=== PATIENT | male | born 1950 | race Caucasian/White ===

== ENCOUNTER 2019-01-19 18:16 | Inpatient (IN) | payer MEDICARE, SELFPAY ==
[2019-01-19] VITALS (36 sets, daily range): BP systolic 172–218; BP diastolic 94–135; PULSE 78–107; RESP 10–28; TEMP 36.6–37; O2SAT 93–99
--- NOTE | 2019-01-19 18:26 | ED.GENADUL_ITS ---
Discharge Plan Disposition Patient Disposition: [facility] INPATIENT Condition: Poor Discharge Details Chief Complaint: AMS/LOC Clinical Impression: Hypercalcemia, Renal insufficiency, BPH without obstruction/lower urinary tract symptoms, Altered mental status Primary Care Provider: None,None ED Provider: Agnes Wilson Medical Decision Making Patient 60-year-old male, brought in via EMS accompanied by his brother, with chief complaint of altered mental status and syncope. Mother reports that he has had increased confusion over the past few weeks. Mother states the patient was seen by his primary care and they were concerned that he may potentially be developing early dementia. But states that his balance has been off and he is fallen multiple times in recent days. States that this evening he witnessed the patient having a syncopal episode. He was at that point that he contacted EMS. Patient does not remember this event. He is clearly confused, is oriented to person only. Patient is reporting that he feels well at this time. He does not have any discomfort. Denies any chest pain or shortness of breath. No recent illness that they are aware of. Denies any past medical history. Is not on any medications. He denies any dysuria. No change in bowel or bladder habits the patient is aware of. On exam, patient is pleasantly confused. Is able to follow all commands, no notable neurologic deficit aside from confusion. Plan for labs and CT head, chest x-ray. Labs significant for a critical calcium of 12.2. Albumin is normal. Creatinine is 1.56. Patient is receiving IV fluids. Is currently on second liter. Brother reports that patient drinks 1 gallon of milk per day. Patient initially denied hx of HTN but he and brother are now reporting that his BP is always very high. FINDINGS: Lungs: Unremarkable. No consolidation. Pleural space: Unremarkable. No pleural effusion. No pneumothorax. Heart/Mediastinum: Unremarkable. No cardiomegaly. Vasculature: Severe atherosclerosis of the thoracic aorta. Bones/joints: Unremarkable. IMPRESSION: Chronic changes but no acute cardiopulmonary process. FINDINGS: Brain: There is no acute hemorrhage, mass effect, or extra-axial fluid collections. His very severe diffuse symmetric periventricular hypodensity extends throughout the centrum semiovale. Cortical sulci are also mildly enlarged for age. There is a 7 mm hypodensity in the lateral aspect of the left lentiform nucleus. Ventricles: Ventricles are symmetric with slightly larger than average for age. Bones/joints: Unremarkable. No acute fracture. Sinuses: Moderate mucosal thickening in most of the ethmoidal air cells. The remainder the visualized paranasal sinuses are well-aerated. Mastoid air cells: Visualized mastoid air cells are well aerated. Soft tissues: Unremarkable. IMPRESSION: 1. No evidence of acute infarct but there appears be an old lacunar infarct in the left basal ganglia. 2. Severe chronic small vessel ischemic changes throughout she white matter 3. Moderate chronic appearing ethmoidal sinusitis Dr. Pati Gonzalez was in the department and we discussed the case as he will be following patient tomorrow in patient. I was planning on obtaining imaging of the patient's kidneys but he advised that as this is not going to change anything imminently on the patient, to hold off, hydrate the patient so that more appropriate imaging may be obtained tomorrow to evaluate for any cancerous etiology of his hypercalcemia. Patient does have blood in his urine. I have added an ionized calcium, parathyroid hormone. Prostate exam reveals a very hard, enlarged prostate, nontender. Will add on PSA Discussed case with who advised beginning the patient on oral metoprolol. Agrees to admission. [facility] but [facility] do not have [facility] availability at this time. Patient continues to be pleasantly confused but is easily redirected. Discussed plan with patient and his brother, they are in agreement with this plan. HPI General Mode of arrival: EMS . Date/Time Provider Initiated Documentation: 01/19/19 18:22 . Limitations to Documentation: altered mental status . Information obtained by: family, EMS and RN notes reviewed . HPI Narrative: Patient is a 68-year-old female with no known medical history, brought in via EMS and accompanied by his brother, chief concern for altered mental status. His brother, with whom the patient resides, reports the patient has becoming increasingly confused over the past several weeks. States that his balance has been off he has been falling frequently. He appeared to have a syncopal episode tonight prompting her to call EMS. Patient is never smoker. Family history significant for diabetes. Patient is typically very active, normally fairly healthy individual. Brother reports he was seen by his primary care and there was concern for early onset dementia. However, mother reports that they were in the kitchen and the patient had a syncopal episode this evening. He had been encouraging his bedside care urgently previously with his multitude of falls and has increased confusion. He does report the patient has severe cataracts and is supposed to have surgical intervention for correction that secondary to this altered mental status is not been able to be completed. Patient is currently oriented to person only. Stable denies any recent illness. Patient is not endorsing any pain. General Stated Complaint: AMS/LOC SUNNI: 3 Review of Systems Narrative: Patient is confused. Alert. Oriented to person only. Exam Const General: cooperative, healthy appearing, comfortable, no acute distress and well developed Nutritional Appearance: average body habitus and well nourished Orientation: alert, awake, oriented to person, not oriented to place, not oriented to time and confused HENUT Head: normal to inspection Ears: hearing grossly normal bilaterally Mouth: moist mucous membranes Neck Neck: normal visual inspection, full ROM, no lymphadenopathy and no meningeal signs Chest Chest: normal inspection of the chest, normal palpation of entire chest wall and no crepitus Resp Effort & Inspection: normal respiratory effort, able to speak in complete sentences and no respiratory distress Auscultation: clear to auscultation bilaterally, no rales, no rhonchi and no wheezes Cardio Rate: regular rate Rhythm: regular rhythm Heart Sounds: S1 normal and S2 normal GI Inspection: normal to inspection, no edema and non-distended Palpation: soft, no hepatosplenomegaly, not firm, no guarding, not rigid and nontender Auscultation: normal bowel sounds Back/Spine/Pelvis Back: no CVA tenderness Thoracic/Lumbar Spine: thoracic and lumbar spine normal to inspection Skin General skin exam: no rashes or lesions noted Trauma: no lacerations or abrasions Neuro General: alert, awake, oriented Patient Orientation: Person and Confused, gait normal and moves all extremities Cognition: normal cognition Speech: speech normal Gait: normal gait Motor: muscle tone normal throughout, strength 5/5 throughout, no pronator drift, no movement abnormalities noted and no fasciculations Sensory Exam: no sensory deficits noted Extrem General: normal to inspection, normal capillary refill, no pedal edema, no calf tenderness and normal gait Psych Appearance: grossly normal and well kempt Mental Status: mental status grossly normal Speech and Movement: speech and movement normal Course Vital Signs Vital signs: Vital Signs Temperature 36.6 C 01/19/19 18:18 Pulse 99 H 01/19/19 18:18 Respiratory Rate 18 01/19/19 18:18 Blood Pressure 193/108 H 01/19/19 18:18 Pulse Oximetry 95 01/19/19 18:18 Temperature 36.6 C 01/19/19 18:18 Temperature Source Temporal Artery Scan 01/19/19 18:18 Pulse 99 H 01/19/19 18:18 Respiratory Rate 18 01/19/19 18:18 Blood Pressure 193/108 H 01/19/19 18:18 Blood Pressure Position Sitting 01/19/19 18:18 Pulse Oximetry 95 01/19/19 18:18 Oxygen Delivery Method Room Air 01/19/19 18:18 Oxygen Flow Rate 0 01/19/19 18:18
[2019-01-19] MEDS: Normal Saline 1,000 ML 1000 ML IV (18:50)
[2019-01-19 19:08] LABS: Abs Immature Grans 0.02 k/cumm (0.0-0.09); Absolute Basophil Count 0.02 k/cumm (0.0-0.2); Absolute Eosinophil Count 0.06 k/cumm (0.0-0.7); Absolute Monocyte Count 0.94 k/cumm (0.11-0.7); Absolute Neutrophil Count 4.49 k/cumm (1.2-6.7); Basophils % 0.3; Eosinophils % 0.9; HCT 43.8 % (40.0-50.0); HGB 15.2 g/dL (13.5-17.5); Immature Grans % 0.3; Lymphocytes % 17.8; Mean Corp. HGB Concentration 34.7 g/dL (32.0-36.0); Mean Corpuscular Hemoglobin 29.2 pg (27.0-33.0); Mean Corpuscular Volume 84.2 fL (80-95); Mean Platelet Volume 10.1 fL (8.0-11.0); Neutrophils % 66.7; Platelet Count 227 x1000/uL (130-400); RBC Distribution Width 14.1 % (11.8-14.1); White Blood Cell Count 6.73 k/cumm (4.4-10.8)
[2019-01-19 19:13] LABS: Bilirubin Negative (Negative); Blood Moderate (Negative); Clarity Clear (Clear); Glucose Negative (Negative); Ketones Negative (Negative); Leukocyte Esterase Negative (Negative); Nitrite Negative (Negative); Urobilinogen 0.2 EU/dL (Up TO 0.2)
[2019-01-19 19:19] LABS: ALT 33 U/L (16-63); AST 28 U/L (15-37); Albumin 3.8 g/dL (3.4-5.0); Alkaline Phosphatase 91 U/L (46-116); Ammonia 21 umol/L (11-32); BUN 37 mg/dL (7-18); Bilirubin, Total 0.5 mg/dL (0.2-1.0); CREATININE 1.56 mg/dL (0.70-1.30); Chloride 105 mmol/L (98-107); Estimated GFR 44.48 (mL/min/1.73m2); Glucose 108 mg/dL (70-100); Magnesium 2.1 mg/dL (1.8-2.4); Potassium 3.6 mmol/L (3.5-5.1); Sodium 139 mmol/L (136-145); TSH 1.38 uIU/mL (0.36-3.74); Total Protein 7.9 g/dL (6.4-8.2)
[2019-01-19 19:22] LABS: Bacteria Rare HPF (Negative); C & S Indicated? No; Casts Negative LPF (Negative); Crystals Negative HPF (Negative); Epithelial Cells Negative HPF (Negative); Mucus Trace (Negative); Other Cells Negative (Negative); WBC Negative HPF (0-5)
--- NOTE | 2019-01-19 19:27 | DI.CT_ITS ---
EXAM: CT HEAD WO CLINICAL HISTORY: AMS, multiple falls TECHNIQUE: Noncontrast COMPARISON: No exams were available for comparison FINDINGS: No intracranial hemorrhage or skull fracture is seen. There is mild atrophy. The ventricles are no rmal in size. There is an old left basal ganglia lacunar infarct and a right basal ganglia calcifica tion. There are white matter changes likely reflecting chronic microvascular changes. The sinuses a nd mastoid air cells are clear where visualized. IMPRESSION: Old left basal ganglia lacunar infarct. No acute abnormality.
--- NOTE | 2019-01-19 19:27 | DI.RAD_ITS ---
EXAM: XR CHEST 2V PA LATERAL INDICATION: Altered mental status, multiple falls COMPARISON: No exams were available for comparison TECHNIQUE: 2D digital imaging was performed. FINDINGS: Heart size is at the upper limits of normal. The aorta is tortuous, calcified and mildly dilated. The lungs are clear. No infiltrate, effusion or pulmonary edema is seen. There are no thoracic comp ression fractures. IMPRESSION: No acute abnormality.
[2019-01-19 19:29] LABS: Calcium 12.2 mg/dL (8.5-10.1)
--- NOTE | 2019-01-19 19:40 | NUR.NOTE ---
Nursing Note: Patient wanting IV out. Was informed of reason it needs to stay in. Patient agrees to leave IV in place at this time. Patient does repeatedly ask when she is going home. Informed we are waiting on all test results then provider will be in to discuss results with her.
--- NOTE | 2019-01-19 19:48 | NUR.NOTE ---
Nursing Note: Labels for add on blood work sent to lab.
--- NOTE | 2019-01-19 19:49 | DI.VRAD_ITS ---
PROCEDURE INFORMATION: Exam: CT Head Without Contrast Exam date and time: 01/19/2019 7:17 PM Clinical history: 68 years old, male; Altered mental status/memory loss TECHNIQUE: Imaging protocol: Computed tomography of the head without contrast. Radiation optimization: All CT scans at this facility use at least one of these dose optimization techniques: automated exposure control; mA and/or kV adjustment per patient size (includes targeted exams where dose is matched to clinical indication); or iterative reconstruction. COMPARISON: No relevant prior studies available. FINDINGS: Brain: There is no acute hemorrhage, mass effect, or extra-axial fluid collections. His very severe diffuse symmetric periventricular hypodensity extends throughout the centrum semiovale. Cortical sulci are also mildly enlarged for age. There is a 7 mm hypodensity in the lateral aspect of the left lentiform nucleus. Ventricles: Ventricles are symmetric with slightly larger than average for age. Bones/joints: Unremarkable. No acute fracture. Sinuses: Moderate mucosal thickening in most of the ethmoidal air cells. The remainder the visualized paranasal sinuses are well-aerated. Mastoid air cells: Visualized mastoid air cells are well aerated. Soft tissues: Unremarkable. IMPRESSION: 1. No evidence of acute infarct but there appears be an old lacunar infarct in the left basal ganglia. 2. Severe chronic small vessel ischemic changes throughout she white matter 3. Moderate chronic appearing ethmoidal sinusitis Dictated and Authenticated by: Domingo Rodriguez MD. Ordering:NEYMAR Alarcon MD
--- NOTE | 2019-01-19 19:50 | DI.VRAD_ITS ---
PROCEDURE INFORMATION: Exam: XR Chest, 2 Views Exam date and time: 01/19/2019 6:35 PM Clinical history: 68 years old, male; Other: Altered mental status, multiple falls TECHNIQUE: Imaging protocol: XR of the chest Views: 2 views. COMPARISON: No relevant prior studies available. FINDINGS: Lungs: Unremarkable. No consolidation. Pleural space: Unremarkable. No pleural effusion. No pneumothorax. Heart/Mediastinum: Unremarkable. No cardiomegaly. Vasculature: Severe atherosclerosis of the thoracic aorta. Bones/joints: Unremarkable. IMPRESSION: Chronic changes but no acute cardiopulmonary process. Dictated and Authenticated by: Domingo Rodriguez MD. Ordering:NEYMAR Alarcon MD
[2019-01-19] MEDS: Normal Saline Flush 10 ML SYR IVP (19:56)
--- NOTE | 2019-01-19 20:23 | HPE_ITS ---
Date of service: 01/19/19 Time of Service: 20:23 Assessment and Plan Assessment and plan (1) Hypercalcemia: Start date: 01/19/19 Status: Acute Assessment and plan: This is a 68-year-old gentleman who presented with mental status changes over weeks and was found to be hypercalcemic was having a work-up as an outpatient with probable dementia. He does have an old lacunar infarct on CT and extensive small vessel ischemic disease. He does have renal insufficiency but no anemia or hyperproteinemia to indicate multiple myeloma and thus far no suggestion of bony disease though his prostate is slightly enlarged but otherwise normal filling. We will check a PSA. Imaging to be done in the morning for further evaluation overnight he will be hydrated for his hypercalcemia and probable acute renal insufficiency with no comparison labs available. He does go the [facility] care. His home meds are unknown. He is a full code at this time. (2) Renal insufficiency: Start date: 01/19/19 Status: Acute Assessment and plan: IV hydration as above and follow-up lab in the morning. (3) BPH without obstruction/lower urinary tract symptoms: Status: Chronic Assessment and plan: Exam is not indicative of gross evidence for prostate cancer and PSA will be checked. Patient is not complained of back pain. History of Present Illness History of Present Illness Chief Complaint: Confusion with falling Narrative: This is a 68-year-old gentleman who lives with his brother and is checked him on by his mother with recent change in mental status. His Ol[place]a was having a work- up for cataract surgery but his mental status changes have become problematic with question of whether he is having progressive dementia but this seems to be of rather sudden onset over the last couple weeks by reviewing the ED report. He has been falling but not injuring himself. He was found to have hyperca lcemia with some mild renal insufficiency with no previous records for baseline. He denies any musculoskeletal pain, has had no recent illness by report with no focal neurologic complaints other than his change in mental status and disorientation. His bowel habits and urinary habits have been normal. He does not complain of palpitations or chest pain and is not reporting dizziness with his falls. CT imaging of his head did reveal an old lacunar infarct in the left basal ganglia with severe chronic small vessel ischemic changes throughout his white matter. He also had mild to moderate ethmoidal sinusitis. His chest x-ray was unrevealing. Patient was admitted for monitoring while we IV hydrated him for his hypercalcemia with further imaging planned in the morning. He did have a PSA checked because of BPH but by exam in the ED it was thought to be hard but symmetrical without irregularity. I will perform prostate exam myself. He does not have any hyperproteinemia with his renal insufficiency and he is not anemic with multiple myeloma being in the differential diagnosis. Prostate cancer is in the differential diagnosis with bone involvement but he is having no bone pain. Review of Systems Narrative: Also see ED report and HPI for attempted review of systems with verbal response from patient. His brother/mother did give some history. Unobtainable due to mental condition [facility] Medical History (Updated 01/20/19 @ 00:07 by Tavo Owens) Cataracts, bilateral (Acute) Left sided lacunar infarction (Acute) Memory impairment (Acute) Social History Smoking/Tobacco Use Status: Unknown Meds Home Medications and Allergies Home Medications Medication Instructions Recorded Confirmed Type Unknown [No Known Home Meds] 01/19/19 01/19/19 History Allergies Allergy/AdvReac Type Severity Reaction Status Date / Time No Known Allergies Allergy Unverified 01/19/19 21:40 Exam Narrative Exam Narrative: General: Patient is muscular moves very slowly and bent over walking with a walker and is moderately antalgic. He is oriented to person only. He is in no acute distress. He is cooperative. HEENT: Normocephalic with eyes revealing pupils equal and reactive to oropharynx with slightly dry oral mucosa. Light symmetrically, sclera anicteric and extraocular movement intact. Neck: Supple without JVD. Back: Stooped posture with slight kyphosis, no CVA tenderness, no tenderness over the spine. Lungs: Fair aeration with no focalizing rales or rhonchi. Normal inspiratory to expiratory phase ratio. Heart: Regular rate and rhythm with no appreciable murmurs or gallops. Chest: Symmetric with inspiration and no tenderness to palpation. Abdomen: Soft, no tenderness and no palpable hepatomegaly. Genitalia/rectal: Normal external genitalia, rectal exam with normal sphincter tone and 40 g prostate, symmetric, firm and no palpable nodules. Extremities: Without clubbing, cyanosis or edema but decreased range of motion most joints. Normal musculature. Peripheral pulses intact with good capillary refill. Neuro: Cranial nerves II through XII appear to be grossly intact, no focalizing motor deficits, positive Romberg and negative Babinski's. Skin: Abrasions over the knees which appear old but no other rashes or apparent bruises. Warm and dry with normal coloration. Results Imaging Imaging Studies: Exam(s) PROCEDURE INFORMATION: Exam: XR Chest, 2 Views Exam date and time: 01/19/2019 6:35 PM Clinical history: 68 years old, male; Other: Altered mental status, multiple falls TECHNIQUE: Imaging protocol: XR of the chest Views: 2 views. COMPARISON: No relevant prior studies available. FINDINGS: Lungs: Unremarkable. No consolidation. Pleural space: Unremarkable. No pleural effusion. No pneumothorax. Heart/Mediastinum: Unremarkable. No cardiomegaly. Vasculature: Severe atherosclerosis of the thoracic aorta. Bones/joints: Unremarkable. IMPRESSION: Chronic changes but no acute cardiopulmonary process. Dictated and Authenticated by: Domingo Rodriguez MD. Exam(s) PROCEDURE INFORMATION: Exam: CT Head Without Contrast Exam date and time: 01/19/2019 7:17 PM Clinical history: 68 years old, male; Altered mental status/memory loss TECHNIQUE: Imaging protocol: Computed tomography of the head without contrast. Radiation optimization: All CT scans at this facility use at least one of these dose optimization techniques: automated exposure control; mA and/or kV adjustment per patient size (includes targeted exams where dose is matched to clinical indication); or iterative reconstruction. COMPARISON: No relevant prior studies available. FINDINGS: Brain: There is no acute hemorrhage, mass effect, or extra-axial fluid collections. His very severe diffuse symmetric periventricular hypodensity extends throughout the centrum semiovale. Cortical sulci are also mildly enlarged for age. There is a 7 mm hypodensity in the lateral aspect of the left lentiform nucleus. Ventricles: Ventricles are symmetric with slightly larger than average for age. Bones/joints: Unremarkable. No acute fracture. Sinuses: Moderate mucosal thickening in most of the ethmoidal air cells. The remainder the visualized paranasal sinuses are well-aerated. Mastoid air cells: Visualized mastoid air cells are well aerated. Soft tissues: Unremarkable. IMPRESSION: 1. No evidence of acute infarct but there appears be an old lacunar infarct in the left basal ganglia. 2. Severe chronic small vessel ischemic changes throughout she white matter 3. Moderate chronic appearing ethmoidal sinusitis Dictated and Authenticated by: Domingo Rodriguez MD. Labs Result diagrams: 01/19/19 18:30 01/19/19 18:30 Labs: Laboratory Results - last 24 hr 01/19/19 01/19/19 01/19/19 18:30 18:30 18:30 WBC 6.73 RBC 5.20 Hgb 15.2 Hct 43.8 MCV 84.2 MCH 29.2 MCHC 34.7 RDW 14.1 Plt Count 227 MPV 10.1 Immature Gran % 0.3 Neutrophils % 66.7 Lymphocytes % 17.8 Monocytes % 14.0 Eosinophils % 0.9 Basophils % 0.3 Absolute Neutrophils 4.49 Absolute Lymphocytes 1.20 Absolute Monocytes 0.94 H Absolute Eosinophils 0.06 Absolute Basophils 0.02 Sodium 139 Potassium 3.6 Chloride 105 Carbon Dioxide 24.0 Anion Gap 10.0 BUN 37 H Creatinine 1.56 H Estimated GFR/1.73 m2 44.48 Glucose 108 H Calcium 12.2 H* Magnesium 2.1 Total Bilirubin 0.5 AST 28 ALT 33 Alkaline Phosphatase 91 Ammonia 21 Total Protein 7.9 Albumin 3.8 TSH 1.38 Urine Color Urine Clarity Urine pH Ur Specific [place] Urine Protein Urine Ketones Urine Blood Urine Nitrite Urine Bilirubin Urine Urobilinogen Ur Leukocyte Esterase Urine RBC Urine WBC Ur Epithelial Cells Urine Crystals Urine Bacteria Urine Casts Urine Mucus Urine Other Ur Culture Indicated? Urine Glucose 01/19/19 19:10 WBC RBC Hgb Hct MCV MCH MCHC RDW Plt Count MPV Immature Gran % Neutrophils % Lymphocytes % Monocytes % Eosinophils % Basophils % Absolute Neutrophils Absolute Lymphocytes Absolute Monocytes Absolute Eosinophils Absolute Basophils Sodium Potassium Chloride Carbon Dioxide Anion Gap BUN Creatinine Estimated GFR/1.73 m2 Glucose Calcium Magnesium Total Bilirubin AST ALT Alkaline Phosphatase Ammonia Total Protein Albumin TSH Urine Color Yellow Urine Clarity Clear Urine pH 6.0 Ur Specific [place] 1.020 Urine Protein 100 H Urine Ketones Negative Urine Blood Moderate H Urine Nitrite Negative Urine Bilirubin Negative Urine Urobilinogen 0.2 Ur Leukocyte Esterase Negative Urine RBC 5-10 H Urine WBC Negative Ur Epithelial Cells Negative Urine Crystals Negative Urine Bacteria Rare Urine Casts Negative Urine Mucus Trace Urine Other Negative Ur Culture Indicated? No Urine Glucose Negative Last Vital Signs Temp 36.6 C 01/19/19 18:18 Pulse 93 H 01/19/19 19:46 Resp 15 01/19/19 18:31 BP 204/103 H 01/19/19 19:46 Pulse Ox 97 01/19/19 19:46
[2019-01-19] MEDS: Metoprolol 25 MG TAB PO (20:37)
[2019-01-19] MEDS: Normal Saline 1,000 ML 150 ML IV (20:40)
[2019-01-20] VITALS (19 sets, daily range): BP systolic 148–224; BP diastolic 92–188; PULSE 69–94; RESP 16–18; TEMP 36.6–37.1; O2SAT 97–98
[2019-01-20] MEDS: Normal Saline 1,000 ML 150 ML IV ×3 (00:14→17:33)
[2019-01-20] MEDS: Heparin 5,000 UNITS/ML VIAL 5000 UNITS SC ×3 (00:58→16:19)
[2019-01-20] MEDS: Normal Saline Flush 10 ML SYR IVP ×2 (05:48→20:24)
[2019-01-20] MEDS: Metoprolol 5 MG/5 ML VIAL IVP (05:49)
[2019-01-20] MEDS: Metoprolol 25 MG TAB PO ×2 (05:50→21:54)
[2019-01-20 07:30] LABS: HCT 43.2 % (40.0-50.0); HGB 14.5 g/dL (13.5-17.5); Mean Corp. HGB Concentration 33.6 g/dL (32.0-36.0); Mean Corpuscular Hemoglobin 28.8 pg (27.0-33.0); Mean Corpuscular Volume 85.7 fL (80-95); Mean Platelet Volume 10.1 fL (8.0-11.0); Platelet Count 197 x1000/uL (130-400); RBC 5.04 m/cumm (4.50-6.00); RBC Distribution Width 14.3 % (11.8-14.1); White Blood Cell Count 5.59 k/cumm (4.4-10.8)
[2019-01-20 07:40] LABS: ALT 30 U/L (16-63); AST 25 U/L (15-37); Albumin 3.3 g/dL (3.4-5.0); Alkaline Phosphatase 81 U/L (46-116); Anion Gap 9.6 mmol/L (3-11); BUN 27 mg/dL (7-18); Bilirubin, Total 0.9 mg/dL (0.2-1.0); CO2 23.4 mmol/L (21.0-32.0); CREATININE 1.39 mg/dL (0.70-1.30); Calcium 10.4 mg/dL (8.5-10.1); Chloride 111 mmol/L (98-107); Estimated GFR 50.82 (mL/min/1.73m2); Glucose 90 mg/dL (70-100); Potassium 3.8 mmol/L (3.5-5.1); Sodium 144 mmol/L (136-145); Total Protein 6.9 g/dL (6.4-8.2)
--- NOTE | 2019-01-20 08:47 | PHARADMIT ---
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 as outpt Also admitted for altered mental status Objective Ca++ 9.9 (Corrected Calcium is 10.46), K+ 3.6, Mag 2.0 VS ok, BP 143/90, weight down 0.6kg (73kg) Assessment MD mentions stopping IVF's (has KCL running) Hydralazine dose increased, BP improved Swallowing assessment: overall function improved, managing regular diet & thin liquids, able to feed self Lasix was a 1x order yesterday...but IVF's still running Plan PT/OT, discharge plan [facility] Addendum entered by Patricia Jain 01/25/19 16:43: Pharmacy Note Subjective mental status close to baseline per MD Objective BP 146/80, Afebrile, weight down 4kg overnight, SCr down 1.33 Calcium down 10.0, K+ 3.2, Mag 1.8 Assessment IVF's changed to include 40meq KCL Lasix 20mg IVP x1 Sensipar (Cinacalcet) added-for Hyperparathyroidism Hydralazine dose increased yesterday Plan will need outpatient thyroid surgery, follow Calcium, weight, diuresis, BP Addendum entered by Caroline Coppola 01/21/19 16:17: Pharmacy Note Subjective pt continues to be confused per morning report. has history of hyperparathyroid and HTN Objective BP-160/103 SCr-1.31 calcium-10.9(down) Assessment aspirin, atorvastatin, carvedilol, folic acid ordered metoprolol discontinued haloperidol X1 dose given today neuro consult ordered Plan continue to watch calcium Original Note: Admission Pharmacy Clinical Review HYPERCALCEMIA,RENAL INSUFFICIENCY, BPH Code Status Full Code Current Weight Wgt- 80.4 kg Renally Cleared and Narrow Therapeutic Index Meds CrCl~39 mL/min Meds-OK QTc Value / Action Taken QTc-448 NA BP Control, Fever BP-224/154 Tmax-36.6C Electrolytes reviewed Na-144 K+3.8 Mag-2.1 DVT Prophylaxis Heparin-SC Opiate Usage / Scheduled Bowel Regimen Ordered No Yes Plt/SCr for Heparin / Enoxaparin Plts-197 SCr-1.39 INR for Warfarin NA H/H stable, WBC/Bands H&H-14.5/43.2 WBC-5.59 Antibiotic appropriateness nononene Cultures and Sensitivities NA Surgical ABX d/c within 24 hr DM control / Insulin Dosing BG-90 Heart Failure (Check EF%) (DAVID's, B-Block, Diuretics) Norvasc, Hydralazine, IV to PO Switch No Home Meds Reviewed Yes Home Meds Not Ordered No Known Meds Comments
[2019-01-20] MEDS: Haloperidol 5 MG/ML VIAL 2 MG IM/IV (09:17)
[2019-01-20] MEDS: amLODIPine 10 MG TAB PO (10:09)
--- NOTE | 2019-01-20 14:22 | NUR.NOTE ---
Nursing Note: From 709 to 929 Pt is confused, restless and rambunctious, walking in hallways, refusing to go into his room, trying to escape on the elevators. unsteady on feet and displaying no regard for safety of himself or staff.
--- NOTE | 2019-01-20 15:10 | DI.MRI_ITS ---
EXAM: MR BRAIN WO CLINICAL HISTORY: Altered Mental Status. TECHNIQUE: Multiplanar multisequence MRI was performed. COMPARISON: CT HEAD WO from 01/19/2019 FINDINGS: The exam is limited by patient motion and patient positioning. Mild atrophy is again noted. High si gnal in the white matter and an old left basal ganglia lacunar infarct. No acute infarct, hemorrhage or mass is seen. There are no areas restricted diffusion; however, the frontal lobes show significa nt artifact on the diffusion-weighted sequences. IMPRESSION: Severely limited exam due to patient motion and positioning. Prominent white matter changes of small vessel disease are noted. There is a tiny old left basal ganglia lacunar infarct.
--- NOTE | 2019-01-20 16:27 | INITIAL_ITS ---
- If Service Date Differs Date of service: 01/20/19 Time of Service: 16:27 Care Management Initial Assess REASON FOR HOSPITALIZATION:: Hypercalcemia, renal insuf, BPH PAST MEDICAL HISTORY/PAST SURGICAL HISTORY:: [facility]cal[facility], [facility] PREVIOUS FUNCTIONAL STATUS/SOCIAL/FAMILY SUPPORTS:: Sandeep lives with his brother and mother in [place], [place]. Brother reports that Sandeep is is usually indepedent however over the last year has become more confused. He uses [facility] for transportation and his last visit to a primary care provider was in 2006, according to records he has been seen in the ER in [place] and [facility] for a total of 3 times over the past 5 years. CURRENT FUNCTIONAL STATUS:: Sandeep is alert, however confused he does have a pateint one on one with him. He appears confused however he is able to be redirected and sit down in his room and meet with CM. ADVANCE DIRECTIVES:: None on file - unable to complete at this time Has patient been provided with information about the portal?: Yes Did the patient sign up for the portal?: No CODE STATUS:: Full Code INSURANCE COVERAGE / FINANCIAL ISSUES:: Medicare CURRENT HOME/COMMUNITY SERVICES/EQUIPMENT:: None at this time PRIMARY CARE PHYSICIAN:: KARRIE POTENTIAL DISCHARGE NEEDS:: Will need [facility] with [facility] to discharge. CM will fax H&P. PATIENT/FAMILY EDUCATION NEEDS:: Discharge education, limitations and follow up plan of care including family should be included. ANTICIPATED BARRIERS TO DISCHARGE:: Needs to be connected to services prior to discharge including [facility] TRANSPORTATION:: Via private car with brother at time of discharge. PLAN:: Sandeep will be discharged home when medically ready per provider. CM will assist in coordinating new appointment with the [facility] and fax over H&P as well as Discharge summary. CM did contact the [facility] to transfer patient however there are no beds at this time.
[2019-01-20 17:23] LABS: Ionized Calcium 1.39 mmol/L (1.12-1.32)
--- NOTE | 2019-01-20 19:13 | W.PM.PROGNOT ---
Date of Service Date of service: 01/20/19 Time of Service: 19:14 Assessment and Plan Assessment and plan (1) Altered mental status: Status: Acute Assessment and plan: Appearance of a chronic change in mental status, acutely worsened with associated weakness and falls. - Evidence of Hypercalcemia - However, vastly improved and nearly normalized this morning, with patient still altered. - Urinalysis and CXR negative, patient afebrile, and without leukocytosis. Doubt infection. - CT Head negative. Will check MRI, especially given evidence of old CVA's by CT, to ensure lack of acute pathology. - Evidence of ALICJA, which is mild and improved - certainly not uremic. Also with normal LFTs and Ammonia - not hepatic encephalopathy. - No evidence of hypoxia, EtOH intoxication, or hyponatremia. TSH checked and normal. Check B12 and Folate. - No alterations in medications. Patient does not take any home Rx. (2) Hypercalcemia: Status: Acute Assessment and plan: I-PTH and Ionized Calcium pending, but according to discussion between Case Management and the [facility], Mr. Ritter has a lengthy history of Hyperparathyroidism as likely cause. Continue IVFs until diagnosis is confirmed. (3) Hypertension: Status: Chronic Assessment and plan: Initiate CCB to already started BB. IV Hydralazine prn. Also seems to have component of worsening with agitation. Monitor. (4) ALICJA (acute kidney injury): Status: Acute Assessment and plan: Improved with IVFs. Unsure of baseline. (5) CVA (cerebral vascular accident): Status: Chronic Assessment and plan: Initiate on daily ASA and statin therapy. MRI brain as above. (6) DVT prophylaxis: Status: Acute Assessment and plan: SC Heparin. Subjective Subjective Interval history since last seen: 68 [facility] old [facility] patient admitted [facility] Emergency Department on 01/21 with a diagnosis of altered mental status and hypercalcemia. Mr. Ritter has an unknown prior history - he is a [facility], but has not been seen by them since 2006. Since his admission, Case Management has confirmed diagnosis of Hyperparathyroidism and HTN that has likely gone untreated since that time. He was brought to the ED via EMS with reported altered mental status and syncope. The patient has been reported to have increasing confusion over the past few weeks to months - was seen by his PCP who had concern regarding the possibility of the development of early dementia. He has also been reported to have gait dysfunction, with multiple falls over the course of the last few days as well as worsening confusion per discussion with his brother. There is also some question of syncope at home, although history sounds more like continued falls at home. Work-up in the ED was significant for a normal CBC, mildly elevated creatinine but otherwise normal sodium, potassium, and bicarb, elevated Ca of 12.2, and normal LFTs. His ammonia and TSH were also normal. CXR did not show any acute abnormalities, and CT of the head showed an old left basal ganglia lacunar infarct without any acute findings. He was initiated on IVFs, and referred for admission for further evaluation and treatment. By the morning after admission Mr. Ritter's Calcium had nearly normalized, but the patient continued to be confused. He was agitated requiring administration of haldol. Also remains hypertensive. No other events reported. He has remained afebrile. Exam Narrative Exam Narrative: General: Patient appears comfortable, not agitated at time of exam, not oriented, NAD Neck: Supple CV: Regular, nontachycardic, S1S2, No rubs, murmurs, or gallops. Pulmonary: Clear to auscultation bilaterally, no crackles, wheezing, or rhonchi Abdomen: + Bowel Sounds, soft, nontender, nondistended Vascular: No lower extremity edema Psych: Normal mood and affect. Objective Objective Clinical Data: Abnormal lab results 01/19/19 01/19/19 01/19/19 Range/Units 18:30 18:30 19:10 RDW (11.8-14.1) % Absolute Monocytes 0.94 H (0.11-0.7) k/cumm Chloride (98-107) mmol/L BUN 37 H (7-18) mg/dL Creatinine 1.56 H (0.70-1.30) mg/dL Glucose 108 H (70-100) mg/dL Calcium 12.2 H* (8.5-10.1) mg/dL Albumin (3.4-5.0) g/dL Urine Protein 100 H (Negative) mg/dL Urine Blood Moderate H (Negative) Urine RBC 5-10 H (0-2) HPF 01/20/19 01/20/19 Range/Units 06:43 06:43 RDW 14.3 H (11.8-14.1) % Absolute Monocytes (0.11-0.7) k/cumm Chloride 111 H (98-107) mmol/L BUN 27 H D (7-18) mg/dL Creatinine 1.39 H (0.70-1.30) mg/dL Glucose (70-100) mg/dL Calcium 10.4 H (8.5-10.1) mg/dL Albumin 3.3 L (3.4-5.0) g/dL Urine Protein (Negative) mg/dL Urine Blood (Negative) Urine RBC (0-2) HPF Vital Signs Temperature 36.8 C 01/20/19 14:54 Temperature Source Tympanic 01/20/19 14:54 Pulse 73 01/20/19 14:54 Pulse Rhythm Regular 01/20/19 15:40 Pulse 81 01/19/19 21:40 Respiratory Rate 18 01/20/19 14:54 Respiratory Effort Non-Labored 01/20/19 15:40 Respiratory Depth Normal 01/20/19 15:40 Respiratory Pattern Normal 01/20/19 15:40 Blood Pressure 158/94 H 01/20/19 14:54 Blood Pressure Mean 127 01/19/19 21:31 Blood Pressure Position Sitting 01/19/19 18:18 Pulse Oximetry 98 01/20/19 14:54 Oxygen Delivery Method Room Air 01/20/19 14:54 Oxygen Flow Rate 0 01/20/19 14:54 Pain Level 0 01/20/19 14:54 Comment 01/20/19 07:25 Intake & Output 01/19/19 01/20/19 01/20/19 23:59 11:59 23:59 Intake Total 1000 / 1000 1670 / 1910 240 / 1910 Output Total 200 / 200 550 / 550 Balance 800 / 800 1120 / 1360 240 / 1360 Weight 80.4 kg 80.4 kg Intake: IV 1000 / 1000 1670 / 1670 0 / 1670 Oral 240 / 240 Output: Urine 200 / 200 550 / 550 Other: Urine Color Pale Yellow Urine Appearance Clear Clear Clear Urine Odor Strong Comment void x 1. Stool Size Large Stool Characteristics Formed Hard Voiding Methods Urinal Toilet Toilet Laboratory Results WBC 5.59 k/cumm (4.4-10.8) 01/20/19 06:43 RBC 5.04 m/cumm (4.50-6.00) 01/20/19 06:43 Hgb 14.5 g/dL (13.5-17.5) 01/20/19 06:43 Hct 43.2 % (40.0-50.0) 01/20/19 06:43 MCV 85.7 fL (80-95) 01/20/19 06:43 MCH 28.8 pg (27.0-33.0) 01/20/19 06:43 MCHC 33.6 g/dL (32.0-36.0) 01/20/19 06:43 RDW 14.3 % (11.8-14.1) H 01/20/19 06:43 Plt Count 197 x1000/uL (130-400) 01/20/19 06:43 MPV 10.1 fL (8.0-11.0) 01/20/19 06:43 Immature Gran % 0.3 01/19/19 18:30 Neutrophils % 66.7 01/19/19 18:30 Lymphocytes % 17.8 01/19/19 18:30 Monocytes % 14.0 01/19/19 18:30 Eosinophils % 0.9 01/19/19 18:30 Basophils % 0.3 01/19/19 18:30 Absolute Neutrophils 4.49 k/cumm (1.2-6.7) 01/19/19 18:30 Absolute Lymphocytes 1.20 k/cumm (1.2-3.4) 01/19/19 18:30 Absolute Monocytes 0.94 k/cumm (0.11-0.7) H 01/19/19 18:30 Absolute Eosinophils 0.06 k/cumm (0.0-0.7) 01/19/19 18:30 Absolute Basophils 0.02 k/cumm (0.0-0.2) 01/19/19 18:30 Sodium 144 mmol/L (136-145) 01/20/19 06:43 Potassium 3.8 mmol/L (3.5-5.1) 01/20/19 06:43 Chloride 111 mmol/L (98-107) H 01/20/19 06:43 Carbon Dioxide 23.4 mmol/L (21.0-32.0) 01/20/19 06:43 Anion Gap 9.6 mmol/L (3-11) 01/20/19 06:43 BUN 27 mg/dL (7-18) H D 01/20/19 06:43 Creatinine 1.39 mg/dL (0.70-1.30) H 01/20/19 06:43 Estimated GFR/1.73 m2 50.82 (mL/min/1.73m2) 01/20/19 06:43 Glucose 90 mg/dL (70-100) 01/20/19 06:43 Calcium 10.4 mg/dL (8.5-10.1) H 01/20/19 06:43 Magnesium 2.1 mg/dL (1.8-2.4) 01/19/19 18:30 Total Bilirubin 0.9 mg/dL (0.2-1.0) 01/20/19 06:43 AST 25 U/L (15-37) 01/20/19 06:43 ALT 30 U/L (16-63) 01/20/19 06:43 Alkaline Phosphatase 81 U/L (46-116) 01/20/19 06:43 Ammonia 21 umol/L (11-32) 01/19/19 18:30 Total Protein 6.9 g/dL (6.4-8.2) 01/20/19 06:43 Albumin 3.3 g/dL (3.4-5.0) L 01/20/19 06:43 PSA Screen Cancelled 01/19/19 18:30 TSH Cancelled 01/19/19 20:32 Urine Color Yellow (Yellow) 01/19/19 19:10 Urine Clarity Clear (Clear) 01/19/19 19:10 Urine pH 6.0 (5-8) 01/19/19 19:10 Ur Specific [place] 1.020 (1.005-1.025) 01/19/19 19:10 Urine Protein 100 mg/dL (Negative) H 01/19/19 19:10 Urine Ketones Negative mg/dL (Negative) 01/19/19 19:10 Urine Blood Moderate (Negative) H 01/19/19 19:10 Urine Nitrite Negative (Negative) 01/19/19 19:10 Urine Bilirubin Negative (Negative) 01/19/19 19:10 Urine Urobilinogen 0.2 EU/dL (Up TO 0.2) 01/19/19 19:10 Ur Leukocyte Esterase Negative (Negative) 01/19/19 19:10 Urine RBC 5-10 HPF (0-2) H 01/19/19 19:10 Urine WBC Negative HPF (0-5) 01/19/19 19:10 Ur Epithelial Cells Negative HPF (Negative) 01/19/19 19:10 Urine Crystals Negative HPF (Negative) 01/19/19 19:10 Urine Bacteria Rare HPF (Negative) 01/19/19 19:10 Urine Casts Negative LPF (Negative) 01/19/19 19:10 Urine Mucus Trace (Negative) 01/19/19 19:10 Urine Other Negative (Negative) 01/19/19 19:10 Ur Culture Indicated? No 01/19/19 19:10 Ur Creatinine Concen Cancelled 01/20/19 07:36 Urine Glucose Negative mg/dL (Negative) 01/19/19 19:10 U Metanephrine/Creat Cancelled 01/20/19 07:36 U Normetanephrine/Creat Cancelled 01/20/19 07:36 U Tot Metanephri/Creat Cancelled 01/20/19 07:36
[2019-01-20] MEDS: hydrALAZINE 20 MG/ML VIAL 10 MG IVP (20:23)
[2019-01-20] MEDS: Tamsulosin 0.4 MG CAPCR PO (21:54)
[2019-01-21] VITALS (12 sets, daily range): BP systolic 91–207; BP diastolic 63–118; PULSE 69–89; RESP 16–20; TEMP 36–37; O2SAT 96–99
[2019-01-21] MEDS: Heparin 5,000 UNITS/ML VIAL 5000 UNITS SC ×3 (00:01→23:57)
[2019-01-21] MEDS: Normal Saline 1,000 ML 100 ML IV ×2 (03:02→16:29)
[2019-01-21] MEDS: Metoprolol 25 MG TAB PO (04:11)
[2019-01-21] MEDS: Haloperidol 5 MG/ML VIAL 2 MG IM/IV (07:45)
--- NOTE | 2019-01-21 10:13 | NUR.NOTE ---
Nursing Note: From 709 to 829 Pt is confused, restless and rambunctious, being verbally aggressive, yelling in staffs face, walking in hallways, refusing to go into his room, trying to escape on the elevators. Code martinez called. unsteady on feet and displaying no regard for safety of himself or staff. Haldol IM given in Right gluteus branden per MD order.
--- NOTE | 2019-01-21 12:18 | CMPROGNOTE_ITS ---
- If Service Date Differs Date of service: 01/21/19 Time of Service: 12:18 Care Management Progress Note S/O: Sandeep is alert not oriented however he is calm, his brother is sitting up with him at the bedside. Sandeep is having difficulty adjusting to being in the hospital. He has been resistant in taking his medications and care due to confusion. Sandeep states the medication make him feel tired, however he is willing with his brother and CM present to take his medications now. CM co ntacted the [facility] transfer center and they are declining the patient at this time due to un[facility] care with the [facility]. CM did request records from 2006 be faxed. Sandeep does have history of hypercalcemia, hyperparathyroid, and hypertension per the [facility] that he has not had follow up since 2006. A:Sandeep is a 68 year old male admitted with hypercalcemia, renal insufficiency, altered mental status. P:Sandeep will be discharged home with follow up at the [facility] when he is medically ready. EVE has contacted Mercedes Moreira at the [facility] and faxed over the H&P they will need to be contacted to schedule the new patient appointment. His brother is willing to sit with him as needed and will transport him home at time of discharge.
[2019-01-21] MEDS: Carvedilol 6.25 MG TAB PO ×2 (12:27→19:26)
[2019-01-21] MEDS: amLODIPine 10 MG TAB PO (12:27)
[2019-01-21] MEDS: Aspirin 81 MG CHEW PO (12:27)
[2019-01-21 12:43] LABS: Abs Immature Grans 0.01 k/cumm (0.0-0.09); Absolute Basophil Count 0.01 k/cumm (0.0-0.2); Absolute Eosinophil Count 0.02 k/cumm (0.0-0.7); Absolute Lymphocyte Count 0.93 k/cumm (1.2-3.4); Absolute Monocyte Count 0.51 k/cumm (0.11-0.7); Absolute Neutrophil Count 2.35 k/cumm (1.2-6.7); Basophils % 0.3; Eosinophils % 0.5; HCT 41.7 % (40.0-50.0); HGB 14.2 g/dL (13.5-17.5); Immature Grans % 0.3; Lymphocytes % 24.3; Mean Corp. HGB Concentration 34.1 g/dL (32.0-36.0); Mean Corpuscular Hemoglobin 29.2 pg (27.0-33.0); Mean Corpuscular Volume 85.8 fL (80-95); Mean Platelet Volume 10.4 fL (8.0-11.0); Monocytes % 13.3; Neutrophils % 61.3; Platelet Count 229 x1000/uL (130-400); RBC 4.86 m/cumm (4.50-6.00); RBC Distribution Width 14.3 % (11.8-14.1); White Blood Cell Count 3.83 k/cumm (4.4-10.8)
[2019-01-21 12:48] LABS: Anion Gap 9.9 mmol/L (3-11); BUN 21 mg/dL (7-18); CO2 23.1 mmol/L (21.0-32.0); CREATININE 1.31 mg/dL (0.70-1.30); Calcium 10.9 mg/dL (8.5-10.1); Chloride 107 mmol/L (98-107); Estimated GFR 54.41 (mL/min/1.73m2); Glucose 102 mg/dL (70-100); Magnesium 1.9 mg/dL (1.8-2.4); Potassium 3.6 mmol/L (3.5-5.1); Sodium 140 mmol/L (136-145)
[2019-01-21 13:07] LABS: Hemoglobin A1C 5.6 % (4.5-6.2)
[2019-01-21 13:43] LABS: Calculated LDL 56 mg/dL; Cholesterol 102 mg/dL (50-200); HDL Cholesterol 31 mg/dL (40-60); Triglyceride 78 mg/dL (30-150)
[2019-01-21 14:05] LABS: Folate 5.9 ng/mL (8.6-20.0); Vitamin B12 1189 pg/mL (193-986)
--- NOTE | 2019-01-21 14:19 | W.PM.PROGNOT ---
Date of Service Date of service: 01/21/19 Time of Service: 14:19 Assessment and Plan Assessment and plan (1) Altered mental status: Status: Acute Assessment and plan: Appearance of a chronic change in mental status, acutely worsened with associated weakness and falls. - Evidence of Hypercalcemia - However, vastly improved and nearly normalized this morning, with patient still altered. Also with possible chronic Hyperparathyroidism. - Urinalysis and CXR negative, patient afebrile, and without leukocytosis. Doubt infection. - CT Head negative. MRI checked and limited by negative for acute findings. - Evidence of ALICJA, which is mild and improved - certainly not uremic. Also with normal LFTs and Ammonia - not hepatic encephalopathy. - No evidence of hypoxia, EtOH intoxication, or hyponatremia. TSH checked and normal. B12 normal, but Folate level low - repletion initiated. - No alterations in medications. Patient does not take any home Rx. Will request official neurology consult. (2) Hypercalcemia: Status: Acute Assessment and plan: I-PTH and Ionized Calcium pending, but according to discussion between Case Management and the [facility], Mr. Rtiter has a lengthy history of Hyperparathyroidism as likely cause. - Discussed with Endocrinology while awaiting I-PTH levels to guide next step of diagnostic work-up. Recommendations for Continue IVFs until diagnosis is confirmed. (3) Hypertension: Status: Chronic Assessment and plan: Initiated CCB, and changed Metoprolol to Carvedilol . IV Hydralazine prn. Also seems to have component of worsening values with agitation. Appears improved today - continue to Monitor and adjust meds as required. (4) ALICJA (acute kidney injury): Status: Acute Assessment and plan: Improved with IVFs. Unsure of baseline - may have chronicity to elevated creatinine. eGFR is 60. (5) CVA (cerebral vascular accident): Status: Chronic Assessment and plan: Initiated on daily ASA and statin therapy. MRI brain limited, but with small old left basal ganglia lacunar infarct. (6) DVT prophylaxis: Status: Acute Assessment and plan: SC Heparin. Subjective Subjective Interval history since last seen: 68 [facility] old [facility] patient admitted [facility] Emergency Department on 01/21 with a diagnosis of altered mental status and hypercalcemia. Mr. Ritter has an unknown prior history - he is a [facility] patient, but has not been seen by them since 2006. Since his admission, Case Management has confirmed diagnosis of Hyperparathyroidism and HTN that has likely gone untreated since that time. He was brought to the ED via EMS with reported altered mental status and syncope. The patient has been reported to have increasing confusion over the past few weeks to months - was seen by his PCP who had concern regarding the possibility of the development of early dementia. He has also been reported to have gait dysfunction, with multiple falls over the course of the last few days as well as worsening confusion per discussion with his brother. There is also some question of syncope at home, although history sounds more like continued falls at home. Work-up in the ED was significant for a normal CBC, mildly elevated creatinine but otherwise normal sodium, potassium, and bicarb, elevated Ca of 12.2, and normal LFTs. His ammonia and TSH were also normal. CXR did not show any acute abnormalities, and CT of the head showed an old left basal ganglia lacunar infarct without any acute findings. He was initiated on IVFs, and referred for admission for further evaluation and treatment. By the morning after admission Mr. Ritter's Calcium had nearly normalized, but the patient continued to be confused - Calcium is 10.9 this morning. He was agitated again this morning, requiring administration of haldol. Also remains hypertensive. MRI brain performed yesterday and negative for acute findings. No other events reported. He has remained afebrile. Exam Narrative Exam Narrative: General: Patient appears comfortable, not agitated at time of exam, not oriented, NAD Neck: Supple CV: Regular, nontachycardic, S1S2, No rubs, murmurs, or gallops. Pulmonary: Clear to auscultation bilaterally, no crackles, wheezing, or rhonchi Abdomen: + Bowel Sounds, soft, nontender, nondistended Vascular: No lower extremity edema Psych: Normal mood and affect. Objective Objective Clinical Data: Abnormal lab results 01/21/19 01/21/19 01/21/19 Range/Units 11:15 12:15 12:15 WBC 3.83 L (4.4-10.8) k/cumm RDW 14.3 H (11.8-14.1) % Absolute Lymphocytes 0.93 L (1.2-3.4) k/cumm BUN 21 H D (7-18) mg/dL Creatinine 1.31 H (0.70-1.30) mg/dL Glucose 102 H (70-100) mg/dL Calcium 10.9 H (8.5-10.1) mg/dL HDL Cholesterol 31 L (40-60) mg/dL Vitamin B12 (193-986) pg/mL Folate (8.6-20.0) ng/mL 01/21/19 Range/Units 12:15 WBC (4.4-10.8) k/cumm RDW (11.8-14.1) % Absolute Lymphocytes (1.2-3.4) k/cumm BUN (7-18) mg/dL Creatinine (0.70-1.30) mg/dL Glucose (70-100) mg/dL Calcium (8.5-10.1) mg/dL HDL Cholesterol (40-60) mg/dL Vitamin B12 1189 H (193-986) pg/mL Folate 5.9 L (8.6-20.0) ng/mL Vital Signs Temperature 36.5 C 01/21/19 04:26 Temperature Source Tympanic 01/21/19 04:26 Pulse 72 01/21/19 07:35 Pulse Rhythm Regular 01/21/19 02:19 Pulse 81 01/19/19 21:40 Respiratory Rate 16 01/21/19 07:35 Respiratory Effort Non-Labored 01/21/19 07:25 Respiratory Depth Normal 01/21/19 07:25 Respiratory Pattern Normal 01/21/19 07:25 Blood Pressure 160/103 H 01/21/19 07:35 Blood Pressure Mean 127 01/19/19 21:31 Blood Pressure Position Sitting 01/19/19 18:18 Pulse Oximetry 97 01/21/19 07:35 Oxygen Delivery Method Room Air 01/21/19 07:35 Oxygen Flow Rate 0 01/21/19 07:35 Pain Level 0 01/21/19 07:35 Comment 01/21/19 04:26 Intake & Output 01/20/19 01/21/19 01/21/19 23:59 11:59 23:59 Intake Total 457.5 / 2127.5 1709.167 / 1949.167 240 / 1948.167 Output Total 875 / 1425 1125 / 1125 Balance -417.5 / 702.5 584.167 / 824.167 240 / 824.167 Weight 80.4 kg Intake: IV 217.5 / 1887.5 1229.167 / 1229.167 Oral 240 / 240 480 / 720 240 / 720 Output: Urine 875 / 1425 1125 / 1125 Other: Urine Color Yellow Yellow Urine Appearance Clear Clear Urine Odor None Normal Comment void x 1. Voiding Methods Urinal Toilet Toilet Laboratory Results WBC 3.83 k/cumm (4.4-10.8) L 01/21/19 12:15 RBC 4.86 m/cumm (4.50-6.00) 01/21/19 12:15 Hgb 14.2 g/dL (13.5-17.5) 01/21/19 12:15 Hct 41.7 % (40.0-50.0) 01/21/19 12:15 MCV 85.8 fL (80-95) 01/21/19 12:15 MCH 29.2 pg (27.0-33.0) 01/21/19 12:15 MCHC 34.1 g/dL (32.0-36.0) 01/21/19 12:15 RDW 14.3 % (11.8-14.1) H 01/21/19 12:15 Plt Count 229 x1000/uL (130-400) 01/21/19 12:15 MPV 10.4 fL (8.0-11.0) 01/21/19 12:15 Immature Gran % 0.3 01/21/19 12:15 Neutrophils % 61.3 01/21/19 12:15 Lymphocytes % 24.3 01/21/19 12:15 Monocytes % 13.3 01/21/19 12:15 Eosinophils % 0.5 01/21/19 12:15 Basophils % 0.3 01/21/19 12:15 Absolute Neutrophils 2.35 k/cumm (1.2-6.7) 01/21/19 12:15 Absolute Lymphocytes 0.93 k/cumm (1.2-3.4) L 01/21/19 12:15 Absolute Monocytes 0.51 k/cumm (0.11-0.7) 01/21/19 12:15 Absolute Eosinophils 0.02 k/cumm (0.0-0.7) 01/21/19 12:15 Absolute Basophils 0.01 k/cumm (0.0-0.2) 01/21/19 12:15 Sodium 140 mmol/L (136-145) 01/21/19 12:15 Potassium 3.6 mmol/L (3.5-5.1) 01/21/19 12:15 Chloride 107 mmol/L (98-107) 01/21/19 12:15 Carbon Dioxide 23.1 mmol/L (21.0-32.0) 01/21/19 12:15 Anion Gap 9.9 mmol/L (3-11) 01/21/19 12:15 BUN 21 mg/dL (7-18) H D 01/21/19 12:15 Creatinine 1.31 mg/dL (0.70-1.30) H 01/21/19 12:15 Estimated GFR/1.73 m2 54.41 (mL/min/1.73m2) 01/21/19 12:15 Glucose 102 mg/dL (70-100) H 01/21/19 12:15 Hemoglobin A1c 5.6 % (4.5-6.2) 01/21/19 11:15 Calcium 10.9 mg/dL (8.5-10.1) H 01/21/19 12:15 Magnesium 1.9 mg/dL (1.8-2.4) 01/21/19 12:15 Total Bilirubin 0.9 mg/dL (0.2-1.0) 01/20/19 06:43 AST 25 U/L (15-37) 01/20/19 06:43 ALT 30 U/L (16-63) 01/20/19 06:43 Alkaline Phosphatase 81 U/L (46-116) 01/20/19 06:43 Ammonia 21 umol/L (11-32) 01/19/19 18:30 Total Protein 6.9 g/dL (6.4-8.2) 01/20/19 06:43 Albumin 3.3 g/dL (3.4-5.0) L 01/20/19 06:43 Triglycerides 78 mg/dL (30-150) 01/21/19 11:15 Total Cholesterol 102 mg/dL (50-200) 01/21/19 11:15 LDL Cholesterol, Calc 56 mg/dL 01/21/19 11:15 HDL Cholesterol 31 mg/dL (40-60) L 01/21/19 11:15 PSA Screen Cancelled 01/19/19 18:30 Vitamin B12 1189 pg/mL (193-986) H 01/21/19 12:15 Folate 5.9 ng/mL (8.6-20.0) L 01/21/19 12:15 TSH Cancelled 01/19/19 20:32 Urine Color Yellow (Yellow) 01/19/19 19:10 Urine Clarity Clear (Clear) 01/19/19 19:10 Urine pH 6.0 (5-8) 01/19/19 19:10 Ur Specific [place] 1.020 (1.005-1.025) 01/19/19 19:10 Urine Protein 100 mg/dL (Negative) H 01/19/19 19:10 Urine Ketones Negative mg/dL (Negative) 01/19/19 19:10 Urine Blood Moderate (Negative) H 01/19/19 19:10 Urine Nitrite Negative (Negative) 01/19/19 19:10 Urine Bilirubin Negative (Negative) 01/19/19 19:10 Urine Urobilinogen 0.2 EU/dL (Up TO 0.2) 01/19/19 19:10 Ur Leukocyte Esterase Negative (Negative) 01/19/19 19:10 Urine RBC 5-10 HPF (0-2) H 01/19/19 19:10 Urine WBC Negative HPF (0-5) 01/19/19 19:10 Ur Epithelial Cells Negative HPF (Negative) 01/19/19 19:10 Urine Crystals Negative HPF (Negative) 01/19/19 19:10 Urine Bacteria Rare HPF (Negative) 01/19/19 19:10 Urine Casts Negative LPF (Negative) 01/19/19 19:10 Urine Mucus Trace (Negative) 01/19/19 19:10 Urine Other Negative (Negative) 01/19/19 19:10 Ur Culture Indicated? No 01/19/19 19:10 Ur Creatinine Concen Cancelled 01/20/19 07:36 Urine Glucose Negative mg/dL (Negative) 01/19/19 19:10 U Metanephrine/Creat Cancelled 01/20/19 07:36 U Normetanephrine/Creat Cancelled 01/20/19 07:36 U Tot Metanephri/Creat Cancelled 01/20/19 07:36
--- NOTE | 2019-01-21 15:00 | DI.US_ITS ---
APPROVED REPORT EXAM: Comprehensive 2D, Doppler, and color-flow Echocardiogram Patient Location: In-Patient Room/Bed: 209A Indications: Syncope Conclusion Left Ventricle : The left ventricular ejection fraction is within the normal range. There is normal L V segmental wall motion. LVEF is 65-70%. The left ventricular diastolic function is normal. Right Ventricle : Right ventricle is grossly normal in size. Right ventricular systolic function is g rossly normal. Atria : The left atrium size is normal. The right atrium size is normal. Aortic Valve : Aortic valve is grossly normal in structure. Aortic valve is probably trileaflet. Ther e is no aortic valvular stenosis. Trace to mild aortic regurgitation. Mitral Valve : There is mitral annular calcification. Mild mitral regurgitation. No evidence of lorenzo l valve stenosis. Tricuspid Valve : The tricuspid valve is normal in structure. Great Vessels : IVC is normal in size and collapses >50% with inspiration. Estimated RVSP is 17-20 m mHg. There is no prior echocardiogram available for comparison. Wall motion Left Ventricle The left ventricle is grossly normal size. The left ventricular ejection fraction is within the marie l range. Mild concentric left ventricular hypertrophy. There is normal LV segmental wall motion. The left ventricular diastolic function is normal. LVEF is 65-70%. Right Ventricle Right ventricle is grossly normal in size. Right ventricular systolic function is grossly normal. Atria The left atrium size is normal. The right atrium size is normal. Aortic Valve Aortic valve is grossly normal in structure. Aortic valve is probably trileaflet. There is no aortic valvular stenosis. Trace to mild aortic regurgitation. Mitral Valve There is mitral annular calcification. No evidence of mitral valve stenosis. Mild mitral regurgitatio n. Tricuspid Valve The tricuspid valve is normal in structure. There is no tricuspid valve stenosis. Trace to mild tricu spid regurgitation. Pulmonic Valve Pulmonic valve is not well visualized. There is no pulmonic valvular stenosis. Great Vessels The aortic root is normal in size. The ascending aorta is normal in size. IVC is normal in size and c ollapses >50% with inspiration. Estimated RVSP is 17-20 mmHg. Pericardium There is no pericardial effusion. 2D Dimensions IVSd 1.25 cm M: 0.6-1.2 LV EDV A2C 113.75 mL PWd 1.35 cm M: 0.6 - 1.2 LV EDV A4C 129.36 mL LVDd 4.70 cm M: 4.2 - 5.8 LA Volume Index A2C 31.07 mL/m2 LVDs 2.95 cm M: 2.5 - 4.0 LA Volume Index A4C 29.44 mL/m2 Aortic Root 2.85 cm M: 3.1 - 3.7 LA Volume Index Biplane 32.49 mL/m2 Left Atrium 3.56 cm M: 3.0 - 4.0 LA Area A4C 16.94 cm2 RA Area A4C 13.64 cm2 LA Area A2C 18.69 cm2 LVOT 2.05 cm (M/F) 1.5-2.5 LA/Aortic Root Ratio 0.81 Ascending Aorta 3.53 cm M: 2.6 - 3.4 EF AP4 47.23 % LVEF (Teich) 66.49 % EF AP2 51.04 % LVEF (Garza's) 47.50 % M: 52 - 72 EF BP 47.50 % LV Volume 94.44 mL M: 62 - 150 LV Volume Index 52.17 mL/m2 M: 34 - 74 FS 36.70 % LV Diastology E Decel Time 236.00 (160-240 msec) E/A Ratio 1.0 MED E' 0.05 (>0.07 m/s) LV E/e MED 12.80 (<14) LAT E' 0.06 (>0.1 m/s) LV E/e LAT 10.60 (<14) Aortic Valve LVOT Area 3.41 cm2 LVOT Peak Florentin. 1.10 m/s LVOT Mean Florentin. 0.68 m/s LVOT Peak Gr. 5.00 mmHg WILIAM Vmax Index 1.30 cm2/m2 LVOT Mean Gr. 2.25 mmHg LVOT VTI 0.15 m WILIAM Mean Florentin. Index 1.08 cm2/m2 AoV Peak Florentin. 1.62 (0.5-1.3 m/s) AoV Mean Florentin. 1.18 m/s AO Peak GR. 10.46 mmHg AO Mean GR. 6.08 (<5 mmHg) AO VTI 0.30 (0.18-0.25 m) WILIAM (VTI) 2.23 (2.5-4.5 cm2) WILIAM (VTI) Index 1.23 cm/m2 Mitral Valve MV E Max Florentin. 0.69 (0.4-1.3 m/s) MV A Velocity 0.70 (0.4-1.3 m/s) E/A Ratio 0.95 MV Decel. Time 236.20 (160-240 msec) MV PHT 68.50 msec MVA PHT 3.20 cm2 Pulmonary Valve PV Peak Velocity 0.80 (0.5-1.5 m/s) Tricuspid Valve TR P. Velocity 2.10 m/s TV Regurg Vmax 2.10 m/s RAP Estimate 3.00 mmHg RVSP 20.68 mmHg TR P. Gradient 17.65 mmHg
[2019-01-21 15:46] LABS: Parathyroid Hormone,Intact 303 pg/mL (19-88)
[2019-01-21] MEDS: Atorvastatin 40 MG TAB PO (19:26)
[2019-01-21] MEDS: Tamsulosin 0.4 MG CAPCR PO (21:44)
[2019-01-22] VITALS (14 sets, daily range): BP systolic 150–194; BP diastolic 75–123; PULSE 69–87; RESP 17–20; TEMP 36.7–37.1; O2SAT 95–97
[2019-01-22] MEDS: Normal Saline Flush 10 ML SYR IVP ×3 (00:14→16:22)
[2019-01-22] MEDS: hydrALAZINE 20 MG/ML VIAL 10 MG IVP (00:14)
[2019-01-22] MEDS: Normal Saline 1,000 ML 100 ML IV ×2 (02:43→14:48)
[2019-01-22 06:47] LABS: Abs Immature Grans 0.01 k/cumm (0.0-0.09); Absolute Basophil Count 0.04 k/cumm (0.0-0.2); Absolute Eosinophil Count 0.14 k/cumm (0.0-0.7); Absolute Lymphocyte Count 1.29 k/cumm (1.2-3.4); Absolute Monocyte Count 0.51 k/cumm (0.11-0.7); Absolute Neutrophil Count 2.24 k/cumm (1.2-6.7); Basophils % 0.9; Eosinophils % 3.3; HCT 41.4 % (40.0-50.0); HGB 14.2 g/dL (13.5-17.5); Immature Grans % 0.2; Lymphocytes % 30.5; Mean Corp. HGB Concentration 34.3 g/dL (32.0-36.0); Mean Corpuscular Hemoglobin 29.3 pg (27.0-33.0); Mean Corpuscular Volume 85.4 fL (80-95); Mean Platelet Volume 9.9 fL (8.0-11.0); Monocytes % 12.1; Platelet Count 222 x1000/uL (130-400); RBC 4.85 m/cumm (4.50-6.00); RBC Distribution Width 14.2 % (11.8-14.1); White Blood Cell Count 4.23 k/cumm (4.4-10.8)
[2019-01-22 07:09] LABS: Anion Gap 10.5 mmol/L (3-11); BUN 18 mg/dL (7-18); CO2 21.5 mmol/L (21.0-32.0); CREATININE 1.24 mg/dL (0.70-1.30); Calcium 10.2 mg/dL (8.5-10.1); Chloride 110 mmol/L (98-107); Estimated GFR 57.97 (mL/min/1.73m2); Glucose 96 mg/dL (70-100); Magnesium 1.7 mg/dL (1.8-2.4); Potassium 3.2 mmol/L (3.5-5.1); Sodium 142 mmol/L (136-145)
[2019-01-22] MEDS: Aspirin 81 MG CHEW PO (08:50)
[2019-01-22] MEDS: amLODIPine 10 MG TAB PO (08:50)
[2019-01-22] MEDS: Carvedilol 6.25 MG TAB PO (08:51)
[2019-01-22] MEDS: Folic Acid 1 MG TAB PO (08:51)
[2019-01-22] MEDS: Heparin 5,000 UNITS/ML VIAL 5000 UNITS SC ×3 (08:55→23:45)
[2019-01-22 11:02] LABS: ALT 31 U/L (16-63); AST 27 U/L (15-37); Albumin 3.2 g/dL (3.4-5.0); Alkaline Phosphatase 73 U/L (46-116); Bilirubin, Direct 0.24 mg/dL (0.00-0.20); Bilirubin, Total 0.7 mg/dL (0.2-1.0)
[2019-01-22] MEDS: MAGNESIUM SULFATE 2 GM/50 ML BAG IVPB (11:06)
[2019-01-22] MEDS: Potassium Chloride 20 MEQ TABCR 40 MEQ PO ×2 (11:09→18:00)
[2019-01-22] MEDS: Ondansetron 4 MG/2 ML VIAL IVP (11:38)
[2019-01-22] MEDS: Pantoprazole 40 MG TABCR PO (11:40)
--- NOTE | 2019-01-22 12:44 | IN_ITS ---
Date of service: 01/22/19 Time of Service: 12:10 PT Notes Inpatient Physical Therapy Evaluation Date: 01/22/19 Referring Doctor: Dr. Kat PT Orders: PT CONSULT: limited ability to ambulate Precautions: standard Patient Profile/Admitting Diagnosis: Patient admitted due to mental status change with history of falls, and diagnosed with renal insufficiency and hypercalcemia. PMHX: Hyperparathyroidism, hypertension Social History/Home Situation: Patient lives with his brother and mother. States he is fully independent at home, although occasionally walks with a cane. He states that he gets tired when he walks long distances. States [place] 1 mile, and after completing this finds that he is extremely fatigued. Equipment Owned/DME: Cane Subjective: Patient states that he is feeling fine. Admits that he fell at home, although denies previous falls. Objective: General Observation: Seated in chair at initiation of session with telemetry in place, and IV in LUE. Mental Status: A and O x3. Patient answers questions appropriately and follows commands without difficulty. Pain: Denies ROM: Right Upper Extremity: WFL Left Upper Extremity: WFL Right Lower Extremity: WFL Left Lower Extremity: WFL Strength: Right Upper Extremity: WFL Left Upper Extremity: WFL Right Lower Extremity: Hip flexion 5/5. Quads 5/5. Hamstrings 5/5. Ankle dorsiflexion 4/5 Left Lower Extremity: Hip flexion 5/5. Quads 5/5. Hamstrings 5/5. Ankle dorsiflexion 4/5 Bed Mobility/Transfers: Sit?stand: Supervision Stand?sit: Supervision Bed?chair: Supervision with FW W, with minimal cues for safety Gait: Patient ambulates 200 feet with FW W and CG?min A. He demonstrates significant path deviation and poor avoidance of obstacles, requiring cues for FW W management and safe ambulation. Balance: Static Sitting: Normal Dynamic Sitting: Normal Static Standing: Good Dynamic Standing: Fair Special Tests: Romberg is negative. Patient is able to stand with small base of support x30 seconds, each in eyes open and eyes closed position without upper extremity support. Mobility Limitations Standardized Measure [facility] AM-PAC 6 clicks Basic Mobility Inpatient Short Form: Raw Score: 20 CMS Score: 36% deficit Informed Consent/Education: Patient instructed in purpose of PT consult and plan of care. He was instructed in upper and lower extremity strengthening activities and early balance retraining, all with good tolerance. Assessment: Patient is a 68 year old male referred to physical therapy services with the diagnosis of hypercalcemia and renal insufficiency. Patient presents with clinical signs and symptoms consistent with impaired mobility related to acute medical issues. His medical record notes history of falls, which patient himself denies. He does demonstrate ataxic gait during evaluation today, with poor safety awareness and admittedly diminished activity tolerance. He requires skilled PT intervention to maximize safety and mobility and allow for safe transition back home once medically stable. He currently demonstrates the following impairment level findings: 1. Decreased ankle dorsiflexion strength 2. Ataxic gait 3. Limited safety awareness Impairments are contributing to the following functional limitations: 1. High fall risk 2. Decreased activity tolerance Patient is assessed as Moderate [id number] complexity based on the following: History: 68-year-old male admitted for management of hyperkalemia and renal insufficiency. Questionable fall history, but certainly demonstrating signs of increased fall risk during evaluation today. Examination: Functional limitations as noted above Presentation: Evolving Decision Making: Moderate Goals: Goals X1 week 1. Supine-Sit : Supervision 2. Sit-Supine : Supervision 3. Sit-Stand : Supervision 4. Stand-Sit : Supervision 5. Bed-Chair : Supervision with least restrictive device (LRD) 6. Chair-Bed : Supervision with LRD 7. Gait : Supervision x300 feet with LRD Plan of Care/Treatment Plan: 1-2x/day, 7 days/week x 1 week. Plan of care has been reviewed with the RADIOLOGIC TECHNICIAN providing the service under Physical Therapy direction. Initiate Physical Therapy intervention for strengthening, bed mobility, transfers, gait, stairs, balance training, use of assistive device. DISCHARGE RECOMMENDATIONS: Home. May recommend FWW at time of discharge, depending on how patient progresses with ambulation TREATMENT CODE/TIME: 20 minutes ([id number]) Emely Jay, PT, DPT [facility]
[2019-01-22] MEDS: hydrALAZINE 25 MG TAB PO ×2 (14:48→19:59)
--- NOTE | 2019-01-22 15:53 | PGE_ITS ---
Date of Service Date of service: 01/22/19 Time of Service: 15:53 Assessment and Plan Assessment and plan (1) Encephalopathy: Status: Acute Assessment and plan: It is difficult to ascertain how much of the patient's confusion is related to his acute issues (symptomatic hypercalcemia, hypertensive encephalopathy) vs chronic. Agree with Dr Bang that there does not appear to be active infection. No evidence of acute findings on MRI of the brain. Doubt that B12 deficiency could lead to this level of encephalopathy. Will intensify BP control. Add lasix to the IVF today. Continue to monitor mental status. (2) Hypercalcemia: Status: Acute Assessment and plan: In setting of known hyperparathyroidism. On IVF + lasix. Intact PTH is 303. Consider surgical referral for parathyroidectomy. Start cinacalcet (will order through pharmacy). Will discuss with endocrinology. (3) Hypertension: Status: Chronic Assessment and plan: With possible hypertensive encephalopathy. Increase coreg; I have added scheduled PO hydralazine and added prn clonidine. Also, lasix x 1 is being given. (4) ALICJA (acute kidney injury): Status: Acute Assessment and plan: Improved with IVFs. To remain on IVF with addidition of lasix for hypercalcemia. (5) CVA (cerebral vascular accident): Status: Chronic Assessment and plan: Old/not acute. Continue ASA and statin. MRI brain limited, but with small old left basal ganglia lacunar infarct. (6) Hypokalemia: Status: Acute Assessment and plan: replete and recheck in am. (7) Hypomagnesemia: Status: Acute Assessment and plan: replete and recheck in am (8) Vomiting: Status: Acute Assessment and plan: I suspect the patient may have reflux. PPI added. Monitor for recurrence. (9) Aspiration into airway: Status: Suspected Assessment and plan: Obtaining a speech therapy eval. I do not see clinical evidence of aspiration pneumonia at this time. (10) DVT prophylaxis: Status: Acute Assessment and plan: SC Heparin. (11) Discharge planning issues: Status: Acute Assessment and plan: Full code Will discuss with care management whether the patient has a decision maker, etc. Subjective Subjective Interval history since last seen: Denies dizziness, headache, chest pain, shortness of breath, nausea at this time. Had an episode of vomiting this morning after taking his medications. Nursing also reports that the patient coughs while eating sometimes. Exam Narrative Exam Narrative: General: very pleasantly confused elderly male, A&Ox2, cooperative, [place] HEENT: EOMI, MMM Heart: RRR, no m/r/g Lungs: CTAB GI: abdomen is soft, nontender, nondistended Extremities: no e/c/c BLE's Objective Objective Clinical Data: Abnormal lab results 01/19/19 01/22/19 01/22/19 Range/Units 18:30 06:20 06:20 WBC 4.23 L (4.4-10.8) k/cumm RDW 14.2 H (11.8-14.1) % Potassium 3.2 L (3.5-5.1) mmol/L Chloride 110 H (98-107) mmol/L Calcium 10.2 H (8.5-10.1) mg/dL Magnesium 1.7 L (1.8-2.4) mg/dL Conjugated Bilirubin 0.24 H (0.00-0.20) mg/dL Albumin 3.2 L (3.4-5.0) g/dL PTH Intact 303 H (19-88) pg/mL Vital Signs Temperature 37.1 C 01/22/19 15:46 Temperature Source Tympanic 01/22/19 15:46 Pulse 79 01/22/19 15:46 Pulse Rhythm Regular 01/22/19 08:00 Pulse 81 01/19/19 21:40 Respiratory Rate 19 01/22/19 15:46 Respiratory Effort Non-Labored 01/22/19 08:00 Respiratory Depth Normal 01/22/19 08:00 Respiratory Pattern Normal 01/22/19 08:00 Blood Pressure 180/112 H 01/22/19 15:46 Blood Pressure Mean 127 01/19/19 21:31 Blood Pressure Position Sitting 01/19/19 18:18 Pulse Oximetry 95 01/22/19 15:46 Oxygen Delivery Method Room Air 01/22/19 15:46 Oxygen Flow Rate 0 01/22/19 15:46 Pain Level 0 01/22/19 15:46 Comment 01/22/19 01:15 Intake & Output 01/21/19 01/22/19 01/22/19 23:59 11:59 23:59 Intake Total 1210 / 2919.167 1600 / 2600 1000 / 2600 Output Total 1475 / 2085 610 / 2085 Balance 1210 / 1794.167 125 / 515 390 / 515 Weight 77.7 kg Intake: IV 0 / 3532.475 2197 / 1999 1000 / 2000 Oral 1210 / 1690 600 / 600 Output: Urine 1225 / 1835 610 / 1835 Emesis 250 / 250 Other: Urine Color Yellow Yellow Yellow Urine Appearance Clear Clear Clear Urine Odor Normal None Normal Comment patient voided into toilet no hat at this time average of three scans Emesis Description Bile Voiding Methods Diaper Urinal Urinal Incontinent Laboratory Results WBC 4.23 k/cumm (4.4-10.8) L 01/22/19 06:20 RBC 4.85 m/cumm (4.50-6.00) 01/22/19 06:20 Hgb 14.2 g/dL (13.5-17.5) 01/22/19 06:20 Hct 41.4 % (40.0-50.0) 01/22/19 06:20 MCV 85.4 fL (80-95) 01/22/19 06:20 MCH 29.3 pg (27.0-33.0) 01/22/19 06:20 MCHC 34.3 g/dL (32.0-36.0) 01/22/19 06:20 RDW 14.2 % (11.8-14.1) H 01/22/19 06:20 Plt Count 222 x1000/uL (130-400) 01/22/19 06:20 MPV 9.9 fL (8.0-11.0) 01/22/19 06:20 Immature Gran % 0.2 01/22/19 06:20 Neutrophils % 53.0 01/22/19 06:20 Lymphocytes % 30.5 01/22/19 06:20 Monocytes % 12.1 01/22/19 06:20 Eosinophils % 3.3 01/22/19 06:20 Basophils % 0.9 01/22/19 06:20 Absolute Neutrophils 2.24 k/cumm (1.2-6.7) 01/22/19 06:20 Absolute Lymphocytes 1.29 k/cumm (1.2-3.4) 01/22/19 06:20 Absolute Monocytes 0.51 k/cumm (0.11-0.7) 01/22/19 06:20 Absolute Eosinophils 0.14 k/cumm (0.0-0.7) 01/22/19 06:20 Absolute Basophils 0.04 k/cumm (0.0-0.2) 01/22/19 06:20 Sodium 142 mmol/L (136-145) 01/22/19 06:20 Potassium 3.2 mmol/L (3.5-5.1) L 01/22/19 06:20 Chloride 110 mmol/L (98-107) H 01/22/19 06:20 Carbon Dioxide 21.5 mmol/L (21.0-32.0) 01/22/19 06:20 Anion Gap 10.5 mmol/L (3-11) 01/22/19 06:20 BUN 18 mg/dL (7-18) 01/22/19 06:20 Creatinine 1.24 mg/dL (0.70-1.30) 01/22/19 06:20 Estimated GFR/1.73 m2 57.97 (mL/min/1.73m2) 01/22/19 06:20 Glucose 96 mg/dL (70-100) 01/22/19 06:20 Hemoglobin A1c 5.6 % (4.5-6.2) 01/21/19 11:15 Calcium 10.2 mg/dL (8.5-10.1) H 01/22/19 06:20 Magnesium 1.7 mg/dL (1.8-2.4) L 01/22/19 06:20 Total Bilirubin 0.7 mg/dL (0.2-1.0) 01/22/19 06:20 Conjugated Bilirubin 0.24 mg/dL (0.00-0.20) H 01/22/19 06:20 AST 27 U/L (15-37) 01/22/19 06:20 ALT 31 U/L (16-63) 01/22/19 06:20 Alkaline Phosphatase 73 U/L (46-116) 01/22/19 06:20 Ammonia 21 umol/L (11-32) 01/19/19 18:30 Total Protein 7.0 g/dL (6.4-8.2) 01/22/19 06:20 Albumin 3.2 g/dL (3.4-5.0) L 01/22/19 06:20 Triglycerides 78 mg/dL (30-150) 01/21/19 11:15 Total Cholesterol 102 mg/dL (50-200) 01/21/19 11:15 LDL Cholesterol, Calc 56 mg/dL 01/21/19 11:15 HDL Cholesterol 31 mg/dL (40-60) L 01/21/19 11:15 PSA Screen Cancelled 01/19/19 18:30 Vitamin B12 1189 pg/mL (193-986) H 01/21/19 12:15 Folate 5.9 ng/mL (8.6-20.0) L 01/21/19 12:15 TSH Cancelled 01/19/19 20:32 PTH Intact 303 pg/mL (19-88) H 01/19/19 18:30 Urine Color Yellow (Yellow) 01/19/19 19:10 Urine Clarity Clear (Clear) 01/19/19 19:10 Urine pH 6.0 (5-8) 01/19/19 19:10 Ur Specific [place] 1.020 (1.005-1.025) 01/19/19 19:10 Urine Protein 100 mg/dL (Negative) H 01/19/19 19:10 Urine Ketones Negative mg/dL (Negative) 01/19/19 19:10 Urine Blood Moderate (Negative) H 01/19/19 19:10 Urine Nitrite Negative (Negative) 01/19/19 19:10 Urine Bilirubin Negative (Negative) 01/19/19 19:10 Urine Urobilinogen 0.2 EU/dL (Up TO 0.2) 01/19/19 19:10 Ur Leukocyte Esterase Negative (Negative) 01/19/19 19:10 Urine RBC 5-10 HPF (0-2) H 01/19/19 19:10 Urine WBC Negative HPF (0-5) 01/19/19 19:10 Ur Epithelial Cells Negative HPF (Negative) 01/19/19 19:10 Urine Crystals Negative HPF (Negative) 01/19/19 19:10 Urine Bacteria Rare HPF (Negative) 01/19/19 19:10 Urine Casts Negative LPF (Negative) 01/19/19 19:10 Urine Mucus Trace (Negative) 01/19/19 19:10 Urine Other Negative (Negative) 01/19/19 19:10 Ur Culture Indicated? No 01/19/19 19:10 Ur Creatinine Concen Cancelled 01/20/19 07:36 Urine Glucose Negative mg/dL (Negative) 01/19/19 19:10 U Metanephrine/Creat Cancelled 01/20/19 07:36 U Normetanephrine/Creat Cancelled 01/20/19 07:36 U Tot Metanephri/Creat Cancelled 01/20/19 07:36 Corrected Ca 10.8
[2019-01-22] MEDS: Furosemide 20 MG/2 ML VIAL IVP (16:17)
--- NOTE | 2019-01-22 16:41 | PDOC.CMPRO ---
- If Service Date Differs Date of service: 01/22/19 Time of Service: 16:42 Care Management Progress Note S/O: Sandeep was alert and pleasant and cooperative when CM met with him. He answered questions readily and seemed less confused than previously reported. He stated that he vomited this morning because he thinks a pill got stuck in his throat and he gagged. 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 [facility] [place] [facility]. When asked why he stopped seeking medical care there he cited transportation as a barrier. When asked if he is able to drive he stated they wouldn't let me because of my poor vision. He also was able to identify that there is an [facility] facility in [place] and seemed pleased to learn that efforts are underway to reconnect him with the [facility] system. His brother told [employer], the [employer], that Sandeep served for 24 years. A:Sandeep is a 68 year old male admitted with hypercalcemia, renal insufficiency, altered mental status. P:Sandeep will be discharged home with [facility] when [facility] is medically ready. EVE has contacted Mercedes Moreira at the [place] and faxed over the H&P they will need to be contacted to schedule the new patient appointment. CM will continue to support patient, family and discharge planning needs.
[2019-01-22] MEDS: Atorvastatin 40 MG TAB PO (19:59)
[2019-01-22] MEDS: Carvedilol 6.25 MG TAB 12.5 MG PO (20:00)
[2019-01-22] MEDS: Tamsulosin 0.4 MG CAPCR PO (21:17)
[2019-01-23] VITALS (10 sets, daily range): BP systolic 153–194; BP diastolic 83–111; PULSE 64–77; RESP 17–18; TEMP 36.7; O2SAT 96–97
[2019-01-23] MEDS: Normal Saline 1,000 ML 100 ML IV ×3 (00:05→20:26)
[2019-01-23 07:22] LABS: Abs Immature Grans 0.02 k/cumm (0.0-0.09); Absolute Basophil Count 0.02 k/cumm (0.0-0.2); Absolute Lymphocyte Count 1.64 k/cumm (1.2-3.4); Absolute Monocyte Count 0.52 k/cumm (0.11-0.7); Absolute Neutrophil Count 1.58 k/cumm (1.2-6.7); Basophils % 0.5; HCT 42.2 % (40.0-50.0); HGB 14.2 g/dL (13.5-17.5); Immature Grans % 0.5; Lymphocytes % 41.2; Mean Corp. HGB Concentration 33.6 g/dL (32.0-36.0); Mean Corpuscular Hemoglobin 29.1 pg (27.0-33.0); Mean Corpuscular Volume 86.5 fL (80-95); Mean Platelet Volume 10.3 fL (8.0-11.0); Monocytes % 13.1; Neutrophils % 39.7; Platelet Count 218 x1000/uL (130-400); RBC 4.88 m/cumm (4.50-6.00); RBC Distribution Width 14.5 % (11.8-14.1); White Blood Cell Count 3.98 k/cumm (4.4-10.8)
[2019-01-23 07:34] LABS: ALT 30 U/L (16-63); AST 20 U/L (15-37); Albumin 3.1 g/dL (3.4-5.0); Alkaline Phosphatase 77 U/L (46-116); BUN 18 mg/dL (7-18); Bilirubin, Direct 0.16 mg/dL (0.00-0.20); Bilirubin, Total 0.7 mg/dL (0.2-1.0); Calcium 9.9 mg/dL (8.5-10.1); Chloride 111 mmol/L (98-107); Glucose 93 mg/dL (70-100); Magnesium 2.1 mg/dL (1.8-2.4); Potassium 3.7 mmol/L (3.5-5.1); Sodium 143 mmol/L (136-145); Total Protein 6.9 g/dL (6.4-8.2)
--- NOTE | 2019-01-23 07:53 | PDOC.CMPRO ---
- If Service Date Differs Date of service: 01/23/19 Time of Service: 07:53 Care Management Progress Note S/O: Sandeep was sitting up in bed when CM met with him. He remains pleasant and cooperative and engages well in conversation. He was able to recall a conversation with CM from yesterday and shared that the doctor is ordering tests of his parathyroid and that he may get to go home in a few days. He appeared pleased at the thought, smiling broadly when he made the comment. A:Sandeep is a 68 year old male admitted with hypercalcemia, renal insufficiency, altered mental status. P:Sandeep will be discharged home [facility]. CM has contacted [facility] and [facility]ed [facility] the H&P they will need to be contacted to schedule the new patient appointment. CM will continue to support patient, family and discharge planning needs.
[2019-01-23] MEDS: Heparin 5,000 UNITS/ML VIAL 5000 UNITS SC ×2 (08:40→15:57)
[2019-01-23] MEDS: Folic Acid 1 MG TAB PO (08:41)
[2019-01-23] MEDS: Carvedilol 6.25 MG TAB 12.5 MG PO ×2 (08:41→20:27)
[2019-01-23] MEDS: Pantoprazole 40 MG TABCR PO (08:42)
[2019-01-23] MEDS: amLODIPine 10 MG TAB PO (08:42)
[2019-01-23] MEDS: hydrALAZINE 25 MG TAB PO ×3 (08:42→20:27)
[2019-01-23] MEDS: Aspirin 81 MG CHEW PO (08:43)
--- NOTE | 2019-01-23 10:36 | PT.INTREAT ---
Date of service: 01/23/19 PT Notes Inpatient Physical Therapy Treatment Note [facility] Date: 01/23/19 SUBJECTIVE: Pt states that he is feeling better, and not so confused. OBJECTIVE: [] BED MOBILITY/TRANSFERS Supine-sit: S Sit-stand: S Stand-sit: S GAIT Assistive Device: FWW Weight bearing: full Assist: CGA/SBA Distance: approx 350' Deviation: cues to avoid obstacles in hallways. THEREX: performed a general global strengthening routine while seated in chair. See flowsheet for details. ASSESSMENT: tolerated session well. No LOB or SOB noted during treatment. Has good strength, and seems to be safe with transfers. PLAN: will continue progressing towards established goals. TREATMENT CODE/TIME: 30 min. [id number], [id number].
--- NOTE | 2019-01-23 14:36 | W.PM.PROGNOT ---
Date of Service Date of service: 01/23/19 Time of Service: 14:36 Assessment and Plan Assessment and plan (1) Encephalopathy: Status: Acute Assessment and plan: It is difficult to ascertain how much of the patient's confusion is related to his acute medical issues (symptomatic hypercalcemia, hypertensive encephalopathy) vs chronic. Per nursing, he has made progress over the last few days. I am not sure if it is better control of his calcium or hypertension that have helped. There does not appear to be active infection. No evidence of acute findings on MRI of the brain. Doubt that B12 deficiency could lead to this level of encephalopathy. Continue current BP regimen. Continue IVF and treating hypercalcemia as below. Continue to monitor mental status. (2) Hypercalcemia: Status: Acute Assessment and plan: In setting of known hyperparathyroidism. On IVF + lasix. Intact PTH is 303. Spoke with [facility] endocrinology - Dr Nunez recommends cinacalcet (being ordered for tomorrow as we do not have it in the hospital for now) until the patient can have definitive treatmet (parathyroidectomy). Obtain thyroid ultrasound and parathyroid scan. While I am not sure that the patient understood our discussion about this today, he seems agreeable to the idea of surgery today. I will see how much of this he retained/understood in my visit with him tomorrow. (3) Hypertension: Status: Chronic Assessment and plan: With possible hypertensive encephalopathy. Continue current dose of coreg, amlodipine, PO hydralazine and prn clonidine. IVF likely driving BP up some as well. (4) ALICJA (acute kidney injury): Status: Acute Assessment and plan: Improved with IVFs. To remain on IVF with addidition of lasix for hypercalcemia. (5) CVA (cerebral vascular accident): Status: Chronic Assessment and plan: Old/not acute. Continue ASA and statin. MRI brain limited, but with small old left basal ganglia lacunar infarct. (6) Hypokalemia: Status: Resolved Assessment and plan: recheck in am. (7) Hypomagnesemia: Status: Resolved Assessment and plan: recheck in am (8) Vomiting: Status: Resolved Assessment and plan: No recurrences. ?reflux, ? dysphagia for pills. PPI added. Monitor for recurrence. Speech eval ordered. (9) Aspiration into airway: Status: Ruled-out Assessment and plan: Obtaining a speech therapy eval. I do not see clinical evidence of aspiration pneumonia at this time. (10) DVT prophylaxis: Status: Acute Assessment and plan: SC Heparin. (11) Discharge planning issues: Status: Acute Assessment and plan: Full code As the mental status is still improving, it is not yet clear if the patient will require a guardian. Discussed with care management. Subjective Subjective Interval history since last seen: Mr Ritter denies dizziness, chest pain, shortness of breath, nausea, vomiting. Case discussed with Dr Nunez of endocrinology at [facility]. He recommended cinacalcet, referral for outpatient parathyroidectomy, but prior to this a thyroid ultrasound and a parathyroid scan. Both are now ordered for tomorrow. Cinacalcet is being ordered for tomorrow. Exam Narrative Exam Narrative: General: very pleasantly confused elderly male, A&Ox2, cooperative HEENT: EOMI, MMM, no obvious goiter, but does state that it hurts when I touch his anterior neck Heart: RRR, no m/r/g Lungs: CTAB GI: abdomen is soft, nontender, nondistended Extremities: no e/c/c BLE's Objective Objective Clinical Data: Abnormal lab results 01/23/19 01/23/19 Range/Units 06:44 06:44 WBC 3.98 L (4.4-10.8) k/cumm RDW 14.5 H (11.8-14.1) % Chloride 111 H (98-107) mmol/L Creatinine 1.40 H (0.70-1.30) mg/dL Albumin 3.1 L (3.4-5.0) g/dL Vital Signs Temperature 36.7 C 01/23/19 07:20 Temperature Source Tympanic 01/23/19 07:20 Pulse 67 01/23/19 07:57 Pulse Rhythm Regular 01/23/19 10:40 Pulse 81 01/19/19 21:40 Respiratory Rate 17 01/23/19 07:20 Respiratory Effort Non-Labored 01/23/19 10:40 Respiratory Depth Normal 01/23/19 10:40 Respiratory Pattern Normal 01/23/19 10:40 Blood Pressure 161/83 H 01/23/19 07:20 Blood Pressure Mean 127 01/19/19 21:31 Blood Pressure Position Sitting 01/19/19 18:18 Pulse Oximetry 97 01/23/19 07:20 Oxygen Delivery Method Room Air 01/23/19 07:20 Oxygen Flow Rate 0 01/23/19 07:20 Pain Level 0 01/23/19 07:20 Comment 01/23/19 02:20 Intake & Output 01/22/19 01/23/19 01/23/19 23:59 11:59 23:59 Intake Total 1000 / 2600 2398.333 / 2398.333 Output Total 1185 / 3010 1000 / 1325 325 / 1325 Balance -185 / -410 1398.333 / 1073.333 -325 / 1073.333 Weight 78.3 kg Intake: IV 1000 / 1999 1928.333 / 1928.333 Oral 470 / 470 Output: Urine 1185 / 2760 1000 / 1325 325 / 1325 Other: Urine Color Yellow Yellow Yellow Urine Appearance Clear Clear Clear Urine Odor Normal None Comment voided in toilet Voiding Methods Toilet Urinal Urinal Laboratory Results WBC 3.98 k/cumm (4.4-10.8) L 01/23/19 06:44 RBC 4.88 m/cumm (4.50-6.00) 01/23/19 06:44 Hgb 14.2 g/dL (13.5-17.5) 01/23/19 06:44 Hct 42.2 % (40.0-50.0) 01/23/19 06:44 MCV 86.5 fL (80-95) 01/23/19 06:44 MCH 29.1 pg (27.0-33.0) 01/23/19 06:44 MCHC 33.6 g/dL (32.0-36.0) 01/23/19 06:44 RDW 14.5 % (11.8-14.1) H 01/23/19 06:44 Plt Count 218 x1000/uL (130-400) 01/23/19 06:44 MPV 10.3 fL (8.0-11.0) 01/23/19 06:44 Immature Gran % 0.5 01/23/19 06:44 Neutrophils % 39.7 01/23/19 06:44 Lymphocytes % 41.2 01/23/19 06:44 Monocytes % 13.1 01/23/19 06:44 Eosinophils % 5.0 01/23/19 06:44 Basophils % 0.5 01/23/19 06:44 Absolute Neutrophils 1.58 k/cumm (1.2-6.7) 01/23/19 06:44 Absolute Lymphocytes 1.64 k/cumm (1.2-3.4) 01/23/19 06:44 Absolute Monocytes 0.52 k/cumm (0.11-0.7) 01/23/19 06:44 Absolute Eosinophils 0.20 k/cumm (0.0-0.7) 01/23/19 06:44 Absolute Basophils 0.02 k/cumm (0.0-0.2) 01/23/19 06:44 Sodium 143 mmol/L (136-145) 01/23/19 06:44 Potassium 3.7 mmol/L (3.5-5.1) 01/23/19 06:44 Chloride 111 mmol/L (98-107) H 01/23/19 06:44 Carbon Dioxide 23.0 mmol/L (21.0-32.0) 01/23/19 06:44 Anion Gap 9.0 mmol/L (3-11) 01/23/19 06:44 BUN 18 mg/dL (7-18) 01/23/19 06:44 Creatinine 1.40 mg/dL (0.70-1.30) H 01/23/19 06:44 Estimated GFR/1.73 m2 50.40 (mL/min/1.73m2) 01/23/19 06:44 Glucose 93 mg/dL (70-100) 01/23/19 06:44 Hemoglobin A1c 5.6 % (4.5-6.2) 01/21/19 11:15 Calcium 9.9 mg/dL (8.5-10.1) 01/23/19 06:44 Magnesium 2.1 mg/dL (1.8-2.4) 01/23/19 06:44 Total Bilirubin 0.7 mg/dL (0.2-1.0) 01/23/19 06:44 Conjugated Bilirubin 0.16 mg/dL (0.00-0.20) 01/23/19 06:44 AST 20 U/L (15-37) 01/23/19 06:44 ALT 30 U/L (16-63) 01/23/19 06:44 Alkaline Phosphatase 77 U/L (46-116) 01/23/19 06:44 Ammonia 21 umol/L (11-32) 01/19/19 18:30 Total Protein 6.9 g/dL (6.4-8.2) 01/23/19 06:44 Albumin 3.1 g/dL (3.4-5.0) L 01/23/19 06:44 Triglycerides 78 mg/dL (30-150) 01/21/19 11:15 Total Cholesterol 102 mg/dL (50-200) 01/21/19 11:15 LDL Cholesterol, Calc 56 mg/dL 01/21/19 11:15 HDL Cholesterol 31 mg/dL (40-60) L 01/21/19 11:15 PSA Screen Cancelled 01/19/19 18:30 Vitamin B12 1189 pg/mL (193-986) H 01/21/19 12:15 Folate 5.9 ng/mL (8.6-20.0) L 01/21/19 12:15 TSH Cancelled 01/19/19 20:32 PTH Intact 303 pg/mL (19-88) H 01/19/19 18:30 Urine Color Yellow (Yellow) 01/19/19 19:10 Urine Clarity Clear (Clear) 01/19/19 19:10 Urine pH 6.0 (5-8) 01/19/19 19:10 Ur Specific [place] 1.020 (1.005-1.025) 01/19/19 19:10 Urine Protein 100 mg/dL (Negative) H 01/19/19 19:10 Urine Ketones Negative mg/dL (Negative) 01/19/19 19:10 Urine Blood Moderate (Negative) H 01/19/19 19:10 Urine Nitrite Negative (Negative) 01/19/19 19:10 Urine Bilirubin Negative (Negative) 01/19/19 19:10 Urine Urobilinogen 0.2 EU/dL (Up TO 0.2) 01/19/19 19:10 Ur Leukocyte Esterase Negative (Negative) 01/19/19 19:10 Urine RBC 5-10 HPF (0-2) H 01/19/19 19:10 Urine WBC Negative HPF (0-5) 01/19/19 19:10 Ur Epithelial Cells Negative HPF (Negative) 01/19/19 19:10 Urine Crystals Negative HPF (Negative) 01/19/19 19:10 Urine Bacteria Rare HPF (Negative) 01/19/19 19:10 Urine Casts Negative LPF (Negative) 01/19/19 19:10 Urine Mucus Trace (Negative) 01/19/19 19:10 Urine Other Negative (Negative) 01/19/19 19:10 Ur Culture Indicated? No 01/19/19 19:10 Ur Creatinine Concen Cancelled 01/20/19 07:36 Urine Glucose Negative mg/dL (Negative) 01/19/19 19:10 U Metanephrine/Creat Cancelled 01/20/19 07:36 U Normetanephrine/Creat Cancelled 01/20/19 07:36 U Tot Metanephri/Creat Cancelled 01/20/19 07:36 Corrected calcium is 10.6
--- NOTE | 2019-01-23 15:00 | NUR.NOTE ---
Nursing Note: patient was offered prophylaxis for 3 day no bm, he refused, stating that it would happen when it happens, (his bowels moving)
[2019-01-23] MEDS: Furosemide 20 MG TAB PO (15:33)
[2019-01-23] MEDS: Atorvastatin 40 MG TAB PO (20:27)
[2019-01-23] MEDS: Tamsulosin 0.4 MG CAPCR PO (21:26)
[2019-01-24] VITALS (12 sets, daily range): BP systolic 150–185; BP diastolic 82–111; PULSE 63–100; RESP 17–20; TEMP 36.4–36.9; O2SAT 96–99
[2019-01-24] MEDS: Heparin 5,000 UNITS/ML VIAL 5000 UNITS SC ×4 (00:07→23:26)
[2019-01-24] MEDS: Normal Saline 1,000 ML 100 ML IV ×2 (05:56→20:31)
[2019-01-24] MEDS: Pantoprazole 40 MG TABCR PO (06:53)
[2019-01-24 07:37] LABS: Abs Immature Grans 0.02 k/cumm (0.0-0.09); Absolute Basophil Count 0.02 k/cumm (0.0-0.2); Absolute Eosinophil Count 0.26 k/cumm (0.0-0.7); Absolute Lymphocyte Count 1.72 k/cumm (1.2-3.4); Absolute Monocyte Count 0.29 k/cumm (0.11-0.7); Absolute Neutrophil Count 2.03 k/cumm (1.2-6.7); Basophils % 0.5; HCT 42.7 % (40.0-50.0); HGB 14.2 g/dL (13.5-17.5); Immature Grans % 0.5; Lymphocytes % 39.6; Mean Corp. HGB Concentration 33.3 g/dL (32.0-36.0); Mean Corpuscular Hemoglobin 28.9 pg (27.0-33.0); Mean Platelet Volume 10.2 fL (8.0-11.0); Monocytes % 6.7; Neutrophils % 46.7; Platelet Count 226 x1000/uL (130-400); RBC 4.91 m/cumm (4.50-6.00); RBC Distribution Width 14.4 % (11.8-14.1); White Blood Cell Count 4.34 k/cumm (4.4-10.8)
[2019-01-24 07:52] LABS: Anion Gap 10.6 mmol/L (3-11); BUN 19 mg/dL (7-18); CO2 22.4 mmol/L (21.0-32.0); Calcium 10.5 mg/dL (8.5-10.1); Chloride 111 mmol/L (98-107); Estimated GFR 46.54 (mL/min/1.73m2); Glucose 122 mg/dL (70-100); Magnesium 1.9 mg/dL (1.8-2.4); Potassium 3.5 mmol/L (3.5-5.1); Sodium 144 mmol/L (136-145)
--- NOTE | 2019-01-24 08:00 | DI.NM_ITS ---
EXAM: NM PARATHYROID SCAN CLINICAL HISTORY: hyperparathyroidism. COMPARISON: US THYROID from 01/24/2019 EXAMINATION: 22.0 millicuries of technetium 99m sestamibi were administered IV. Patient was scanned at 15 minutes and 2 hours. SPECT imaging was also performed. FINDINGS: There is increased activity seen on planar images near the lower pole of the left lobe of the thyroid . The CT correction images and fused images show a 17 millimeter nodule posterior to the left lobe of the thyroid. It is adjacent to the esophagus and somewhat deviates the esophagus. It is anterior to the thoracic spine. No additional abnormal areas of uptake are seen. IMPRESSION: 17 millimeter mass posterior to the left lobe of the thyroid with increased activity, consistent wit h a functioning parathyroid adenoma. This was not visible on ultrasound.
--- NOTE | 2019-01-24 08:00 | DI.US_ITS ---
EXAM: US THYROID CLINICAL HISTORY: hyperparathyroidism TECHNIQUE: Ultrasound performed using standard protocol. COMPARISON: No exams were available for comparison FINDINGS: The right lobe measures 4.6 x 2.1 x 1 7 cm. The left lobe measures 4.1 x 1 9 x 1 4 cm. The thyroid echotexture appears homogeneous. No cyst or mass is seen. Tissues posterior to the thyroid were not well visualized. No masses or adenopathy are visible. IMPRESSION: Negative thyroid ultrasound.
[2019-01-24 08:12] LABS: Albumin 3.2 g/dL (3.4-5.0)
[2019-01-24] MEDS: Aspirin 81 MG CHEW PO (08:12)
[2019-01-24] MEDS: Carvedilol 6.25 MG TAB 12.5 MG PO ×2 (08:12→20:31)
[2019-01-24] MEDS: amLODIPine 10 MG TAB PO (08:12)
[2019-01-24] MEDS: Docusate Sodium 100 MG CAP PO (08:12)
[2019-01-24] MEDS: hydrALAZINE 25 MG TAB PO ×2 (08:13→14:52)
[2019-01-24] MEDS: Folic Acid 1 MG TAB PO (08:13)
[2019-01-24 09:00] LABS: Metanephrine, Free 0.21 nmol/L (<0.50); Normetanephrine, Free 0.44 nmol/L (<0.90)
--- NOTE | 2019-01-24 10:45 | OT.INIE ---
Occupational Therapy Notes Inpatient Occupational Therapy Evaluation Date: 01/24/19 Referring Doctor:Candelaria Kat MD OT Orders: Non-Urgent: Limited Ability Precautions: Fall, Standard PATIENT PROFILE/ADMITTING DIAGNOSIS: Pt is a 68 year old male who was admitted through the ER for a dx of mental status change and a hx of falls. He was then dx with renal insufficiency and hypercalcemia. Past Medical History: Hyperparathyroidism, hypertension Social History/Home Situation: Pt lives in a private home with his brother and his mother. He states that he is totally (I) at baseline with ADLs and notes that he walks daily from his trailer to the mall in [facility]. Equipment owned/DME: Cane SUBJECTIVE: Pt was sitting in bed when OT arrived. He was pleasant and willing to participate in OT session. OBJECTIVE: General Observation: IV (R) UE Mental Status: Alert to name and place Pain: no c/o pain ROM: RUE AROM WNL L UE AROM WNL STRENGTH: RUE Shoulder flexion 4/5, bicep 5/5, tricep 5/5, diesel power shovel operator is strong and symmetrical LUE Shoulder flexion 4/5, bicep 5/5, tricep 5/5, diesel power shovel operator is strong and symmetrical FUNCTIONAL MOBILITY/ADLS: Transfers Supine-sit (I) Sit-supine (I) Sit-Stand (S) Stand-sit (S) BATHING Sitting on side of bed with max (A) set up Bathing UE (I) face and under (B) arms. Bathing LE Pt denies for today stating he had a shower this weekend. DRESSING Sitting on side of bed Dressing UE (I) with don and doffing sweatshirt Dressing LE (I) don and doffing (B) socks with min vc GROOMING (I) with brushing hair in seated position on side of bed TOILETING Pt denies EATING Min (A) with opening containers otherwise (I) BALANCE: Static sitting Normal Dynamic Sitting Normal Static Standing Good Dynamic Standing Good SPECIAL TESTS: Daily Activity Limitations Standardized Measure [facility] AM -PAC ?6 clicks? Daily Activity Inpatient Short Form: Raw score: 21 Standardized score: 44.27 CMS score: 32.79% INFORMED CONSENT/EDUCATION: Pt instructed in purpose of OT Consult and plan of care. ASSESSMENT: Patient is a 68-year-old male referred to occupational therapy services with diagnosis of change in mental status, hx of falls, dx of renal insufficiency, and hypercalcemia. Patient presents with clinical signs and symptoms consistent with dx, as demonstrated by the following impairment level findings: decreased functional mobility for performance of ADLs, decreased leg mobility for LE dressing without vc, decreased safety awareness. Impairments are contributing to the following functional limitations: Impairments in ADLs/IADL and leisure activities, decreased safety awareness, decreased performance of standing ADLs. AMPAC score 21 Patient is assessed as a Low 66399 complexity based on the following: History: See above Examination: See functional limitations as noted above Presentation: Evolving Decision Making: AMPAC score 21 GOALS Goals x1 week 1. Transfers (I) 2. Dressing (I) with don and doffing personal shirt and pants 3. Bathing (I) 4. Toileting (I) on toilet 5. Eating (I) PLAN OF CARE/TREATMENT PLAN: 1x/day, 5 days/ week x 1week Initiate Occupational Therapy Services for bathing, dressing, grooming, toileting, eating, transfer training. DISCHARGE RECOMMENDATIONS- Home when medically cleared per MD. TREATMENT TIME/MINUTES/CODES 00478, [id number], 30 minutes (08:10) Latasha Jo OTR/[facility]
--- NOTE | 2019-01-24 12:24 | PT.INNT ---
Date of service: 01/24/19 Time of Service: 12:24 PT Notes 01/24/19 Patient was not available x3 for morning PT session. Will attempt to resume PT services this afternoon.
--- NOTE | 2019-01-24 15:13 | EVALE_ITS ---
Date of service: 01/17/19 Time of Service: 15:14 Speech Therapy Evaluation Note: Speech-Language/Swallowing Pathology Clinical Dysphagia Evaluation Medical Diagnosis: Altered Mental Status Therapy Diagnosis: Dysphagia, Unspecified Current Level of Care: Inpatient Subjective: Pt was sitting upright in bedside chair, watching television upon ORNAMENTAL IRON WORKER APPRENTICE arrival. Rationale for clinical dysphagia evaluation discussed and pt agreed to be assessed today, however, he was increasingly agitated across the evaluation, appearing more confused and reluctant to try additional food items. Pt did participate in multiple tests today, to include a thyroid scan and ultrasound. Pertinent Medical/Swallowing History & Previous Level of Function: Pt is a 68 year-old male referred for a swallow evaluation due to concerns for aspiration and report of difficulty managing large pills. Pt was described to be coughing after meals and recently vomited when unable to manage large pill. Per H&P, prior to admission, pt was living with his brother with check ins from his mom. Pt has had recent change in mental status, accompanied by falls that have not led to injury. Pt was hypercalcemic with mild renal insufficiency when admitted. CT imaging of his head indicated evidence of old lacunar infarct in the left basal ganglia with severe chronic small vessel ischemic changes throughout white matter, but new CVA ruled out. Chest x-ray was unremarkable and per recent progress note, aspiration into airway is no longer suspected. Pt has been receiving further work-up for differential diagnosis. Additional PMHx includes: encephalopathy, hypertension, possible hyperparathyroidism, ALICJA, hx of CVA, DVT prophylaxis, hypomagnesemia, hypokalemia, BPH without obstruction/lower urinary tract symptoms. Living Environment/Support: Pt is reported to have lived with his brother where his mother checked on him prior to admission. Precautions: Special diet. Medications: Please see chart. Pt has been placed on PPI during acute stay due to vomiting. Allergies: None. Barriers to Learning: Altered mental status, hx of CVA, hard of hearing. Posture/Positioning: Adequate. Prior Diet: Regular, Thin Liquids Current Diet: Regular, Thin Liquids (low sodium) ORAL MECHANISM EXAMINATION Dentition: Upper and lower natural. Pt missing most teeth, decay present. Oral Hygiene: Somewhat poor, though tongue clean and mouth moist. Oral Structures/Function: Upon oral-mechanism examination, pt able to follow simple directions and/or return demonstrations, exhibiting lingual, labial, and mandibular strength and coordination WFL. ROM was slightly reduced. Consistencies Tested: Regular, mechanical soft, thin liquids. Self-Feeding/Level of Assistance: Pt able to feed self, though slow. Oral Phase: Pt demonstrated prolonged and slow mastication, however, likely due to dentition limitations. Piecemeal deglutition noted. Pharyngeal Phase: Laryngeal elevation/excursion present upon palpation. Pt denied globus or difficulty managing liquids or swallows, but was noted to massage his throat at the end of PO trials. Pt denied pain or tenderness. Esophageal Phase: Although they appeared to be shallow coughs, pt reported that he was hiccupping post PO trials, which persisted throughout the rest of the assessment. Pt confirmed that he hiccups and burps sometimes after meals at home. Pt has recently been placed on PPI during this acute stay. S/S Aspiration: Pt exhibited intermittent runny nose at baseline. Pt noted to cough post swallow following first bolus hold, however, eliminated on second trial. Pt managed open cup consecutive swallows, independently gulping apple juice w/o overt s/s of aspiration. Pt exhibited cough x1 post swallow of regular texture solids. Cough x3 noted during mastication of regular texture solids. What was suspected to be shallow and non-productive cough x1 post sip of thin liquids and intermittently between bites, may have actually been what pt was later describing as hiccups. This persisted even with mechanical soft textures. Pt/Caregiver/Staff Education: Pt and nursing staff informed of inconclusive results of clinical dysphagia evaluation and recommendation for further diagnostic tx to consider possible reflux/esophageal/GI component of dysphagia and to further assess aspiration risk. Reflux precautions and medication administration adjustments discussed with nsg. ORNAMENTAL IRON WORKER APPRENTICE consulted with MD who was in agreement to esophageal work-up. Assessment: Pt is a 68 year-old male referred for a clinical dysphagia evaluation due to report of having difficulty managing large pills which resulted in vomiting episode as well as to assess for aspiration risk. Pt ex hibited intermittent and inconsistent shallow coughing post sips/bites, between bites, and during mastication with no associated vocal change or watery eyes. He later described some of his shallow coughing to be hiccupping, pointing to his lower stomach. Intermittent s/s occurred with regular and mechanical soft textures and minimally with liquids. Aspiration cannot be completely ruled out today, however, given report of pt coughing after meals, vomiting after difficulty clearing large pill, and today?s hiccupping, reflux and/or esophageal component to dysphagia symptoms is possible. Pt was recently placed on PPI during acute care and is recommended to follow reflux precautions. Pt did participate in ample testing today to include thyroid scan and ultrasound, which may have effected swallowing performance. Pt is recommended for further diagnostic swallow tx to re-assess aspiration risk, follow-up with esophageal work-up, and for diet modification/analysis and establishment and training in safe swallow protocols. Pt is recommended to trial medications crushed in applesauce/puree and/or whole in applesauce/puree if needed. ORNAMENTAL IRON WORKER APPRENTICE consulted with attending MD and barium swallow study has been ordered. Rehab Potential: Guarded given pt demonstrated reduced compliance across the evaluation today. Short-Term Goals: 1. Pt will manage least restrictive diet with no overt s/s of aspiration in 100% of meals when following safe swallow protocol. Time Frame: 1 week Long-Term Goals: 1. Pt will maintain adequate nutrition and hydration PO with safe and effective swallowing as evidenced by no overt s/s of aspiration, stable weight, and absence of pneumonia. Time Frame: 2 weeks Pt Goal: to figure out what is going on PLAN Planned Treatment Interventions: [id number] TX Frequency: 3x/week Intensity: 45 minutes Duration: 2 weeks Discharge Plan: Upon meeting goals and/or d/c from facility. SWALLOWING RECOMMENDATIONS Solids: Regular, moist, cut small. Liquids: Thin. Medication Administration: Crushed in puree/pudding. Level of Assistance/Supervision: Direct supervision with self-feeding. Strategies/Adaptations/AE: Small bites and sips. Pace rate of intake. Chew thoroughly before swallowing and ensure complete swallows before next bite. Alternate liquids and solids. Reflux precautions to include refrain from lying down at least 30 minutes after eating, do not eat within 3 hours of going to bed, reduce consumption of high fat and acidic foods, elevate head of bed, eat smaller more frequent meals throughout the day, etc. Upright and out of bed for all meals and snacks. Check mouth after every few bites. Oral care at least 2x/day. Posture/Positioning Needs: Upright and out of bed for all meals and snacks. Recommended Referrals/Procedures: ORNAMENTAL IRON WORKER APPRENTICE to consult with attending MD regarding further esophageal/GI work-up. Barium swallow study to be ordered. Pending results, further instrumentation, to include modified barium swallow study may be indicated. Charge Code: [id number] Swallow Evaluation Time In: 3:00 pm Time Out: 4:00 pm Total Time: 60 minutes
[2019-01-24 15:20] LABS: PSA, Diagnostic 2.3 ng/mL (0.0-4.5)
--- NOTE | 2019-01-24 15:34 | PT.INTREAT ---
Date of service: 01/24/19 Time of Service: 15:35 PT Notes Inpatient Physical Therapy Treatment Note [facility] Date: 01/24/2019 PRECAUTIONS: Fall SUBJECTIVE: Florian is pleasant and agreeable to participating in PT this afternoon. OBJECTIVE: PAIN: No complaints of pain BED MOBILITY/TRANSFERS Sit-stand: S Stand-sit: S GAIT Assistive Device: FWW Weight bearing: Full Assist: SBA Distance: 400' Deviation: Mild path deviation throughout gait training THEREX: Patient completed an UE and LE strengthening program, in a seated position, as per flow sheet. STAIRS: Up/down 3?4 and 2?6 using B rails and a step to pattern with supervision ASSESSMENT: Patient tolerated session without complaint. He was able to tolerate a progression in gait distance with FWW support and SBA. Patient would benefit from continued gait training and global strengthening for improved mobility and activity tolerance. PLAN: Continue with PTs POC TREATMENT CODE/TIME: 35 minutes; [id number], [id number]
--- NOTE | 2019-01-24 15:40 | CMPROGNOTE_ITS ---
- If Service Date Differs Date of service: 01/24/19 Time of Service: 15:41 Care Management Progress Note S/O: Sandeep was ambulating with PT in the hallway when CM first saw him today. He was smiling and pleasant and recognized CM from the weekend. Sandeep also worked with PT in his room doing exercises and was able to climb stairs. EVE spoke with Mercedes Moreira at the CT and at her suggestion will assist Sandeep in completing a form to [facility]. This will hope fully increase his eligibility for [facility] benefits. A:Sandeep is a 68 year old male admitted with hypercalcemia, renal insufficiency, altered mental status. P:Sandeep will be discharged home with [facility] when [facility] is medically ready. EVE has contacted Mercedes Moreira at the [facility] and faxed over the H&P they will need to be contacted to schedule the new patient appointment. CM will continue to support patient, family and discharge planning needs.
--- NOTE | 2019-01-24 15:57 | W.PM.PROGNOT ---
Date of Service Date of service: 01/24/19 Time of Service: 14:00 Assessment and Plan Assessment and plan (1) Encephalopathy: Status: Acute Assessment and plan: It is difficult to ascertain how much of the patient's confusion is related to his acute medical issues (symptomatic hypercalcemia, hypertensive encephalopathy) vs chronic. Mental status has improved/plateaued. The patient has been quite cooperative and pleasant, but still easily confused. I am not sure if it is better control of his calcium or hypertension that have helped. Intensify antihypertensive regimen. Continue IVF and treating hypercalcemia as below. Continue to monitor mental status. (2) Hypercalcemia: Status: Acute Assessment and plan: In setting of known hyperparathyroidism. On IVF + lasix. Intact PTH is 303. [place] [facility] [place] Dr Nunez recommends cinacalcet until the patient can have definitive treatmet (parathyroidectomy). Obtain thyroid ultrasound and parathyroid scan today. Started cinacalcet today. (3) Hypertension: Status: Chronic Assessment and plan: With possible hypertensive encephalopathy. Continue current dose of coreg (HR would not tolerate increase), amlodipine, increase PO hydralazine and prn clonidine. He would benefit from outpatient renal artery dopplers. Avoid DAVID-i/ARB for now due to worsening creatinine. IVF likely driving BP up some as well. (4) ALICJA (acute kidney injury): Status: Acute Assessment and plan: Worse today. Ensuring no urinary retention with bladder scans. (5) CVA (cerebral vascular accident): Status: Chronic Assessment and plan: Old/not acute. Continue ASA and statin. MRI brain limited, but with small old left basal ganglia lacunar infarct. (6) Hypokalemia: Status: Resolved Assessment and plan: recheck in am. (7) Hypomagnesemia: Status: Resolved Assessment and plan: recheck in am (8) Vomiting: Status: Resolved Assessment and plan: No recurrences. ?reflux, ? dysphagia for pills. PPI added. Awaiting speech therapy recommendations. (9) Aspiration into airway: Status: Ruled-out Assessment and plan: Awaiting speech therapy recommendations (10) DVT prophylaxis: Status: Acute Assessment and plan: SC Heparin. (11) Discharge planning issues: Status: Acute Assessment and plan: Full code As the mental status is still improving, it is not yet clear if the patient will require a guardian. Discussed with care management. Subjective Subjective Interval history since last seen: Patient seen while ambulating in the hallway with PT with a walker. Denies dizziness, chest pain, shortness of breath, nausea. Nursing reports an episode of urinary retention - undergoing voiding trial today. Exam Narrative Exam Narrative: General: very pleasantly confused elderly male, A&Ox2, seen in a great mood, ambulating the hallways. HEENT: EOMI, MMM, no obvious goiter Heart: not auscultated - patient ambulating in the hallway Lungs: nonlabored breathing. GI: abdomen is soft, nontender, nondistended Extremities: no edema bilateral lower extremities. Objective Objective Clinical Data: Abnormal lab results 01/19/19 01/21/19 01/21/19 Range/Units 20:20 12:15 12:15 WBC 3.83 L (4.4-10.8) k/cumm RDW 14.3 H (11.8-14.1) % Absolute Lymphocytes 0.93 L (1.2-3.4) k/cumm Chloride (98-107) mmol/L BUN 21 H D (7-18) mg/dL Creatinine 1.31 H (0.70-1.30) mg/dL Glucose 102 H (70-100) mg/dL Calcium 10.9 H (8.5-10.1) mg/dL Ionized Calcium 1.39 H (1.12-1.32) mmol/L Albumin (3.4-5.0) g/dL Vitamin B12 (193-986) pg/mL Folate (8.6-20.0) ng/mL 01/21/19 01/24/19 01/24/19 Range/Units 12:15 06:53 06:53 WBC 4.34 L (4.4-10.8) k/cumm RDW 14.4 H (11.8-14.1) % Absolute Lymphocytes (1.2-3.4) k/cumm Chloride 111 H (98-107) mmol/L BUN 19 H (7-18) mg/dL Creatinine 1.50 H (0.70-1.30) mg/dL Glucose 122 H (70-100) mg/dL Calcium 10.5 H (8.5-10.1) mg/dL Ionized Calcium (1.12-1.32) mmol/L Albumin 3.2 L (3.4-5.0) g/dL Vitamin B12 1189 H (193-986) pg/mL Folate 5.9 L (8.6-20.0) ng/mL Vital Signs Temperature 36.6 C 01/24/19 11:42 Temperature Source Tympanic 01/24/19 11:42 Pulse 63 01/24/19 11:42 Pulse Rhythm Regular 01/24/19 09:40 Pulse 81 01/19/19 21:40 Respiratory Rate 17 01/24/19 11:42 Respiratory Effort Non-Labored 01/24/19 09:40 Respiratory Depth Normal 01/24/19 09:40 Respiratory Pattern Normal 01/24/19 09:40 Blood Pressure 179/92 H 01/24/19 11:42 Blood Pressure Mean 127 01/19/19 21:31 Blood Pressure Position Sitting 01/19/19 18:18 Pulse Oximetry 97 01/24/19 11:42 Oxygen Delivery Method Room Air 01/24/19 11:42 Oxygen Flow Rate 0 01/24/19 11:42 Pain Level 0 01/24/19 11:42 Comment 01/24/19 09:31 Intake & Output 01/23/19 01/24/19 01/24/19 23:59 11:59 23:59 Intake Total 1240 / 3638.333 1350 / 1350 Output Total 2100 / 3100 1605 / 1605 Balance -860 / 538.333 -255 / -255 Weight 77.6 kg Intake: IV 1000 / 2928.333 950 / 950 Oral 240 / 710 400 / 400 Output: Urine 2100 / 3100 1605 / 1605 Other: Urine Color Yellow Yellow Urine Appearance Clear Clear Urine Odor Normal Normal Comment darker yellow Voiding Methods Urinal Urinal Laboratory Results WBC 4.34 k/cumm (4.4-10.8) L 01/24/19 06:53 RBC 4.91 m/cumm (4.50-6.00) 01/24/19 06:53 Hgb 14.2 g/dL (13.5-17.5) 01/24/19 06:53 Hct 42.7 % (40.0-50.0) 01/24/19 06:53 MCV 87.0 fL (80-95) 01/24/19 06:53 MCH 28.9 pg (27.0-33.0) 01/24/19 06:53 MCHC 33.3 g/dL (32.0-36.0) 01/24/19 06:53 RDW 14.4 % (11.8-14.1) H 01/24/19 06:53 Plt Count 226 x1000/uL (130-400) 01/24/19 06:53 MPV 10.2 fL (8.0-11.0) 01/24/19 06:53 Immature Gran % 0.5 01/24/19 06:53 Neutrophils % 46.7 01/24/19 06:53 Lymphocytes % 39.6 01/24/19 06:53 Monocytes % 6.7 01/24/19 06:53 Eosinophils % 6.0 01/24/19 06:53 Basophils % 0.5 01/24/19 06:53 Absolute Neutrophils 2.03 k/cumm (1.2-6.7) 01/24/19 06:53 Absolute Lymphocytes 1.72 k/cumm (1.2-3.4) 01/24/19 06:53 Absolute Monocytes 0.29 k/cumm (0.11-0.7) 01/24/19 06:53 Absolute Eosinophils 0.26 k/cumm (0.0-0.7) 01/24/19 06:53 Absolute Basophils 0.02 k/cumm (0.0-0.2) 01/24/19 06:53 Sodium 144 mmol/L (136-145) 01/24/19 06:53 Potassium 3.5 mmol/L (3.5-5.1) 01/24/19 06:53 Chloride 111 mmol/L (98-107) H 01/24/19 06:53 Carbon Dioxide 22.4 mmol/L (21.0-32.0) 01/24/19 06:53 Anion Gap 10.6 mmol/L (3-11) 01/24/19 06:53 BUN 19 mg/dL (7-18) H 01/24/19 06:53 Creatinine 1.50 mg/dL (0.70-1.30) H 01/24/19 06:53 Estimated GFR/1.73 m2 46.54 (mL/min/1.73m2) 01/24/19 06:53 Glucose 122 mg/dL (70-100) H 01/24/19 06:53 Hemoglobin A1c 5.6 % (4.5-6.2) 01/21/19 11:15 Calcium 10.5 mg/dL (8.5-10.1) H 01/24/19 06:53 Ionized Calcium 1.39 mmol/L (1.12-1.32) H 01/19/19 20:20 Magnesium 1.9 mg/dL (1.8-2.4) 01/24/19 06:53 Total Bilirubin 0.7 mg/dL (0.2-1.0) 01/23/19 06:44 Conjugated Bilirubin 0.16 mg/dL (0.00-0.20) 01/23/19 06:44 AST 20 U/L (15-37) 01/23/19 06:44 ALT 30 U/L (16-63) 01/23/19 06:44 Alkaline Phosphatase 77 U/L (46-116) 01/23/19 06:44 Ammonia 21 umol/L (11-32) 01/19/19 18:30 Total Protein 6.9 g/dL (6.4-8.2) 01/23/19 06:44 Albumin 3.2 g/dL (3.4-5.0) L 01/24/19 06:53 Triglycerides 78 mg/dL (30-150) 01/21/19 11:15 Total Cholesterol 102 mg/dL (50-200) 01/21/19 11:15 LDL Cholesterol, Calc 56 mg/dL 01/21/19 11:15 HDL Cholesterol 31 mg/dL (40-60) L 01/21/19 11:15 PSA Screen Cancelled 01/19/19 18:30 Prostate Specific Ag 2.3 ng/ml (0.0-4.5) 01/19/19 18:30 Vitamin B12 1189 pg/mL (193-986) H 01/21/19 12:15 Folate 5.9 ng/mL (8.6-20.0) L 01/21/19 12:15 TSH Cancelled 01/19/19 20:32 PTH Intact 303 pg/mL (19-88) H 01/19/19 18:30 Plasma Free Metaneph 0.21 nmol/L (<0.50) 01/20/19 06:43 Plasma Free Normeta 0.44 nmol/L (<0.90) 01/20/19 06:43 Urine Color Yellow (Yellow) 01/19/19 19:10 Urine Clarity Clear (Clear) 01/19/19 19:10 Urine pH 6.0 (5-8) 01/19/19 19:10 Ur Specific [place] 1.020 (1.005-1.025) 01/19/19 19:10 Urine Protein 100 mg/dL (Negative) H 01/19/19 19:10 Urine Ketones Negative mg/dL (Negative) 01/19/19 19:10 Urine Blood Moderate (Negative) H 01/19/19 19:10 Urine Nitrite Negative (Negative) 01/19/19 19:10 Urine Bilirubin Negative (Negative) 01/19/19 19:10 Urine Urobilinogen 0.2 EU/dL (Up TO 0.2) 01/19/19 19:10 Ur Leukocyte Esterase Negative (Negative) 01/19/19 19:10 Urine RBC 5-10 HPF (0-2) H 01/19/19 19:10 Urine WBC Negative HPF (0-5) 01/19/19 19:10 Ur Epithelial Cells Negative HPF (Negative) 01/19/19 19:10 Urine Crystals Negative HPF (Negative) 01/19/19 19:10 Urine Bacteria Rare HPF (Negative) 01/19/19 19:10 Urine Casts Negative LPF (Negative) 01/19/19 19:10 Urine Mucus Trace (Negative) 01/19/19 19:10 Urine Other Negative (Negative) 01/19/19 19:10 Ur Culture Indicated? No 01/19/19 19:10 Ur Creatinine Concen Cancelled 01/20/19 07:36 Urine Glucose Negative mg/dL (Negative) 01/19/19 19:10 U Metanephrine/Creat Cancelled 01/20/19 07:36 U Normetanephrine/Creat Cancelled 01/20/19 07:36 U Tot Metanephri/Creat Cancelled 01/20/19 07:36 Corrected calcium 11.1 (worse today - 10.6 yesterday).
[2019-01-24] MEDS: hydrALAZINE 25 MG TAB 50 MG PO (20:31)
[2019-01-24] MEDS: Atorvastatin 40 MG TAB PO (20:31)
[2019-01-24] MEDS: Tamsulosin 0.4 MG CAPCR PO (21:31)
[2019-01-25] VITALS (8 sets, daily range): BP systolic 146–185; BP diastolic 80–95; PULSE 61–70; RESP 17–19; TEMP 36.4–36.7; O2SAT 96–99
[2019-01-25] MEDS: Pantoprazole 40 MG TABCR PO (06:19)
[2019-01-25] MEDS: Normal Saline 1,000 ML 100 ML IV (06:19)
[2019-01-25 07:22] LABS: Albumin 3.2 g/dL (3.4-5.0); Anion Gap 8.2 mmol/L (3-11); BUN 15 mg/dL (7-18); CO2 24.8 mmol/L (21.0-32.0); CREATININE 1.33 mg/dL (0.70-1.30); Chloride 109 mmol/L (98-107); Estimated GFR 53.47 (mL/min/1.73m2); Glucose 97 mg/dL (70-100); Magnesium 1.8 mg/dL (1.8-2.4); Potassium 3.2 mmol/L (3.5-5.1); Sodium 142 mmol/L (136-145)
[2019-01-25] MEDS: POTASSIUM CHLORIDE/0.9% NACL 1,000 ML 100 MEQ IV ×2 (09:03→19:35)
[2019-01-25] MEDS: Carvedilol 6.25 MG TAB 12.5 MG PO ×2 (09:05→19:35)
[2019-01-25] MEDS: Aspirin 81 MG CHEW PO (09:05)
[2019-01-25] MEDS: amLODIPine 10 MG TAB PO (09:05)
[2019-01-25] MEDS: Heparin 5,000 UNITS/ML VIAL 5000 UNITS SC ×3 (09:05→23:26)
[2019-01-25] MEDS: Folic Acid 1 MG TAB PO (09:05)
[2019-01-25] MEDS: hydrALAZINE 25 MG TAB 50 MG PO ×3 (09:05→19:35)
--- NOTE | 2019-01-25 09:54 | OT.INTREAT ---
Date of service: 01/25/19 Time of Service: 08:25 Occupational Therapy Notes Occupational Therapy Inpatient Treatment Note Date: 01/25/19 PRECAUTIONS: Fall, Standard SUBJECTIVE: Pt was sitting on side of bed when OT arrived, he was agreeable to OT session. OBJECTIVE: PAIN: no c/o pain FUNCTIONAL MOBILITY Supine-sit: (I) Sit-supine: (I) Sit-stand: (S) Stand-sit: (S) Bed-Chair: SBA, FWW Chair-bed: SBA, FWW BATHING: Sitting on side of bed with max (A) set up Upper Body: (I) with min vc throughout Lower Body: (I) with min vc for leg position DRESSING: Sitting on side of with min vc Upper Extremity: (I) don and doffing sweatshirt Lower Extremity: (I) don and doffing (B) socks GROOMING: Standing at sink with FWW (I) with brushing hair TOILETING: NT EATING: (I) sitting on side of bed, pt requires supervision with eating routines. PLAN: Progress pt towards goals. TREATMENT CODES/TIME: 29659m3, 30 minutes (08:25) [facility]
--- NOTE | 2019-01-25 10:55 | PDOC.CMPRO ---
- If Service Date Differs Date of service: 01/25/19 Time of Service: 10:55 Care Management Progress Note S/O: Sandeep ambulates in the [place]os without a walker and with PT. He is alert and engaged. He is not ready for discharge when he is he will return home with his family and [facility]. A:Sandeep is a 68 year old male admitted with hypercalcemia, renal insufficiency, altered mental status. P:Sandeep will be discharged home with [facility] when he is medically ready. EVE has contacted [facility] at [facility] and faxed over the H&P they will need to be contacted to schedule the new patient appointment. CM will continue to support patient, family and discharge planning needs.
--- NOTE | 2019-01-25 11:51 | PT.INTREAT ---
Date of service: 01/25/19 Time of Service: 11:51 PT Notes Inpatient Physical Therapy Treatment Note [facility] Date: 01/25/2019 PRECAUTIONS: Fall SUBJECTIVE: Florian is pleasant and agreeable to participating in PT. OBJECTIVE: PAIN: No complaints of pain BED MOBILITY/TRANSFERS Supine-sit: I Sit-stand: S Stand-sit: S GAIT Assistive Device: FWW in a.m.; No AD in p.m. Weight bearing: Full Assist: S with FWW; CGA?SBA without AD Distance: 500' with FWW; 400' without AD Deviation: Mild path deviation throughout gait training THEREX: Patient completed a LE strengthening program, in a standing position with FWW support, as per flow sheet. ASSESSMENT: Patient tolerated sessions without complaint. He was able to tolerate a progression in gait distance with FWW support and supervision. He was also able to tolerate gait training without assistive device support requiring CGA?SBA for safety. Patient would benefit from continued gait training and global strengthening for improved mobility and activity tolerance. PLAN: Continue with PT's POC TREATMENT CODE/TIME: Session 1: 25 minutes; 30516, [id number] Session 2: 15 minutes; 18912
--- NOTE | 2019-01-25 16:40 | W.PM.PROGNOT ---
Date of Service Date of service: 01/25/19 Time of Service: 16:40 Assessment and Plan Assessment and plan (1) Encephalopathy: Status: Acute Assessment and plan: It is difficult to ascertain how much of the patient's confusion is related to his acute medical issues (symptomatic hypercalcemia, hypertensive encephalopathy) vs chronic. Mental status now close to baseline. Continue to treat hypercalcemia/hypertension. (2) Hypercalcemia: Status: Acute Assessment and plan: In setting of known hyperparathyroidism due to a functional parathyroid adenoma. On IVF + lasix as well as cinacalcet. Will need surgery as outpatient. (3) Parathyroid adenoma: Status: Acute Assessment and plan: Will require surgical resection as outpatient. For now, treat with cinacalcet. (4) Hypertension: Status: Chronic Assessment and plan: With possible hypertensive encephalopathy. BPs now better. Continue current dose of coreg (HR would not tolerate increase), amlodipine, PO hydralazine and prn clonidine. He would benefit from outpatient renal artery dopplers. Avoid DAVID-i/ARB for now due to worsening creatinine. IVF likely driving BP up some as well. (5) ALICJA (acute kidney injury): Status: Acute Assessment and plan: Better. No evidence of urinary retention, per nursing. Monitor on IVF/lasix. (6) CVA (cerebral vascular accident): Status: Chronic Assessment and plan: Old/not acute. Continue ASA and statin. MRI brain limited, but with small old left basal ganglia lacunar infarct. (7) Hypokalemia: Status: Resolved Assessment and plan: recheck in am. (8) Hypomagnesemia: Status: Resolved Assessment and plan: recheck in am (9) Vomiting: Status: Resolved Assessment and plan: No recurrences. ?reflux, ? dysphagia for pills. PPI added. Ideally would get a barium swallow, but it is not available at our facility at this time - equipment won't be functional until March. Speech therapy to follow. (10) Aspiration into airway: Status: Ruled-out Assessment and plan: As above (11) DVT prophylaxis: Status: Acute Assessment and plan: SC Heparin. (12) Discharge planning issues: Status: Acute Assessment and plan: Full code As the mental status is still improving, it is not yet clear if the patient will require a guardian. Discussed with care management. Subjective Subjective Interval history since last seen: Getting a shave right now and is very excited about it. Has had a cough. Denies dizziness, chest pain, shortness of breath, nausea. Exam Narrative Exam Narrative: General: very pleasantly confused elderly male, A&Ox2, getting his villagomez shaved while I am talking to him - looks delighted HEENT: EOMI, MMM, no obvious goiter Heart: RRR, no m/r/g Lungs: crackles at B bases GI: abdomen is soft, nontender, nondistended Extremities: no edema bilateral lower extremities. Objective Objective Clinical Data: Abnormal lab results 01/25/19 Range/Units 06:23 Potassium 3.2 L (3.5-5.1) mmol/L Chloride 109 H (98-107) mmol/L Creatinine 1.33 H (0.70-1.30) mg/dL Albumin 3.2 L (3.4-5.0) g/dL Vital Signs Temperature 36.7 C 01/25/19 15:45 Temperature Source Temporal Artery Scan 01/25/19 15:45 Pulse 67 01/25/19 15:45 Pulse Rhythm Regular 01/25/19 15:49 Pulse 81 01/19/19 21:40 Respiratory Rate 18 01/25/19 15:45 Respiratory Effort 01/25/19 15:49 Respiratory Depth Normal 01/25/19 15:49 Respiratory Pattern Normal 01/25/19 15:49 Blood Pressure 146/80 H 01/25/19 15:45 Blood Pressure Mean 127 01/19/19 21:31 Blood Pressure Position Sitting 01/19/19 18:18 Pulse Oximetry 98 01/25/19 15:45 Oxygen Delivery Method Room Air 01/25/19 15:45 Oxygen Flow Rate 0 01/25/19 15:45 Pain Level 0 01/25/19 15:45 Comment 01/24/19 09:31 Intake & Output 01/24/19 01/25/19 01/25/19 23:59 11:59 23:59 Intake Total 1300 / 2650 1488.333 / 1608.333 120 / 1608.333 Output Total 1100 / 2705 630 / 630 Balance 200 / -55 858.333 / 978.333 120 / 978.333 Weight 73.6 kg Intake: IV 1000 / 1950 1248.333 / 1248.333 Oral 300 / 700 240 / 360 120 / 360 Output: Urine 1100 / 2705 630 / 630 Other: Urine Color Yellow Yellow Urine Appearance Clear Clear Clear Urine Odor Normal Normal Comment patient gets up each hour for voiding Voiding Methods Urinal Urinal Laboratory Results WBC 4.34 k/cumm (4.4-10.8) L 01/24/19 06:53 RBC 4.91 m/cumm (4.50-6.00) 01/24/19 06:53 Hgb 14.2 g/dL (13.5-17.5) 01/24/19 06:53 Hct 42.7 % (40.0-50.0) 01/24/19 06:53 MCV 87.0 fL (80-95) 01/24/19 06:53 MCH 28.9 pg (27.0-33.0) 01/24/19 06:53 MCHC 33.3 g/dL (32.0-36.0) 01/24/19 06:53 RDW 14.4 % (11.8-14.1) H 01/24/19 06:53 Plt Count 226 x1000/uL (130-400) 01/24/19 06:53 MPV 10.2 fL (8.0-11.0) 01/24/19 06:53 Immature Gran % 0.5 01/24/19 06:53 Neutrophils % 46.7 01/24/19 06:53 Lymphocytes % 39.6 01/24/19 06:53 Monocytes % 6.7 01/24/19 06:53 Eosinophils % 6.0 01/24/19 06:53 Basophils % 0.5 01/24/19 06:53 Absolute Neutrophils 2.03 k/cumm (1.2-6.7) 01/24/19 06:53 Absolute Lymphocytes 1.72 k/cumm (1.2-3.4) 01/24/19 06:53 Absolute Monocytes 0.29 k/cumm (0.11-0.7) 01/24/19 06:53 Absolute Eosinophils 0.26 k/cumm (0.0-0.7) 01/24/19 06:53 Absolute Basophils 0.02 k/cumm (0.0-0.2) 01/24/19 06:53 Sodium 142 mmol/L (136-145) 01/25/19 06:23 Potassium 3.2 mmol/L (3.5-5.1) L 01/25/19 06:23 Chloride 109 mmol/L (98-107) H 01/25/19 06:23 Carbon Dioxide 24.8 mmol/L (21.0-32.0) 01/25/19 06:23 Anion Gap 8.2 mmol/L (3-11) 01/25/19 06:23 BUN 15 mg/dL (7-18) 01/25/19 06:23 Creatinine 1.33 mg/dL (0.70-1.30) H 01/25/19 06:23 Estimated GFR/1.73 m2 53.47 (mL/min/1.73m2) 01/25/19 06:23 Glucose 97 mg/dL (70-100) 01/25/19 06:23 Hemoglobin A1c 5.6 % (4.5-6.2) 01/21/19 11:15 Calcium 10.0 mg/dL (8.5-10.1) 01/25/19 06:23 Ionized Calcium 1.39 mmol/L (1.12-1.32) H 01/19/19 20:20 Magnesium 1.8 mg/dL (1.8-2.4) 01/25/19 06:23 Total Bilirubin 0.7 mg/dL (0.2-1.0) 01/23/19 06:44 Conjugated Bilirubin 0.16 mg/dL (0.00-0.20) 01/23/19 06:44 AST 20 U/L (15-37) 01/23/19 06:44 ALT 30 U/L (16-63) 01/23/19 06:44 Alkaline Phosphatase 77 U/L (46-116) 01/23/19 06:44 Ammonia 21 umol/L (11-32) 01/19/19 18:30 Total Protein 6.9 g/dL (6.4-8.2) 01/23/19 06:44 Albumin 3.2 g/dL (3.4-5.0) L 01/25/19 06:23 Triglycerides 78 mg/dL (30-150) 01/21/19 11:15 Total Cholesterol 102 mg/dL (50-200) 01/21/19 11:15 LDL Cholesterol, Calc 56 mg/dL 01/21/19 11:15 HDL Cholesterol 31 mg/dL (40-60) L 01/21/19 11:15 PSA Screen Cancelled 01/19/19 18:30 Prostate Specific Ag 2.3 ng/ml (0.0-4.5) 01/19/19 18:30 Vitamin B12 1189 pg/mL (193-986) H 01/21/19 12:15 Folate 5.9 ng/mL (8.6-20.0) L 01/21/19 12:15 TSH Cancelled 01/19/19 20:32 PTH Intact 303 pg/mL (19-88) H 01/19/19 18:30 Plasma Free Metaneph 0.21 nmol/L (<0.50) 01/20/19 06:43 Plasma Free Normeta 0.44 nmol/L (<0.90) 01/20/19 06:43 Urine Color Yellow (Yellow) 01/19/19 19:10 Urine Clarity Clear (Clear) 01/19/19 19:10 Urine pH 6.0 (5-8) 01/19/19 19:10 Ur Specific [place] 1.020 (1.005-1.025) 01/19/19 19:10 Urine Protein 100 mg/dL (Negative) H 01/19/19 19:10 Urine Ketones Negative mg/dL (Negative) 01/19/19 19:10 Urine Blood Moderate (Negative) H 01/19/19 19:10 Urine Nitrite Negative (Negative) 01/19/19 19:10 Urine Bilirubin Negative (Negative) 01/19/19 19:10 Urine Urobilinogen 0.2 EU/dL (Up TO 0.2) 01/19/19 19:10 Ur Leukocyte Esterase Negative (Negative) 01/19/19 19:10 Urine RBC 5-10 HPF (0-2) H 01/19/19 19:10 Urine WBC Negative HPF (0-5) 01/19/19 19:10 Ur Epithelial Cells Negative HPF (Negative) 01/19/19 19:10 Urine Crystals Negative HPF (Negative) 01/19/19 19:10 Urine Bacteria Rare HPF (Negative) 01/19/19 19:10 Urine Casts Negative LPF (Negative) 01/19/19 19:10 Urine Mucus Trace (Negative) 01/19/19 19:10 Urine Other Negative (Negative) 11/13/19 19:10 Ur Culture Indicated? No 01/19/19 19:10 Ur Creatinine Concen Cancelled 01/20/19 07:36 Urine Glucose Negative mg/dL (Negative) 01/19/19 19:10 U Metanephrine/Creat Cancelled 01/20/19 07:36 U Normetanephrine/Creat Cancelled 01/20/19 07:36 U Tot Metanephri/Creat Cancelled 01/20/19 07:36 US thyroid: Negative thyroid ultrasound. Parathyroid scan: 17 millimeter mass posterior to the left lobe of the thyroid with increased activity, consistent with a functioning parathyroid adenoma. This was not visible on ultrasound.
[2019-01-25] MEDS: Milk of Magnesia 30 ML CUP PO (16:41)
[2019-01-25] MEDS: Docusate Sodium 100 MG CAP PO (16:42)
[2019-01-25] MEDS: Normal Saline Flush 10 ML SYR IVP (18:00)
[2019-01-25] MEDS: Furosemide 20 MG/2 ML VIAL IVP (18:01)
[2019-01-25] MEDS: Atorvastatin 40 MG TAB PO (19:36)
[2019-01-25] MEDS: Tamsulosin 0.4 MG CAPCR PO (19:36)
[2019-01-26] VITALS (9 sets, daily range): BP systolic 132–177; BP diastolic 86–102; PULSE 58–75; RESP 17–18; TEMP 36–36.8; O2SAT 97–99
[2019-01-26] MEDS: POTASSIUM CHLORIDE/0.9% NACL 1,000 ML 100 MEQ IV ×2 (05:16→16:13)
[2019-01-26 07:02] LABS: HCT 42.9 % (40.0-50.0); HGB 14.6 g/dL (13.5-17.5); Mean Corpuscular Hemoglobin 29.1 pg (27.0-33.0); Mean Corpuscular Volume 85.5 fL (80-95); Mean Platelet Volume 10.4 fL (8.0-11.0); Platelet Count 252 x1000/uL (130-400); RBC 5.02 m/cumm (4.50-6.00)
[2019-01-26 07:10] LABS: Albumin 3.3 g/dL (3.4-5.0); Anion Gap 8.8 mmol/L (3-11); BUN 18 mg/dL (7-18); CO2 25.2 mmol/L (21.0-32.0); CREATININE 1.36 mg/dL (0.70-1.30); Calcium 9.9 mg/dL (8.5-10.1); Chloride 108 mmol/L (98-107); Estimated GFR 52.11 (mL/min/1.73m2); Glucose 97 mg/dL (74-106); Potassium 3.6 mmol/L (3.5-5.1); Sodium 142 mmol/L (136-145)
--- NOTE | 2019-01-26 09:04 | W.SPEECHPG ---
Date of service: 01/26/19 Time of Service: 08:35 Speech Therpy Note Note: Daily Treatment Note/Discharge Summary CPT Code: Swallow Treatment 25936 [facility] Diagnosis: Dysphagia Unspecified Subjective: Pt was sitting up in the chair upon arrival, awake and alert. He was agreeable to tx. Nsg reports pt managing regular texture diet and thin liquids well over the past 2 days. Nsg also reports that Barium swallow study (recommended post initial eval) cannot be completed at this facility at this time due to equimpment out of service. Objective/Swallow Treatment Techniques: Diet modification analysis, assessment of need for safe swallow protocol/strategies. Pt managed regular texture solids today and thin liquids via open cup with no overt s/s aspiration or other signs of dysphagia. Pt was able to feed himself with set up without difficulty. Pt did demonstrate some maladaptive behaviors including large bites but was receptive to verbal cues towards the end of the session. Pt did not demonstrate any belching or other s/s esophageal dysphagia today. Assessment: Pts overall function improved since initial evaluation. Pt is managing least restrictive diet/regular texture diet and thin liquids with no s/s dysphagia at this time. Given lack of access to further GI work up as well as pts demonstrating improved swallow function with no further s/s dysphagia, recommend discharge from [facility] services at this time with pt following up with PCP upon discharge if concerns persist. Plan: Discharge from [facility] services at this time.
[2019-01-26] MEDS: Polyethylene Glycol 3350 17 GM PACKET PO (09:14)
[2019-01-26] MEDS: amLODIPine 10 MG TAB PO (09:14)
[2019-01-26] MEDS: Folic Acid 1 MG TAB PO (09:14)
[2019-01-26] MEDS: hydrALAZINE 25 MG TAB 50 MG PO ×3 (09:14→19:49)
[2019-01-26] MEDS: Carvedilol 6.25 MG TAB 12.5 MG PO ×2 (09:15→19:48)
[2019-01-26] MEDS: Pantoprazole 40 MG TABCR PO (09:15)
[2019-01-26] MEDS: Docusate Sodium 100 MG CAP PO (09:15)
[2019-01-26] MEDS: Heparin 5,000 UNITS/ML VIAL 5000 UNITS SC ×3 (09:15→23:19)
[2019-01-26] MEDS: Aspirin 81 MG CHEW PO (09:15)
--- NOTE | 2019-01-26 10:02 | OT.INTREAT ---
Date of service: 01/26/19 Time of Service: 09:15 Occupational Therapy Notes Occupational Therapy Inpatient Treatment Note Date: 01/26/19 PRECAUTIONS: Fall, standard SUBJECTIVE: Pt was eager to perform OT session. He reports that he is feeling better. OBJECTIVE: PAIN:no c/o pain FUNCTIONAL MOBILITY Sit-stand: (S) Stand-sit: (S) Bed-Chair: SBA, FWW Chair-bed: SBA, FWW BATHING: Standing at sink with FWW Upper Body: (I) with face and under arms. DRESSING: Upper Extremity: (I) doffing sweatshirt, in seated pt was (I) with donning t-shirt Lower Extremity: (I) don and doffing (B) socks. GROOMING: Standing at sink with FWW (I) with brushing teeth and hair with min vc for weight shifting at sink. ASSESSMENT/PLAN: Pt has made increased progressions towards goals established at initial evaluation. He is demonstrating increased functional activity tolerance and ideal ROM for (B) UE at this time. TREATMENT CODES/TIME: 31450, 20 minutes (09:15) Latasha Jo OTR/L [facility]
--- NOTE | 2019-01-26 12:09 | PT.INTREAT ---
Date of service: 01/26/19 Time of Service: 12:10 PT Notes Inpatient Physical Therapy Treatment Note [facility] Date: 01/26/2019 PRECAUTIONS: Fall SUBJECTIVE: Florian is pleasant and agreeable to participating in PT. OBJECTIVE: PAIN: No complaints of pain BED MOBILITY/TRANSFERS Sit-stand: S Stand-sit: S GAIT Assistive Device: No AD Weight bearing: Full Assist: CGA?SBA Distance: 200' + 300' Deviation: Mild path deviation throughout gait training THEREX: Patient completed a LE strengthening program, in a standing position with FWW support, as per flow sheet. Patient completes NuStep biking x5 minutes. He tolerated a progression in his ther ex program, modifications made to repetitions are noted on flow sheet. STAIRS: Up/down 6x4 and 4?6 using B rails and a step over pattern with supervision ASSESSMENT: Patient tolerated session without complaint. He continues to demonstrate mild deviation throughout gait training without use of assistive device support, requiring CGA?SBA for safety. Patient would benefit from continued gait training and global strengthening for improved mobility and activity tolerance. PLAN: Continue with PT's POC TREATMENT CODE/TIME: 30 minutes; 77095, 64571
--- NOTE | 2019-01-26 15:07 | CHAPLAIN ---
Sandeep was sitting up in a chair when I visited. He was very pleasant and easily engaged in a conversation. He said he brother (Stone) isn't feeling well, but he hopes Stone will be in to visit. Sandeep lives with his mom Smiley, and Stone, in the [facility]. 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 He said his eyesights prevents him from using his portable look and riding a bike, but he said he sometimes goes to [employer] and has hangs out there, since [employer] closed.
[2019-01-26] MEDS: Normal Saline Flush 10 ML SYR IVP (16:23)
--- NOTE | 2019-01-26 17:03 | PDOC.CMPRO ---
- If Service Date Differs Date of service: 01/26/19 Time of Service: 17:03 Care Management Progress Note S/O: Sandeep ambulates in the oliveros without a walker and with PT. He is alert and engaged. CM faxed information to the [facility] needed to reestablish services with them. Sandeep is alert and engaged with CM during assessment, he is able to answer questions appropriately. CM contacted his brother and let him know that he may be ready for discharge in the next few days and [facility]ep will need new [facility] at time of discharge CM faxed referral. A:Sandeep is a 68 year old male admitted with hypercalcemia, renal insufficiency, altered mental status. P:Sandeep will be [facility] is medically ready. CM has contacted Mercedes Moreira and faxed over the forms needed to reestablish care. Sandeep will have new home health services including nursing, PT, and OT. CM will continue to support patient, family and discharge planning needs.
--- NOTE | 2019-01-26 17:30 | W.PM.PROGNOT ---
Date of Service Date of service: 01/26/19 Time of Service: 17:30 Assessment and Plan Assessment and plan (1) Encephalopathy: Status: Resolved Assessment and plan: It is difficult to ascertain how much of the patient's confusion is related to his acute medical issues (symptomatic hypercalcemia, hypertensive encephalopathy) vs chronic. Mental status now close to baseline. Continue to treat hypercalcemia/hypertension. (2) Hypercalcemia: Status: Acute Assessment and plan: In setting of known hyperparathyroidism due to a functional parathyroid adenoma. D/c IVF. Continue lasix + cinacalcet. Will need surgery as outpatient. (3) Parathyroid adenoma: Status: Acute Assessment and plan: Will require surgical resection as outpatient. For now, treat with cinacalcet/lasix. Trial off IVF. (4) Hypertension: Status: Chronic Assessment and plan: With possible hypertensive encephalopathy. BPs now better. Continue current dose of coreg, amlodipine, PO hydralazine and prn clonidine. He would benefit from outpatient renal artery dopplers. Avoid DAVID-i/ARB for now due to worsening creatinine. (5) ALICJA (acute kidney injury): Status: Acute Assessment and plan: Better. No evidence of urinary retention, per nursing. Monitor as IVF are getting d/c'ed. (6) CVA (cerebral vascular accident): Status: Chronic Assessment and plan: Old/not acute. Continue ASA and statin. MRI brain limited, but with small old left basal ganglia lacunar infarct. (7) Hypokalemia: Status: Resolved Assessment and plan: recheck in am. (8) Hypomagnesemia: Status: Resolved Assessment and plan: recheck in am (9) Vomiting: Status: Resolved Assessment and plan: No recurrences. ?reflux, ? dysphagia for pills. PPI added. Ideally would get a barium swallow, but it is not available at our facility at this time - equipment won't be functional until March. Speech therapy to follow. (10) Aspiration into airway: Status: Ruled-out Assessment and plan: As above (11) DVT prophylaxis: Status: Acute Assessment and plan: SC Heparin. (12) Discharge planning issues: Status: Acute Assessment and plan: Full code As the mental status is still improving, it is not yet clear if the patient will require a guardian. Discussed with care management. Nearing point of being able to be discharged home. Subjective Subjective Interval history since last seen: Sandeep states he denies any dizziness, chest pain, shortness of breath, nausea, pain. He is A&Ox2 and has been very cooperative. Exam Narrative Exam Narrative: General: very pleasantly confused elderly male, A&Ox2, sitting up in bed HEENT: EOMI, MMM, no obvious goiter Heart: RRR, no m/r/g Lungs: CTAB GI: abdomen is soft, nontender, nondistended Extremities: no edema bilateral lower extremities. Objective Objective Clinical Data: Abnormal lab results 01/26/19 Range/Units 06:25 Chloride 108 H (98-107) mmol/L Creatinine 1.36 H (0.70-1.30) mg/dL Albumin 3.3 L (3.4-5.0) g/dL Vital Signs Temperature 36.8 C 01/26/19 11:10 Temperature Source Tympanic 01/26/19 11:10 Pulse 65 01/26/19 11:10 Pulse Rhythm Regular 01/26/19 16:45 Pulse 81 01/19/19 21:40 Respiratory Rate 18 01/26/19 11:10 Respiratory Effort 01/26/19 16:45 Respiratory Depth Normal 01/26/19 16:45 Respiratory Pattern Normal 01/26/19 16:45 Blood Pressure 132/86 01/26/19 11:10 Blood Pressure Mean 127 01/19/19 21:31 Blood Pressure Position Sitting 01/19/19 18:18 Pulse Oximetry 99 01/26/19 11:10 Oxygen Delivery Method Room Air 01/26/19 11:10 Oxygen Flow Rate 0 01/26/19 11:10 Pain Level 0 01/26/19 11:10 Comment 01/24/19 09:31 Intake & Output 01/25/19 01/26/19 01/26/19 23:59 11:59 23:59 Intake Total 1720 / 3208.333 1328.333 / 2568.333 1240 / 2568.333 Output Total 1375 / 2005 1400 / 1525 125 / 1525 Balance 345 / 1203.333 -71.667 / 4435.643 3648 / 1043.333 Weight 73 kg Intake: IV 1000 / 8.333 968.333 / 9444.305 7367 / 1967.333 Oral 720 / 960 360 / 600 240 / 600 Output: Urine 1175 / 1805 1200 / 1325 125 / 1325 Post Void Residual 200 / 200 200 / 200 Other: Urine Color Yellow Yellow Yellow Urine Appearance Clear Clear Clear Urine Odor Normal Normal Comment VOID X 1. Stool Size Moderate Stool Characteristics Formed Voiding Methods Urinal Toilet Urinal Laboratory Results WBC 5.50 k/cumm (4.4-10.8) 01/26/19 06:25 RBC 5.02 m/cumm (4.50-6.00) 01/26/19 06:25 Hgb 14.6 g/dL (13.5-17.5) 01/26/19 06:25 Hct 42.9 % (40.0-50.0) 01/26/19 06:25 MCV 85.5 fL (80-95) 01/26/19 06:25 MCH 29.1 pg (27.0-33.0) 01/26/19 06:25 MCHC 34.0 g/dL (32.0-36.0) 01/26/19 06:25 RDW 14.0 % (11.8-14.1) 01/26/19 06:25 Plt Count 252 x1000/uL (130-400) 01/26/19 06:25 MPV 10.4 fL (8.0-11.0) 01/26/19 06:25 Immature Gran % 0.5 01/24/19 06:53 Neutrophils % 46.7 01/24/19 06:53 Lymphocytes % 39.6 01/24/19 06:53 Monocytes % 6.7 01/24/19 06:53 Eosinophils % 6.0 01/24/19 06:53 Basophils % 0.5 01/24/19 06:53 Absolute Neutrophils 2.03 k/cumm (1.2-6.7) 01/24/19 06:53 Absolute Lymphocytes 1.72 k/cumm (1.2-3.4) 01/24/19 06:53 Absolute Monocytes 0.29 k/cumm (0.11-0.7) 01/24/19 06:53 Absolute Eosinophils 0.26 k/cumm (0.0-0.7) 01/24/19 06:53 Absolute Basophils 0.02 k/cumm (0.0-0.2) 01/24/19 06:53 Sodium 142 mmol/L (136-145) 01/26/19 06:25 Potassium 3.6 mmol/L (3.5-5.1) 01/26/19 06:25 Chloride 108 mmol/L (98-107) H 01/26/19 06:25 Carbon Dioxide 25.2 mmol/L (21.0-32.0) 01/26/19 06:25 Anion Gap 8.8 mmol/L (3-11) 01/26/19 06:25 BUN 18 mg/dL (7-18) 01/26/19 06:25 Creatinine 1.36 mg/dL (0.70-1.30) H 01/26/19 06:25 Estimated GFR/1.73 m2 52.11 (mL/min/1.73m2) 01/26/19 06:25 Glucose 97 mg/dL (74-106) 01/26/19 06:25 Hemoglobin A1c 5.6 % (4.5-6.2) 01/21/19 11:15 Calcium 9.9 mg/dL (8.5-10.1) 01/26/19 06:25 Ionized Calcium 1.39 mmol/L (1.12-1.32) H 01/19/19 20:20 Magnesium 2.0 mg/dL (1.8-2.4) 01/26/19 06:25 Total Bilirubin 0.7 mg/dL (0.2-1.0) 01/23/19 06:44 Conjugated Bilirubin 0.16 mg/dL (0.00-0.20) 01/23/19 06:44 AST 20 U/L (15-37) 01/23/19 06:44 ALT 30 U/L (16-63) 01/23/19 06:44 Alkaline Phosphatase 77 U/L (46-116) 01/23/19 06:44 Ammonia 21 umol/L (11-32) 01/19/19 18:30 Total Protein 6.9 g/dL (6.4-8.2) 01/23/19 06:44 Albumin 3.3 g/dL (3.4-5.0) L 01/26/19 06:25 Triglycerides 78 mg/dL (30-150) 01/21/19 11:15 Total Cholesterol 102 mg/dL (50-200) 01/21/19 11:15 LDL Cholesterol, Calc 56 mg/dL 01/21/19 11:15 HDL Cholesterol 31 mg/dL (40-60) L 01/21/19 11:15 PSA Screen Cancelled 01/19/19 18:30 Prostate Specific Ag 2.3 ng/ml (0.0-4.5) 01/19/19 18:30 Vitamin B12 1189 pg/mL (193-986) H 01/21/19 12:15 Folate 5.9 ng/mL (8.6-20.0) L 01/21/19 12:15 TSH Cancelled 01/19/19 20:32 PTH Intact 303 pg/mL (19-88) H 01/19/19 18:30 Plasma Free Metaneph 0.21 nmol/L (<0.50) 01/20/19 06:43 Plasma Free Normeta 0.44 nmol/L (<0.90) 01/20/19 06:43 Urine Color Yellow (Yellow) 01/19/19 19:10 Urine Clarity Clear (Clear) 01/19/19 19:10 Urine pH 6.0 (5-8) 01/19/19 19:10 Ur Specific Myrtle 1.020 (1.005-1.025) 01/19/19 19:10 Urine Protein 100 mg/dL (Negative) H 01/19/19 19:10 Urine Ketones Negative mg/dL (Negative) 01/19/19 19:10 Urine Blood Moderate (Negative) H 01/19/19 19:10 Urine Nitrite Negative (Negative) 01/19/19 19:10 Urine Bilirubin Negative (Negative) 01/19/19 19:10 Urine Urobilinogen 0.2 EU/dL (Up TO 0.2) 01/19/19 19:10 Ur Leukocyte Esterase Negative (Negative) 01/19/19 19:10 Urine RBC 5-10 HPF (0-2) H 01/19/19 19:10 Urine WBC Negative HPF (0-5) 01/19/19 19:10 Ur Epithelial Cells Negative HPF (Negative) 01/19/19 19:10 Urine Crystals Negative HPF (Negative) 01/19/19 19:10 Urine Bacteria Rare HPF (Negative) 01/19/19 19:10 Urine Casts Negative LPF (Negative) 01/19/19 19:10 Urine Mucus Trace (Negative) 01/19/19 19:10 Urine Other Negative (Negative) 01/19/19 19:10 Ur Culture Indicated? No 01/19/19 19:10 Ur Creatinine Concen Cancelled 01/20/19 07:36 Urine Glucose Negative mg/dL (Negative) 01/19/19 19:10 U Metanephrine/Creat Cancelled 01/20/19 07:36 U Normetanephrine/Creat Cancelled 01/20/19 07:36 U Tot Metanephri/Creat Cancelled 01/20/19 07:36 Corrected calcium 10.5
[2019-01-26] MEDS: Tamsulosin 0.4 MG CAPCR PO (19:49)
[2019-01-26] MEDS: Atorvastatin 40 MG TAB PO (19:49)
[2019-01-27] VITALS (8 sets, daily range): BP systolic 131–158; BP diastolic 69–95; PULSE 64–87; RESP 16–18; TEMP 36.1–36.5; O2SAT 96–99
[2019-01-27 06:51] LABS: Albumin 3.2 g/dL (3.4-5.0)
[2019-01-27 06:52] LABS: Anion Gap 8.7 mmol/L (3-11); BUN 20 mg/dL (7-18); CO2 25.3 mmol/L (21.0-32.0); CREATININE 1.56 mg/dL (0.70-1.30); Calcium 10.2 mg/dL (8.5-10.1); Chloride 107 mmol/L (98-107); Estimated GFR 44.48 (mL/min/1.73m2); Glucose 99 mg/dL (74-106); Magnesium 1.9 mg/dL (1.8-2.4); Potassium 3.6 mmol/L (3.5-5.1); Sodium 141 mmol/L (136-145)
[2019-01-27] MEDS: amLODIPine 10 MG TAB PO (07:38)
[2019-01-27] MEDS: Carvedilol 6.25 MG TAB 12.5 MG PO ×2 (07:38→17:06)
[2019-01-27] MEDS: Aspirin 81 MG CHEW PO (07:39)
[2019-01-27] MEDS: Pantoprazole 40 MG TABCR PO (07:39)
[2019-01-27] MEDS: Folic Acid 1 MG TAB PO (07:39)
[2019-01-27] MEDS: Heparin 5,000 UNITS/ML VIAL 5000 UNITS SC ×2 (07:39→15:38)
[2019-01-27] MEDS: hydrALAZINE 25 MG TAB 50 MG PO ×2 (07:39→14:13)
[2019-01-27] MEDS: Furosemide 20 MG TAB PO (07:39)
--- NOTE | 2019-01-27 10:13 | CMDISCH_ITS ---
- If Service Date Differs Date of service: 01/27/19 Time of Service: 10:14 LACE Index Scoring Tool - Questions: Length of Stay (in days): 7 - 13 Acuity (Admit via E.D.?): Yes Comorbidities: Any Tumor E.D. 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 He will have a new provider at [facility]. Appointment is scheduled for 02/10/19 at 1130. CM contacted Mercedes Moreira RN CM at the [facility] and reviewed the discharge plan including follow up r/t hypercalcemia and podiatry. CM spoke to his brother to bring Sandeep up when he is ready for discharge and requested that he take him to his first doctors appointment at the [facility]. He will transport home with RCT coordinated by [facility]. Brother will cotton picker operator his prescriptions at [facility] in [place]. CM will fax discharge summary to [facility] at time of discharge. Patient/Family Education Needs: Discharge education, limitation and follow up plan of care including ask me three and self management including education with the family. Services Needed at Discharge: Home Health Care Services, Occupational Therapy, Physical Therapy, Transportation
--- NOTE | 2019-01-27 12:03 | PT.INTREAT ---
Date of service: 01/27/19 Time of Service: 12:03 PT Notes Inpatient Physical Therapy Treatment Note [facility] Date: 01/27/2019 PRECAUTIONS: Fall SUBJECTIVE: Florian is pleasant and agreeable to participating in PT. OBJECTIVE: PAIN: No complaints of pain BED MOBILITY/TRANSFERS Sit-stand: I Stand-sit: I GAIT Assistive Device: SPC Weight bearing: Full Assist: SBA Distance: 350' Deviation: Mild path deviation throughout gait training THEREX: Patient completed a LE strengthening program including functional [id number] exercise, in a standing position with FWW support, as per flow sheet. ASSESSMENT: Patient tolerated session without complaint. He continues to demonstrate mild deviation throughout gait training with use of SPC support, requiring SBA for safety. PLAN: As per primary PT TREATMENT CODE/TIME: 20 minutes; [id number]
--- NOTE | 2019-01-27 13:41 | OT.INDS ---
Date of service: 01/27/19 Time of Service: 13:41 Occupational Therapy Notes Occupational Therapy Inpatient Discharge Summary Date: 01/27/19 Dates of Service: 01/24/19-01/27/19 Referring Doctor:Candelaria Kat MD OT Orders: Non-Urgent: Limited Ability Precautions: Fall, Standard PATIENT PROFILE/ADMITTING DIAGNOSIS: Pt is a 68 year old male who was admitted through the ER for a dx of mental status change and a hx of falls. He was then dx with renal insufficiency and hypercalcemia. Past Medical History: Hyperparathyroidism, hypertension Social History/Home Situation: Pt lives in a private home with his brother and his mother. He states that he is totally (I) at baseline with ADLs and notes that he walks daily from his trailer to the mall in [facility]. Equipment owned/DME: Cane SUBJECTIVE: NT *This document serves as a summary of care, no skilled OT services provided for this documentation. OBJECTIVE: ROM: RUE AROM WNL L UE AROM WNL STRENGTH: RUE Shoulder flexion 4/5, bicep 5/5, tricep 5/5, search strategist is strong and symmetrical LUE Shoulder flexion 4/5, bicep 5/5, tricep 5/5, search strategist is strong and symmetrical FUNCTIONAL MOBILITY/ADLS: Sit-stand: (S) Stand-sit: (S) Bed-Chair: SBA, FWW Chair-bed: SBA, FWW BATHING: Standing at sink with FWW Upper Body: (I) with face and under arms. DRESSING: Upper Extremity: (I) doffing sweatshirt, in seated pt was (I) with donning t-shirt Lower Extremity: (I) don and doffing (B) socks. BALANCE: Static sitting Normal Dynamic Sitting Normal Static Standing Good Dynamic Standing Good ASSESSMENT: Patient is a 68-year-old male referred to occupational therapy services with diagnosis of change in mental status, hx of falls, dx of renal insufficiency, and hypercalcemia. Pt was seen for 3 skilled OT sessions. He was able to demonstrate increased (I) in his ADL/IADL routines and functional activities. Pt was discharged home today with Services. OT will formally discharge pt at this time. GOALS 1. Transfers (I)- progressing towards 2. Dressing (I) with don and doffing personal shirt and pants- met 3. Bathing (I)- met 4. Toileting (I) on toilet- met 5. Eating (I)- met PLAN OF CARE/TREATMENT PLAN: Pt to be discharged home today. DISCHARGE RECOMMENDATIONS- Home when medically cleared per MD. TREATMENT TIME/MINUTES/CODES N/A Latasha Jo, OTR/L [facility]
--- NOTE | 2019-01-27 15:36 | DSE_ITS ---
Date of service: 01/27/19 Time of Service: 15:36 DS: Diagnosis Discharge Diagnosis (1) Encephalopathy: Status: Resolved (2) Hypercalcemia: Status: Acute (3) Hypertensive emergency: Status: Acute (4) Parathyroid adenoma: Status: Acute (5) ALICJA (acute kidney injury): Status: Acute (6) Hypokalemia: Status: Resolved (7) Hypomagnesemia: Status: Resolved (8) Vomiting: Status: Resolved (9) Aspiration into airway: Status: Ruled-out (10) Mild dementia: Status: Acute (11) Paroxysmal SVT (supraventricular tachycardia): Status: Resolved Asessment and Plan: asymptomatic (12) Nonsustained ventricular tachycardia: Status: Acute Discharge Plan Disposition Patient Disposition: HOME W/HOME HEALTH SERVICE Condition: Improving Discharge Details Chief Complaint: AMS/LOC Clinical Impression: Hypercalcemia, Renal insufficiency, BPH without obstruction/lower urinary tract symptoms, Altered mental status Reason For Visit: HYPERCALCEMIA,RENAL INSUFFICIENCY,BPH Admit Date/Time: 01/19/19 20:30 Admit Provider: Tavo Owens Attending Provider: Tavo Owens Primary Care Provider: Domingo Hooks ED Provider: [facility] Hospital Course: Mr Stone Hopkins is a 68 year old male with PMHx of hyperparathyroidism, hypertension, and likely early dementia, who was admitted to [facility] hospitalist service on 12/19/18 with progressively worsening mental status over the last couple of weeks due to a multifactorial encephalopathy, due to both hypertensive emergency and hypercalcemia. He ruled out for acute CVA. His MRI revealed evidence of small vessel changes and a tiny old left basal ganglia lacunar infarct. Evidently, the patient had fallen out of follow up with the [facility], where he used to receive primary care, but upon obtaining records from them, it does appear that the patient had a history of hyperparathyroidism as far back as 2012. He was treated with IVF and lasix, and was initiated on cinacalcet therapy after we had confirmed his diagnosis of hyperparathyroidism here with intact PTH level of 303. Endocrinology was consulted via the phone and agreed with this management. His thyroid ultrasound was negative, but his parathyroid scan revealed a 17 mm mass posterior to the left lobe of the thyroid with increased activity, representing a functioning parathyroid adenoma. Therefore, ideally, this patient would have a surgical resection of this mass as definitive therapy for his hyperparathyroidism. As his calcium and blood pressure became better controlled, his mental status had improved tremendously - in the beginning of the hospitalizations, he had several Code Greys, and now, he is near his baseline. He was monitored on telemetry - we did see an episode of nonsustained V tach as well as an episode of asymptomatic nonsustained SVT. His echo revealed a preserved EF. He was initiated on beta blockers on this admission as one of his anithypertensives. He would benefit from a holter monitor on discharge. If arrhythmic events recur, referral to cardiology is recommended. The patient is being set back up with the [facility] for follow up with his PCP, where he is also recommended referrals to endocrinology, general surgery, neurology, and podiatry through the [facility]. 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 He is medically stable for discharge home, and care as well as completion of his discharge paperwork on the day of discharge took 45 minutes. Home Meds and New Rx's Prescriptions: New amlodipine 10 mg Tablet 10 mg PO DAILY Qty: 30 RF: 0 aspirin 81 mg Tablet,Chewable 81 mg PO DAILY Qty: 30 RF: 0 hydralazine 25 mg Tablet 50 mg PO TID Qty: 90 RF: 0 tamsulosin 0.4 mg Capsule 0.4 mg PO DAILY@1800 Qty: 30 RF: 0 pantoprazole 40 mg Tablet,Delayed Release (Dr/Ec) 40 mg PO DAILY@0730 Qty: 30 RF: 0 folic acid 1 mg Tablet 1 mg PO DAILY Qty: 30 RF: 0 cinacalcet [Sensipar] 30 mg Tablet 30 mg PO BID Qty: 60 RF: 0 atorvastatin 20 mg tablet 20 mg PO QHS Qty: 30 RF: 0 carvedilol [Coreg] 12.5 mg tablet 12.5 mg PO BID Qty: 60 RF: 0 Discharge Instructions Instructions: Cinacalcet (By mouth), Parathyroidectomy (DC), Chronic Hypertension (DC), Hypercalcemia (DC) Additional Instructions: You have an appointment at the [facility] on February 10 at 11:30. Return to the hospital with any fever, bleeding, worsening mental status, chest pain, or shortness of breath. Care Plan Goals: Home with home health nursing, PT, OT, Speech therapy, [employer] AND SC[employer]Y MAKER. Stand Alone Forms: Nursing Discharge Form Activity:: Activity as Tolerated Equipment/Supplies:: a cane Diet:: Low Sodium Discharge Orders Discharge Orders: Discharge Order (Routine); Ordered 01/27/19 Ordered By: Candelaria Kat Other Ambulatory Orders: Holter Monitor (Outpt) (ONCE) Timeframe: 20190128 Facility: [facility] - Location: Respiratory Therapy Ordered By: Candelaria Kat DS: Summary Status at Discharge Functional status at discharge: uses cane/walker Overall status at discharge: patient is back to baseline Mental Status: mental status grossly normal Speech and Movement: speech and movement normal Mood: congruent mood Affect: normal affect Exam Narrative Exam Narrative: General: very pleasantly confused elderly male, A&Ox2, walking in the hallway with a cane HEENT: EOMI, MMM, no obvious goiter Heart: RRR, no m/r/g Lungs: CTAB GI: abdomen is soft, nontender, nondistended Extremities: no edema bilateral lower extremities. Psych Mental Status: mental status grossly normal Speech and Movement: speech and movement normal Mood: congruent mood Affect: normal affect DS: Data Vitals/I&O Vitals and I&O: Vital Signs Temperature 36.4 C L 01/27/19 11:30 Temperature Source Temporal Artery Scan 01/27/19 11:30 Pulse 73 01/27/19 11:30 Pulse Rhythm Regular 01/27/19 07:47 Pulse 81 01/19/19 21:40 Respiratory Rate 17 01/27/19 11:30 Respiratory Effort Non-Labored 01/27/19 07:47 Respiratory Depth Normal 01/27/19 07:47 Respiratory Pattern Normal 01/27/19 07:47 Blood Pressure 137/89 01/27/19 11:30 Blood Pressure Mean 127 01/19/19 21:31 Blood Pressure Position Sitting 01/19/19 18:18 Pulse Oximetry 98 01/27/19 11:30 Oxygen Delivery Method Room Air 01/27/19 11:30 Oxygen Flow Rate 0 01/27/19 11:30 Pain Level 0 01/26/19 23:41 Comment 01/24/19 09:31 Intake & Output 01/26/19 01/27/19 01/27/19 23:59 11:59 23:59 Intake Total 2360 / 3688.333 500 / 750 250 / 750 Output Total 950 / 2350 700 / 700 Balance 1410 / 1338.333 -200 / 50 250 / 50 Weight 77.1 kg Intake: IV 1999 / 2968.333 Oral 360 / 720 500 / 750 250 / 750 Output: Urine 950 / 2150 700 / 700 Other: Urine Color Yellow Yellow Urine Appearance Clear Clear Urine Odor Normal Comment some incontinance at this time Voiding Methods Urinal Urinal Diaper Data Completed and Pending Completed studies during hospitalization [Text1]: CXR 01/19/19: No acute abnormality. CT head without contrast 01/19/19: Old left basal ganglia lacunar infarct. No acute abnormality. MRI brain w/o contrast 01/20/19: Severely limited exam due to patient motion and positioning. Prominent white matter changes of small vessel disease are noted. There is a tiny old left basal ganglia lacunar infarct. Echo 01/21/19: Left Ventricle : The left ventricular ejection fraction is within the normal range. There is normal LV segmental wall motion. LVEF is 65-70%. The left ventricular diastolic function is normal. Right Ventricle : Right ventricle is grossly normal in size. Right ventricular systolic function is grossly normal. Atria : The left atrium size is normal. The right atrium size is normal. Aortic Valve : Aortic valve is grossly normal in structure. Aortic valve is probably trileaflet. There is no aortic valvular stenosis. Trace to mild aortic regurgitation. Mitral Valve : There is mitral annular calcification. Mild mitral regurgitation. No evidence of mitral valve stenosis. Tricuspid Valve : The tricuspid valve is normal in structure. Great Vessels : IVC is normal in size and collapses >50% with inspiration. Estimated RVSP is 17-20 mmHg. There is no prior echocardiogram available for comparison. Parathyroid scan 01/24/19: 17 millimeter mass posterior to the left lobe of the thyroid with increased activity, consistent with a functioning parathyroid adenoma. This was not visible on ultrasound. US thyroid 01/24/19: Negative thyroid ultrasound. Labs on day of discharge: Labs from last 24 hours 01/27/19 01/27/19 06:05 06:05 Sodium 141 Potassium 3.6 Chloride 107 Carbon Dioxide 25.3 Anion Gap 8.7 BUN 20 H Creatinine 1.56 H Estimated GFR/1.73 m2 44.48 Glucose 99 Calcium 10.2 H Magnesium 1.9 Albumin 3.2 L [facility] Medical History (Updated 01/27/19 @ 15:38 by Candelaria Kat MD) Cataracts, bilateral (Acute) Left sided lacunar infarction (Acute) Memory impairment (Acute) Mild dementia (Acute) Social History Smoking/Tobacco Use Status: Unknown
--- NOTE | 2019-01-27 16:08 | PDOC.HHF2F ---
Home Health Certification Home Health Certification: 1. Encounter Date and Reason I certify that MITCH JACKSON was seen by Candelaria Kat on 01/27/19 and that I had a [id number] encounter with this patient that meets the physician face to face encounter requirements. 2. Clinical Findings Supporting Skilled Need and Homebound Status I certify that home health services are medically necessary, include either intermittent nursing home and/or physical/speech therapy, and that this patient is homebound in that absences from the home require considerable and taxing effort and are infrequent or of short duration, or are attributable to the need to receive medical care. [X] (a) Attached documentation from encounter provides clinical findings supporting skilled need and homebound status (including what assistance patient requires to leave the home). The encounter with the patient was in whole, or in part, for the following medical condition, which is the primary reason for home health care: HYPERCALCEMIA,RENAL INSUFFICIENCY,BPH Care Home: hypercalcemia due to hyperparathyroidism due to a parathyroid adenoma, hypertension, dementia. Needs bloodwork on 01/31/19 - bmp, magnesium - results to PCP Physical Therapy: eval and treat Occupational Therapy: eval and treat Speech Therapy: eval and treat Homebound: Unable to leave home without assistance 3. Certification and Authentication I certify that I composed the above information based on my clinical judgement relating to this patient's medical condition and, if applicable, clinical findings communicated to me by the NPP or inpatient physician who performed the Home Health Referral. All further orders will be obtained through Dr Hooks/Per YOON (Community Based Physician - PCP)
[2019-01-27] MEDS: Atorvastatin 40 MG TAB PO (17:06)
--- NOTE | 2019-01-28 08:25 | PT.INDS ---
Date of service: 01/28/19 Time of Service: 08:25 PT Notes Inpatient Physical Therapy Discharge Summary Dates: 01/28/2019 Dates of Service: 01/26/2019 through 01/27/2019 This is a clinical summary of care provided on the duration of dates listed above. No charge was made in the completion of this documentation. Referring Doctor: Dr. Kat PT Orders: PT CONSULT: limited ability to ambulate Precautions: Standard Patient Profile/Admitting Diagnosis: Patient admitted due to mental status change with history of falls, and diagnosed with renal insufficiency and hypercalcemia. PMHX: Hyperparathyroidism, hypertension Social History/Home Situation: Patient lives with his brother and mother. States he is fully independent at home, although occasionally walks with a cane. He states that he gets tired when he walks long distances. [place] 1 mile, and after completing this finds that he is extremely fatigued. Equipment Owned/DME: Cane Subjective: NT Objective: General Observation: NT Mental Status: NT Pain: NT ROM: Right Upper Extremity: WFL Left Upper Extremity: WFL Right Lower Extremity: WFL Left Lower Extremity: WFL Strength: Right Upper Extremity: WFL Left Upper Extremity: WFL Right Lower Extremity: Hip flexion 5/5. Quads 5/5. Hamstrings 5/5. Ankle dorsiflexion 4/5 Left Lower Extremity: Hip flexion 5/5. Quads 5/5. Hamstrings 5/5. Ankle dorsiflexion 4/5 Bed Mobility/Transfers: Sit?stand: Independent Stand?sit: Independent Bed?chair: Independent Gait: Patient ambulates 350 feet with FWW and CG?min A. He demonstrates much reduced path deviation andis better able to avoid obstaclesusing SPC. Patient is not safe for community ambulation and will require Balance: Static Sitting: Normal Dynamic Sitting: Normal Static Standing: Good Dynamic Standing: Fair Assessment: Patient is a 68-year-old male referred to physical therapy services with the diagnosis of hypercalcemia and renal insufficiency. Patient presents with clinical signs and symptoms consistent with impaired mobility related to acute medical issues. His medical record notes history of falls, which patient himself denies. He cotninues to demonstrate ataxic gait with poor safety awareness and admittedly diminished activity tolerance. Patietn will benefeit from PT in order to maximize home safety/reduce fall risk as well as to determine safety for community ambulation. He continues to demonstrate the following impairment level findings: 1. Decreased ankle dorsiflexion strength 2. Ataxic gait 3. Limited safety awareness Impairments are contributing to the following functional limitations: 1. Fall risk 2. Decreased activity tolerance Goals: Goals X1 week 1. Supine-Sit : Supervision MET 2. Sit-Supine : Supervision MET 3. Sit-Stand : Supervision MET 4. Stand-Sit : Supervision MET 5. Bed-Chair : Supervision with least restrictive device (LRD) MET 6. Chair-Bed : Supervision with LRD MET 7. Gait : Supervision x300 feet with LRD MET DISCHARGE RECOMMENDATIONS: Home with HH PT. May recommend FWW at time of discharge, depending on how patient progresses with ambulation TREATMENT CODE/TIME: NC. Thank you very much for this referral. Vidya Ralph PT, DPT, CLT [facility]
[2019-02-01 10:12] LABS: 1,25-Dihydroxyvitamin D 30 pg/mL (18-64)
== END 2019-01-27 17:12 | disposition home health service (06) | DRG 78 ==
LOC: ER 21:24 → MS 21:51
PROVIDERS: General Practice; Internal Medicine; Admitting Provider Family Medicine; Emergency Provider Physician Assistant; PCP Internal Medicine; Visit Provider Internal Medicine
DX: I67.4 Hypertensive encephalopathy (principal); I16.1 Hypertensive emergency; N17.9 Acute kidney failure, unspecified; I47.1 Supraventricular tachycardia; D35.1 Benign neoplasm of parathyroid gland; E83.52 Hypercalcemia; R45.1 Restlessness and agitation; R53.1 Weakness; R41.82 Altered mental status, unspecified; R26.2 Difficulty in walking, not elsewhere classified; I10 Essential (primary) hypertension; E87.6 Hypokalemia; R90.82 White matter disease, unspecified; R11.10 Vomiting, unspecified; F03.90 Unspecified dementia, unspecified severity, without behavioral disturbance, psychotic disturbance, mood disturbance, and anxiety; N40.0 Benign prostatic hyperplasia without lower urinary tract symptoms; Z86.73 Personal history of transient ischemic attack (TIA), and cerebral infarction without residual deficits; N28.9 Disorder of kidney and ureter, unspecified; Z23 Encounter for immunization
CPT/HCPCS: 36415; 36416; 80048; 80053; 80061; 80076; 82962; 84153; 85027; 92526; 92610; 93306; 96360; 96361; 97110; 97162; 97165; 97530; 97535; 99223; 99232; 99233; 99239; 99285; 70450; 70551; 71046; 76536; 78070; 81003; 81015; 82040; 82140; 82330; 82607; 82652; 82746; 83036; 83735; 83835; 83970; 84443; 85025; 93005; 93010; 93225; 99284; J0360; J1630; J1644; J1941; J2405

== ENCOUNTER → 2019-01-24 07:52 | Outpatient (BNVA) | payer MEDICARE, SELFPAY | PROVIDERS: Visit Provider Psychiatry & Neurology Neurology | DX: R69 Illness, unspecified (principal) ==

== ENCOUNTER 2019-01-31 10:01 | Outpatient (CLI) | payer MEDICARE, SELFPAY | END 2019-01-31 10:21 | PROVIDERS: PCP Internal Medicine; Visit Provider Internal Medicine | DX: R69 Illness, unspecified (principal) ==

== ENCOUNTER 2019-02-01 01:35 | Outpatient (CLI) | payer MEDICARE, SELFPAY ==
--- NOTE | 2019-01-31 17:24 | PDOC.CMPRO ---
Care Management Progress Note CM provided call back on 01/31/19. Sandeep reported he was unable to attain his prescriptions due to not having his MCR card. CM called [facility] to provide MCR information. CM called [facility] who requested Part D information. No Part D coverage showing on MCR Eligibility print out. CM faxed referral to Mercedes Moreira CM at the [facility] as well as Evert Hilario SHIP coordinator at [facility]. EVE also notified [facility] as patient is currently unable to fill new prescriptions and does not have follow up appointment for another ten days.
== END 2019-02-01 01:55 ==
PROVIDERS: PCP Internal Medicine; Visit Provider Internal Medicine
DX: R69 Illness, unspecified (principal)

== ENCOUNTER 2019-02-02 13:07 | Outpatient (CLI) | payer MEDICARE, SELFPAY ==
--- NOTE | 2019-02-07 09:31 | W.HOLTRPT ---
Date of service: 02/07/19 Time of Service: 09:31 Holter Monitor Report Holter Monitor Note: There is a 1 day Holter monitor ordered for the indication of nonsustained VT. ?Patient was in normal sinus rhythm for the majority recording. ?The patient had 2 episodes of supraventricular tachycardia with the longest lasting 3 beats. ?The patient had rare (less than 1%) premature atrial contractions. The patient had one 4 beat run of PACs. ?The patient no episodes of ventricular tachycardia and for single ventricular ectopic beats. ?Patient no episodes of atrial fibrillation, high degree heart block or pauses greater than 3 seconds. ?There were no diary episodes.
== END 2019-02-02 13:27 ==
PROVIDERS: PCP Internal Medicine; Visit Provider Internal Medicine
DX: I47.1 Supraventricular tachycardia (principal); I49.1 Atrial premature depolarization
CPT/HCPCS: 93226

== ENCOUNTER 2019-02-07 09:31 | Outpatient (CLI) | payer MEDICARE, SELFPAY | END 2019-02-07 09:51 | PROVIDERS: PCP Internal Medicine; Referring Provider Internal Medicine; Visit Provider Internal Medicine Cardiovascular Disease | DX: I47.1 Supraventricular tachycardia (principal); I49.1 Atrial premature depolarization | CPT/HCPCS: 93227 ==

== ENCOUNTER 2019-08-28 10:25 | Emergency (ER) | payer MEDICARE, SELFPAY ==
[2019-08-28] VITALS (110 sets, daily range): BP systolic 117–263; BP diastolic 70–225; PULSE 73–137; RESP 6–31; TEMP 37; O2SAT 82–98
--- NOTE | 2019-08-28 10:15 | DI.CT_ITS ---
EXAM: CT HEAD WO CLINICAL HISTORY: off balance, hand numbness. TECHNIQUE: Imaging Protocol: Axial computed tomography images with coronal and sagittal reformatted images were created and reviewed COMPARISON: CT CT HEAD WO from 01/19/2019 FINDINGS: Ventricles and Extra axial spaces: Normal in size and morphology for the patient's age. Hemorrhage: None. Cerebral parenchyma: There are areas of decreased attenuation in the white matter most consistent wit h small vessel ischemic disease. 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 Midline shift: None. Brainstem/Cerebellum: Normal. Calvarium: Normal. Visualized Paranasal sinuses/Mastoids: There is mucosal thickening in the ethmoid air cells and maxil tirso sinuses bilaterally. No fluid levels are seen. The mastoid air cells are well pneumatized. Soft Tissues: Unremarkable. IMPRESSION: No acute intracranial process. RADIATION DOSE DELIVERED: 717.21mGy.cm Total DLP DATA REPOSITORY: All CT scans at this facility are submitted to the National Radiology Data Registry (NRDR) Dose Index Registry (DIR) with the [employer] ([employer]). RADIATION OPTIMIZATION: All CT scans at this facility use at least one of these dose optimization te chniques: automated exposure control; mA and/or kV adjustment per patient size (includes targeted exa ms where dose is matched to clinical indication); or iterative reconstruction.
--- NOTE | 2019-08-28 10:56 | W.ED.GENAD ---
Discharge Plan Disposition Patient Disposition: [facility] [place] Condition: Stable Discharge Details Chief Complaint: CVA/TIA Clinical Impression: Knee effusion, right, Hypomagnesemia, Hypocalcemia, Hypokalemia ED Provider: Carin Walton Home Meds and New Rx's Prescriptions: No Action amlodipine 10 mg Tablet 10 mg PO DAILY Qty: 30 RF: 0 aspirin 81 mg Tablet,Chewable 81 mg PO DAILY Qty: 30 RF: 0 tamsulosin 0.4 mg Capsule 0.4 mg PO DAILY@1800 Qty: 30 RF: 0 pantoprazole 40 mg Tablet,Delayed Release (Dr/Ec) 40 mg PO DAILY@0730 Qty: 30 RF: 0 folic acid 1 mg Tablet 1 mg PO DAILY Qty: 30 RF: 0 atorvastatin 20 mg tablet 20 mg PO QHS Qty: 30 RF: 0 carvedilol [Coreg] 12.5 mg tablet 12.5 mg PO BID Qty: 60 RF: 0 acetaminophen 500 mg Tablet 1,000 mg PO Q8H PRN PRNRF: 0 calcium citrate [Calcitrate] 200 mg (950 mg) Tablet 200 mg PO DAILY PRNRF: 0 hydralazine 25 mg tablet 25 mg PO TID RF: 0 Discharge Instructions Additional Instructions: Ice to the knee for swelling 3-5 times a day for 10 to 15 minutes. Jose wrap for the next 2 days. Elevate leg for swelling. Please be compliant with your daily medications Please have prompt follow-up with your primary care doctor early this week. Return for any worsening, concerns or alarming symptoms sooner if needed Discharge Data Discharge Date/Time-TO BE ENTERED AT DEPARTURE: 08/28/19 19:20 Medical Decision Making <BANDAR Raya - Last Filed: 08/29/19 17:32> This is a 69-year-old patient presenting to the emergency room for concerns reported by his nursing staff this morning. Patient presents requesting his calcium to be checked. Patient reports tingling in his hands bilaterally. Patient describes a recent parathyroid surgery discharged on the from the [facility]. Patient reports at this time he is feeling well. Patient does describe right knee pain as his only site of concern. Patient does have a notable right knee effusion which he reports has been present and bothersome for the last several days since his hospital admission. Patient denies any lower leg swelling or pain only focal right knee swelling and discomfort. Patient denies any headache or dizziness. Denies any chest pain, difficulty breathing or shortness of breath or wheezing. Denies any fevers or chills. Has been eating and drinking without difficulty. Denies any abdominal or back discomfort. Patient does report somewhat of a limping gait secondary to his right knee discomfort but otherwise denies any unsteady gait or dizziness. Patient is alert and oriented x3. Initial physical exam reveals patient who is quite pleasant, no difficulty speaking. No obvious increase in respiratory effort. Patient's breath sounds are clear. Patient has a soft benign abdominal exam. Patient does have a notable right knee effusion. Patient's neurologic exam is normal. Spoke with the nurse caring for the patient and she was concerned as patient was ambulating slower than his typical, she was also concerned as patient was describing tingling in the hands. Patient was notably hypertensive. Nurse also concerned as patient was discharged from the hospital on she saw patient on Thursday and noted that the patient had not taken any of his daily medications since discharge. She rearranged patient's medications, provided him an additional dose of calcium per the discharge instructions. Checked in on the patient again today who reported persistent tingling and recommended the patient come to the emergency room to have his calcium levels checked. Plan to obtain patient's baseline labs including a calcium level. Of note physical exam does reveal an obvious right knee effusion we will plan to obtain x-ray. Patient's labs reveal no leukocytosis. Patient's sodium 141. Potassium 3.1. Renal function is at patient's baseline compared to his previous labs. Patient's calcium is noted to be 7.7. Of note with a blood pressure cuff on the right hand patient does complain of mild muscle spasm at the wrist. Yolanda Page to patient's surgeon paged to on-call surgeon at the [facility] to discuss patient's case and plan of care. Spoke with on-call surgeon who recommended addition of magnesium and phosphorus for full electrolyte evaluation and C-reactive protein as well as sed rate due to patient's complaints of right knee effusion. Recommended electrolyte replacement. Patient's magnesium noted to be 1.4. Phosphorus noted to be 3.2. Discussed potential for transfer to the [facility] for electrolyte replacement and until patient is able to have increased services at his home as he was noncompliant with his medications for the last several days. Patient reports he was noncompliant with his medications as he was unclear as to whether to restart his medications after his surgery and he was waiting for advice from his nurse or his doctor. Patient reports he did take his medications independently this morning and does not feel that he will have any difficulty taking his medications at home now that he has had clarification regarding his daily meds with nursing staff yesterday. Patient declines transfer to [facility] at this time as he prefers to replace his electrolytes here follow-up at home, restart his daily medications and have follow-up with a PCP. Magnesium replacement IV ordered, calcium replacement IV ordered. Potassium replaced p.o. 20 mEq. Patient's knee x-ray reveals no acute osseous abnormality. Chondrocalcinosis and moderate right knee osteoarthritis with joint space narrowing and subchondral sclerosis. Patient's C-reactive protein is elevated at 5.98, sed rate 32. Although these likely could be elevated as patient is postoperative must consider the possibility of joint infection. Patient does not have significant pain with range of motion however I did consult Dr. Milan Garcia regarding this who evaluated the patient. Arthrocentesis performed by Dr. Milan Garcia. Joint fluid straw-colored. Sent for culture, counts and crystals. Jose wrap placed after aspiration. Reviewed [place] [address], no crystals seen. Gram stain reveals white blood cells without obvious bacteria. Consistent with inflammatory joint effusion. We will plan to recommend rice and follow-up with orthopedics for any persistence of pain although pain is likely due to moderate osteoarthritis. Patient signed out pending repeat labs after electrolyte replacement with plan of care to discharge home tomorrow follow-up with PCP promptly and orthopedics if needed for right knee effusion. <Milan Garcia MD - Last Filed: 08/28/19 14:19> ECG Data Attestation: I personally reviewed and interpreted this ECG (s) as follows: (Sinus rhythm 84 bpm, normal axis, subtle ST depressions noted lead III, aVF, V5 and V6.) Prior ECG tracings: available for review (01/24/2019?similar ST depressions noted, no significant changes today.) <Carin Walton - Last Filed: 08/28/19 21:56> 1600: Care assumed from outgoing BANDAR Roman, patient is in bed, sleeping breathing eupneic easily awakened. Patient does appear somewhat confused upon awakening. He does state that he does have a ride his neighbor can come pick him up if discharged. Magnesium infusing without difficulty, plan is to repeat CMP and mag after infusion. If electrolytes are improving plan is to discharge home. If electrolytes are not improving [facility]. 1711: Spoke with David dejesus who is the on-call ENT doctor at the [facility]. Discussed case in details with Dr. Bagley, discussed his magnesium and CMP results and informed him of pending repeat levels for magnesium and CMP. It is under my impression at this time if the electrolyte levels are improving patient will be discharged home with a reasonable home caregiver if electrolytes are going the wrong direction we will [facility] the [facility]. 1727: Spoke again with Kevyn the ENT doctor at the OR who recommends changing his calcium citrate medication to 500 mg twice daily. He also has calcium 200 mg elemental calcium prescription for take only if experiencing of symptoms. He recommends calcium twice daily for the next 4 weeks. 1735: Dr. Bagley ENT called back and changed recommendation for calcium citrate 500 mg to calcium carbonate or Tums 500 mg to 1 g up to 4 g a day. 1 g given in department here now. Repeat calcium CMP and magnesium still pending at this time. Repeat CMP and magnesium results are as follows: Calcium very slightly improved from 7.7-7.8, magnesium has improved level is 2.3 which is up from 1.4. 1755: Spoke again with Dr. Bagley at the OR after conferring with Dr. Hood ENT surgeon they are requesting patient be transferred for further evaluation and treatment. [facility] paged for [facility]. 1833: Dr. Bagley surgeon on-call for the OR accepts patient for transfer he gave the okay to go ahead and arrange transport and they will have a bed upon arrival. Transport arrangement in process. 1900: Spoke with patient's mother K discussed patient plan to be transferred to [facility], patient's mother verbalized understanding, and all questions she had were answered to her satisfaction. 1930: Patient left department via EMS. Patient remained hemodynamically stable throughout stay, this text was generated using [employer] system, please disregard any oddities of phrase or misspellings. HPI <BANDAR Raya - Last Filed: 08/29/19 17:32> General Date/Time Provider Initiated Documentation: 08/28/19 10:28. HPI Narrative: Is a 69-year-old patient presenting the emergency room after being advised by his nurse who was concerned as patient was complaining of some tingling in his hands bilaterally as well as some difficulty walking. Per neighbors as well as nurse who is familiar with the patient patient has been slow with ambulating but has not been noted to be off balance. Nurse was concerned as when she arrived to patient's house yesterday he had not taken his medications in 3 days. When asked about this the patient reports he was waiting for the nurse or doctor to advise him which medications he should be taking after his surgery. Patient reports since speaking with his a nurse and she laid out his medications he was compliant with his medications both last night and today. Patient reports he is feeling well in general. Denies headache or dizziness. Has been eating and drinking without difficulty. Patient is status post parathyroid surgery discharged on August 24. Patient was advised to use Tylenol and if noted any numbness tingling around mouth hands or feet or experience any muscle cramping to begin calcium supplementation at home. Patient's nurse did provide him a single dose of calcium yesterday as she was concerned regarding his sensations of numbness. Patient's discharge instructions advised the patient to take 2 pills every hour for 3 doses and if still experiencing symptoms to go to the emergency room. Patient did not pursue this administration of medicine at home and only took a single dose yesterday. Nursing staff noted patient to have hypertension when checking his vitals although again patient was noncompliant with his medications. Patient does report taking his medications this morning. Patient denies chest pain difficulty breathing or shortness of the wheezing. Denies any dizziness. Denies any fevers or chills. Denies any abdominal pain. Patient complains specifically of right knee pain when asked why he had difficulty walking. Patient reports new onset of right knee pain while he was in the hospital which was not evaluated. Patient reports obvious knee swelling present. Patient denies any other sites of pain regarding the lower extremities. Patient does not feel weak in his lower extremities. Patient reports persistent knee pain for the last 3 days. Denies any obvious injury or trauma. Patient denies any pain in the calf or swelling distally. Related Data Home Medications Medication Instructions Recorded Confirmed amlodipine 10 mg PO DAILY #30 tab 11/21/19 06/21/20 aspirin 81 mg PO DAILY #30 tab 01/27/19 08/28/19 atorvastatin 20 mg PO QHS #30 tab 01/27/19 08/28/19 carvedilol [Coreg] 12.5 mg PO BID #60 tab 01/27/19 08/28/19 folic acid 1 mg PO DAILY #30 tab 01/27/19 08/28/19 pantoprazole 40 mg PO DAILY@0730 #30 tab 01/27/19 08/28/19 tamsulosin 0.4 mg PO DAILY@1800 #30 cap 01/27/19 08/28/19 acetaminophen 1,000 mg PO Q8H PRN PRN 08/28/19 08/28/19 calcium citrate [Calcitrate] 200 mg PO DAILY PRN 08/28/19 08/28/19 hydralazine 25 mg PO TID 08/28/19 08/28/19 Previous Rx's Medication Instructions Recorded amlodipine 10 mg PO DAILY #30 tab 01/27/19 aspirin 81 mg PO DAILY #30 tab 01/27/19 atorvastatin 20 mg PO QHS #30 tab 01/27/19 carvedilol [Coreg] 12.5 mg PO BID #60 tab 01/27/19 folic acid 1 mg PO DAILY #30 tab 01/27/19 pantoprazole 40 mg PO DAILY@0730 #30 tab 01/27/19 tamsulosin 0.4 mg PO DAILY@1800 #30 cap 01/27/19 Allergies Allergy/AdvReac Type Severity Reaction Status Date / Time No Known Allergies Allergy Unverified 08/28/19 12:53 General SUNNI: 3 Review of Systems <BANDAR Raya - Last Filed: 08/29/19 17:32> All systems reviewed & are unremarkable except as noted in HPI and below PFSH <BANDAR Raya - Last Filed: 08/29/19 17:32> Medical History Cataracts, bilateral (Acute) Left sided lacunar infarction (Acute) Memory impairment (Acute) Mild dementia (Acute) Social History Smoking/Tobacco Use Status: Unknown Alcohol Intake: never Substance use type: does not use Do you feel safe at home: Yes Exam <BANDAR Raya - Last Filed: 08/29/19 17:32> Narrative Exam Narrative: CONST: Healthy appearing patient, in no acute distress. Well hydrated. Alert and oriented x3. HENMT: Head nomocephalic, normal to inspection. Atraumatic. Hearing grossly normal. External ear canal no erythema or swelling. TM normal bilaterally. Nose normal to inspection. No rhinnorhea. Normal facial exam. Oral mucosa normal. Tounge normal. Dentition normal. Normal posterior oropharynx. Uvula midline. EYES: General normal appearance. Alignment normal. Eyelids normal. Conjunctiva normal. Sclera normal. PERRL. NECK: Normal visual inspection. FROM. No lymphadenopathy. Trachea midline. No Midline tenderness. CHEST: Normal insepection of the chest. RESP: Normal respiratory effort. Speaking full sentences. No cough. No wheezing. No retractions. Clear to auscaltation. Breath sound equal and present bilaterally. CARDIO: No JVD. Normal PMI. Regular Rate. Regular Rhythm. Normal peripheral pulses. GI: Normal inspection of abdomen. No distension. Soft. Nontender. Bowel sounds present in all 4 quadrants. No rebound. No gaurding. MUSCULOSKELETAL: Normal Gait. FROM upper extremities. muscle twitching noted right wrist; transient. Strength intact in upper extremities and equal. Right leg reveals no hip pain with palpation. Straight leg raise intact. Pain with knee flexion. There is a very obvious right knee effusion with minimal warmth and no erythema. Patient is able to passively range his right knee without significant pain. Patient does have some posterior right knee swelling consistent with a Chase's cyst and effusion. No calf pain with palpation of the right leg. No swelling distal to the knee. Left leg exam is benign. Strength is intact distally. No foot drop bilaterally. Distal neurovascularly intact. Sensation intact distally. SKIN: Normal. Dry. No rashes. NEURO: Alert and awake. Speech clear. Alert and oriented x 3. Speech is clear. Cranial nerves intact as tested III - XI. Normal [id number] test. No pronator drift. Normal heel-rabago test. No Nystagmus. Gait normal. Strength intact in all extremities. Sensation intact in all extremities. PSYCH: Normal affect. Cooperative. <Milan Garcia MD - Last Filed: 08/28/19 14:19> Joint Aspiration/Injection Joint Asp./Inject. 1: Time Out Performed: Yes Side of body: right Joint Aspirated: knee Ultrasound Guidance: No Skin Prep: Povidone-Iodine1% Local Anesthetic: Lidocaine 1% Amount of anesthesia used (mL): 5 Needle Size Used: 18G Fluid Obtained: clear (yellow) Total fluid obtained (mL): 29 Patient Tolerated Procedure: well and no complications Complications: none Sign Out <BANDAR Raya - Last Filed: 08/29/19 17:32> Sign Out Data: Sign Out Comment: Signout pending repeat labs including calcium, potassium and magnesium and disposition Last updated by Jennifer Verma PA at 08/28/19 16:14
--- NOTE | 2019-08-28 11:06 | DI.VRAD_ITS ---
PROCEDURE INFORMATION: Exam: CT Head Without Contrast Exam date and time: 08/28/2019 10:30 AM Age: 69 years old Clinical indication: Walking, difficulty and weakness, extremity TECHNIQUE: Imaging protocol: Computed tomography of the head without contrast. COMPARISON: CT HEAD WO 01/19/2019 7:19 PM FINDINGS: Brain: No intracranial hemorrhage or acute large territorial infarction. Chronic lacunar infarct in the left lentiform nucleus. 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 Ventricles: Prominence of the ventricles and sulci, suggesting parenchymal volume loss/ atrophy. No hydrocephalus. Bones/joints: No displaced calvarial fracture. Sinuses: Progression of bilateral maxillary sinus disease with mucosal thickening and mucous retention cysts. Mild ethmoid sinus disease. Mastoid air cells: Visualized mastoid air cells are well aerated. Vasculature: Atherosclerotic vascular calcifications. Soft tissues: Unremarkable. IMPRESSION: 1. No intracranial hemorrhage or acute large territorial infarction. 2. 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 3. Chronic lacunar infarct in the left lentiform nucleus. 4. Paranasal sinus disease. Dictated and Authenticated by: Rosemarie Brooks MD. Ordering:AZAM Rodriguez MD
[2019-08-28 11:07] LABS: Abs Immature Grans 0.04 k/cumm (0.0-0.09); Absolute Basophil Count 0.02 k/cumm (0.0-0.2); Absolute Eosinophil Count 0.29 k/cumm (0.0-0.7); Absolute Lymphocyte Count 1.56 k/cumm (1.2-3.4); Absolute Monocyte Count 0.97 k/cumm (0.11-0.7); Absolute Neutrophil Count 5.37 k/cumm (1.2-6.7); Basophils % 0.2; Eosinophils % 3.5; HCT 35.2 % (40.0-50.0); HGB 12.1 g/dL (13.5-17.5); Immature Grans % 0.5 %; Lymphocytes % 18.9; Mean Corp. HGB Concentration 34.4 g/dL (32.0-36.0); Mean Corpuscular Hemoglobin 30.1 pg (27.0-33.0); Mean Corpuscular Volume 87.6 fL (80-95); Mean Platelet Volume 9.8 fL (8.0-11.0); Monocytes % 11.8; Neutrophils % 65.1; Platelet Count 255 x1000/uL (130-400); RBC 4.02 m/cumm (4.50-6.00); RBC Distribution Width 13.7 % (11.8-14.1); White Blood Cell Count 8.25 k/cumm (4.4-10.8)
[2019-08-28 11:16] LABS: ALT 17 U/L (16-63); AST 13 U/L (15-37); Albumin 3.6 g/dL (3.4-5.0); Alkaline Phosphatase 99 U/L (46-116); Anion Gap 10.7 mmol/L (3-11); BUN 24 mg/dL (7-18); Bilirubin, Total 1.9 mg/dL (0.2-1.0); CO2 27.3 mmol/L (21.0-32.0); CREATININE 1.52 mg/dL (0.70-1.30); Calcium 7.7 mg/dL (8.5-10.1); Chloride 103 mmol/L (98-107); Glucose 111 mg/dL (74-106); Potassium 3.1 mmol/L (3.5-5.1); Sodium 141 mmol/L (136-145); Total Protein 7.7 g/dL (6.4-8.2)
--- NOTE | 2019-08-28 12:15 | DI.RAD_ITS ---
EXAM: XR KNEE RT 3V AP,LAT,MAKENNA CLINICAL HISTORY: pain. TECHNIQUE: 2D digital imaging was performed. COMPARISON: CR,XR XR CHEST 2V PA LATERAL from 01/19/2019 FINDINGS: BONES: No acute fracture is present. No bony destructive lesion is seen. There is an enthesophyte at the superior patella. JOINTS: The knee is normally aligned. There is a small joint effusion. There is moderate joint space narrowing of the femoral tibial joint. Chondrocalcinosis is also noted in the femoral tibial joint. SOFT TISSUE: Vascular calcifications are present. IMPRESSION: 1. No acute fracture or dislocation. 2. Moderate osteoarthritis of the knee. 3. Chondrocalcinosis. DATA REPOSITORY: RADIATION DOSE DELIVERED:
[2019-08-28 12:27] LABS: Bilirubin Negative (Negative); Blood Negative (Negative); Clarity Clear (Clear); Glucose Negative (Negative); Ketones Negative (Negative); Leukocyte Esterase Negative (Negative); Nitrite Negative (Negative); Specific Gravity 1.015 (1.005-1.025); Urobilinogen 0.2 EU/dL (Up TO 0.2)
--- NOTE | 2019-08-28 13:00 | DI.VRAD_ITS ---
PROCEDURE INFORMATION: Exam: XR Right Knee Exam date and time: 08/28/2019 12:47 PM Age: 69 years old Clinical indication: Pain; Knee; Right TECHNIQUE: Imaging protocol: XR Right knee. Views: 3 views. COMPARISON: No relevant prior studies available. FINDINGS: Bones/joints: Small suprapatellar joint effusion. Chondrocalcinosis. Moderate right knee osteoarthritis with joint space narrowing and subchondral sclerosis. No acute fracture or malalignment. Soft tissues: No significant soft tissue swelling. No radiopaque foreign body. Vasculature: Vascular calcifications. IMPRESSION: 1. No acute osseous abnormality. 2. Chondrocalcinosis. 3. Moderate right knee osteoarthritis with joint space narrowing and subchondral sclerosis. Dictated and Authenticated by: Rosemarie Brooks MD. Ordering:AZAM Rodriguez MD
[2019-08-28 13:23] LABS: Magnesium 1.4 mg/dL (1.8-2.4); PHOSPHORUS 3.2 mg/dL (2.6-4.7)
[2019-08-28 13:46] LABS: C-Reactive Protein 5.98 mg/dL (0.0-0.3)
[2019-08-28 14:07] LABS: ESR 32 mm/hr (1-20)
[2019-08-28] MEDS: Potassium Chloride 20 MEQ TABCR PO (14:50)
[2019-08-28] MEDS: Calcium Gluconate 4.65 MEQ/10 ML VIAL 4.65 MG IVP (14:50)
[2019-08-28 15:13] LABS: Clarity Cloudy; Source R KNEE
[2019-08-28 15:14] LABS: Mononuclear Cells 10 % (0-0); Nucleated Cells 11988 /MM3 (0-0); Polynuclear Cells 90 % (0-0)
[2019-08-28] MEDS: MAGNESIUM SULFATE 2 GM/50 ML BAG IVPB (15:32)
[2019-08-28 17:39] LABS: ALT 14 U/L (16-63); AST 15 U/L (15-37); Albumin 3.3 g/dL (3.4-5.0); Alkaline Phosphatase 101 U/L (46-116); Anion Gap 10.5 mmol/L (3-11); BUN 22 mg/dL (7-18); Bilirubin, Total 1.5 mg/dL (0.2-1.0); CO2 25.5 mmol/L (21.0-32.0); Calcium 7.8 mg/dL (8.5-10.1); Chloride 105 mmol/L (98-107); Glucose 157 mg/dL (74-106); Magnesium 2.3 mg/dL (1.8-2.4); Potassium 3.1 mmol/L (3.5-5.1); Sodium 141 mmol/L (136-145); Total Protein 7.3 g/dL (6.4-8.2)
[2019-08-28] MEDS: Calcium Carbonate *TUMS* 500 MG CHEW 1000 MG PO (17:39)
[2019-08-28] MEDS: Potassium Chloride Liquid 20 MEQ PKT 40 MEQ PO (18:38)
[2019-08-28] MEDS: Normal Saline 1,000 ML 125 ML IV (18:47)
[2019-08-31 15:11] LABS: Crystals (BF) No Crystals seen
== END 2019-08-28 19:20 | disposition short-term general hospital (02) ==
PROVIDERS: Physician Assistant; Student in an Organized Health Care Education/Training Program; Emergency Provider Registered Nurse Emergency; PCP Internal Medicine
DX: R41.82 Altered mental status, unspecified (principal); M25.461 Effusion, right knee; E83.42 Hypomagnesemia; E87.6 Hypokalemia; E83.51 Hypocalcemia; I10 Essential (primary) hypertension; Z91.14 Patient's other noncompliance with medication regimen
CPT/HCPCS: 20610; 36415; 36416; 73562; 80053; 82962; 85652; 93005; 96365; 96366; 96367; 96375; 99285; 70450; 81003; 83735; 84100; 85025; 86140; 87070; 87205; 89051; 89060; 93010; J0610

== ENCOUNTER 2019-09-05 18:40 | Outpatient (REF) | payer MEDICARE, SELFPAY ==
[2019-09-05 19:05] LABS: HCT 34.5 % (40.0-50.0); HGB 11.3 g/dL (13.5-17.5); Mean Corp. HGB Concentration 32.8 g/dL (32.0-36.0); Mean Corpuscular Hemoglobin 29.8 pg (27.0-33.0); Mean Platelet Volume 10.2 fL (8.0-11.0); Platelet Count 430 x1000/uL (130-400); RBC 3.79 m/cumm (4.50-6.00); RBC Distribution Width 13.7 % (11.8-14.1); White Blood Cell Count 8.81 k/cumm (4.4-10.8)
[2019-09-05 19:39] LABS: ALT 40 U/L (16-63); AST 25 U/L (15-37); Albumin 2.8 g/dL (3.4-5.0); Alkaline Phosphatase 134 U/L (46-116); Anion Gap 7.4 mmol/L (3-11); BUN 31 mg/dL (7-18); Bilirubin, Total 0.5 mg/dL (0.2-1.0); CO2 29.6 mmol/L (21.0-32.0); CREATININE 1.63 mg/dL (0.70-1.30); Calcium 9.3 mg/dL (8.5-10.1); Chloride 103 mmol/L (98-107); Estimated GFR 42.16 (mL/min/1.73m2); Glucose 114 mg/dL (74-106); Potassium 3.9 mmol/L (3.5-5.1); Sodium 140 mmol/L (136-145); Total Protein 6.9 g/dL (6.4-8.2)
[2019-09-06 16:33] LABS: Ionized Calcium 1.22 mmol/L (1.12-1.32)
[2019-09-07 09:45] LABS: Parathyroid Hormone,Intact 11 pg/mL (19-88)
== END 2019-09-05 19:00 ==
LOC: LBN 18:40
PROVIDERS: PCP Internal Medicine; Visit Provider Nurse Practitioner Adult Health
DX: E89.2 Postprocedural hypoparathyroidism (principal); E83.51 Hypocalcemia
CPT/HCPCS: 80053; 85027; 82330; 83970

== ENCOUNTER 2019-09-07 13:38 | Outpatient (REF) | payer MEDICARE, SELFPAY ==
[2019-09-08 18:08] LABS: COVID-19 RT-PCR Result Not Detected ((See Note))
== END 2019-09-07 13:58 ==
LOC: LBN 13:38
PROVIDERS: PCP Internal Medicine; Visit Provider Nurse Practitioner Adult Health
DX: Z03.818 Encounter for observation for suspected exposure to other biological agents ruled out (principal)
CPT/HCPCS: U0003

== ENCOUNTER 2019-09-14 02:50 | Emergency (ER) | payer MEDICARE, SELFPAY ==
[2019-09-14 02:54] VITALS: BP 139/98; PULSE 81; RESP 18; TEMP 36.4; O2SAT 98
--- NOTE | 2019-09-14 02:58 | ED.GENADUL_ITS ---
Discharge Plan Disposition Patient Disposition: HOME Condition: Stable Discharge Details Chief Complaint: GenMedical Clinical Impression: Tremor Primary Care Provider: Domingo Hooks ED Provider: Domingo Lawrence Home Meds and New Rx's Prescriptions: Continued amlodipine 10 mg Tablet 10 mg PO DAILY Qty: 30 RF: 0 aspirin 81 mg Tablet,Chewable 81 mg PO DAILY Qty: 30 RF: 0 tamsulosin 0.4 mg Capsule 0.4 mg PO DAILY@1800 Qty: 30 RF: 0 pantoprazole 40 mg Tablet,Delayed Release (Dr/Ec) 40 mg PO DAILY@0730 Qty: 30 RF: 0 folic acid 1 mg Tablet 1 mg PO DAILY Qty: 30 RF: 0 atorvastatin 20 mg tablet 20 mg PO QHS Qty: 30 RF: 0 carvedilol [Coreg] 12.5 mg tablet 12.5 mg PO BID Qty: 60 RF: 0 acetaminophen 500 mg Tablet 1,000 mg PO Q8H PRN PRNRF: 0 calcium citrate [Calcitrate] 200 mg (950 mg) Tablet 200 mg PO DAILY PRNRF: 0 hydralazine 25 mg tablet 25 mg PO TID RF: 0 Discharge Instructions Instructions: Tremors (ED) Additional Instructions: Follow up with your primary care provider within 1-2 weeks if you feel more ill, have severe weakness or difficulty breathing return to the emergency department Medical Decision Making 69 yo male with multiple medical problems comes in with intermittent shaking of his right hand over the last few months. Denies any pain, weakness, n/v, chest pain, sob, headache, vision changes. Mostly affects his right hand and when he is doing things like tying his shoe or grabbing things. On exm he has no focal motor or sensation deficits, stable gait, no edema, and when asked to reach out right hand his hand does have a mild tremor which is what he states is the shaking he was descrbiing. Exam and history consistent with essential tremor no concerning deficits on exam or history and do not feel any labs or imaging indicated. ADvised f/u with pcp and return precautions given Differential Diagnosis Differential Diagnosis: essential tremor, parkinsons HPI General Mode of arrival: ambulatory . Date/Time Provider Initiated Documentation: 09/14/19 02:51 . Limitations to Documentation: no limitations . Information obtained by: patient . History of Present Illness 69 year old M presents to the emergency department with the chief complaint of shaking hand intermittently, described as moderate, No relieving factors improve symptom(s), No exacerbating factors reported . Patient did receive the following treatments prior to arrival, none Related Data Home Medications Medication Instructions Recorded Confirmed amlodipine 10 mg PO DAILY #30 tab 01/27/19 08/28/19 aspirin 81 mg PO DAILY #30 tab 01/27/19 08/28/19 atorvastatin 20 mg PO QHS #30 tab 01/27/19 08/28/19 carvedilol [Coreg] 12.5 mg PO BID #60 tab 01/27/19 08/28/19 folic acid 1 mg PO DAILY #30 tab 01/27/19 08/28/19 pantoprazole 40 mg PO DAILY@0730 #30 tab 01/27/19 08/28/19 tamsulosin 0.4 mg PO DAILY@1800 #30 cap 01/27/19 08/28/19 acetaminophen 1,000 mg PO Q8H PRN PRN 08/28/19 08/28/19 calcium citrate [Calcitrate] 200 mg PO DAILY PRN 08/28/19 08/28/19 hydralazine 25 mg PO TID 08/28/19 08/28/19 Previous Rx's Medication Instructions Recorded amlodipine 10 mg PO DAILY #30 tab 01/27/19 aspirin 81 mg PO DAILY #30 tab 01/27/19 atorvastatin 20 mg PO QHS #30 tab 01/27/19 carvedilol [Coreg] 12.5 mg PO BID #60 tab 01/27/19 folic acid 1 mg PO DAILY #30 tab 01/27/19 pantoprazole 40 mg PO DAILY@0730 #30 tab 01/27/19 tamsulosin 0.4 mg PO DAILY@1800 #30 cap 01/27/19 Allergies Allergy/AdvReac Type Severity Reaction Status Date / Time No Known Allergies Allergy Unverified 09/14/19 02:56 General Stated Complaint: GenMedical SUNNI: 5 Review of Systems All systems reviewed & are unremarkable except as noted in HPI and below Constitutional Constitutional: Denies chills, Denies fever(s) and Denies weakness Cardiovascular Cardiovascular: Denies chest pain and Denies dyspnea Respiratory Respiratory: Denies cough and Denies dyspnea Gastrointestinal Gastrointestinal: Denies abdominal pain, Denies nausea and Denies vomiting Musculoskeletal Musculoskeletal: Denies joint swelling Neurologic Neurologic: Denies weakness Psychiatric Psychiatric: Denies depression [facility] Social History Smoking/Tobacco Use Status: Unknown Alcohol Intake: never Substance use type: does not use Do you feel safe at home: Yes Exam Const General: no acute distress Orientation: alert HENMT Head: normal to inspection Ears: external ears normal General nose exam: external nose normal Mouth: moist mucous membranes Eyes General: appearance normal, both eyes and all related structures Neck Neck: normal visual inspection Resp Effort & Inspection: normal respiratory effort and able to speak in complete sentences Cardio Rate: regular rate Skin General skin exam: no rashes or lesions noted Neuro General: patient alert Extrem General: normal to inspection Psych Mental Status: mental status grossly normal Course Vital Signs Vital signs: Vital Signs Temperature 36.4 C L 09/14/19 02:54 Pulse 81 09/14/19 02:54 Respiratory Rate 18 09/14/19 02:54 Blood Pressure 139/98 H 09/14/19 02:54 Pulse Oximetry 98 09/14/19 02:54 Temperature 36.4 C L 09/14/19 02:54 Temperature Source Temporal Artery Scan 09/14/19 02:54 Pulse 81 09/14/19 02:54 Respiratory Rate 18 09/14/19 02:54 Blood Pressure 139/98 H 09/14/19 02:54 Blood Pressure Position Sitting 09/14/19 02:54 Pulse Oximetry 98 09/14/19 02:54 Oxygen Delivery Method Room Air 09/14/19 02:54 Oxygen Flow Rate 0 09/14/19 02:54
== END 2019-09-14 03:03 | disposition home or self-care (01) ==
PROVIDERS: Emergency Provider Emergency Medicine; PCP Internal Medicine
DX: R25.1 Tremor, unspecified (principal)
CPT/HCPCS: 99282; 99283

== ENCOUNTER 2019-09-16 03:23 | Outpatient (CLI) | payer MEDICARE, SELFPAY ==
[2019-09-16 13:43] LABS: Anion Gap 10.6 mmol/L (3-11); CO2 28.4 mmol/L (21.0-32.0); Calcium 6.9 mg/dL (8.5-10.1); Chloride 102 mmol/L (98-107); Magnesium 1.6 mg/dL (1.8-2.4); PHOSPHORUS 3.7 mg/dL (2.6-4.7); Potassium 4.3 mmol/L (3.5-5.1); Sodium 141 mmol/L (136-145)
== END 2019-09-16 03:43 ==
PROVIDERS: PCP Internal Medicine; Visit Provider Internal Medicine
DX: E83.51 Hypocalcemia (principal); E83.81 Hungry bone syndrome
CPT/HCPCS: 36415; 80051; 82310; 83735; 84100

== ENCOUNTER 2019-09-22 11:52 | Outpatient (REF) | payer MEDICARE, SELFPAY ==
[2019-09-22 13:07] LABS: ALT 20 U/L (16-63); AST 14 U/L (15-37); Albumin 3.5 g/dL (3.4-5.0); Alkaline Phosphatase 106 U/L (46-116); BUN 29 mg/dL (7-18); Bilirubin, Total 0.7 mg/dL (0.2-1.0); CREATININE 1.61 mg/dL (0.70-1.30); Chloride 101 mmol/L (98-107); Estimated GFR 42.76 (mL/min/1.73m2); Glucose 98 mg/dL (74-106); Sodium 140 mmol/L (136-145); Total Protein 7.6 g/dL (6.4-8.2)
[2019-09-22 13:14] LABS: Calcium 12.5 mg/dL (8.5-10.1)
== END 2019-09-22 12:12 ==
LOC: LBN 11:52
PROVIDERS: PCP Internal Medicine; Visit Provider Internal Medicine
DX: E55.9 Vitamin D deficiency, unspecified (principal); E89.2 Postprocedural hypoparathyroidism; E83.51 Hypocalcemia; E83.81 Hungry bone syndrome; R79.89 Other specified abnormal findings of blood chemistry
CPT/HCPCS: 80053; 82330; 83735

== ENCOUNTER 2019-09-26 12:35 | Outpatient (REF) | payer MEDICARE, SELFPAY ==
[2019-09-26 13:28] LABS: Albumin 3.4 g/dL (3.4-5.0); BUN 24 mg/dL (7-18); CREATININE 1.97 mg/dL (0.70-1.30); Estimated GFR 33.88 (mL/min/1.73m2); Glucose 101 mg/dL (74-106)
[2019-09-26 13:54] LABS: Calcium 12.6 mg/dL (8.5-10.1)
[2019-09-26 16:02] LABS: Ionized Calcium 1.53 mmol/L (1.12-1.32)
[2019-09-26 21:54] LABS: Estradiol 29 pg/mL (<40)
== END 2019-09-26 12:55 ==
LOC: LBN 12:35
PROVIDERS: PCP Internal Medicine; Visit Provider Internal Medicine
DX: E89.2 Postprocedural hypoparathyroidism (principal); E83.51 Hypocalcemia; E83.81 Hungry bone syndrome
CPT/HCPCS: 82947; 84520; 82040; 82310; 82330; 82565; 82670; 83735

== ENCOUNTER 2019-09-29 14:03 | Outpatient (REF) | payer MEDICARE, SELFPAY ==
[2019-09-29 15:38] LABS: Albumin 3.3 g/dL (3.4-5.0); Anion Gap 6.8 mmol/L (3-11); BUN 28 mg/dL (7-18); CO2 30.2 mmol/L (21.0-32.0); CREATININE 2.04 mg/dL (0.70-1.30); Chloride 101 mmol/L (98-107); Estimated GFR 32.54 (mL/min/1.73m2); Glucose 138 mg/dL (74-106); Potassium 3.7 mmol/L (3.5-5.1); Sodium 138 mmol/L (136-145)
[2019-09-29 15:54] LABS: Calcium 11.8 mg/dL (8.5-10.1)
[2019-09-29 21:40] LABS: Ionized Calcium 1.46 mmol/L (1.12-1.32)
== END 2019-09-29 14:23 ==
LOC: LBN 14:03
PROVIDERS: PCP Internal Medicine; Visit Provider Internal Medicine
DX: E89.2 Postprocedural hypoparathyroidism (principal); E83.51 Hypocalcemia
CPT/HCPCS: 80048; 82040; 82330

== ENCOUNTER 2019-10-03 12:17 | Outpatient (REF) | payer MEDICARE, SELFPAY ==
[2019-10-03 13:53] LABS: Calcium 10.8 mg/dL (8.5-10.1)
== END 2019-10-03 12:37 ==
LOC: LBN 12:17
PROVIDERS: PCP Internal Medicine; Visit Provider Internal Medicine
DX: E89.2 Postprocedural hypoparathyroidism (principal); E83.51 Hypocalcemia; E83.81 Hungry bone syndrome
CPT/HCPCS: 82310

== ENCOUNTER 2019-10-17 21:22 | Outpatient (REF) | payer MEDICARE, SELFPAY ==
[2019-10-17 14:50] LABS: Anion Gap 7.7 mmol/L (3-11); BUN 30 mg/dL (7-18); CO2 30.3 mmol/L (21.0-32.0); CREATININE 1.69 mg/dL (0.70-1.30); Chloride 103 mmol/L (98-107); Estimated GFR 40.44 (mL/min/1.73m2); Glucose 115 mg/dL (74-106); Potassium 3.7 mmol/L (3.5-5.1); Sodium 141 mmol/L (136-145)
[2019-10-18 08:44] LABS: Parathyroid Hormone,Intact 49 pg/mL (19-88)
== END 2019-10-17 21:42 ==
LOC: LBN 21:22
PROVIDERS: PCP Internal Medicine; Visit Provider Internal Medicine
DX: E83.51 Hypocalcemia (principal); E89.2 Postprocedural hypoparathyroidism; E83.81 Hungry bone syndrome
CPT/HCPCS: 80048; 83970

== ENCOUNTER 2019-10-25 13:20 | Outpatient (REF) | payer MEDICARE, SELFPAY ==
[2019-10-25 14:23] LABS: Anion Gap 9.2 mmol/L (3-11); BUN 26 mg/dL (7-18); CO2 26.8 mmol/L (21.0-32.0); CREATININE 1.43 mg/dL (0.70-1.30); Calcium 9.3 mg/dL (8.5-10.1); Chloride 105 mmol/L (98-107); Estimated GFR 49.03 (mL/min/1.73m2); Glucose 123 mg/dL (74-106); Potassium 4.2 mmol/L (3.5-5.1); Sodium 141 mmol/L (136-145)
== END 2019-10-25 13:40 ==
LOC: LBN 13:20
PROVIDERS: PCP Internal Medicine; Visit Provider Internal Medicine
DX: E83.51 Hypocalcemia (principal); E83.81 Hungry bone syndrome; E89.2 Postprocedural hypoparathyroidism
CPT/HCPCS: 80048

== ENCOUNTER 2019-11-08 15:32 | Outpatient (REF) | payer MEDICARE, SELFPAY ==
[2019-11-08 15:04] LABS: Anion Gap 6.9 mmol/L (3-11); BUN 24 mg/dL (7-18); CO2 32.1 mmol/L (21.0-32.0); CREATININE 1.59 mg/dL (0.70-1.30); Calcium 9.5 mg/dL (8.5-10.1); Chloride 105 mmol/L (98-107); Estimated GFR 43.38 (mL/min/1.73m2); Glucose 131 mg/dL (74-106); Potassium 4.4 mmol/L (3.5-5.1); Sodium 144 mmol/L (136-145)
== END 2019-11-08 15:52 ==
LOC: LBN 15:32
PROVIDERS: PCP Internal Medicine; Visit Provider Internal Medicine
DX: E89.2 Postprocedural hypoparathyroidism (principal); E83.51 Hypocalcemia; E83.81 Hungry bone syndrome
CPT/HCPCS: 80048

== ENCOUNTER 2019-11-18 13:49 | Outpatient (REF) | payer MEDICARE, SELFPAY ==
[2019-11-18 15:06] LABS: Anion Gap 6.1 mmol/L (3-11); BUN 26 mg/dL (7-18); CO2 29.9 mmol/L (21.0-32.0); CREATININE 1.37 mg/dL (0.70-1.30); Calcium 8.8 mg/dL (8.5-10.1); Chloride 101 mmol/L (98-107); Estimated GFR 51.52 (mL/min/1.73m2); Glucose 103 mg/dL (74-106); Potassium 3.7 mmol/L (3.5-5.1); Sodium 137 mmol/L (136-145)
== END 2019-11-18 14:09 ==
LOC: LBN 13:49
PROVIDERS: PCP Internal Medicine; Visit Provider Internal Medicine
DX: E83.81 Hungry bone syndrome (principal); E83.51 Hypocalcemia; E89.2 Postprocedural hypoparathyroidism
CPT/HCPCS: 80048

== ENCOUNTER 2019-12-02 17:31 | Outpatient (REF) | payer MEDICARE, SELFPAY ==
[2019-12-02 20:14] LABS: Anion Gap 6.9 mmol/L (3-11); BUN 22 mg/dL (7-18); CO2 29.1 mmol/L (21.0-32.0); CREATININE 1.56 mg/dL (0.70-1.30); Calcium 9.6 mg/dL (8.5-10.1); Chloride 104 mmol/L (98-107); Estimated GFR 44.35 (mL/min/1.73m2); Glucose 104 mg/dL (74-106); Potassium 3.9 mmol/L (3.5-5.1); Sodium 140 mmol/L (136-145)
== END 2019-12-02 17:51 ==
LOC: LBN 17:31
PROVIDERS: PCP Internal Medicine; Visit Provider Internal Medicine
DX: E83.51 Hypocalcemia (principal); E83.81 Hungry bone syndrome
CPT/HCPCS: 80048

== ENCOUNTER 2020-10-28 11:11 | Inpatient (IN) | payer MEDICARE, SELFPAY ==
[2020-10-28] VITALS (20 sets, daily range): BP systolic 96–147; BP diastolic 62–95; PULSE 79–176; RESP 14–30; TEMP 36.1–37.8; O2SAT 92–97
--- NOTE | 2020-10-28 11:15 | DI.RAD_ITS ---
Exam(s) XR CHEST 2V PA LATERAL EXAM: XR CHEST 2V PA LATERAL CLINICAL HISTORY: weakness. TECHNIQUE: 2D digital imaging was performed. COMPARISON: CR,XR XR CHEST 2V PA LATERAL from 01/19/2019 FINDINGS: Heart size is mildly prominent. The mediastinum is not widened. Lungs are clear. No infiltrates nor pleural effusions. IMPRESSION: No acute pulmonary findings.Mild cardiomegaly. DATA REPOSITORY: RADIATION DOSE DELIVERED:
--- NOTE | 2020-10-28 11:15 | RT.EKG_ITS ---
APPROVED REPORT Exam: Resting ECG Reason for Exam: weakness Patient Location: E HR:94 bpm ECG Measurements Heart Rate 94 AXIS NM 225 P 51 QRSd 104 QRS 86 QT 360 T -31 QTc 450 Conclusion Sinus rhythm...normal P axis, V-rate 60- 99 Prolonged NM interval...NM >215, V-rate 91-120. Artifact. No STEMI. I have reviewed and interpreted ECG and agree with software generated interpretation.
--- NOTE | 2020-10-28 11:28 | W.ED.GENAD ---
Discharge Plan Disposition Patient Disposition: [facility] INPATIENT Condition: Stable Discharge Details Chief Complaint: GenMedical Clinical Impression: UTI (urinary tract infection), ALICJA (acute kidney injury) Admit Date/Time: 10/28/20 12:43 Admit Provider: Juan Medina Attending Provider: Juan Medina Primary Care Provider: Domingo Hooks ED Provider: Agnes Wilson Discharge Instructions Activity:: Activity as Tolerated Equipment/Supplies:: No Equipment Needed Diet:: As Tolerated Discharge Orders Discharge Orders: Discharge Order (Routine); Ordered 10/31/20 Ordered By: Delma Queen Discharge Data Discharge Date/Time-TO BE ENTERED AT DEPARTURE: 10/28/20 13:46 Medical Decision Making Patient is a pleasant 70-year-old male presenting today with chief complaint of increased weakness and difficulty ambulating this morning. He states that typically he ambulates quite slow but it has been more pronounced today. He states that he did try to go from sitting into a chair to standing and did fall back into his chair. Denies falling on the floor. Did not strike his head. Remembers the event did not have any chest pain, palpitations, lightheadedness. Rather, patient describes being generally weak. Patient does not drink much water. Has been profoundly high recently. He denies any change in bowel or bladder habits. Denies any fevers or chills. States that this morning he been feeling quite well. Past medical history is pertinent for nonsustained ventricular tachycardia, mild dementia, hypertension, parathyroid adenoma, hypertension, CVA, AMS. On exam, patient appears chronically ill. He is able to ambulate from the wheelchair to the bed, does feel quite slowly but he does not need much distance. He does appear weak. Lungs are clear, normal cardiac exam. He has no pain with palpation about his head, neck, spine. No evidence of trauma. No abdominal discomfort. No lower extremity edema. 2+ distal pulses. Primary concern this time is for dehydration causing increased weakness. Also considered a metabolic source, electrolyte abnormality. Also consider UTI vs other infectious etiology although so symptoms reported. Not worsening any chest pain or shortness of breath. However, do feel that troponin and EKG would be appropriate. Also obtain thyroid measures may also cause increased fatigue and weakness. Discussed plan with the patient who is in agreement. Will give IV hydrate Labs reviewed. WBC 19. Stable H&H. Creatinine 2.0, this is elevated from his baseline. Troponin WNL. UA concerning for UTI with positive nitrite, mod leukocyte esterase and moderate bacteria. Discussed with patient. Concerned for UTI, ALICJA, weakness. Plan for admission. Will start IV abx. Constuled with hospitalist who agrees to admission. Patient in agreement with this plan. HPI General Mode of arrival: wheelchair. Date/Time Provider Initiated Documentation: 10/28/20 11:18. Limitations to Documentation: no limitations. Information obtained by: patient and RN notes reviewed. History of Present Illness 70 year old M presents to the emergency department with the chief complaint of generalized weakness, described as moderate, Quality is described as other (weakness, denies any pain), Patient started experiencing this hour(s) and it has been constant. Immobilization improves symptom(s), Movement worsens symptoms . Patient notes no other symptoms.. Patient did receive the following treatments prior to arrival, none Related Data Home Medications Medication Instructions Recorded Confirmed amlodipine 10 mg PO DAILY #30 tab 01/27/19 08/28/19 aspirin 81 mg PO DAILY #30 tab 01/27/19 08/28/19 atorvastatin 20 mg PO QHS #30 tab 01/27/19 08/28/19 carvedilol [Coreg] 12.5 mg PO BID #60 tab 01/27/19 08/28/19 folic acid 1 mg PO DAILY #30 tab 01/27/19 08/28/19 pantoprazole 40 mg PO DAILY@0730 #30 tab 01/27/19 08/28/19 tamsulosin 0.4 mg PO DAILY@1800 #30 cap 01/27/19 08/28/19 acetaminophen 1,000 mg PO Q8H PRN PRN 08/28/19 08/28/19 calcium citrate [Calcitrate] 200 mg PO DAILY PRN 08/28/19 08/28/19 hydralazine 25 mg PO TID 08/28/19 08/28/19 levothyroxine 50 mcg PO DAILY@0600 #30 tab 10/31/20 Previous Rx's Medication Instructions Recorded amlodipine 10 mg PO DAILY #30 tab 01/27/19 aspirin 81 mg PO DAILY #30 tab 01/27/19 atorvastatin 20 mg PO QHS #30 tab 01/27/19 carvedilol [Coreg] 12.5 mg PO BID #60 tab 01/27/19 folic acid 1 mg PO DAILY #30 tab 01/27/19 pantoprazole 40 mg PO DAILY@0730 #30 tab 01/27/19 tamsulosin 0.4 mg PO DAILY@1800 #30 cap 01/27/19 levothyroxine 50 mcg PO DAILY@0600 #30 tab 10/31/20 Allergies Allergy/AdvReac Type Severity Reaction Status Date / Time No Known Allergies Allergy Unverified 10/28/20 11:44 General SUNNI: 5 Review of Systems Constitutional Constitutional: Reports as per HPI, Denies chills, Denies fever(s), Denies headache(s), Reports lethargy, Denies poor appetite and Reports weakness (generalized) ENT Ears, Nose, Mouth, and Throat: Denies dizziness and Denies headache(s) Cardiovascular Cardiovascular: Reports as per HPI, Denies chest pain, Denies chest pain at rest, Denies chest pain with activity, Denies dyspnea and Denies dyspnea on exertion Respiratory Respiratory: Reports as per HPI, Denies chest congestion, Denies cough, Denies pain on inspiration, Denies pain with cough, Denies dyspnea, Denies dyspnea on exertion and Denies wheezing Gastrointestinal Gastrointestinal: Reports as per HPI, Denies abdominal pain, Denies diarrhea, Denies nausea and Denies vomiting Genitourinary Genitourinary: Denies system reviewed and no additional complaints, except as documented (denies change in urinary habits) Musculoskeletal Musculoskeletal: Reports as per HPI and Denies back pain Integumentary/Breasts Skin/Breast: Reports as per HPI and Denies rash Neurologic Neurologic: Reports as per HPI, Denies dizziness, Denies headache(s) and Reports weakness (generalized) Allergic/Immunologic Allergic/Immunologic: Denies wheezing [facility] Medical History (Updated 11/03/20 @ 14:15 by BANDAR Seymour) Cataracts, bilateral Left sided lacunar infarction Memory impairment Mild dementia Social History Smoking/Tobacco Use Status: Unknown Smoking risk assessment performed?: Yes Alcohol Intake: never Substance use type: does not use Do you feel safe at home: Yes Do you feel safe in your relationship?: Yes Exam Const General: cooperative, comfortable, no acute distress, well developed and ill appearing chronically Nutritional Appearance: average body habitus and well nourished Orientation: alert, awake and oriented x3 [facility] Head: normal to inspection and atraumatic Ears: hearing grossly normal bilaterally Mouth: mucous membranes dry (appears dry) Chest Chest: normal inspection of the chest, normal palpation of entire chest wall and no crepitus Resp Effort & Inspection: normal respiratory effort, able to speak in complete sentences and no respiratory distress Auscultation: clear to auscultation bilaterally, no rales, no rhonchi and no wheezes Cardio Rate: regular rate Rhythm: regular rhythm Heart Sounds: S1 normal and S2 normal GI Inspection: normal to inspection, no edema and non-distended Palpation: soft, no hepatosplenomegaly, not firm, no guarding, not rigid and nontender Auscultation: normal bowel sounds Back/Spine/Pelvis Back: no CVA tenderness Thoracic/Lumbar Spine: thoracic and lumbar spine normal to inspection Skin General skin exam: no rashes or lesions noted Trauma: no lacerations or abrasions Neuro General: patient alert, patient awake and patient oriented x3 Cognition: normal cognition Speech: speech normal Gait: gait abnormal (weak, slow) Extrem General: normal to inspection, capillary refill normal, no pedal edema and no calf tenderness Psych Appearance: grossly normal and well kempt Mental Status: mental status grossly normal Speech and Movement: speech and movement normal
[2020-10-28] MEDS: Lactated Ringers 1,000 ML 1000 ML IV (11:38)
[2020-10-28 11:51] LABS: Abs Immature Grans 0.09 10^3/uL (0.0-0.06); Absolute Basophil Count 0.04 10^3/uL (0.0-0.2); Absolute Eosinophil Count 0.02 10^3/uL (0.0-0.7); Basophils % 0.2; Eosinophils % 0.1; HCT 44.3 % (40.0-50.0); HGB 14.6 g/dL (13.5-17.5); Immature Grans % 0.5; Lymphocytes % 4.1; MCH 29.1 pg (27.0-33.0); MCV 88.4 fL (80-95); MPV 9.7 fL (8.0-11.0); Monocytes % 8.6; Neutrophils % 86.5; Nucleated RBC 0 %; Platelet Count 238 10^3/uL (130-400); RBC 5.01 10^6/uL (4.36-5.78); RDW 14.2 % (11.8-14.1); RDW-SD 45.7 fL; WBC 19.11 10^3/uL (4.4-10.8)
[2020-10-28 11:54] LABS: Absolute Lymphocyte Count 0.78 10^3/uL (1.2-3.4); Absolute Monocyte Count 1.64 10^3/uL (0.1-0.8); Absolute Neutrophil Count 16.53 10^3/uL (1.2-6.7)
[2020-10-28 12:10] LABS: ALT 17 U/L (16-63); AST 12 U/L (15-37); Albumin 3.8 g/dL (3.4-5.0); Alkaline Phosphatase 77 U/L (46-116); Anion Gap 10.4 mmol/L (3-11); BUN 30 mg/dL (7-18); Bilirubin, Total 1.4 mg/dL (0.2-1.0); CO2 25.6 mmol/L (21.0-32.0); Calcium 9.1 mg/dL (8.5-10.1); Chloride 104 mmol/L (98-107); Glucose 141 mg/dL (74-106); Potassium 3.9 mmol/L (3.5-5.1); Sodium 140 mmol/L (136-145)
[2020-10-28 12:12] LABS: Diff Comment Diff Reviewed; RBC Morphology Normal
[2020-10-28 12:14] LABS: Troponin I < 0.05 ng/mL (<0.06)
[2020-10-28 12:20] LABS: Bilirubin Negative (Negative); Blood Large (Negative); Clarity Clear (Clear); Glucose Negative (Negative); Ketones Negative (Negative); Leukocyte Esterase Moderate (Negative); Nitrite Positive (Negative); Specific Gravity 1.015 (1.005-1.025); Urobilinogen 0.2 EU/dL (Up TO 0.2); pH 6.5 (5-8)
[2020-10-28 12:22] LABS: TSH (W/Ref FT4) 63.75 uIU/mL (0.36-3.74)
[2020-10-28 12:27] LABS: Bacteria Moderate HPF (Negative); C & S Indicated? Yes; Casts Negative LPF (Negative); Crystals Negative HPF (Negative); Epithelial Cells Negative HPF (Negative); Mucus Negative (Negative); RBC >50 HPF (0-2); WBC >50 HPF (0-5)
[2020-10-28 12:44] LABS: FREE T4 0.67 ng/dL (0.76-1.46)
[2020-10-28] MEDS: cefTRIAXone 1 GM/50 ML BAG IVPB (13:17)
--- NOTE | 2020-10-28 13:22 | DI.VRAD_ITS ---
PROCEDURE INFORMATION: Exam: XR Chest Exam date and time: 10/28/2020 11:28 AM Age: 70 years old Clinical indication: Other: Weakness TECHNIQUE: Imaging protocol: XR of the chest. Views: 2 views. COMPARISON: CR XR CHEST 2V PA LATERAL 01/19/2019 7:08 PM FINDINGS: Lungs: There is no new airspace consolidation or CHF Pleural spaces: A large pleural effusion, or pneumothorax is not seen Heart/Mediastinum: Heart is mildly enlarged. Vasculature: The aorta is mildly ectatic, tortuous. Bones/joints: There is no acute bony abnormality IMPRESSION: No new or acute findings Dictated and Authenticated by: Sasha Mckeon MD. Ordering:NEYMAR Alarcon MD
[2020-10-28 13:52] LABS: Source Nasal/Nares
[2020-10-28] MEDS: Lactated Ringers 1,000 ML 75 ML IV (14:09)
[2020-10-28] MEDS: Normal Saline Flush 10 ML SYR IVP ×2 (14:09→20:34)
[2020-10-28] MEDS: hydrALAZINE 25 MG TAB PO ×2 (14:10→20:34)
[2020-10-28] MEDS: Heparin 5,000 UNITS/ML VIAL 5000 UNITS SC ×2 (14:10→21:58)
--- NOTE | 2020-10-28 14:41 | HPE_ITS ---
Date of service: 10/28/20 Time of Service: 14:41 Assessment and Plan Assessment and plan (1) ALICJA (acute kidney injury): Status: Acute Assessment and plan: likely prerenal hydration avoid nephrotoxic drugs check post void bladder scan (2) UTI (urinary tract infection): Status: Acute Assessment and plan: ceftriaxone pending culture monitor for urinary retention (3) Hypothyroidism: Status: Chronic Assessment and plan: start synthroid, recheck in 4-[address] Medina History of Present Illness History of Present Illness Chief Complaint: generalized weakness Narrative: this is a 70 year old male who presents to the ED after having more difficulty managing at home d/t increased generalized weakness. his po intake has been poor. he denies fevers or obvious source of infection. his work up in the ED shows UTI, dehydration and generalized weakness. he was given 1 liter of IVF and ceftriaxone pending urine culture report. he will be admitted to med/surg unit for further management under hospitalist services. Review of Systems All systems reviewed & are unremarkable except as noted in HPI and below Constitutional Constitutional: Denies fever(s) Cardiovascular Cardiovascular: Denies chest pain and Denies dyspnea Respiratory Respiratory: Denies cough and Denies dyspnea Gastrointestinal Gastrointestinal: Denies abdominal pain and Denies nausea Genitourinary Genitourinary: Reports difficulty urinating Musculoskeletal Musculoskeletal: Denies arthralgias, Denies joint swelling and Reports muscle weakness [facility] Medical History (Updated 10/28/20 @ 16:37 by Delma Queen NP) Cataracts, bilateral Left sided lacunar infarction Memory impairment Mild dementia Social History Smoking/Tobacco Use Status: Unknown Smoking risk assessment performed?: Yes Alcohol Intake: never Substance use type: does not use Do you feel safe at home: Yes Do you feel safe in your relationship?: Yes Meds Allergies and Home Medications Allergies Allergy/AdvReac Type Severity Reaction Status Date / Time No Known Allergies Allergy Unverified 10/28/20 11:44 Home Medications Medication Instructions Recorded Confirmed Type amlodipine 10 mg PO DAILY #30 tab 01/27/19 08/28/19 Rx aspirin 81 mg PO DAILY #30 tab 01/27/19 08/28/19 Rx atorvastatin 20 mg PO QHS #30 tab 01/27/19 08/28/19 Rx carvedilol [Coreg] 12.5 mg PO BID #60 tab 01/27/19 08/28/19 Rx folic acid 1 mg PO DAILY #30 tab 01/27/19 08/28/19 Rx pantoprazole 40 mg PO DAILY@0730 #30 tab 01/27/19 08/28/19 Rx tamsulosin 0.4 mg PO DAILY@1800 #30 cap 01/27/19 08/28/19 Rx acetaminophen 1,000 mg PO Q8H PRN PRN 08/28/19 08/28/19 History calcium citrate [Calcitrate] 200 mg PO DAILY PRN 08/28/19 08/28/19 History hydralazine 25 mg PO TID 08/28/19 08/28/19 History Exam Const General: cooperative and comfortable Nutritional Appearance: average body habitus Orientation: alert, awake and oriented x3 HENMT Head: normal to inspection, normocephalic and atraumatic Mouth: oral mucosae normal Eyes Sclera: sclerae normal Cornea: corneas normal Pupils: PERRL EOM: EOM intact bilaterally Neck Neck: full ROM, no lymphadenopathy and no JVD Lymphatic: no lymphadenopathy noted Chest Chest: normal inspection of the chest Resp Effort & Inspection: normal respiratory effort and able to speak in complete sentences Auscultation: clear to auscultation bilaterally Cardio Jugular venous pressure: no JVD Rate: regular rate Rhythm: regular rhythm Heart Sounds: S1 normal and S2 normal Skin General skin exam: no rashes or lesions noted Lesions: no lesions Wounds: no wounds Neuro General: patient alert, patient awake and patient oriented x3 Cognition: normal cognition Speech: speech normal Extrem General: normal to inspection, full ROM and no clubbing, cyanosis or edema Psych Appearance: grossly normal Mental Status: mental status grossly normal Speech and Movement: speech and movement normal Mood: congruent mood Affect: normal affect Attitude: cooperative Thought Process: normal Thought Content: normal Insight: insight good Judgment: judgment good Results Labs Result diagrams: 10/29/20 06:05 10/29/20 06:05 Labs: Laboratory Results - last 24 hr 10/28/20 10/28/20 10/28/20 11:30 11:30 11:30 WBC 19.11 H RBC 5.01 Hgb 14.6 Hct 44.3 MCV 88.4 MCH 29.1 MCHC 33.0 RDW 14.2 H Plt Count 238 MPV 9.7 Immature Gran % 0.5 Neutrophils % 86.5 Lymphocytes % 4.1 Monocytes % 8.6 Eosinophils % 0.1 Basophils % 0.2 Nucleated RBC % 0 Absolute Neutrophils 16.53 H Absolute Lymphocytes 0.78 L Absolute Monocytes 1.64 H Absolute Eosinophils 0.02 Absolute Basophils 0.04 RBC Morphology Normal Sodium 140 Potassium 3.9 Chloride 104 Carbon Dioxide 25.6 Anion Gap 10.4 BUN 30 H Creatinine 2.0 H Estimated GFR/1.73 m2 33.20 Glucose 141 H Calcium 9.1 Magnesium 2.0 Total Bilirubin 1.4 H AST 12 L ALT 17 Alkaline Phosphatase 77 Troponin I < 0.05 Total Protein 8.0 Albumin 3.8 TSH 63.75 H Free T4 0.67 L Urine Color Urine Clarity Urine pH Ur Specific Bannister Urine Protein Urine Ketones Urine Blood Urine Nitrite Urine Bilirubin Urine Urobilinogen Ur Leukocyte Esterase Urine RBC Urine WBC Ur Epithelial Cells Urine Crystals Urine Bacteria Urine Casts Urine Mucus Ur Culture Indicated? Urine Glucose COVID-19 Source 10/28/20 10/28/20 12:10 13:40 WBC RBC Hgb Hct MCV MCH MCHC RDW Plt Count MPV Immature Gran % Neutrophils % Lymphocytes % Monocytes % Eosinophils % Basophils % Nucleated RBC % Absolute Neutrophils Absolute Lymphocytes Absolute Monocytes Absolute Eosinophils Absolute Basophils RBC Morphology Sodium Potassium Chloride Carbon Dioxide Anion Gap BUN Creatinine Estimated GFR/1.73 m2 Glucose Calcium Magnesium Total Bilirubin AST ALT Alkaline Phosphatase Troponin I Total Protein Albumin TSH Free T4 Urine Color Yellow Urine Clarity Clear Urine pH 6.5 Ur Specific Bannister 1.015 Urine Protein 100 H Urine Ketones Negative Urine Blood Large H Urine Nitrite Positive H Urine Bilirubin Negative Urine Urobilinogen 0.2 Ur Leukocyte Esterase Moderate H Urine RBC >50 H Urine WBC >50 H Ur Epithelial Cells Negative Urine Crystals Negative Urine Bacteria Moderate Urine Casts Negative Urine Mucus Negative Ur Culture Indicated? Yes Urine Glucose Negative COVID-19 Source Nasal/Nares Last Vital Signs Temp 37.5 C 10/28/20 14:32 Pulse 106 H 10/28/20 14:32 Resp 18 10/28/20 14:32 BP 135/95 H 10/28/20 14:32 Pulse Ox 97 10/28/20 14:32
[2020-10-28 14:44] LABS: COVID-19 PCR Negative (Negative)
[2020-10-28 15:15] LABS: Troponin I < 0.05 ng/mL (<0.06)
[2020-10-28] MEDS: Tamsulosin 0.4 MG CAPCR PO (17:22)
[2020-10-28] MEDS: Acetaminophen 500 MG TAB 1000 MG PO (20:34)
[2020-10-28] MEDS: Ondansetron 4 MG/2 ML VIAL IVP (20:34)
[2020-10-28] MEDS: Carvedilol 12.5 MG TAB PO (20:34)
[2020-10-28] MEDS: Atorvastatin 20 MG TAB PO (21:58)
[2020-10-29 01:52] VITALS: BP 129/74; PULSE 85; RESP 20; TEMP 37.3; O2SAT 94
[2020-10-29] MEDS: Lactated Ringers 1,000 ML 75 ML IV ×2 (02:57→18:48)
[2020-10-29] MEDS: Levothyroxine 50 MCG TAB PO (05:37)
[2020-10-29 06:48] LABS: Abs Immature Grans 0.09 10^3/uL (0.0-0.06); Absolute Basophil Count 0.02 10^3/uL (0.0-0.2); Absolute Lymphocyte Count 0.61 10^3/uL (1.2-3.4); Basophils % 0.1; HCT 39.6 % (40.0-50.0); HGB 13.1 g/dL (13.5-17.5); Immature Grans % 0.6; MCH 29.4 pg (27.0-33.0); MCHC 33.1 % (32.0-36.0); MPV 10.1 fL (8.0-11.0); Monocytes % 4.7; Neutrophils % 90.6; Nucleated RBC 0 %; Platelet Count 190 10^3/uL (130-400); RBC 4.45 10^6/uL (4.36-5.78); RDW 14.5 % (11.8-14.1); RDW-SD 47.1 fL; WBC 15.21 10^3/uL (4.4-10.8)
[2020-10-29 06:49] LABS: Absolute Monocyte Count 0.71 10^3/uL (0.1-0.8); Absolute Neutrophil Count 13.78 10^3/uL (1.2-6.7)
[2020-10-29 06:59] LABS: Anion Gap 10.2 mmol/L (3-11); BUN 31 mg/dL (7-18); CO2 26.8 mmol/L (21.0-32.0); CREATININE 2.4 mg/dL (0.70-1.30); Calcium 8.4 mg/dL (8.5-10.1); Chloride 105 mmol/L (98-107); Glucose 148 mg/dL (74-106); Potassium 3.7 mmol/L (3.5-5.1); Sodium 142 mmol/L (136-145)
[2020-10-29] MEDS: amLODIPine 10 MG TAB PO (07:42)
[2020-10-29] MEDS: hydrALAZINE 25 MG TAB PO ×3 (07:42→19:55)
[2020-10-29] MEDS: Carvedilol 12.5 MG TAB PO ×2 (07:42→19:54)
[2020-10-29] MEDS: Aspirin 81 MG CHEW PO (07:42)
[2020-10-29] MEDS: Pantoprazole 40 MG TABCR PO (07:43)
[2020-10-29] MEDS: cefTRIAXone 1 GM/50 ML BAG IVPB (07:43)
[2020-10-29 09:14] VITALS: BP 131/66; PULSE 86; RESP 18; TEMP 37; O2SAT 92
--- NOTE | 2020-10-29 11:49 | IN_ITS ---
Date of service: 10/29/20 Time of Service: 11:49 PT Notes Visit Reasons: UTI,Hypothyroidism Physical Therapy Inpatient Initial Evaluation Date: 10/30/2020 Referring Doctor: Delma Queen NP PT Orders: PT CONSULT: Eval/treat Precautions: Fall. Standard. Activity as tolerated. Patient Profile/Admitting Diagnosis: And 77-year old presented to the ED to generalized weakness and difficulty with ambulation and transfers. He is diagnosed Kidney injury, urinary tract infection hypothyroidism. PMHX: Medical History (Updated 10/28/20 @ 16:37 by Delma Queen NP) Cataracts, bilateral Left sided lacunar infarction Memory impairment Mild dementia Social History/Home Situation: Lives with 93-year-old mother who is known to this provider in a mobile home with a ramp to enter. Home is handicap- accessible. Receives meals on wheels. Ambulatory with single point cane prior to admission. Equipment Owned/DME: SPC Subjective: Agreeable to PT consult. States that something went wrong with her thyroid which is why he is at the hospital. Denies headache, dizziness adn chest pain throughout. Objective: General Observation: Supine in bed. Mental Status: Alert and oriented as to person and place. Able to follow single- step commands. Able pay attention, focus, and respond appropriately although with some delay. Pain: Denies ROM: Right Upper Extremity: Shoulder Flexion WFL. Shoulder abduction WFL. Elbow flexion WFL. Wrist flexion WFL. Functional opening and closing of hand WFL. Left Upper Extremity: Shoulder Flexion WFL. Shoulder abduction WFL. Elbow flexion WFL. Wrist flexion WFL. Functional opening and closing of hand WFL. Right Lower Extremity: Hip flexion WFL. Hip abduction WFL. Knee flexion WFL. Ankle dorsiflexion WFL. Ankle plantarflexion WFL. Left Lower Extremity: Hip flexion WFL. Hip abduction WFL. Knee flexion WFL. Ankle dorsiflexion WFL. Ankle plantarflexion WFL. Strength: Right Upper Extremity: Shoulder flexors 4-/5. Shoulder abductors 4-/5. Elbow flexors 4-/5. Elbow extensors 4-/5. Battery Installer strong. Left Upper Extremity: Shoulder flexors 4-/5. Shoulder abductors 4-/5. Elbow flexors 4-/5. Elbow extensors 4-/5. Battery Installer strong. Right Lower Extremity: Hip flexors 4-/5. Hip abductors 4-/5. Knee flexors 4-/5. Knee extensors 4-5. Ankle dorsiflexors 4-/5. Ankle plantarflexors 4-/5. Left Lower Extremity: Hip flexors 5/5. Hip abductors 5/5. Knee flexors 5/5. Knee extensors 5/5. Ankle dorsiflexors 5/5. Ankle plantarflexors 5/5. Bed Mobility/Transfers: Supine to sit standby assist 45 degrees Sit to stand contact guard assist Stand to sit stand by assist Bed to reclining chair stand by assist Reclining chair to bed stand by assist Gait: Instructed patient with level surface ambulation of 80 feet requiring assist. Mild SOB. Nimo decreased. Step height . Step length decreased. Balance: Static Sitting: Normal Dynamic Sitting: Normal Static Standing: Fair Dynamic Standing: Fair Special Tests: Mobility Limitations Standardized Measure [facility] AM-PAC 6 clicks Basic Mobility Inpatient Short Form: Raw Score: 21 CMS Score: 29% deficit Informed Consent/Education: Patient was instructed in purpose of PT consult and plan of care. Agreeable to proceed with established PT POC to achieve personal goals. Assessment: Functional mobility decline due to strength, decreased activity tolerance, and impaired balance. Will assess stability using the SPC. Patient presents with clinical signs and symptoms consistent with current/admitting diagnoses that have resulted to mobility limitations, gait instability, generalized weakness, and overall ADL decline as demonstrated by the following impairment level findings: 1. Decreased strength to B Ue/LE major muscle groups 2. Impaired standing balance 3. Impaired activity tolerance 4. Mild Shortness of breath 5. Impaired cognitive issues Impairments are contributing to the following functional limitations: 1. Decline in bed mobility skills 2. Decline in transfer skills 3. Difficulty with ambulation without assistive device 4. Increased completion time for mobility ADL performance 5. Increased risk for falls Patient is assessed as a 73624 moderate complexity based on the following: History: 70-year-old with past medical history as indicated above Examination: Demonstrable impairment in strength, balance, and mobility level with underlying impairments and functional limitations as exhibited above as well as deficit score of 29% utilizing the [facility] Mobility Inpatient Short Form Presentation: Evolving Decision Makin moderate complexity Goals: Goals X1 week 1. Supine-Sit independent 2. Sit-Supine independent 3. Sit-Stand independent 4. Stand-Sit independent with SPC 5. Bed-Chair independent with SPC 6. Chair-Bed independent with SPC 7. Independent gait on level surface with use of SPC for at least 300 feet without report of pain nor dyspnea 8. Good static and dynamic standing balance/tolerance Plan of Care/Treatment Plan: 1-2x/day, 7 days/week x 1 week. Plan of care has been reviewed with the COMMERCIAL REAL ESTATE LENDER providing the service under Physical Therapy direction. Initiate Physical Therapy intervention for pain management as needed, strengthening, bed mobility, transfers, gait, stairs, balance training, and use of assistive device. DISCHARGE RECOMMENDATIONS: Patient will benefit from home health PT services in order to progress mobility level using least restrictive assistive ambulatory device, assess home safety, identify additional equipment needs, and establish a functional maintenance program that will increase ability of patient to remain at home. TREATMENT CODE/TIME: 28918 x 21 minutes beginning at 11:49 AM. Thank you for the opportunity to participate in the care of this patient. Vidya Ralph PT, DPT, CLT [facility] [place], [place]
--- NOTE | 2020-10-29 13:13 | INITIAL_ITS ---
- If Service Date Differs Date of service: 10/29/20 Time of Service: 13:14 Care Management Initial Assess REASON FOR HOSPITALIZATION:: UTI, hypothyroidism PAST MEDICAL HISTORY/PAST SURGICAL HISTORY:: Medical History. Cataracts, bilateral. Left sided lacunar infarction. Memory impairment. Mild dementia PREVIOUS FUNCTIONAL STATUS/SOCIAL/FAMILY SUPPORTS:: Sandeep lives in [facility] with his mother, Smiley. He reports that they help each other out. 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 He is and has one child, who he has not been in contact with for several years, as he also is serving in the . He is independent with ADL's. CURRENT FUNCTIONAL STATUS:: Sandeep was lying in bed when CM met with him. He reported that he is feeling ok, but not better than when he arrived. He stated that he is being well taken care of here at [facility]. Per report, he is having a PT evaluation today, and his cultures are pending. CM will continue to follow. ADVANCE DIRECTIVES:: None on file. 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 PATIENT/FAMILY EDUCATION NEEDS:: Review discharge instructions regarding activity levels and medications, discussion of self care needs including ask me three. ANTICIPATED BARRIERS TO DISCHARGE:: None identified. TRANSPORTATION:: Via private vehicle by family vs RCT. PLAN:: Anticipate Sandeep will return home when medically cleared with a resumption of [facility] RN. He will be driven home via private vehicle by family vs RCT. He will follow up with his PCP and discharge plan of care. [facility] upon discharge. CM will continue to follow.
[2020-10-29] MEDS: Heparin 5,000 UNITS/ML VIAL 5000 UNITS SC ×2 (13:44→22:13)
[2020-10-29 16:21] VITALS: BP 125/72; PULSE 87; RESP 17; TEMP 37; O2SAT 94
[2020-10-29] MEDS: Tamsulosin 0.4 MG CAPCR PO (17:10)
--- NOTE | 2020-10-29 18:11 | W.PM.PROGNOT ---
Date of Service Date of service: 10/29/20 Time of Service: 18:11 Assessment and Plan Assessment and plan (1) ALICJA (acute kidney injury): Start date: 10/29/20 Start time: 18:16 Status: Acute Assessment and plan: likely prerenal continue IV hydration as creatinine is not improved avoid nephrotoxic drugs check post void bladder scan (2) UTI (urinary tract infection): Start date: 10/29/20 Start time: 18:28 Status: Acute Assessment and plan: ceftriaxone pending culture monitor for urinary retention (3) Hypothyroidism: Start date: 10/29/20 Start time: 18:28 Status: Chronic Assessment and plan: start synthroid, recheck in 4-[address] Medina Subjective Subjective Patient reports: no new complaints Interval history since last seen: Laying in bed no complaints. Denies CP, SOB N/V/d. Continue ceftriaxone, urine cx with 50-100,000 colonies. Tolerating diet continue to monitor. Exam Const General: cooperative and comfortable Nutritional Appearance: average body habitus Orientation: alert, awake and oriented x3 HENCT Head: normal to inspection, normocephalic and atraumatic Mouth: oral mucosae normal Eyes Sclera: sclerae normal Cornea: corneas normal Pupils: PERRL EOM: EOM intact bilaterally Neck Neck: full ROM, no lymphadenopathy and no JVD Lymphatic: no lymphadenopathy noted Chest Chest: normal inspection of the chest Resp Effort & Inspection: normal respiratory effort and able to speak in complete sentences Auscultation: clear to auscultation bilaterally Cardio Jugular venous pressure: no JVD Rate: regular rate Rhythm: regular rhythm Heart Sounds: S1 normal and S2 normal Skin General skin exam: no rashes or lesions noted Lesions: no lesions Wounds: no wounds Neuro General: patient alert, patient awake and patient oriented x3 Cognition: normal cognition Speech: speech normal Extrem General: normal to inspection, full ROM and no clubbing, cyanosis or edema Psych Appearance: grossly normal Mental Status: mental status grossly normal Speech and Movement: speech and movement normal Mood: congruent mood Affect: normal affect Attitude: cooperative Thought Process: normal Thought Content: normal Insight: insight good Judgment: judgment good Objective Last Vital Signs Temp 37 C 10/29/20 16:21 Pulse 87 10/29/20 16:21 Resp 17 10/29/20 16:21 BP 125/72 10/29/20 16:21 Pulse Ox 94 10/29/20 16:21 Laboratory Results - last 24 hr 10/29/20 10/29/20 06:05 06:05 WBC 15.21 H RBC 4.45 Hgb 13.1 L Hct 39.6 L MCV 89.0 MCH 29.4 MCHC 33.1 RDW 14.5 H Plt Count 190 MPV 10.1 Immature Gran % 0.6 Neutrophils % 90.6 Lymphocytes % 4.0 Monocytes % 4.7 Eosinophils % 0.0 Basophils % 0.1 Nucleated RBC % 0 Absolute Neutrophils 13.78 H Absolute Lymphocytes 0.61 L Absolute Monocytes 0.71 Absolute Eosinophils 0.00 Absolute Basophils 0.02 Sodium 142 Potassium 3.7 Chloride 105 Carbon Dioxide 26.8 Anion Gap 10.2 BUN 31 H Creatinine 2.4 H Estimated GFR/1.73 m2 26.90 Glucose 148 H Calcium 8.4 L
[2020-10-29 19:53] VITALS: BP 129/73; PULSE 88; RESP 18; TEMP 37.4; O2SAT 93
[2020-10-29] MEDS: Atorvastatin 20 MG TAB PO (22:13)
[2020-10-29 23:49] VITALS: BP 136/81; PULSE 87; RESP 18; TEMP 37.6; O2SAT 92
[2020-10-30] MEDS: Heparin 5,000 UNITS/ML VIAL 5000 UNITS SC ×3 (05:37→21:38)
[2020-10-30] MEDS: Levothyroxine 50 MCG TAB PO (05:37)
[2020-10-30 06:26] VITALS: BP 132/84; PULSE 75; RESP 17; O2SAT 94
[2020-10-30] MEDS: Lactated Ringers 1,000 ML 75 ML IV (06:28)
[2020-10-30] MEDS: hydrALAZINE 25 MG TAB PO ×3 (07:59→19:56)
[2020-10-30] MEDS: Aspirin 81 MG CHEW PO (07:59)
[2020-10-30] MEDS: Carvedilol 12.5 MG TAB PO ×2 (07:59→19:57)
[2020-10-30] MEDS: amLODIPine 10 MG TAB PO (07:59)
[2020-10-30] MEDS: Pantoprazole 40 MG TABCR PO (08:00)
[2020-10-30] MEDS: cefTRIAXone 1 GM/50 ML BAG IVPB (08:00)
[2020-10-30 08:47] VITALS: BP 131/86; PULSE 73; RESP 18; TEMP 36.8; O2SAT 96
[2020-10-30 10:23] LABS: Abs Immature Grans 0.03 10^3/uL (0.0-0.06); Absolute Basophil Count 0.02 10^3/uL (0.0-0.2); Absolute Eosinophil Count 0.24 10^3/uL (0.0-0.7); Absolute Lymphocyte Count 1.57 10^3/uL (1.2-3.4); Absolute Monocyte Count 1.09 10^3/uL (0.1-0.8); Absolute Neutrophil Count 6.56 10^3/uL (1.2-6.7); Basophils % 0.2; Eosinophils % 2.5; HCT 36.9 % (40.0-50.0); HGB 12.1 g/dL (13.5-17.5); Immature Grans % 0.3; Lymphocytes % 16.5; MCH 29.2 pg (27.0-33.0); MCHC 32.8 % (32.0-36.0); MCV 89.1 fL (80-95); Monocytes % 11.5; Nucleated RBC 0 %; Platelet Count 163 10^3/uL (130-400); RBC 4.14 10^6/uL (4.36-5.78); RDW 14.5 % (11.8-14.1); RDW-SD 47.7 fL; WBC 9.51 10^3/uL (4.4-10.8)
--- NOTE | 2020-10-30 14:12 | PT.INTREAT ---
Date of service: 10/30/20 Time of Service: 11:35 PT Notes Visit Reasons: UTI,Hypothyroidism Inpatient Physical Therapy Treatment Note [facility] Date: 10/30/2020 PRECAUTIONS: Fall SUBJECTIVE: Timothy is pleasant, stating that he has been antsy today and wanting to get up and walk. He reports that he will not use a FWW not until I'm very desperate, which is not right now. OBJECTIVE: PAIN: No c/o pain BED MOBILITY/TRANSFERS Sit-supine: S in a.m.; I in p.m. Sit-stand: CGA Stand-sit: CGA GAIT Assistive Device: SPC Weight bearing: Full Assist: CGA in a.m.; CGA-SBA in p.m. Distance: 75' + 150' in a.m.; 400' in p.m. Deviation: Path deviation, unsteady gait, refuses FWW STAIRS: Up/down 3x4 and 2x6 using U rail and a step-to pattern with supervision THEREX: Patient was instructed in a standing LE strengthening program, as per flow sheet. He was also instructed in functional [id number] exercise without use of UEs for support. ASSESSMENT: Patient tolerated session well without complaint. He was able to tolerate a progression in his ther ex program, tolerating standing strengthening exercises. Patient also tolerated a progression in gait distance with SPC and CGA, demonstrating path deviation and unsteady gait, however, refuses FWW. PLAN: Continue with global strengthening and conditioning for continued progression toward baseline level of function. TREATMENT CODE/TIME: Session 1: 25 minutes; 03668, 73788 (11:35) Session 2: 15 minutes; 22017 (15:10)
--- NOTE | 2020-10-30 14:36 | W.PM.PROGNOT ---
Date of Service Date of service: 10/30/20 Time of Service: 14:36 Assessment and Plan Assessment and plan (1) ALICJA (acute kidney injury): Status: Acute Assessment and plan: increasing despite hydration stop IV fluids, taking good po avoid nephrotoxic drugs check post void bladder scan renal US (2) UTI (urinary tract infection): Status: Acute Assessment and plan: ceftriaxone day 3, urine growing mixed growth. will complete course. monitor for urinary retention (3) Hypothyroidism: Status: Chronic Assessment and plan: start synthroid 50 mcg daily, recheck in 4-6 weeks. new TSH of 63, discussed with Dr Medina Subjective Subjective Patient reports: no new complaints, feels better, tolerating liquids well, tolerating a regular diet and afebrile; denies shortness of breath Interval history since last seen: working with physical therapy, using cane only, gait unsteady at times. Exam Const General: cooperative and comfortable Nutritional Appearance: average body habitus Orientation: alert, awake and oriented x3 HENMT Head: normal to inspection, normocephalic and atraumatic Mouth: oral mucosae normal Eyes Sclera: sclerae normal Cornea: corneas normal Pupils: PERRL EOM: EOM intact bilaterally Neck Neck: full ROM, no lymphadenopathy and no JVD Lymphatic: no lymphadenopathy noted Chest Chest: normal inspection of the chest Resp Effort & Inspection: normal respiratory effort and able to speak in complete sentences Auscultation: clear to auscultation bilaterally Cardio Jugular venous pressure: no JVD Rate: regular rate Rhythm: regular rhythm Heart Sounds: S1 normal and S2 normal Skin General skin exam: no rashes or lesions noted Lesions: no lesions Wounds: no wounds Neuro General: patient alert, patient awake and patient oriented x3 Cognition: normal cognition Speech: speech normal Extrem General: normal to inspection, full ROM and no clubbing, cyanosis or edema Psych Mental Status: mental status grossly normal Speech and Movement: speech and movement normal Mood: congruent mood Affect: normal affect Attitude: cooperative Thought Process: normal Thought Content: normal Objective Last Vital Signs Temp 36.8 C 10/30/20 08:47 Pulse 73 10/30/20 08:47 Resp 18 10/30/20 08:47 BP 131/86 10/30/20 08:47 Pulse Ox 96 10/30/20 08:47 Laboratory Results - last 24 hr 10/30/20 10:16 WBC 9.51 RBC 4.14 L Hgb 12.1 L Hct 36.9 L MCV 89.1 MCH 29.2 MCHC 32.8 RDW 14.5 H Plt Count 163 MPV 10.0 Immature Gran % 0.3 Neutrophils % 69.0 Lymphocytes % 16.5 Monocytes % 11.5 Eosinophils % 2.5 Basophils % 0.2 Nucleated RBC % 0 Absolute Neutrophils 6.56 Absolute Lymphocytes 1.57 Absolute Monocytes 1.09 H Absolute Eosinophils 0.24 Absolute Basophils 0.02
[2020-10-30 16:30] VITALS: BP 140/85; PULSE 80; RESP 18; TEMP 37.1; O2SAT 96
--- NOTE | 2020-10-30 16:36 | CMPROGNOTE_ITS ---
- If Service Date Differs Date of service: 10/30/20 Time of Service: 16:36 Care Management Progress Note S/O: Sandeep was lying in bed when CM met with her. He stated that he is feeling good today. He reported that he worked with PT today, and that it went well. PT is recommending PT to be added to his home health services. He continues to be treated with abx for his UTI. CM will continue to follow. A: Sandeep is a 70 year old male admitted to [facility] on 10/28/20 for UTI. P: Anticipate Sandeep will return home when medically cleared with a resumption of HH RN. He will be driven home via private vehicle by family vs RCT. He will follow up with his PCP and discharge plan of care. [facility] upon [facility]. CM will continue to follow.
[2020-10-30] MEDS: Tamsulosin 0.4 MG CAPCR PO (16:55)
[2020-10-30 19:55] VITALS: BP 156/92; PULSE 81; RESP 18; TEMP 36.7; O2SAT 95
[2020-10-30] MEDS: Normal Saline Flush 10 ML SYR IVP (19:57)
[2020-10-30] MEDS: Atorvastatin 20 MG TAB PO (21:38)
--- NOTE | 2020-10-31 | DI.US_ITS ---
Exam(s) US RENAL EXAM: US RENAL CLINICAL HISTORY: acute kidney failure TECHNIQUE: Ultrasound of both kidneys performed using standard protocol. COMPARISON: US US THYROID from 01/24/2019 FINDINGS: KIDNEYS: The right kidney measures 11 centimeters in length in the left kidney measures 12.3 centimet res in length. There is moderate uniform cortical thinning in the right kidney and mild cortical thi nning in the left kidney. There are multiple calculi seen in both kidneys.. Mild hydronephrosis rosalinda dent on the left side. No perinephric fluid. No cyst or solid renal masses evident. URINARY BLADDER: Prevoid volume is only 33 cc Postvoid volume not checked No obvious mass in the urinary bladder realizing the limitations of the study due to the inadequate a mount of urine in the bladder. IMPRESSION: 1. Bilateral nephrolithiasis. Mild hydronephrosis in the left kidney. Some cortical thinning is ev ident in the right kidney. Less cortical thinning in the left kidney. 2. There only 33 cc of urine in the bladder noted. DATA REPOSITORY:
[2020-10-31 01:46] VITALS: BP 157/89; PULSE 76; RESP 18; TEMP 36; O2SAT 95
[2020-10-31] MEDS: Levothyroxine 50 MCG TAB PO (05:35)
[2020-10-31] MEDS: Heparin 5,000 UNITS/ML VIAL 5000 UNITS SC (05:35)
[2020-10-31 06:35] VITALS: BP 142/83; PULSE 74; RESP 18; TEMP 36.8; O2SAT 95
[2020-10-31 07:34] VITALS: BP 149/90; PULSE 83; RESP 20; TEMP 36.5; O2SAT 97
[2020-10-31 07:34] LABS: HCT 37.4 % (40.0-50.0); HGB 12.3 g/dL (13.5-17.5); MCHC 32.9 % (32.0-36.0); MCV 88.2 fL (80-95); MPV 10.4 fL (8.0-11.0); Platelet Count 170 10^3/uL (130-400); RBC 4.24 10^6/uL (4.36-5.78); RDW 14.3 % (11.8-14.1); WBC 6.67 10^3/uL (4.4-10.8)
[2020-10-31 07:48] LABS: Anion Gap 8.1 mmol/L (3-11); BUN 22 mg/dL (7-18); CO2 28.9 mmol/L (21.0-32.0); Calcium 8.3 mg/dL (8.5-10.1); Chloride 105 mmol/L (98-107); Glucose 108 mg/dL (74-106); Potassium 3.5 mmol/L (3.5-5.1); Sodium 142 mmol/L (136-145)
[2020-10-31] MEDS: Carvedilol 12.5 MG TAB PO (07:54)
[2020-10-31] MEDS: hydrALAZINE 25 MG TAB PO (07:54)
[2020-10-31] MEDS: amLODIPine 10 MG TAB PO (07:54)
[2020-10-31] MEDS: Aspirin 81 MG CHEW PO (07:54)
[2020-10-31] MEDS: Normal Saline Flush 10 ML SYR IVP (07:54)
[2020-10-31] MEDS: Pantoprazole 40 MG TABCR PO (07:54)
[2020-10-31] MEDS: cefTRIAXone 1 GM/50 ML BAG IVPB (07:55)
--- NOTE | 2020-10-31 09:33 | PT.INTREAT ---
Date of service: 10/31/20 Time of Service: 08:25 PT Notes Visit Reasons: UTI,Hypothyroidism Inpatient Physical Therapy Treatment Note [facility] Date: 10/31/2020 PRECAUTIONS: Fall SUBJECTIVE: Timothy is pleasant, stating that he really hopes to be discharged today. He feels that he will be able to function safely at home. He does report that he will have help at home if he needs it. OBJECTIVE: PAIN: No c/o pain BED MOBILITY/TRANSFERS Sit-supine: I Sit-stand: SBA Stand-sit: SBA GAIT Assistive Device: SPC Weight bearing: Full Assist: SBA Distance: 150' x2 Deviation: No path deviation, steady gait, refuses FWW NEURO RE-ED: Patient was instructed in several dynamic standing balance retraining activities. He was instructed in forward marching, backward walking, lateral walking, and forward lunges, all performed in the parallel bars for safety. He requires visual and verbal cueing for proper exercise performance, as well as SBA for all balance retraining activities for safety. ASSESSMENT: Patient tolerated session well without complaint. He was able to tolerate a progression in gait training with SPC, requiring SBA only, as he does not demonstrate path deviation or unsteady gait today. It is still recommended that he utilize FWW for increased safety to reduce risk for falls, due to shuffling gait tendencies, short step length, and cognitive delay. PLAN: Discharge to home later today, per provider, with PT follow up. TREATMENT CODE/TIME: 30 minutes; 17760, 38446 (08:25)
--- NOTE | 2020-10-31 12:11 | DSE_ITS ---
Date of service: 10/31/20 Time of Service: 12:11 DS: Diagnosis Discharge Diagnosis (1) ALICJA (acute kidney injury): Status: Acute (2) UTI (urinary tract infection): Status: Acute (3) Hypothyroidism: Status: Chronic Discharge Plan Disposition Patient Disposition: HOME W/HOME HEALTH SERVICE Condition: Improving Discharge Details Reason For Visit: UTI,Hypothyroidism Admit Date/Time: 10/28/20 12:43 Admit Provider: Juan Medina Attending Provider: Juan Medina Primary Care Provider: Domingo Hooks Hospital Course Hospital Course: THis is a 70 year old male who presents to the ED after having more difficulty managing at home d/t increased generalized weakness. his po intake has been poor. he denies fevers or obvious source of infection. his work up in the ED shows UTI, dehydration and generalized weakness. He was given 1 liter of IVF a nd ceftriaxone pending urine culture report. he was admitted to med/surg unit for further management under hospitalist services. His cultures grew insignificant mixed growth, his white count normalized. He remained hemodynamically stable. He had no fevers. He was eating and drinking and bowels and bladder functioning well. His kidney function was followed closely and has started improving by discharge. He should have it rechecked in one week. also noted was a TSH of 63, he was started on synthyroid 50 mcg daily, he should have his tsh rechecked in 4-6 weeks. outpatient team to follow and adjust medication as needed. he returned to his baseline, reporting he feels significantly better. he was working with physical therapy and improved. he is being discharged to home with home health services, nursing, PT/OT discharge discussed with DR Medina. Home Meds and New Rx's Prescriptions: New levothyroxine 50 mcg Tablet 50 mcg PO DAILY@0600 Qty: 30 RF: 0 Continued amlodipine 10 mg Tablet 10 mg PO DAILY Qty: 30 RF: 0 aspirin 81 mg Tablet,Chewable 81 mg PO DAILY Qty: 30 RF: 0 tamsulosin 0.4 mg Capsule 0.4 mg PO DAILY@1800 Qty: 30 RF: 0 pantoprazole 40 mg Tablet,Delayed Release (Dr/Ec) 40 mg PO DAILY@0730 Qty: 30 RF: 0 folic acid 1 mg Tablet 1 mg PO DAILY Qty: 30 RF: 0 atorvastatin 20 mg tablet 20 mg PO QHS Qty: 30 RF: 0 carvedilol [Coreg] 12.5 mg tablet 12.5 mg PO BID Qty: 60 RF: 0 acetaminophen 500 mg Tablet 1,000 mg PO Q8H PRN PRNRF: 0 calcium citrate [Calcitrate] 200 mg (950 mg) Tablet 200 mg PO DAILY PRNRF: 0 hydralazine 25 mg tablet 25 mg PO TID RF: 0 Discharge Instructions Instructions: Acute Kidney Injury (DC), Urinary Tract Infection in Men (DC), Hypothyroidism (DC) Additional Instructions: take all your medication as directed. you will need you TSH (thyroid test) rechecked in 4 weeks. drink 6-8 glasses of water daily to stay well hydrated. Stand Alone Forms: Nursing Discharge Form Referrals: Domingo Hooks [Primary Care Provider] - (call for a 2week follow up ) Activity:: Activity as Tolerated Equipment/Supplies:: No Equipment Needed Diet:: As Tolerated Discharge Orders Discharge Orders: Discharge Order (Routine); Ordered 10/31/20 Ordered By: Delma Queen Other Ambulatory Orders: Basic Metabolic Panel (Routine) Timeframe: 1 Week Location: None Selected Ordered By: Delma Queen Complete Blood Count w/Diff (Routine) Timeframe: 1 Week Location: None Selected Ordered By: Delma Queen TSH (Routine) Timeframe: 4 Weeks Location: None Selected Ordered By: Delma Queen DS: Summary Time Spent with Patient providing and/or coordinating discharge services: Greater than 30 minutes Status at Discharge Functional status at discharge: uses cane/walker Overall status at discharge: patient is progressing back to baseline Mental Status: mental status grossly normal Speech and Movement: speech and movement normal Mood: congruent mood Affect: normal affect Exam Const General: cooperative and comfortable Nutritional Appearance: average body habitus Orientation: alert, awake and oriented x3 HENMT Head: normal to inspection, normocephalic and atraumatic Mouth: oral mucosae normal Eyes Sclera: sclerae normal Cornea: corneas normal Pupils: PERRL EOM: EOM intact bilaterally Neck Neck: full ROM, no lymphadenopathy and no JVD Lymphatic: no lymphadenopathy noted Chest Chest: normal inspection of the chest Resp Effort & Inspection: normal respiratory effort and able to speak in complete sentences Auscultation: clear to auscultation bilaterally Cardio Jugular venous pressure: no JVD Rate: regular rate Rhythm: regular rhythm Heart Sounds: S1 normal and S2 normal Skin General skin exam: no rashes or lesions noted Lesions: no lesions Wounds: no wounds Neuro General: patient alert, patient awake and patient oriented x3 Cognition: normal cognition Speech: speech normal Extrem General: normal to inspection, full ROM and no clubbing, cyanosis or edema Psych Appearance: grossly normal Mental Status: mental status grossly normal Speech and Movement: speech and movement normal Mood: congruent mood Affect: normal affect Attitude: cooperative Thought Process: normal Thought Content: normal Insight: insight good Judgment: judgment good DS: Data Vitals/I&O Vitals and I&O: Vital Signs Temperature 36.5 C 10/31/20 07:34 Temperature Source Tympanic 10/31/20 07:34 Pulse 83 10/31/20 07:34 Pulse Rhythm Regular 10/31/20 08:58 Pulse 86 10/28/20 12:32 Respiratory Rate 20 10/31/20 07:34 Respiratory Effort Non-Labored 10/31/20 08:58 Respiratory Depth Normal 10/31/20 08:58 Respiratory Pattern Normal 10/31/20 08:58 Blood Pressure 149/90 H 10/31/20 07:34 Blood Pressure Mean 117 10/28/20 12:45 Blood Pressure Position Sitting 10/28/20 11:32 Pulse Oximetry 97 10/31/20 07:34 Oxygen Delivery Method Room Air 10/31/20 07:34 Oxygen Flow Rate 0 10/31/20 07:34 Pain Level 0 10/31/20 07:34 Intake & Output 10/30/20 10/31/20 10/31/20 23:59 11:59 23:59 Intake Total 1345 / 2430 1170 / 1170 Output Total 2145 / 3065 1590 / 1590 Balance -800 / -635 -420 / -420 Intake: IV 775 / 1660 60 / 60 Oral 570 / 770 1110 / 1110 Output: Urine 2145 / 3065 1590 / 1590 Other: Urine Color Pale Yellow Yellow Urine Appearance Clear Clear Cloudy Urine Odor Normal None Comment post void. Voiding Methods Urinal Toilet Data Completed and Pending Labs on day of discharge: Labs from last 24 hours 10/31/20 10/31/20 07:02 07:02 WBC 6.67 RBC 4.24 L Hgb 12.3 L Hct 37.4 L MCV 88.2 MCH 29.0 MCHC 32.9 RDW 14.3 H Plt Count 170 MPV 10.4 Sodium 142 Potassium 3.5 Chloride 105 Carbon Dioxide 28.9 Anion Gap 8.1 BUN 22 H D Creatinine 2.0 H Estimated GFR/1.73 m2 33.20 Glucose 108 H Calcium 8.3 L PFSH Medical History (Updated 10/28/20 @ 16:37 by Delma Queen NP) Cataracts, bilateral Left sided lacunar infarction Memory impairment Mild dementia Social History Smoking/Tobacco Use Status: Unknown Smoking risk assessment performed?: Yes Alcohol Intake: never Substance use type: does not use Do you feel safe at home: Yes Do you feel safe in your relationship?: Yes
--- NOTE | 2020-10-31 15:26 | PDOC.CMDIS ---
- If Service Date Differs Date of service: 10/31/20 Time of Service: 15:26 LACE Index Scoring Tool - Questions: Length of Stay (in days): 3 Acuity (Admit via E.D.?): Yes Comorbidities: Cerebrovascular Disease, Mild Liver/Renal Disease E.D. Visits: 1 - Answers: Total Score: 10 Risk of Readmission: High Risk Care Management Discharge Reason for Hospitalization: UTI, hypothyroidism Discharge Plan: Sandeep will return home with a resumption of HH RN, and an addition of HH PT. CM informed [facility] of his discharge today, and they asked for a new face to face. CM asked the provider to update this documentation. Sandeep was driven home via private vehicle by his friend. He will follow up with his PCP and discharge plan of care. He is happy to be going home. Patient/Family Education Needs: Review discharge instructions regarding activity levels and medications, discussion of self care needs and goals of care. Services Needed at Discharge: Home Health Care Services (HH RN, PT)
--- NOTE | 2020-11-01 14:06 | PDOC.HHF2F_ITS ---
Home Health Certification Home Health Certification: 1. Encounter Date and Reason I certify that Sandeep Ritter was seen by Delma Queen on 11/01/20 and that I had a [id number] encounter with this patient that meets the physician face to face encounter requirements. 2. Clinical Findings Supporting Skilled Need and Homebound Status I certify that home health services are medically necessary, include either intermittent group home and/or physical/speech therapy, and that this patie nt is homebound in that absences from the home require considerable and taxing effort and are infrequent or of short duration, or are attributable to the need to receive medical care. [X] (a) Attached documentation from encounter provides clinical findings supporting skilled need and homebound status (including what assistance patient requires to leave the home). The encounter with the patient was in whole, or in part, for the following medical condition, which is the primary reason for home health care: UTI,Hypothyroidism Senior Living: routine nursing care, medication oversight, chronic disease management Physical and Occupational Therapy: routine evaluation and treatment Homebound: patient unable to leave the house unassisted d/t cognitive impairment. 3. Certification and Authentication I certify that I composed the above information based on my clinical judgement relating to this patient's medical condition and, if applicable, clinical findings communicated to me by the NPP or inpatient physician who performed the Home Health Referral. All further orders will be obtained through (Community Based Physician - PCP)
--- NOTE | 2020-11-02 17:00 | PT.INDS ---
Date of service: 11/02/20 PT Notes Visit Reasons: UTI,Hypothyroidism Physical Therapy Inpatient Discharge Summary Date: 11/02/2020 Dates of service: 10/29/2020 through 10/31/2020 This is a clinical summary of care provided for the duration of dates listed above. No charge was made in the completion of this documentation. Referring Doctor: Delma Queen NP PT Orders: PT CONSULT: Eval/treat Precautions: Fall. Standard. Activity as tolerated. Patient Profile/Admitting Diagnosis: And 77-year old presented to the ED to generalized weakness and difficulty with ambulation and transfers. He is diagnosed Kidney injury, urinary tract infection hypothyroidism. PMHX: Medical History (Updated 10/28/20 @ 16:37 by Delma Queen NP) Cataracts, bilateral Left sided lacunar infarction Memory impairment Mild dementia Social History/Home Situation: Lives with 93-year-old mother who is known to this provider in a mobile home with a ramp to enter. Home is handicap-accessible. Receives meals on wheels. Ambulatory with single point cane prior to admission. Equipment Owned/DME: SPC Subjective: NT. See most recent TRASH TRUCK DRIVER notes. Objective: General Observation: NT. See most recent TRASH TRUCK DRIVER notes. Mental Status: NT. See most recent TRASH TRUCK DRIVER notes. Pain: NT. See most recent TRASH TRUCK DRIVER notes. ROM: Right Upper Extremity: Shoulder Flexion WFL. Shoulder abduction WFL. Elbow flexion WFL. Wrist flexion WFL. Functional opening and closing of hand WFL. Left Upper Extremity: Shoulder Flexion WFL. Shoulder abduction WFL. Elbow flexion WFL. Wrist flexion WFL. Functional opening and closing of hand WFL. Right Lower Extremity: Hip flexion WFL. Hip abduction WFL. Knee flexion WFL. Ankle dorsiflexion WFL. Ankle plantarflexion WFL. Left Lower Extremity: Hip flexion WFL. Hip abduction WFL. Knee flexion WFL. Ankle dorsiflexion WFL. Ankle plantarflexion WFL. Strength: Right Upper Extremity: Shoulder flexors 4-/5. Shoulder abductors 4-/5. Elbow flexors 4-/5. Elbow extensors 4-/5. Engraver Apprentice Decorative strong. Left Upper Extremity: Shoulder flexors 4-/5. Shoulder abductors 4-/5. Elbow flexors 4-/5. Elbow extensors 4-/5. Engraver Apprentice Decorative strong. Right Lower Extremity: Hip flexors 4-/5. Hip abductors 4-/5. Knee flexors 4-/5. Knee extensors 4-5. Ankle dorsiflexors 4-/5. Ankle plantarflexors 4-/5. Left Lower Extremity: Hip flexors 5/5. Hip abductors 5/5. Knee flexors 5/5. Knee extensors 5/5. Ankle dorsiflexors 5/5. Ankle plantarflexors 5/5. Bed Mobility/Transfers: Supine to sit independent Sit to stand standby assist Stand to sit stand by assist Bed to reclining chair stand by assist Reclining chair to bed stand by assist Gait: 250 feet of level surface ambulation using a single-point cane with full weightbearing requiring standby assist with no path deviation observed. Balance: Static Sitting: Normal Dynamic Sitting: Normal Static Standing: Fair Dynamic Standing: Fair Assessment: Patient demonstrates functional mobility improvement during this episode of care as evidenced by functional mobility level above and goal status below. Patient continues to present with clinical signs and symptoms consistent with current/admitting diagnoses that have resulted to mobility limitations, gait instability, generalized weakness, and overall ADL decline as demonstrated by the following impairment level findings: 1. Decreased strength to B UE/LE major muscle groups 2. Impaired standing balance Impairments are continuing to contribute to the following functional limitations: 1. Difficulty with ambulation without assistive device 2. Increased completion time for mobility ADL performance 3. Increased risk for falls Goals: Goals X1 week 1. Supine-Sit independent MET 2. Sit-Supine independent MET 3. Sit-Stand independent MET 4. Stand-Sit independent with SPC NOT MET 5. Bed-Chair independent with SPC NOT MET 6. Chair-Bed independent with SPC NOT MET 7. Independent gait on level surface with use of SPC for at least 300 feet without report of pain nor dyspnea NOT MET 8. Good static and dynamic standing balance/tolerance NOT MET DISCHARGE RECOMMENDATIONS: Patient will benefit from home health PT services in order to progress mobility level using least restrictive assistive ambulatory device, assess home safety, identify additional equipment needs, and establish a functional maintenance program that will increase ability of patient to remain at home. TREATMENT CODE/TIME: RI Thank you for the opportunity to participate in the care of this patient. Vidya Ralph PT, DPT, CLT [facility] [place], [place]
== END 2020-10-31 13:38 | disposition home health service (06) | DRG 683 ==
LOC: ER 13:05 → MS 13:52
PROVIDERS: Nurse Practitioner Acute Care; Admitting Provider Family Medicine; Emergency Provider Physician Assistant; PCP Internal Medicine; Visit Provider Family Medicine
DX: N17.9 Acute kidney failure, unspecified (principal); N39.0 Urinary tract infection, site not specified; E03.9 Hypothyroidism, unspecified; E86.0 Dehydration; F03.90 Unspecified dementia, unspecified severity, without behavioral disturbance, psychotic disturbance, mood disturbance, and anxiety; Z86.73 Personal history of transient ischemic attack (TIA), and cerebral infarction without residual deficits; Z20.822 Contact with and (suspected) exposure to COVID-19
CPT/HCPCS: 36415; 76770; 80048; 80053; 85027; 87635; 93005; 96361; 96365; 97110; 97162; 97530; 99285; 71046; 81003; 81015; 83735; 84439; 84443; 84484; 85025; 87086; 93010; 99232; 99233; 99239; J0696; J1644; J2405

== ENCOUNTER → 2020-10-30 09:39 | Outpatient (BNVA) | payer MEDICARE, SELFPAY | PROVIDERS: PCP Internal Medicine; Referring Provider Internal Medicine; Visit Provider Psychiatry & Neurology Neurology | DX: R69 Illness, unspecified (principal) ==

== ENCOUNTER 2020-11-09 16:55 | Outpatient (REF) | payer MEDICARE, SELFPAY ==
[2020-11-09 13:59] LABS: Abs Immature Grans 0.09 10^3/uL (0.0-0.06); Absolute Basophil Count 0.06 10^3/uL (0.0-0.2); Absolute Eosinophil Count 0.51 10^3/uL (0.0-0.7); Absolute Lymphocyte Count 2.38 10^3/uL (1.2-3.4); Absolute Monocyte Count 0.49 10^3/uL (0.1-0.8); Basophils % 0.9; Eosinophils % 7.4; HCT 40.1 % (40.0-50.0); Immature Grans % 1.3; Lymphocytes % 34.3; MCH 28.6 pg (27.0-33.0); MCHC 32.4 % (32.0-36.0); MCV 88.3 fL (80-95); MPV 9.7 fL (8.0-11.0); Monocytes % 7.1; Nucleated RBC 0 %; Platelet Count 363 10^3/uL (130-400); RBC 4.54 10^6/uL (4.36-5.78); RDW 13.9 % (11.8-14.1); RDW-SD 45.1 fL; WBC 6.93 10^3/uL (4.4-10.8)
[2020-11-09 14:08] LABS: Anion Gap 10.4 mmol/L (3-11); BUN 21 mg/dL (7-18); CO2 25.6 mmol/L (21.0-32.0); CREATININE 1.5 mg/dL (0.70-1.30); Calcium 8.5 mg/dL (8.5-10.1); Chloride 105 mmol/L (98-107); Estimated GFR 46.27 (mL/min/1.73m2); Glucose 105 mg/dL (74-106); Potassium 4.3 mmol/L (3.5-5.1); Sodium 141 mmol/L (136-145)
== END 2020-11-09 16:56 | disposition home or self-care (01) ==
LOC: LBN 16:55
PROVIDERS: PCP Internal Medicine; Visit Provider Internal Medicine
DX: N17.9 Acute kidney failure, unspecified (principal); F03.90 Unspecified dementia, unspecified severity, without behavioral disturbance, psychotic disturbance, mood disturbance, and anxiety
CPT/HCPCS: 80048; 85025

== ENCOUNTER 2020-12-03 16:07 | Outpatient (REF) | payer MEDICARE, SELFPAY ==
[2020-12-03 15:46] LABS: TSH 0.49 uIU/mL (0.36-3.74)
== END 2020-12-03 16:08 | disposition home or self-care (01) ==
LOC: LBN 16:07
PROVIDERS: PCP Internal Medicine; Visit Provider Internal Medicine
DX: E03.9 Hypothyroidism, unspecified (principal)
CPT/HCPCS: 84443

== ENCOUNTER 2021-02-27 07:54 | Emergency (ER) | payer OTHER, SELFPAY ==
[2021-02-27] VITALS (51 sets, daily range): BP systolic 62–171; BP diastolic 24–101; PULSE 68–127; RESP 10–33; TEMP 37–37.2; O2SAT 92–97
--- NOTE | 2021-02-27 07:45 | RT.EKG_ITS ---
APPROVED REPORT Exam: Resting ECG Reason for Exam: Nausea/Vomitting-Hx of stroke Patient Location: E HR:92 bpm ECG Measurements Heart Rate 92 AXIS SD 189 P 62 QRSd 108 QRS 89 QT 360 T -14 QTc 444 Conclusion Sinus rhythm...normal P axis, V-rate 60- 99 Inferior infarct, age indeterminate...Q>35mS, T neg, II III aVF Borderline ST elevation, lateral leads...ST >0.06mV, I aVL V5 V6. Sinus. No STEMI. I have reviewed and interpreted ECG and agree with software generated interpretation.
--- NOTE | 2021-02-27 08:04 | ED.GENADUL_ITS ---
Discharge Plan Disposition Patient Disposition: [facility] [place] Condition: Improving Discharge Details Clinical Impression: UTI (urinary tract infection), Acute kidney injury superimposed on chronic kidney disease, Generalized weakness ED Provider: Sarah Saldana Home Meds and New Rx's Prescriptions: No Action magnesium oxide 420 mg Tablet 420 mg PO BID RF: 0 ibuprofen 800 mg Tablet 800 mg PO BID PRNRF: 0 calcium 500 mg Tablet 500 mg PO DAILY RF: 0 bisacodyl 10 mg Suppository 10 mg MS DAILY PRNRF: 0 docusate sodium 100 mg Capsule 100 mg PO BID PRNRF: 0 multivitamin with minerals [Multi-Daily W/Minerals] Tablet 1 tab PO DAILY RF: 0 carboxymethylcellulose sodium Drops 1 drp OPHTHALMIC (EYE) QID PRNRF: 0 amlodipine 10 mg Tablet 10 mg PO DAILY Qty: 30 RF: 0 aspirin 81 mg Tablet,Chewable 81 mg PO DAILY Qty: 30 RF: 0 tamsulosin 0.4 mg Capsule 0.4 mg PO DAILY@1800 Qty: 30 RF: 0 folic acid 1 mg Tablet 1 mg PO DAILY Qty: 30 RF: 0 atorvastatin 20 mg tablet 20 mg PO QHS Qty: 30 RF: 0 carvedilol [Coreg] 12.5 mg tablet 12.5 mg PO BID Qty: 60 RF: 0 acetaminophen 500 mg Tablet 1,000 mg PO Q8H PRN PRNRF: 0 hydralazine 25 mg tablet 25 mg PO TID RF: 0 levothyroxine 50 mcg Tablet 50 mcg PO DAILY@0600 Qty: 30 RF: 0 Medical Decision Making 0810 -- 71-year-old male with a history of dementia, hypertension, hypothyroidism, CVA presents from home for vomiting yesterday. Vitals within normal limits. Patient appears comfortable and not. He has moist mucous membranes. His abdomen is soft and nontender. Differential diagnosis includes viral illness, UTI, electrolyte abnormality, dehydration. Will place an IV, bolus IV fluids, screening labs, urinalysis, fluids and Zofran and reassess. Labs reviewed. White blood cell count 21. Urinalysis notes greater than 50 WBCs, large leukocyte esterase, with negative nitrite. Will order a dose of Rocephin. Remainder of labs reviewed. BUN 47, creatinine 3.5, GFR 17, this is abnormal compared to baseline mild CKD. Troponin negative. TSH within normal limits. Care management discussed with patient's mom who is his caregiver at home. She recently was hospitalized for pacemaker placement for 1 week --home health reports that mother usually helps encourage patient with p.o. intake and with any needs at home and she was not home to help him. Patient has minimal home health assistance. Care management also discussed with mother who states that she is unable to care for patient at home at this time. Home health and also reported that patient fell at home this morning. Patient states he did not fall but was unable to move around the bathroom due to weakness. Patient reassessed and there is no evidence of trauma and he denies any pain. Patient was initially requesting to go home but now is agreeable to admission for IV fluids and IV antibiotics with recheck of his renal function. [facility]. [facility], will admit here if beds available. 1230 --discussed with [facility] transfer [facility] and there is bed availability -- Patient may be responsible for the cost of the ambulance ride. This was discussed with patient at bedside and he is agreeable with possibility of responsibility out of pocket ambulance fees if necessary. Discussed with care management who attempted to contact patient's mother but she was unavailable. Patient appears to understand and demonstrates capacity to make decisions. Case discussed with the [facility] team who accepts patient for transfer. Accepting physician Dr. Blanco. Patient reports he has been fully vaccinated with 2 doses for the Covid vaccine. His Covid test today is negative. Medical Records Medical records reviewed: Yes I reviewed the patient's medical records. Lab Data Lab results reviewed: Yes I reviewed the patient's lab results. Labs: 02/27/21 08:05 Urine - Reflex from [facility] Urine Culture - Pending Laboratory Tests Range/Units 02/27/21 02/27/21 02/27/21 07:59 08:05 08:13 WBC (4.4-10.8) 10^3/uL RBC (4.36-5.78) 10^6/uL Hgb (13.5-17.5) g/dL Hct (40.0-50.0) % MCV (80-95) fL MCH (27.0-33.0) pg MCHC (32.0-36.0) % RDW (11.8-14.1) % Plt Count (130-400) 10^3/uL MPV (8.0-11.0) fL Immature Gran % Neutrophils % Lymphocytes % Monocytes % Eosinophils % Basophils % Nucleated RBC % % Absolute Neutrophils (1.2-6.7) 10^3/uL Absolute Lymphocytes (1.2-3.4) 10^3/uL Absolute Monocytes (0.1-0.8) 10^3/uL Absolute Eosinophils (0.0-0.7) 10^3/uL Absolute Basophils (0.0-0.2) 10^3/uL VBG Lactate (0.6-1.4) mmol/L Sodium (136-145) mmol/L 137 Potassium (3.5-5.1) mmol/L 3.9 Chloride (98-107) mmol/L 99 Carbon Dioxide (21.0-32.0) mmol/L 29.1 Anion Gap (3-11) mmol/L 8.9 BUN (7-18) mg/dL 47 H Creatinine (0.70-1.30) mg/dL 3.5 H Estimated GFR/1.73 m2 (mL/min/1.73m2) 17.35 Glucose (74-106) mg/dL 141 H Calcium (8.5-10.1) mg/dL 9.5 Magnesium (1.8-2.4) mg/dL 2.4 Total Bilirubin (0.2-1.0) mg/dL 1.4 H AST (15-37) U/L 17 ALT (16-63) U/L 28 Alkaline Phosphatase (46-116) U/L 87 Troponin I (<or=60) ng/L < 50 Total Protein (6.4-8.2) g/dL 8.5 H Albumin (3.4-5.0) g/dL 3.8 TSH (0.36-3.74) uIU/mL Urine Color Cancelled Yellow Urine Clarity Cancelled Sl Cloudy Urine pH Cancelled 6.0 Ur Specific [place] Cancelled 1.015 Urine Protein Cancelled 30 H Urine Ketones Cancelled Negative Urine Blood Cancelled Moderate H Urine Nitrite Cancelled Negative Urine Bilirubin Cancelled Negative Urine Urobilinogen Cancelled 0.2 Ur Leukocyte Esterase Cancelled Large H Urine RBC (0-2) HPF 10-20 H Urine WBC (0-5) HPF >50 H Ur Epithelial Cells (Negative) HPF Few Urine Crystals (Negative) HPF Negative Urine Bacteria (Negative) HPF Few Urine Casts (Negative) LPF 0-2 Hyaline Urine Mucus (Negative) Negative Ur Culture Indicated? Yes Urine Glucose Cancelled Negative COVID-19 Source Range/Units 02/27/21 02/27/21 02/27/21 08:13 08:13 09:20 WBC (4.4-10.8) 10^3/uL 21.71 H RBC (4.36-5.78) 10^6/uL 4.97 Hgb (13.5-17.5) g/dL 14.3 Hct (40.0-50.0) % 43.6 MCV (80-95) fL 87.7 MCH (27.0-33.0) pg 28.8 MCHC (32.0-36.0) % 32.8 RDW (11.8-14.1) % 14.2 H Plt Count (130-400) 10^3/uL 271 MPV (8.0-11.0) fL 9.7 Immature Gran % 0.5 Neutrophils % 88.4 Lymphocytes % 4.7 Monocytes % 6.3 Eosinophils % 0.0 Basophils % 0.1 Nucleated RBC % % 0 Absolute Neutrophils (1.2-6.7) 10^3/uL 19.19 H Absolute Lymphocytes (1.2-3.4) 10^3/uL 1.02 L Absolute Monocytes (0.1-0.8) 10^3/uL 1.37 H Absolute Eosinophils (0.0-0.7) 10^3/uL 0.00 Absolute Basophils (0.0-0.2) 10^3/uL 0.02 VBG Lactate (0.6-1.4) mmol/L Sodium (136-145) mmol/L Potassium (3.5-5.1) mmol/L Chloride (98-107) mmol/L Carbon Dioxide (21.0-32.0) mmol/L Anion Gap (3-11) mmol/L BUN (7-18) mg/dL Creatinine (0.70-1.30) mg/dL Estimated GFR/1.73 m2 (mL/min/1.73m2) Glucose (74-106) mg/dL Calcium (8.5-10.1) mg/dL Magnesium (1.8-2.4) mg/dL Total Bilirubin (0.2-1.0) mg/dL AST (15-37) U/L ALT (16-63) U/L Alkaline Phosphatase (46-116) U/L Troponin I (<or=60) ng/L Total Protein (6.4-8.2) g/dL Albumin (3.4-5.0) g/dL TSH (0.36-3.74) uIU/mL 0.55 Urine Color Urine Clarity Urine pH Ur Specific [place] Urine Protein Urine Ketones Urine Blood Urine Nitrite Urine Bilirubin Urine Urobilinogen Ur Leukocyte Esterase Urine RBC (0-2) HPF Urine WBC (0-5) HPF Ur Epithelial Cells (Negative) HPF Urine Crystals (Negative) HPF Urine Bacteria (Negative) HPF Urine Casts (Negative) LPF Urine Mucus (Negative) Ur Culture Indicated? Urine Glucose COVID-19 Source Nasal/Nares Range/Units 02/27/21 09:55 WBC (4.4-10.8) 10^3/uL RBC (4.36-5.78) 10^6/uL Hgb (13.5-17.5) g/dL Hct (40.0-50.0) % MCV (80-95) fL MCH (27.0-33.0) pg MCHC (32.0-36.0) % RDW (11.8-14.1) % Plt Count (130-400) 10^3/uL MPV (8.0-11.0) fL Immature Gran % Neutrophils % Lymphocytes % Monocytes % Eosinophils % Basophils % Nucleated RBC % % Absolute Neutrophils (1.2-6.7) 10^3/uL Absolute Lymphocytes (1.2-3.4) 10^3/uL Absolute Monocytes (0.1-0.8) 10^3/uL Absolute Eosinophils (0.0-0.7) 10^3/uL Absolute Basophils (0.0-0.2) 10^3/uL VBG Lactate (0.6-1.4) mmol/L 1.4 Sodium (136-145) mmol/L Potassium (3.5-5.1) mmol/L Chloride (98-107) mmol/L Carbon Dioxide (21.0-32.0) mmol/L Anion Gap (3-11) mmol/L BUN (7-18) mg/dL Creatinine (0.70-1.30) mg/dL Estimated GFR/1.73 m2 (mL/min/1.73m2) Glucose (74-106) mg/dL Calcium (8.5-10.1) mg/dL Magnesium (1.8-2.4) mg/dL Total Bilirubin (0.2-1.0) mg/dL AST (15-37) U/L ALT (16-63) U/L Alkaline Phosphatase (46-116) U/L Troponin I (<or=60) ng/L Total Protein (6.4-8.2) g/dL Albumin (3.4-5.0) g/dL TSH (0.36-3.74) uIU/mL Urine Color Urine Clarity Urine pH Ur Specific [place] Urine Protein Urine Ketones Urine Blood Urine Nitrite Urine Bilirubin Urine Urobilinogen Ur Leukocyte Esterase Urine RBC (0-2) HPF Urine WBC (0-5) HPF Ur Epithelial Cells (Negative) HPF Urine Crystals (Negative) HPF Urine Bacteria (Negative) HPF Urine Casts (Negative) LPF Urine Mucus (Negative) Ur Culture Indicated? Urine Glucose COVID-19 Source ECG Data Attestation: I personally reviewed and interpreted this ECG (s) as follows: Interpretation: rate of 92, sinus, no acute ST elevation or depression, MS 189, QTc 444, QRS 88. HPI General Mode of arrival: EMS . Date/Time Provider Initiated Documentation: 02/27/21 08:01 . Limitations to Documentation: no limitations . Information obtained by: patient . HPI Narrative: Patient is a 71-year-old male with a history of dementia, hypertension, hypothyroidism, CVA who presents from home per EMS for vomiting since yesterday. The initial call for EMS was for an unresponsive patient, but EMS reports that patient hit his medical alarm and he did not respond to them when they reached out. Patient states he started vomiting yesterday. He states he has vomited approximately 5 times which he states he is unsure of its consistency as he states I did not know. He denies any known vomiting blood. Patient denies any change in bowel movements, fever, chest pain, shortness of breath, abdominal pain for no urinary symptoms. Patient states he is ambulate and that he left ambulated this morning using his cane. He states he did take his medications this morning but vomited shortly after. He denies any new medications including antibiotics. Related Data Home Medications Medication Instructions Recorded Confirmed amlodipine 10 mg PO DAILY #30 tab 01/27/19 02/27/21 aspirin 81 mg PO DAILY #30 tab 01/27/19 02/27/21 atorvastatin 20 mg PO QHS #30 tab 01/27/19 02/27/21 carvedilol [Coreg] 12.5 mg PO BID #60 tab 01/27/19 02/27/21 folic acid 1 mg PO DAILY #30 tab 01/27/19 02/27/21 tamsulosin 0.4 mg PO DAILY@1800 #30 cap 01/27/19 02/27/21 acetaminophen 1,000 mg PO Q8H PRN PRN 08/28/19 02/27/21 hydralazine 25 mg PO TID 08/28/19 02/27/21 levothyroxine 50 mcg PO DAILY@0600 #30 tab 10/31/20 02/27/21 bisacodyl 10 mg MS DAILY PRN 02/27/21 02/27/21 calcium 500 mg PO DAILY 02/27/21 02/27/21 carboxymethylcellulose sodium 1 drp OPHTHALMIC (EYE) QID PRN 02/27/21 02/27/21 docusate sodium 100 mg PO BID PRN 02/27/21 02/27/21 ibuprofen 800 mg PO BID PRN 02/27/21 02/27/21 magnesium oxide 420 mg PO BID 02/27/21 02/27/21 multivitamin with minerals 1 tab PO DAILY 02/27/21 02/27/21 [Multi-Daily W/Minerals] Previous Rx's Medication Instructions Recorded amlodipine 10 mg PO DAILY #30 tab 01/27/19 aspirin 81 mg PO DAILY #30 tab 01/27/19 atorvastatin 20 mg PO QHS #30 tab 01/27/19 carvedilol [Coreg] 12.5 mg PO BID #60 tab 01/27/19 folic acid 1 mg PO DAILY #30 tab 01/27/19 tamsulosin 0.4 mg PO DAILY@1800 #30 cap 01/27/19 levothyroxine 50 mcg PO DAILY@0600 #30 tab 10/31/20 Allergies Allergy/AdvReac Type Severity Reaction Status Date / Time No Known Allergies Allergy Unverified 02/27/21 08:50 General Stated Complaint: Nausea/Vomit/Diar SUNNI: 3 Review of Systems All systems reviewed & are unremarkable except as noted in HPI and below Constitutional Constitutional: Reports as per HPI, Denies chills and Denies fever(s) Eyes Eyes: Denies blurry vision ENT Ears, Nose, Mouth, and Throat: Denies dizziness, Denies sore throat and Denies throat swelling Cardiovascular Cardiovascular: Denies chest pain and Denies dyspnea Respiratory Respiratory: Denies cough and Denies dyspnea Gastrointestinal Gastrointestinal: Denies abdominal pain, Denies diarrhea and Reports vomiting Genitourinary Genitourinary: Denies hematuria and Denies dysuria Musculoskeletal Musculoskeletal: Denies back pain and Denies numbness Integumentary/Breasts Skin/Breast: Denies lesions and Denies rash Neurologic Neurologic: Denies dizziness, Denies localized weakness and Denies numbness Allergic/Immunologic Allergic/Immunologic: Denies throat swelling PFSH All Active Problems (Updated 02/27/21 @ 11:23 by Sarah Saldana DO) UTI (urinary tract infection) (Acute) Acute kidney injury superimposed on chronic kidney disease (Acute) Generalized weakness (Acute) Hypothyroidism (Chronic) UTI (urinary tract infection) (Acute) Nonsustained ventricular tachycardia (Acute) Mild dementia (Acute) Hypertensive emergency (Acute) Parathyroid adenoma (Acute) Discharge planning issues (Acute) Hypertension (Chronic) CVA (cerebral vascular accident) (Chronic) DVT prophylaxis (Acute) ALICJA (acute kidney injury) (Acute) Altered mental status (Acute) 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) Renal insufficiency (Acute) Hypercalcemia (Acute) Medical History (Updated 02/27/21 @ 11:23 by Sarah Saldana DO) Cataracts, bilateral Left sided lacunar infarction Memory impairment Social History Smoking/Tobacco Use Status: Never Smoking risk assessment performed?: Yes Alcohol Intake: never Substance use type: does not use Do you feel safe at home: Yes Do you feel safe in your relationship?: Yes Exam Const General: cooperative and no acute distress HENMT Head: normal to inspection Ears: hearing grossly normal bilaterally General nose exam: external nose normal Face and sinus: normal facial exam Mouth: oral mucosae normal Eyes General: appearance normal, both eyes and all related structures EOM: EOM intact bilaterally Neck Neck: normal visual inspection and No submandibular swelling Lymphatic: no lymphadenopathy noted Chest Chest: normal inspection of the chest and no tenderness Resp Effort & Inspection: normal respiratory effort and able to speak in complete sentences Auscultation: clear to auscultation bilaterally Cardio Rate: regular rate Rhythm: regular rhythm GI Inspection: normal to inspection Palpation: soft, not firm, not rigid and nontender Auscultation: normal bowel sounds Back/Spine/Pelvis Cervical Spine: No cervical spinal tenderness Thoracic/Lumbar Spine: thoracic and lumbar spine normal to inspection, No thoracic spinal tenderness and No lumbar spinal tenderness Skin General skin exam: no rashes or lesions noted Neuro General: patient alert, patient awake and oriented (not to time, thought it was 1999) Patient Orientation: Person and Place Cognition: normal cognition Speech: speech normal Motor: muscle tone normal throughout Sensory Exam: no sensory deficits noted Extrem General: normal to inspection, full ROM, capillary refill normal, no calf tenderness bilaterally and no edema Psych Appearance: grossly normal Mental Status: mental status grossly normal Speech and Movement: speech and movement normal Affect: normal affect Course Vital Signs Vital signs: Vital Signs Temperature 99.0 F 02/27/21 07:59 Pulse 88 02/27/21 07:59 Respiratory Rate 20 02/27/21 07:59 Blood Pressure 134/67 02/27/21 07:59 Pulse Oximetry 95 02/27/21 07:59 Temperature 99.0 F 02/27/21 07:59 Temperature Source Temporal Artery Scan 02/27/21 07:59 Pulse 88 02/27/21 07:59 Respiratory Rate 20 02/27/21 07:59 Blood Pressure 134/67 02/27/21 07:59 Blood Pressure Position Sitting 02/27/21 07:59 Pulse Oximetry 95 02/27/21 07:59 Oxygen Delivery Method Room Air 02/27/21 07:59 Oxygen Flow Rate 0 02/27/21 07:59 Pain Level 0 02/27/21 07:59
[2021-02-27 08:27] LABS: Bilirubin Negative (Negative); Blood Moderate (Negative); Clarity Sl Cloudy (Clear); Glucose Negative (Negative); Ketones Negative (Negative); Leukocyte Esterase Large (Negative); Nitrite Negative (Negative); Specific Gravity 1.015 (1.005-1.025); Urobilinogen 0.2 EU/dL (Up TO 0.2)
[2021-02-27] MEDS: Ondansetron 4 MG/2 ML VIAL IVP (08:28)
[2021-02-27] MEDS: Normal Saline 500 ML IV (08:28)
[2021-02-27 08:31] LABS: Bacteria Few HPF (Negative); C & S Indicated? Yes; Casts 0-2 Hyaline LPF (Negative); Crystals Negative HPF (Negative); Epithelial Cells Few HPF (Negative); Mucus Negative (Negative); WBC >50 HPF (0-5)
[2021-02-27 08:35] LABS: Abs Immature Grans 0.11 10^3/uL (0.0-0.06); Absolute Lymphocyte Count 1.02 10^3/uL (1.2-3.4); Basophils % 0.1; HCT 43.6 % (40.0-50.0); HGB 14.3 g/dL (13.5-17.5); Immature Grans % 0.5; Lymphocytes % 4.7; MCH 28.8 pg (27.0-33.0); MCHC 32.8 % (32.0-36.0); MCV 87.7 fL (80-95); MPV 9.7 fL (8.0-11.0); Monocytes % 6.3; Neutrophils % 88.4; Nucleated RBC 0 %; Platelet Count 271 10^3/uL (130-400); RBC 4.97 10^6/uL (4.36-5.78); RDW 14.2 % (11.8-14.1); RDW-SD 45.7 fL; WBC 21.71 10^3/uL (4.4-10.8)
[2021-02-27 08:36] LABS: Absolute Basophil Count 0.02 10^3/uL (0.0-0.2); Absolute Monocyte Count 1.37 10^3/uL (0.1-0.8); Absolute Neutrophil Count 19.19 10^3/uL (1.2-6.7)
[2021-02-27 08:56] LABS: ALT 28 U/L (16-63); AST 17 U/L (15-37); Albumin 3.8 g/dL (3.4-5.0); Alkaline Phosphatase 87 U/L (46-116); Anion Gap 8.9 mmol/L (3-11); BUN 47 mg/dL (7-18); Bilirubin, Total 1.4 mg/dL (0.2-1.0); CO2 29.1 mmol/L (21.0-32.0); CREATININE 3.5 mg/dL (0.70-1.30); Calcium 9.5 mg/dL (8.5-10.1); Chloride 99 mmol/L (98-107); Estimated GFR 17.35 (mL/min/1.73m2); Glucose 141 mg/dL (74-106); Magnesium 2.4 mg/dL (1.8-2.4); Potassium 3.9 mmol/L (3.5-5.1); Sodium 137 mmol/L (136-145); Total Protein 8.5 g/dL (6.4-8.2); Troponin I < 50 ng/L (<or=60)
[2021-02-27 08:58] LABS: TSH (W/Ref FT4) 0.55 uIU/mL (0.36-3.74)
[2021-02-27] MEDS: cefTRIAXone 1 GM/50 ML BAG IVPB (09:16)
--- NOTE | 2021-02-27 09:34 | NUR.NOTE ---
Nursing Note: Pt reports not feeling nauseated, request & recieve glass of milk after approved my provider. Covid swab obtained and sent to lab. Monitors maintained, continue to monitor.
[2021-02-27 09:46] LABS: Source Nasal/Nares
--- NOTE | 2021-02-27 09:53 | PDOC.ERCMACT ---
- If Service Date Differs Date of service: 02/27/21 Time of Service: 09:53 Care Management Activity Note Sandeep presents in the ED via ambulance for vomiting, nausea and diarrhea. At the request of ED provider, EVE contacts [facility] to inquire about current in-home services. [facility] advises that Sandeep currently has HH nursing through the [facility] and says thus far, HH has seen him twice in January and once on 02/19/21. Nubia states that a Medicare referral will need to be submitted if an increase in HH services is needed. Nubia also shares that Sandeep is very dependent on his mom, Smiley. She says mom [place] [facility] [place] and recently discharged home with a pacemaker. Mom is weak and is unable to care for Sandeep. A neighbor is involved with the family and the neighbor takes Sandeep out to run errands on a daily basis. It is unclear if this neighbor is being compensated by the [facility]. EVE also telephones Smiley and learns that Sandeep fell in the bathroom this morning and could not get up, so Smiley called the ambulance. She says he did vomit twice yesterday but believes it was due to Sandeep drinking large amounts of chocolate milk. She says Sandeep cannot walk very well and she fears he will fall again if he is sent home and she is not currently in a position where she can help him. She asks that Sandeep be admitted to the hospital to regain some strength.
[2021-02-27 09:59] LABS: Lactate 1.4 mmol/L (0.6-1.4)
[2021-02-27 12:57] LABS: COVID-19 PCR Negative (Negative)
--- NOTE | 2021-03-01 09:52 | NUR.NOTE ---
Nursing Note: URINE CULTURE RESULT FAXED TO [address] WITH [address] LUNA [employer]. FAX [phone]
== END 2021-02-27 13:55 | disposition short-term general hospital (02) ==
PROVIDERS: Emergency Provider Physician Assistant; PCP Internal Medicine
DX: N39.0 Urinary tract infection, site not specified (principal); B96.89 Other specified bacterial agents as the cause of diseases classified elsewhere; N17.9 Acute kidney failure, unspecified; I12.9 Hypertensive chronic kidney disease with stage 1 through stage 4 chronic kidney disease, or unspecified chronic kidney disease; N18.9 Chronic kidney disease, unspecified; R11.2 Nausea with vomiting, unspecified; R53.1 Weakness
CPT/HCPCS: 36415; 80053; 87635; 93005; 96361; 96365; 96375; 99285; 81003; 81015; 83605; 83735; 84443; 84484; 85025; 87086; 93010; J0696; J2405

== ENCOUNTER 2021-03-10 13:35 | Outpatient (REF) | payer MEDICARE, OTHER, SELFPAY ==
[2021-03-10 16:46] LABS: Abs Immature Grans 0.18 10^3/uL (0.0-0.06); Absolute Basophil Count 0.05 10^3/uL (0.0-0.2); Absolute Eosinophil Count 0.58 10^3/uL (0.0-0.7); Absolute Lymphocyte Count 2.01 10^3/uL (1.2-3.4); Absolute Monocyte Count 0.71 10^3/uL (0.1-0.8); Absolute Neutrophil Count 3.66 10^3/uL (1.2-6.7); Basophils % 0.7; Eosinophils % 8.1; HCT 38.4 % (40.0-50.0); HGB 12.5 g/dL (13.5-17.5); Immature Grans % 2.5; MCH 28.7 pg (27.0-33.0); MCHC 32.6 % (32.0-36.0); MCV 88.1 fL (80-95); MPV 9.6 fL (8.0-11.0); Monocytes % 9.9; Neutrophils % 50.8; Nucleated RBC 0 %; Platelet Count 396 10^3/uL (130-400); RBC 4.36 10^6/uL (4.36-5.78); RDW 13.2 % (11.8-14.1); RDW-SD 42.7 fL; WBC 7.19 10^3/uL (4.4-10.8)
[2021-03-10 17:26] LABS: Anion Gap 9.7 mmol/L (3-11); BUN 54 mg/dL (7-18); CO2 26.3 mmol/L (21.0-32.0); CREATININE 2.3 mg/dL (0.70-1.30); Calcium 8.6 mg/dL (8.5-10.1); Chloride 103 mmol/L (98-107); Estimated GFR 28.17 (mL/min/1.73m2); Glucose 94 mg/dL (74-106); Potassium 4.5 mmol/L (3.5-5.1); Sodium 139 mmol/L (136-145)
== END 2021-03-10 13:36 | disposition home or self-care (01) ==
LOC: LBN 13:35
PROVIDERS: PCP Internal Medicine; Visit Provider Family Medicine
DX: N17.9 Acute kidney failure, unspecified (principal); N13.2 Hydronephrosis with renal and ureteral calculous obstruction
CPT/HCPCS: 80048; 85025

== ENCOUNTER 2021-03-18 15:22 | Outpatient (REF) | payer MEDICARE, OTHER, SELFPAY ==
[2021-03-18 13:17] LABS: Bilirubin Negative (Negative); Blood Moderate (Negative); Clarity Sl Cloudy (Clear); Glucose Negative (Negative); Ketones Negative (Negative); Leukocyte Esterase Moderate (Negative); Nitrite Negative (Negative); Specific Gravity 1.015 (1.005-1.025); Urobilinogen 0.2 EU/dL (Up TO 0.2)
[2021-03-18 13:27] LABS: Bacteria Few HPF (Negative); C & S Indicated? Yes; Casts 3-5 Hyaline LPF (Negative); Crystals Negative HPF (Negative); Epithelial Cells Rare HPF (Negative); Mucus Negative (Negative); RBC 20-50 HPF (0-2); WBC >50 HPF (0-5)
== END 2021-03-18 15:23 | disposition home or self-care (01) ==
LOC: LBN 15:22
PROVIDERS: PCP Internal Medicine; Visit Provider Family Medicine
DX: N39.0 Urinary tract infection, site not specified (principal)
CPT/HCPCS: 81003; 81015; 87086

== ENCOUNTER 2021-04-01 15:18 | Outpatient (REF) | payer MEDICARE, OTHER, SELFPAY ==
[2021-04-01 17:01] LABS: Abs Immature Grans 0.19 10^3/uL (0.0-0.06); Absolute Basophil Count 0.05 10^3/uL (0.0-0.2); Absolute Eosinophil Count 0.37 10^3/uL (0.0-0.7); Absolute Lymphocyte Count 1.15 10^3/uL (1.2-3.4); Absolute Monocyte Count 1.13 10^3/uL (0.1-0.8); Absolute Neutrophil Count 7.44 10^3/uL (1.2-6.7); Basophils % 0.5; Eosinophils % 3.6; HCT 32.5 % (40.0-50.0); HGB 10.8 g/dL (13.5-17.5); Immature Grans % 1.8; Lymphocytes % 11.1; MCH 28.1 pg (27.0-33.0); MCHC 33.2 % (32.0-36.0); MCV 84.4 fL (80-95); MPV 10.1 fL (8.0-11.0); Monocytes % 10.9; Neutrophils % 72.1; Nucleated RBC 0 %; Platelet Count 286 10^3/uL (130-400); RBC 3.85 10^6/uL (4.36-5.78); RDW 14.5 % (11.8-14.1); RDW-SD 44.5 fL; WBC 10.33 10^3/uL (4.4-10.8)
[2021-04-01 17:14] LABS: ALT 25 U/L (16-63); AST 29 U/L (15-37); Albumin 2.1 g/dL (3.4-5.0); Alkaline Phosphatase 88 U/L (46-116); Anion Gap 12.7 mmol/L (3-11); BUN 78 mg/dL (7-18); Bilirubin, Total 0.6 mg/dL (0.2-1.0); CO2 23.3 mmol/L (21.0-32.0); Calcium 8.5 mg/dL (8.5-10.1); Chloride 96 mmol/L (98-107); Estimated GFR 5.99 (mL/min/1.73m2); Glucose 140 mg/dL (74-106); Potassium 4.2 mmol/L (3.5-5.1); Sodium 132 mmol/L (136-145); Total Protein 6.1 g/dL (6.4-8.2)
[2021-04-01 17:27] LABS: CREATININE 8.8 mg/dL (0.70-1.30)
== END 2021-04-01 15:19 | disposition home or self-care (01) ==
LOC: LBN 15:18
PROVIDERS: PCP Internal Medicine; Visit Provider Nurse Practitioner Family
DX: R53.1 Weakness (principal); R53.83 Other fatigue; R26.81 Unsteadiness on feet; N39.0 Urinary tract infection, site not specified
CPT/HCPCS: 80053; 85025

== ENCOUNTER 2021-04-01 18:23 | Inpatient (IN) | payer OTHER, SELFPAY ==
[2021-04-01] VITALS (11 sets, daily range): BP systolic 84–114; BP diastolic 53–69; PULSE 72–84; RESP 12–18; TEMP 36.8; O2SAT 94–97
--- NOTE | 2021-04-01 18:15 | RT.EKG_ITS ---
APPROVED REPORT Exam: Resting ECG Reason for Exam: lethargy Patient Location: E HR:75 bpm ECG Measurements Heart Rate 75 AXIS CA 191 P 0 QRSd 112 QRS 68 QT 399 T 3 QTc 447 Conclusion Sinus rhythm...normal P axis, V-rate 60- 99 Inferior infarct, old...Q >35mS, II III aVF
--- NOTE | 2021-04-01 18:30 | DI.CT_ITS ---
Exam(s) CT ABDOMEN PELVIS WO EXAM: CT ABDOMEN PELVIS WO CLINICAL HISTORY: recent urinary stent, hypotension. TECHNIQUE: Imaging Protocol: Axial computed tomography images with coronal and sagittal reformatted images were created and reviewed. COMPARISON: No exams were available for comparison FINDINGS: The examination is limited due to patient motion artifact. ABDOMEN: Lung Bases: Small right pleural effusion and subjacent infiltrate which may represent atelectasis or pneumonia. There is mild thickening of the wall of the distal visualized esophagus. Liver: Normal density. No measurable mass. Gallbladder and biliary tract: No radiodense calculus or biliary ductal dilation. Pancreas: Normal density, no abnormal calcifications or inflammatory process. Spleen: Normal. Kidneys: Normal size, contour and axis.There is bilateral nephrolithiasis. There appears to be a cys t in the lower pole of the right kidney. There is marked dilatation of the right renal collecting to the level of the pelvic inlet. There is also moderate dilatation of the left renal collecting syste m to the level of the pelvic inlet. Both distal ureters appear normal in caliber. There is a right nephroureteral stent in place. Adrenal glands: No mass is seen. Lymph nodes: Within normal limits. Abdominal Aorta: Abdominal portion non-dilated. Atherosclerosis. PELVIS: Bladder:Symmetric distention, no gross wall thickening. The urinary bladder is markedly distended. T here is a small focus of air in the dependent portion of the urinary bladder. This may be secondary to recent catheterization. Bowel: No obstruction or bowel wall thickening. No evidence of appendicitis. Peritoneal cavity: No ascites, collection or mesenteric inflammatory response. No free air. Reproductive organs: There is an enlarged prostate gland. Bones: Within normal limits. Soft Tissues: There is a small fat containing right inguinal hernia. IMPRESSION: 1. Marked a bladder distension with prostatic enlargement concerning for bladder outlet obstruction. 2. Moderate left and marked right hydronephrosis and hydroureter which may be due to bladder outlet o bstruction. No ureterolithiasis. 3. Right nephroureteral stent in good position. 4. Bilateral nephrolithiasis. 5. Small right pleural effusion and right basilar infiltrate which may represent atelectasis or pneum onia. 6. Small focus of air in the urinary bladder which may reflect recent catheterization. Clinical leonid elation is recommended. 7. Question of thickening of the distal esophagus. This is nonspecific but a soft lead database administrator is cannot be e xcluded. Nonemergent follow-up is recommended. RADIATION DOSE DELIVERED: 897.8mGy.cm Total DLP DATA REPOSITORY: All CT scans at this facility are submitted to the National Radiology Data Registry (NRDR) Dose Index Registry (DIR) with the [employer] ([employer]). RADIATION OPTIMIZATION: All CT scans at this facility use at least one of these dose optimization te chniques: automated exposure control; mA and/or kV adjustment per patient size (includes targeted exa ms where dose is matched to clinical indication); or iterative reconstruction.
[2021-04-01 19:09] LABS: Bilirubin Negative (Negative); Blood Moderate (Negative); Clarity Clear (Clear); Glucose Negative (Negative); Ketones Negative (Negative); Leukocyte Esterase Small (Negative); Nitrite Negative (Negative); Specific Gravity 1.015 (1.005-1.025); Urobilinogen 0.2 EU/dL (Up TO 0.2)
[2021-04-01 19:16] LABS: Bacteria Few HPF (Negative); C & S Indicated? No; Casts Negative LPF (Negative); Crystals Negative HPF (Negative); Epithelial Cells Few HPF (Negative); Mucus Negative (Negative); WBC 20-50 HPF (0-5)
[2021-04-01 19:18] LABS: Abs Immature Grans 0.23 10^3/uL (0.0-0.06); Absolute Basophil Count 0.05 10^3/uL (0.0-0.2); Absolute Eosinophil Count 0.61 10^3/uL (0.0-0.7); Absolute Monocyte Count 1.07 10^3/uL (0.1-0.8); Absolute Neutrophil Count 6.96 10^3/uL (1.2-6.7); Basophils % 0.5; Eosinophils % 5.9; HCT 32.4 % (40.0-50.0); HGB 10.7 g/dL (13.5-17.5); Immature Grans % 2.2; Lactate 0.7 mmol/L (0.6-1.4); Lymphocytes % 14.4; MCV 84.8 fL (80-95); MPV 9.5 fL (8.0-11.0); Monocytes % 10.3; Neutrophils % 66.7; Nucleated RBC 0 %; Platelet Count 267 10^3/uL (130-400); RBC 3.82 10^6/uL (4.36-5.78); RDW 14.5 % (11.8-14.1); RDW-SD 44.7 fL; WBC 10.42 10^3/uL (4.4-10.8)
[2021-04-01 19:23] LABS: Source Nasal/Nares
--- NOTE | 2021-04-01 19:29 | DI.VRAD_ITS ---
PROCEDURE INFORMATION: Exam: CT Abdomen And Pelvis Without Contrast Exam date and time: 04/01/2021 6:37 PM Age: 71 years old Clinical indication: Other: Difficulty urinating; Prior surgery; Surgery date: <1 month; Surgery type: Recent stent, unknown date; Patient HX: Recent urinary stent, hypotension TECHNIQUE: Imaging protocol: Computed tomography of the abdomen and pelvis without contrast. Total images: 1288 COMPARISON: US RENAL 10/31/2020 12:14 PM FINDINGS: Lungs: Small right basilar pleural effusion with adjacent compressive atelectasis. Minor atelectasis in the left lung base. Heart: Mild cardiomegaly.There is mild calcification of the aortic valve. Mediastinal space: Wall thickening in the distal 3rd of the esophagus which is nonspecific but suspicious for esophagitis, consider nonemergent esophagram or endoscopic assessment as clinically indicated. Liver: Normal contour. No mass lesions. No intrahepatic biliary ductal dilatation. Gallbladder and bile ducts: The gallbladder is contracted but otherwise unremarkable. Nondilated common bile duct. Pancreas: Normal. No inflammatory changes or ductal dilation. Spleen: Normal. No splenomegaly. Adrenal glands: Normal. No adrenal mass. Kidneys and ureters: Moderate-severe bilateral hydronephrosis and hydroureter with moderate symmetrical perinephric stranding. This is probably postobstructive in nature given the degree of urinary bladder distension concerning for bladder outlet obstruction. There is a right-sided ureteral stent in place with the proximal loop positioned in the upper pole infundibulum of the right kidney and the distal loop positioned in the bladder lumen, without gross breakage or kink. There are numerous nonobstructive right renal stones measuring between 2 mm and 18 mm in size. There are numerous nonobstructive left renal stones measuring between 3 mm and 11 mm in size. No ureteral stones are identified currently. Stomach and bowel: The stomach is unremarkable. The small bowel is nondilated with no gross abnormality. No acute colonic abnormalities. Moderate colonic gas and stool. Appendix: The appendix is normal in caliber and demonstrates no evidence of appendicitis. Intraperitoneal space: No free fluid or air. Vasculature: Moderate atherosclerotic aortoiliac calcification without aneurysm. Circumaortic left renal vein configuration noted. Lymph nodes: There are few borderline enlarged upper abdominal periaortic nodes measuring up to 9.5 mm short axis, nonspecific. Urinary bladder: Severe urinary bladder distension measuring 19.2 x 10.0 x 13.7 cm, estimated volume 1350 mL. There is a small amount of air in the urinary bladder, probably related to recent catheterization although clinical correlation is recommended. No gross signs of fistula or infection otherwise. Reproductive: Moderately enlarged prostate. Bones/joints: No acute osseous abnormalities. Suspected osteopenia. Chronic Schmorl's nodes at L1 and a few lower thoracic levels. Soft tissues: Small fatty right inguinal hernia with no associated bowel herniation or evidence of strangulation. IMPRESSION: 1. Severe urinary bladder distension with estimated bladder volume 1350 mL and moderate prostate enlargement, concerning for bladder outlet obstruction. 2. There is a small amount of air in the urinary bladder, probably related to recent catheterization although clinical correlation is recommended. 3. Moderate-severe bilateral hydronephrosis and hydroureter with moderate symmetrical perinephric stranding, likely postobstructive hydronephrosis given the degree of bladder distension. 4. Right ureteral stent grossly well positioned without evidence of breakage or kink. 5. Multiple bilateral nonobstructive renal stones. No ureteral stones are identified currently. 6. Small right basilar pleural effusion. 7. Wall thickening in the distal 3rd of the esophagus, nonspecific but suspicious for esophagitis, consider nonemergent esophagram or endoscopic assessment. 8. Borderline enlarged upper abdominal periaortic nodes, nonspecific. 9. Additional nonemergent findings detailed above. Dictated and Authenticated by: José Miguel Mosqueda MD. Ordering:ROLANDO Yates MD
[2021-04-01 19:46] LABS: ALT 20 U/L (16-63); AST 36 U/L (15-37); Albumin 2.1 g/dL (3.4-5.0); Alkaline Phosphatase 86 U/L (46-116); Anion Gap 12.5 mmol/L (3-11); Bilirubin, Total 0.5 mg/dL (0.2-1.0); CO2 23.5 mmol/L (21.0-32.0); Calcium 8.6 mg/dL (8.5-10.1); Chloride 95 mmol/L (98-107); Glucose 130 mg/dL (74-106); Sodium 131 mmol/L (136-145); Total Protein 6.6 g/dL (6.4-8.2); Troponin I < 50 ng/L (<or=60)
[2021-04-01] MEDS: Normal Saline 1,000 ML 1000 ML IV (19:55)
[2021-04-01 19:58] LABS: Estimated GFR 5.91 (mL/min/1.73m2)
[2021-04-01 19:59] LABS: BUN 87 mg/dL (7-18)
[2021-04-01 20:00] LABS: CREATININE 8.9 mg/dL (0.70-1.30)
[2021-04-01 20:35] LABS: TSH (W/Ref FT4) 1.73 uIU/mL (0.36-3.74)
--- NOTE | 2021-04-01 21:13 | ED.GENADUL_ITS ---
Discharge Plan Disposition Patient Disposition: [facility] INPATIENT Condition: Serious Discharge Details Chief Complaint: GenMedical Clinical Impression: Hypovolemia, Bladder outlet obstruction Primary Care Provider: Domingo Hooks ED Provider: Milan Garcia Home Meds and New Rx's Prescriptions: No Action magnesium oxide 420 mg Tablet 420 mg PO BID RF: 0 calcium 500 mg Tablet 500 mg PO DAILY PRNRF: 0 bisacodyl 10 mg Suppository 10 mg HI DAILY PRNRF: 0 docusate sodium 100 mg Capsule 100 mg PO BID PRNRF: 0 Multi-Daily W/Minerals Tablet 1 tab PO DAILY RF: 0 carboxymethylcellulose sodium Drops 1 drp OPHTHALMIC (EYE) QID PRNRF: 0 amlodipine 10 mg Tablet 10 mg PO DAILY Qty: 30 RF: 0 aspirin 81 mg Tablet,Chewable 81 mg PO DAILY Qty: 30 RF: 0 tamsulosin 0.4 mg Capsule 0.4 mg PO DAILY@1800 Qty: 30 RF: 0 folic acid 1 mg Tablet 1 mg PO DAILY Qty: 30 RF: 0 atorvastatin 20 mg tablet 20 mg PO QHS Qty: 30 RF: 0 carvedilol [Coreg] 12.5 mg tablet 12.5 mg PO BID Qty: 60 RF: 0 acetaminophen 500 mg Tablet 1,000 mg PO Q8H PRN PRNRF: 0 hydralazine 25 mg tablet 25 mg PO TID RF: 0 levothyroxine 50 mcg Tablet 50 mcg PO DAILY@0600 Qty: 30 RF: 0 cephalexin 500 mg Tablet 500 mg PO Q12H RF: 0 Medical Decision Making 71-year-old male with multiple medical problems presents from intermediate with abnormal labs including significantly elevated creatinine. Patient apparently had recent ureteral stent placed at the [facility] without complication. Patient has no complaints on exam. He denies pain. He is hypotensive on arrival appears hypovolemic. Patient was given IV fluid bolus of 1 L crystalloid and blood pressure significantly improved. Labs were repeated here and confirmed that creatinine is significantly elevated at 8.9 with a BUN of 87. CT the abdomen pelvis was obtained to assess for acute surgical pathology including stent malfunction. CT interpreted by radiology as severe urinary bladder distention, estimated volume 1350 mL and moderate prostate enlargement concerning for bladder outlet obstruction. Moderate to severe bilateral hydronephrosis with hydroureter with moderate symmetrical perinephric stranding likely postobstructive hydronephrosis given the degree of bladder distention. Right ureteral stent well positioned without evidence of breakage or kink. Nursing attempted to assist patient with urination and was unable to urinate. Olvera catheter placed. 2119 -- Patient will require hospitalization. I called [facility] to request transfer given recent urology treatment. Awaiting call back. 2219 -- I spoke with physician healthcare consultant at [facility] and they have no beds and recommend admission here. Will discuss case with Dr. Jerez. --Case discussed with Dr. Jerez, discussed ED presentation and course, he will admit the patient. Imaging Data Radiologic Study: Radiologist's impression: FINDINGS: Lungs: Small right basilar pleural effusion with adjacent compressive atelectasis. Minor atelectasis in the left lung base. Heart: Mild cardiomegaly.There is mild calcification of the aortic valve. Mediastinal space: Wall thickening in the distal 3rd of the esophagus which is nonspecific but suspicious for esophagitis, consider nonemergent esophagram or endoscopic assessment as clinically indicated. Liver: Normal contour. No mass lesions. No intrahepatic biliary ductal dilatation. Gallbladder and bile ducts: The gallbladder is contracted but otherwise unremarkable. Nondilated common bile duct. Pancreas: Normal. No inflammatory changes or ductal dilation. Spleen: Normal. No splenomegaly. Adrenal glands: Normal. No adrenal mass. Kidneys and ureters: Moderate-severe bilateral hydronephrosis and hydroureter with moderate symmetrical perinephric stranding. This is probably postobstructive in nature given the degree of urinary bladder distension concerning for bladder outlet obstruction. There is a right-sided ureteral stent in place with the proximal loop positioned in the upper pole infundibulum of the right kidney and the distal loop positioned in the bladder lumen, without gross breakage or kink. There are numerous nonobstructive right renal stones measuring between 2 mm and 18 mm in size. There are numerous nonobstructive left renal stones measuring between 3 mm and 11 mm in size. No ureteral stones are identified currently. Stomach and bowel: The stomach is unremarkable. The small bowel is nondilated with no gross abnormality. No acute colonic abnormalities. Moderate colonic gas and stool. Appendix: The appendix is normal in caliber and demonstrates no evidence of appendicitis. Intraperitoneal space: No free fluid or air. Vasculature: Moderate atherosclerotic aortoiliac calcification without aneurysm. Circumaortic left renal vein configuration noted. Lymph nodes: There are few borderline enlarged upper abdominal periaortic nodes measuring up to 9.5 mm short axis, nonspecific. Urinary bladder: Severe urinary bladder distension measuring 19.2 x 10.0 x 13.7 cm, estimated volume 1350 mL. There is a small amount of air in the urinary bladder, probably related to recent catheterization although clinical correlation is recommended. No gross signs of fistula or infection otherwise. Reproductive: Moderately enlarged prostate. Bones/joints: No acute osseous abnormalities. Suspected osteopenia. Chronic Schmorl's nodes at L1 and a few lower thoracic levels. Soft tissues: Small fatty right inguinal hernia with no associated bowel herniation or evidence of strangulation. IMPRESSION: 1. Severe urinary bladder distension with estimated bladder volume 1350 mL and moderate prostate enlargement, concerning for bladder outlet obstruction. 2. There is a small amount of air in the urinary bladder, probably related to recent catheterization although clinical correlation is recommended. 3. Moderate-severe bilateral hydronephrosis and hydroureter with moderate symmetrical perinephric stranding, likely postobstructive hydronephrosis given the degree of bladder distension. 4. Right ureteral stent grossly well positioned without evidence of breakage or kink. 5. Multiple bilateral nonobstructive renal stones. No ureteral stones are identified currently. 6. Small right basilar pleural effusion. 7. Wall thickening in the distal 3rd of the esophagus, nonspecific but suspicious for esophagitis, consider nonemergent esophagram or endoscopic assessment. 8. Borderline enlarged upper abdominal periaortic nodes, nonspecific. 9. Additional nonemergent findings detailed above. HPI General Mode of arrival: EMS . Date/Time Provider Initiated Documentation: 04/01/21 18:27 . Limitations to Documentation: no limitations . Information obtained by: patient and EMS . HPI Narrative: 71-year-old male with multiple local problems arise from intermediate with concern for significantly elevated creatinine from baseline. Creatinine apparently 8 on outpatient labs today. Patient denies complaint. History review of systems limited secondary to dementia. Patient denies pain. Patient currently had recent ureteral stent placed at [facility]. Related Data Home Medications Medication Instructions Recorded Confirmed amlodipine 10 mg PO DAILY #30 tab 01/27/19 04/01/21 aspirin 81 mg PO DAILY #30 tab 01/27/19 04/01/21 atorvastatin 20 mg PO QHS #30 tab 01/27/19 04/01/21 carvedilol [Coreg] 12.5 mg PO BID #60 tab 01/27/19 04/01/21 folic acid 1 mg PO DAILY #30 tab 01/27/19 04/01/21 tamsulosin 0.4 mg PO DAILY@1800 #30 cap 01/27/19 04/01/21 acetaminophen 1,000 mg PO Q8H PRN PRN 08/28/19 04/01/21 hydralazine 25 mg PO TID 08/28/19 04/01/21 levothyroxine 50 mcg PO DAILY@0600 #30 tab 10/31/20 04/01/21 bisacodyl 10 mg HI DAILY PRN 02/27/21 04/01/21 calcium 500 mg PO DAILY PRN 02/27/21 04/01/21 carboxymethylcellulose sodium 1 drp OPHTHALMIC (EYE) QID PRN 02/27/21 04/01/21 docusate sodium 100 mg PO BID PRN 02/27/21 04/01/21 magnesium oxide 420 mg PO BID 02/27/21 04/01/21 multivitamin with minerals 1 tab PO DAILY 02/27/21 04/01/21 [Multi-Daily W/Minerals] cephalexin 500 mg PO Q12H 04/01/21 04/01/21 Previous Rx's Medication Instructions Recorded amlodipine 10 mg PO DAILY #30 tab 01/27/19 aspirin 81 mg PO DAILY #30 tab 01/27/19 atorvastatin 20 mg PO QHS #30 tab 01/27/19 carvedilol [Coreg] 12.5 mg PO BID #60 tab 01/27/19 folic acid 1 mg PO DAILY #30 tab 01/27/19 tamsulosin 0.4 mg PO DAILY@1800 #30 cap 01/27/19 levothyroxine 50 mcg PO DAILY@0600 #30 tab 10/31/20 Allergies Allergy/AdvReac Type Severity Reaction Status Date / Time No Known Allergies Allergy Unverified 04/01/21 18:33 General Stated Complaint: GenMedical SUNNI: 3 Review of Systems Unobtainable due to mental status PFSH All Active Problems (Updated 04/01/21 @ 23:48 by Milan Garcia MD) Hypovolemia (Acute) Bladder outlet obstruction (Acute) Obstructive uropathy (Acute) Hypothyroidism (Chronic) UTI (urinary tract infection) (Acute) Nonsustained ventricular tachycardia (Acute) Mild dementia (Acute) Hypertensive emergency (Acute) Parathyroid adenoma (Acute) Discharge planning issues (Acute) Hypertension (Chronic) CVA (cerebral vascular accident) (Chronic) DVT prophylaxis (Acute) ALICJA (acute kidney injury) (Acute) Altered mental status (Acute) 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) Renal insufficiency (Acute) Hypercalcemia (Acute) Medical History (Updated 04/01/21 @ 23:48 by Milan Garcia MD) Cataracts, bilateral Left sided lacunar infarction Memory impairment Social History Smoking/Tobacco Use Status: Never Smoking risk assessment performed?: Yes Alcohol Intake: never Drug use: Never Substance use type: does not use Do you feel safe at home: Yes Do you feel safe in your relationship?: Yes Exam Const General: cooperative and no acute distress HENMT Head: normocephalic and atraumatic Mouth: mucous membranes dry Eyes Conjunctivae: normal conjunctivae Sclera: normal sclerae Neck Neck: supple Resp Auscultation: clear to auscultation bilaterally, no rales, no rhonchi and no wheezes Cardio Rate: regular rate and not tachycardic Rhythm: regular rhythm GI Palpation: soft, not firm, no guarding, no masses, not rigid, nontender and other (Suprapubic fullness) Skin General skin exam: no rashes or lesions noted Neuro General: patient alert, patient awake and tone normal Extrem General: no edema Course Vital Signs Vital signs: Vital Signs Temperature 36.8 C 04/01/21 18:29 Pulse 77 04/01/21 18:29 Respiratory Rate 12 04/01/21 18:29 Blood Pressure 87/59 L 04/01/21 18:29 Pulse Oximetry 94 04/01/21 18:29 Temperature 36.8 C 04/01/21 18:29 Temperature Source Temporal Artery Scan 04/01/21 18:29 Pulse 76 04/01/21 20:08 Respiratory Rate 18 04/01/21 20:08 Respiratory Effort 04/01/21 19:19 Respiratory Depth Normal 04/01/21 19:19 Respiratory Pattern Normal 04/01/21 19:19 Blood Pressure 93/64 L 04/01/21 20:08 Blood Pressure Position Sitting 04/01/21 18:29 Pulse Oximetry 96 04/01/21 20:08 Oxygen Delivery Method Room Air 04/01/21 20:08 Oxygen Flow Rate 0 04/01/21 20:08 Pain Level 0 04/01/21 18:29 Lab/Test Results Lab/Test Results: 04/01/21 19:20 Blood Blood Culture - Pending 04/01/21 19:12 Blood Blood Culture - Pending Laboratory Tests Range/Units 04/01/21 04/01/21 04/01/21 19:00 19:12 19:12 WBC (4.4-10.8) 10^3/uL 10.42 RBC (4.36-5.78) 10^6/uL 3.82 L Hgb (13.5-17.5) g/dL 10.7 L Hct (40.0-50.0) % 32.4 L MCV (80-95) fL 84.8 MCH (27.0-33.0) pg 28.0 MCHC (32.0-36.0) % 33.0 RDW (11.8-14.1) % 14.5 H Plt Count (130-400) 10^3/uL 267 MPV (8.0-11.0) fL 9.5 Immature Gran % 2.2 Neutrophils % 66.7 Lymphocytes % 14.4 Monocytes % 10.3 Eosinophils % 5.9 Basophils % 0.5 Nucleated RBC % % 0 Absolute Neutrophils (1.2-6.7) 10^3/uL 6.96 H Absolute Lymphocytes (1.2-3.4) 10^3/uL 1.50 Absolute Monocytes (0.1-0.8) 10^3/uL 1.07 H Absolute Eosinophils (0.0-0.7) 10^3/uL 0.61 Absolute Basophils (0.0-0.2) 10^3/uL 0.05 VBG Lactate (0.6-1.4) mmol/L Sodium (136-145) mmol/L 131 L Potassium (3.5-5.1) mmol/L 4.0 Chloride (98-107) mmol/L 95 L Carbon Dioxide (21.0-32.0) mmol/L 23.5 Anion Gap (3-11) mmol/L 12.5 H BUN (7-18) mg/dL 87 H* Creatinine (0.70-1.30) mg/dL 8.9 H* Estimated GFR/1.73 m2 (mL/min/1.73m2) 5.91 Glucose (74-106) mg/dL 130 H Calcium (8.5-10.1) mg/dL 8.6 Total Bilirubin (0.2-1.0) mg/dL 0.5 AST (15-37) U/L 36 ALT (16-63) U/L 20 Alkaline Phosphatase (46-116) U/L 86 Troponin I (<or=60) ng/L < 50 Total Protein (6.4-8.2) g/dL 6.6 Albumin (3.4-5.0) g/dL 2.1 L TSH (0.36-3.74) uIU/mL Urine Color (Yellow) Yellow Urine Clarity (Clear) Clear Urine pH (5-8) 6.0 Ur Specific [place] (1.005-1.025) 1.015 Urine Protein (Negative) mg/dL 100 H Urine Ketones (Negative) mg/dL Negative Urine Blood (Negative) Moderate H Urine Nitrite (Negative) Negative Urine Bilirubin (Negative) Negative Urine Urobilinogen (Up TO 0.2) EU/dL 0.2 Ur Leukocyte Esterase (Negative) Small H Urine RBC (0-2) HPF 10-20 H Urine WBC (0-5) HPF 20-50 H Ur Epithelial Cells (Negative) HPF Few Urine Crystals (Negative) HPF Negative Urine Bacteria (Negative) HPF Few Urine Casts (Negative) LPF Negative Urine Mucus (Negative) Negative Ur Culture Indicated? No Urine Glucose (Negative) mg/dL Negative COVID-19 Source Range/Units 04/01/21 04/01/21 04/01/21 19:12 19:12 19:20 WBC (4.4-10.8) 10^3/uL RBC (4.36-5.78) 10^6/uL Hgb (13.5-17.5) g/dL Hct (40.0-50.0) % MCV (80-95) fL MCH (27.0-33.0) pg MCHC (32.0-36.0) % RDW (11.8-14.1) % Plt Count (130-400) 10^3/uL MPV (8.0-11.0) fL Immature Gran % Neutrophils % Lymphocytes % Monocytes % Eosinophils % Basophils % Nucleated RBC % % Absolute Neutrophils (1.2-6.7) 10^3/uL Absolute Lymphocytes (1.2-3.4) 10^3/uL Absolute Monocytes (0.1-0.8) 10^3/uL Absolute Eosinophils (0.0-0.7) 10^3/uL Absolute Basophils (0.0-0.2) 10^3/uL VBG Lactate (0.6-1.4) mmol/L 0.7 Sodium (136-145) mmol/L Potassium (3.5-5.1) mmol/L Chloride (98-107) mmol/L Carbon Dioxide (21.0-32.0) mmol/L Anion Gap (3-11) mmol/L BUN (7-18) mg/dL Creatinine (0.70-1.30) mg/dL Estimated GFR/1.73 m2 (mL/min/1.73m2) Glucose (74-106) mg/dL Calcium (8.5-10.1) mg/dL Total Bilirubin (0.2-1.0) mg/dL AST (15-37) U/L ALT (16-63) U/L Alkaline Phosphatase (46-116) U/L Troponin I (<or=60) ng/L Total Protein (6.4-8.2) g/dL Albumin (3.4-5.0) g/dL TSH (0.36-3.74) uIU/mL 1.73 Urine Color (Yellow) Urine Clarity (Clear) Urine pH (5-8) Ur Specific [place] (1.005-1.025) Urine Protein (Negative) mg/dL Urine Ketones (Negative) mg/dL Urine Blood (Negative) Urine Nitrite (Negative) Urine Bilirubin (Negative) Urine Urobilinogen (Up TO 0.2) EU/dL Ur Leukocyte Esterase (Negative) Urine RBC (0-2) HPF Urine WBC (0-5) HPF Ur Epithelial Cells (Negative) HPF Urine Crystals (Negative) HPF Urine Bacteria (Negative) HPF Urine Casts (Negative) LPF Urine Mucus (Negative) Ur Culture Indicated? Urine Glucose (Negative) mg/dL COVID-19 Source Nasal/Nares
--- NOTE | 2021-04-01 22:53 | HPE_ITS ---
Date of service: 04/01/21 Time of Service: 22:53 Assessment and Plan Assessment and plan (1) Obstructive uropathy: Status: Acute Assessment and plan: Obstructive uropathy. Will leave Olvera in place, hyd rate and monitor I/Os, at some risk for post obstructive diuresis. Unclear if the hypotension is due to dehydration alone, but some concern for possible septic picture given pyuria and CT signs of pyelo, but lactate of 0.7 is reassuring to a degree. In any case will obtain blood cxx and begin empiric Rocephin. Will hold CCB, beta keith, alpha keith and hydralazine until BP stabilizes. Per prior history is Full Code. History of Present Illness History of Present Illness Chief Complaint: elevated creatinine Narrative: 71 male resident of [facility], recent placement right ureteral stent at [facility] (for stones?). Sent here to day for routine labs showing ALICJA with creatinine 8.8. Patient without complaints. CT abdomen shows stent in place, and bilateral hydronephrosis with bilateral perinephric stranding and severe bladder dilatation. Olvera placed with immediate 1600 cc output. [facility] was contacted, no beds, and I was asked to evaluate for admission. Again, patient has no complaints at this time. Review of Systems All systems reviewed & are unremarkable except as noted in HPI and below PFSH All Active Problems (Updated 04/01/21 @ 23:01 by Tavo Jerez MD) Obstructive uropathy (Acute) Hypothyroidism (Chronic) UTI (urinary tract infection) (Acute) Nonsustained ventricular tachycardia (Acute) Mild dementia (Acute) Hypertensive emergency (Acute) Parathyroid adenoma (Acute) Discharge planning issues (Acute) Hypertension (Chronic) CVA (cerebral vascular accident) (Chronic) DVT prophylaxis (Acute) ALICJA (acute kidney injury) (Acute) Altered mental status (Acute) 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) Renal insufficiency (Acute) Hypercalcemia (Acute) Medical History (Updated 04/01/21 @ 23:01 by Tavo Jerez MD) Cataracts, bilateral Left sided lacunar infarction Memory impairment Social History Smoking/Tobacco Use Status: Never Smoking risk assessment performed?: Yes Alcohol Intake: never Drug use: Never Substance use type: does not use Do you feel safe at home: Yes Do you feel safe in your relationship?: Yes Meds Allergies and Home Medications Allergies Allergy/AdvReac Type Severity Reaction Status Date / Time No Known Allergies Allergy Unverified 04/01/21 18:33 Home Medications Medication Instructions Recorded Confirmed Type amlodipine 10 mg PO DAILY #30 tab 01/27/19 04/01/21 Rx aspirin 81 mg PO DAILY #30 tab 01/27/19 04/01/21 Rx atorvastatin 20 mg PO QHS #30 tab 01/27/19 04/01/21 Rx carvedilol [Coreg] 12.5 mg PO BID #60 tab 01/27/19 04/01/21 Rx folic acid 1 mg PO DAILY #30 tab 01/27/19 04/01/21 Rx tamsulosin 0.4 mg PO DAILY@1800 #30 cap 01/27/19 04/01/21 Rx acetaminophen 1,000 mg PO Q8H PRN PRN 08/28/19 04/01/21 History hydralazine 25 mg PO TID 08/28/19 04/01/21 History levothyroxine 50 mcg PO DAILY@0600 #30 tab 10/31/20 04/01/21 Rx bisacodyl 10 mg ID DAILY PRN 02/27/21 04/01/21 History calcium 500 mg PO DAILY PRN 02/27/21 04/01/21 History carboxymethylcellulose sodium 1 drp OPHTHALMIC (EYE) QID PRN 02/27/21 04/01/21 History docusate sodium 100 mg PO BID PRN 02/27/21 04/01/21 History magnesium oxide 420 mg PO BID 02/27/21 04/01/21 History multivitamin with minerals 1 tab PO DAILY 02/27/21 04/01/21 History [Multi-Daily W/Minerals] cephalexin 500 mg PO Q12H 04/01/21 04/01/21 History Exam Narrative Exam Narrative: 94/53, 84, 36.8, 18, 95% RA. Appears dishevelled. HEENT atraumatic; neck supple; lungs clear; heart RRR w/o MRG; abdomen soft and NT back w/o CVAT; extremities w/o edema; neuro Ox2, moves all 4s Results Labs Result diagrams: 04/01/21 19:12 04/01/21 19:12 Labs: Laboratory Results - last 24 hr 04/01/21 04/01/21 04/01/21 19:00 19:12 19:12 WBC 10.42 RBC 3.82 L Hgb 10.7 L Hct 32.4 L MCV 84.8 MCH 28.0 MCHC 33.0 RDW 14.5 H Plt Count 267 MPV 9.5 Immature Gran % 2.2 Neutrophils % 66.7 Lymphocytes % 14.4 Monocytes % 10.3 Eosinophils % 5.9 Basophils % 0.5 Nucleated RBC % 0 Absolute Neutrophils 6.96 H Absolute Lymphocytes 1.50 Absolute Monocytes 1.07 H Absolute Eosinophils 0.61 Absolute Basophils 0.05 VBG Lactate Sodium 131 L Potassium 4.0 Chloride 95 L Carbon Dioxide 23.5 Anion Gap 12.5 H BUN 87 H* Creatinine 8.9 H* Estimated GFR/1.73 m2 5.91 Glucose 130 H Calcium 8.6 Total Bilirubin 0.5 AST 36 ALT 20 Alkaline Phosphatase 86 Troponin I < 50 Total Protein 6.6 Albumin 2.1 L TSH Urine Color Yellow Urine Clarity Clear Urine pH 6.0 Ur Specific [place] 1.015 Urine Protein 100 H Urine Ketones Negative Urine Blood Moderate H Urine Nitrite Negative Urine Bilirubin Negative Urine Urobilinogen 0.2 Ur Leukocyte Esterase Small H Urine RBC 10-20 H Urine WBC 20-50 H Ur Epithelial Cells Few Urine Crystals Negative Urine Bacteria Few Urine Casts Negative Urine Mucus Negative Ur Culture Indicated? No Urine Glucose Negative COVID-19 Source 04/01/21 04/01/21 04/01/21 19:12 19:12 19:20 WBC RBC Hgb Hct MCV MCH MCHC RDW Plt Count MPV Immature Gran % Neutrophils % Lymphocytes % Monocytes % Eosinophils % Basophils % Nucleated RBC % Absolute Neutrophils Absolute Lymphocytes Absolute Monocytes Absolute Eosinophils Absolute Basophils VBG Lactate 0.7 Sodium Potassium Chloride Carbon Dioxide Anion Gap BUN Creatinine Estimated GFR/1.73 m2 Glucose Calcium Total Bilirubin AST ALT Alkaline Phosphatase Troponin I Total Protein Albumin TSH 1.73 Urine Color Urine Clarity Urine pH Ur Specific [place] Urine Protein Urine Ketones Urine Blood Urine Nitrite Urine Bilirubin Urine Urobilinogen Ur Leukocyte Esterase Urine RBC Urine WBC Ur Epithelial Cells Urine Crystals Urine Bacteria Urine Casts Urine Mucus Ur Culture Indicated? Urine Glucose COVID-19 Source Nasal/Nares Last Vital Signs Temp 36.8 C 04/01/21 18:29 Pulse 84 04/01/21 22:35 Resp 18 04/01/21 22:35 BP 94/53 L 04/01/21 22:35 Pulse Ox 95 04/01/21 22:35
[2021-04-01 23:37] LABS: COVID-19 PCR Negative (Negative)
[2021-04-02] VITALS (95 sets, daily range): BP systolic 96–141; BP diastolic 55–80; PULSE 66–91; RESP 13–25; TEMP 36.8–37.6; O2SAT 90–97
[2021-04-02] MEDS: Normal Saline 1,000 ML 125 ML IV (01:26)
[2021-04-02] MEDS: cefTRIAXone 1,000 MG in Normal Saline 50 ML 100 MG IVPB (01:26)
[2021-04-02] MEDS: Levothyroxine 50 MCG TAB PO (06:26)
[2021-04-02 07:25] LABS: Anion Gap 9.7 mmol/L (3-11); CO2 25.3 mmol/L (21.0-32.0); Calcium 8.3 mg/dL (8.5-10.1); Chloride 103 mmol/L (98-107); Estimated GFR 7.43 (mL/min/1.73m2); Glucose 104 mg/dL (74-106); Potassium 3.4 mmol/L (3.5-5.1); Sodium 138 mmol/L (136-145)
[2021-04-02 07:30] LABS: BUN 81 mg/dL (7-18); CREATININE 7.3 mg/dL (0.70-1.30)
--- NOTE | 2021-04-02 07:34 | NUR.NOTE ---
Spoke with nurse at [facility] to ask a few questions about this patient so I could better care for him. He stated that he is a 1 assist with a walker for ambulation since his procedure last week and though he can do a lot for himself, that he takes it nice and slow. RN notified of this conversation. Nursing Note:
--- NOTE | 2021-04-02 08:17 | PGE_ITS ---
Date of Service Date of service: 04/02/21 Time of Service: 10:06 Assessment and Plan Assessment and plan (1) ALICJA (acute kidney injury): Status: Acute Assessment and plan: Combination of prerenal (dehydration) and postrenal (obstructive uropathy). Cr is already better post rucker catheter insertion and decompression of the bladder. Urology is consulted. Will try to match ins and outs in terms of IVF. Continue to monitor Cr. Replete lytes. (2) Obstructive uropathy: Status: Acute Assessment and plan: Due to bladder outlet obstruction with evidence of bladder distention and hydronephrosis. S/p rucker. Cr is already improving - as above. Urology consulted. Holding flomax in light of borderline low BPs. (3) Bladder outlet obstruction: Status: Acute Assessment and plan: As above (4) UTI (urinary tract infection): Status: Acute Assessment and plan: Complicated UTI, present on admission, in setting of obstructive uropathy. Decompressed with a rucker catheter. Await urine C&S results. Does have bilateral nephrolithiasis and a R ureteral stent. Continue empiric ceftriaxone. Await records from the [place] re any prior urine culture results. All our prior records indicate gram positive hadley, mixed. Urology consulted. (5) Hypovolemia: Status: Acute Assessment and plan: BPs better. Will match ins to outs with IVF boluses. No MIVF, per Dr Jensen's recommendation. Hold BP meds at this time. (6) Hypotension: Status: Acute Assessment and plan: As above. BPs better. No evidence of septic shock. Hold BP meds at this time. (7) Hypokalemia: Status: Acute Assessment and plan: Replete; Magnesium is 2.5 (8) DVT prophylaxis: Status: Acute Assessment and plan: start SC heparin (9) Discharge planning issues: Status: Acute Assessment and plan: Full code Transfer out of ICU to med surg floor. Discussed with Dr Jensen. Subjective Subjective Interval history since last seen: Mr Ritter reports discomfort in his bladder. He denies dizziness, chest pain, shortness of breath, nausea. He requests to go from the chair back to bed. 2L out via rucker. BPs stable. Being transferred [facility] med surg. [facility]. Exam Narrative Exam Narrative: General: Frail appearing elderly male, tired, wakes up easily, [place], A&Ox2, cooperative HEENT: EOMI, MMM Heart: RRR, no m/r/g Lungs: CTAB Abdomen: soft, nonteder, nondistended : has a rucker with clear yellow urine and sediment Extremities: no edema BLE's. Objective Last Vital Signs Temp 36.8 C 04/02/21 03:33 Pulse 91 H 04/02/21 06:01 Resp 18 04/02/21 06:30 BP 96/80 L 04/02/21 06:01 Pulse Ox 96 04/02/21 06:30 Laboratory Results - last 24 hr 04/01/21 04/01/21 04/01/21 19:00 19:12 19:12 WBC 10.42 RBC 3.82 L Hgb 10.7 L Hct 32.4 L MCV 84.8 MCH 28.0 MCHC 33.0 RDW 14.5 H Plt Count 267 MPV 9.5 Immature Gran % 2.2 Neutrophils % 66.7 Lymphocytes % 14.4 Monocytes % 10.3 Eosinophils % 5.9 Basophils % 0.5 Nucleated RBC % 0 Absolute Neutrophils 6.96 H Absolute Lymphocytes 1.50 Absolute Monocytes 1.07 H Absolute Eosinophils 0.61 Absolute Basophils 0.05 VBG Lactate Sodium 131 L Potassium 4.0 Chloride 95 L Carbon Dioxide 23.5 Anion Gap 12.5 H BUN 87 H* Creatinine 8.9 H* Estimated GFR/1.73 m2 5.91 Glucose 130 H Calcium 8.6 Total Bilirubin 0.5 AST 36 ALT 20 Alkaline Phosphatase 86 Troponin I < 50 Total Protein 6.6 Albumin 2.1 L TSH Urine Color Yellow Urine Clarity Clear Urine pH 6.0 Ur Specific [place] 1.015 Urine Protein 100 H Urine Ketones Negative Urine Blood Moderate H Urine Nitrite Negative Urine Bilirubin Negative Urine Urobilinogen 0.2 Ur Leukocyte Esterase Small H Urine RBC 10-20 H Urine WBC 20-50 H Ur Epithelial Cells Few Urine Crystals Negative Urine Bacteria Few Urine Casts Negative Urine Mucus Negative Ur Culture Indicated? No Urine Glucose Negative COVID-19 Source SARS-CoV-2 (PCR) 04/01/21 04/01/21 04/01/21 19:12 19:12 19:20 WBC RBC Hgb Hct MCV MCH MCHC RDW Plt Count MPV Immature Gran % Neutrophils % Lymphocytes % Monocytes % Eosinophils % Basophils % Nucleated RBC % Absolute Neutrophils Absolute Lymphocytes Absolute Monocytes Absolute Eosinophils Absolute Basophils VBG Lactate 0.7 Sodium Potassium Chloride Carbon Dioxide Anion Gap BUN Creatinine Estimated GFR/1.73 m2 Glucose Calcium Total Bilirubin AST ALT Alkaline Phosphatase Troponin I Total Protein Albumin TSH 1.73 Urine Color Urine Clarity Urine pH Ur Specific [place] Urine Protein Urine Ketones Urine Blood Urine Nitrite Urine Bilirubin Urine Urobilinogen Ur Leukocyte Esterase Urine RBC Urine WBC Ur Epithelial Cells Urine Crystals Urine Bacteria Urine Casts Urine Mucus Ur Culture Indicated? Urine Glucose COVID-19 Source Nasal/Nares SARS-CoV-2 (PCR) Negative 04/02/21 06:25 WBC RBC Hgb Hct MCV MCH MCHC RDW Plt Count MPV Immature Gran % Neutrophils % Lymphocytes % Monocytes % Eosinophils % Basophils % Nucleated RBC % Absolute Neutrophils Absolute Lymphocytes Absolute Monocytes Absolute Eosinophils Absolute Basophils VBG Lactate Sodium 138 Potassium 3.4 L Chloride 103 Carbon Dioxide 25.3 Anion Gap 9.7 BUN 81 H* Creatinine 7.3 H* Estimated GFR/1.73 m2 7.43 Glucose 104 Calcium 8.3 L Total Bilirubin AST ALT Alkaline Phosphatase Troponin I Total Protein Albumin TSH Urine Color Urine Clarity Urine pH Ur Specific [place] Urine Protein Urine Ketones Urine Blood Urine Nitrite Urine Bilirubin Urine Urobilinogen Ur Leukocyte Esterase Urine RBC Urine WBC Ur Epithelial Cells Urine Crystals Urine Bacteria Urine Casts Urine Mucus Ur Culture Indicated? Urine Glucose COVID-19 Source SARS-CoV-2 (PCR)
[2021-04-02 08:20] LABS: Lab Add On Test DONE
[2021-04-02] MEDS: Aspirin 81 MG CHEW PO (08:24)
[2021-04-02] MEDS: Potassium Chloride 20 MEQ TABCR PO (08:24)
[2021-04-02] MEDS: Lactated Ringers 1,000 ML 1000 ML IV (08:24)
[2021-04-02 08:35] LABS: Magnesium 2.5 mg/dL (1.8-2.4)
--- NOTE | 2021-04-02 08:40 | INITIAL_ITS ---
- If Service Date Differs Date of service: 04/02/21 Time of Service: 08:40 Care Management Initial Assess REASON FOR HOSPITALIZATION:: Obstructive uropathy, hypotension PAST MEDICAL HISTORY/PAST SURGICAL HISTORY:: Cataracts, bilateral. Left sided lacunar infarction. Memory impairment PREVIOUS FUNCTIONAL STATUS/SOCIAL/FAMILY SUPPORTS:: Presents from [facility], placed last October from [facility]. His mother Smiley resides in [facility] as well. 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 He is and has one child, who he has not been in contact with for several years, as he also is serving in the . CURRENT FUNCTIONAL STATUS:: Sandeep remains inpatient in the ICU in M/S status at this time; he remains on Tele. Urology consult-Dr. Blanchard recommends rucker remain in place until [facility] ADVANCE DIRECTIVES:: None at this time. 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 CURRENT HOME/COMMUNITY SERVICES/EQUIPMENT:: [facility] PRIMARY CARE PHYSICIAN:: Linus Hooks: KARRIE POTENTIAL DISCHARGE NEEDS:: Coordinated return to [facility] PATIENT/FAMILY EDUCATION NEEDS:: Review discharge instructions, discuss Ask Me Three. ANTICIPATED BARRIERS TO DISCHARGE:: None identified at this time. TRANSPORTATION:: Via facility's W/C van. PLAN:: Sandeep will return to [facility] via their w/c van when ready per . Wade placed, diurises continues, CM continues to follow.
[2021-04-02] MEDS: Heparin 5,000 UNITS/ML VIAL 5000 UNITS SC ×2 (10:35→21:30)
--- NOTE | 2021-04-02 13:33 | IN_ITS ---
Date of service: 04/02/21 Time of Service: 13:33 PT Notes Visit Reasons: Obstructive Uropathy,Hypotension Physical Therapy Inpatient Initial Evaluation Date: 04/02/2021 Referring Doctor: Candelaria Kat MD PT Orders: PT CONSULT: Limited ability Precautions: Fall. Standard. Activity as tolerated. Patient Profile/Admitting Diagnosis: Sandeep is a 71-year old male admitted from SNF due to abnormal laboratory result and is status post ureteral stent placement at the [place] recently. He is diagnosed with obstructive uropathy and acute kidney injury. 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 Home is handicap- accessible. Receives meals on wheels. Ambulatory with single point cane prior to admission. Equipment Owned/DME: [facility] Subjective: Feels that moving is not convenient for him but was agreeable with mobility assessment. [place] a little out of balance while transferring from chair to bed. Objective: General Observation: Supine in bed. Mental Status: Alert and oriented as to person and place. Able to follow single- step commands. Able pay attention, focus, and respond appropriately although with some delay. Pain: Denies ROM: Right Upper Extremity: Shoulder Flexion WFL. Shoulder abduction WFL. Elbow flexion WFL. Wrist flexion WFL. Functional opening and closing of hand WFL. Left Upper Extremity: Shoulder Flexion WFL. Shoulder abduction WFL. Elbow flexion WFL. Wrist flexion WFL. Functional opening and closing of hand WFL. Right Lower Extremity: Hip flexion WFL. Hip abduction WFL. Knee flexion WFL. Ankle dorsiflexion WFL. Ankle plantarflexion WFL. Left Lower Extremity: Hip flexion WFL. Hip abduction WFL. Knee flexion WFL. Ankle dorsiflexion WFL. Ankle plantarflexion WFL. Strength: Right Upper Extremity: Shoulder flexors 4-/5. Shoulder abductors 4-/5. Elbow flexors 4-/5. Elbow extensors 4-/5. [employer] Psychologist strong. Left Upper Extremity: Shoulder flexors 4-/5. Shoulder abductors 4-/5. Elbow flexors 4-/5. Elbow extensors 4-/5. [employer]vention [employer] Psychologist strong. Right Lower Extremity: Hip flexors 4-/5. Hip abductors 4-/5. Knee flexors 4-/5. Knee extensors 4-5. Ankle dorsiflexors 4-/5. Ankle plantarflexors 4-/5. Left Lower Extremity: Hip flexors 5/5. Hip abductors 5/5. Knee flexors 5/5. Knee extensors 5/5. Ankle dorsiflexors 5/5. Ankle plantarflexors 5/5. Bed Mobility/Transfers: Supine to sit standby assist 45 degrees Sit to stand contact guard assist front-wheeled walker Stand to sit stand by assist with front-wheeled walker Bed to reclining chair minimal assist with front-wheeled walker Reclining chair to be minimal assist with front-wheeled walker Gait: Instructed patient with level surface ambulation short distance in room ambulation of 10 steps requiring contact-guard assist. Mild SOB. Nimo decreased. Step height decreased. Step length decreased. Balance: Static Sitting: Normal Dynamic Sitting: Normal Static Standing: Fair Dynamic Standing: Fair Special Tests: Mobility Limitations Standardized Measure [facility] 6 clicks Basic Mobility Inpatient Short Form: Raw Score: 20 CMS Score: 36% deficit Informed Consent/Education: Patient was instructed in purpose of PT consult and plan of care. Agreeable to proceed with established PT POC to achieve personal goals. Assessment: Sandeep demonstrates functional mobility decline due to weakness, decreased activity tolerance, and impaired balance. Patient presents with clinical signs and symptoms consistent with current/admitting diagnoses that have resulted to mobility limitations, gait instability, generalized weakness, and overall ADL decline as demonstrated by the following impairment level findings: 1. Decreased strength to B Ue/LE major muscle groups 2. Impaired standing balance 3. Impaired activity tolerance 4. Mild Shortness of breath 5. Impaired cognitive issues Impairments are contributing to the following functional limitations: 1. Decline in bed mobility skills 2. Decline in transfer skills 3. Difficulty with ambulation without assistive device 4. Increased completion time for mobility ADL performance 5. Increased risk for falls Patient is assessed as a [id number] moderate complexity based on the following: History: 70-year-old with past medical history as indicated above Examination: Demonstrable impairment in strength, balance, and mobility level with underlying impairments and functional limitations as exhibited above as well as deficit score of 29% utilizing the [facility] Mobility Inpatient Short Form Presentation: Evolving Decision Makin moderate complexity Goals: Goals X1 week 1. Supine-Sit independent 2. Sit-Supine independent 3. Sit-Stand independent 4. Stand-Sit independent with SPC 5. Bed-Chair independent with SPC 6. Chair-Bed independent with SPC 7. Independent gait on level surface with use of SPC for at least 300 feet without report of pain nor dyspnea 8. Good static and dynamic standing balance/tolerance Plan of Care/Treatment Plan: 1-2x/day, 7 days/week x 1 week. Plan of care has been reviewed with the SHOP WORKER providing the service under Physical Therapy direction. Initiate Physical Therapy intervention for pain management as needed, strengthening, bed mobility, transfers, gait, stairs, balance training, and use of assistive device. DISCHARGE RECOMMENDATIONS: Patient will benefit from home health PT services in order to progress mobility level using least restrictive assistive ambulatory device, assess home safety, identify additional equipment needs, and establish a functional maintenance program that will increase ability of patient to remain at home. TREATMENT CODE/TIME: [id number] x 28 minutes beginning at 13:33 PM. Thank you for the opportunity to participate in the care of this patient. Vidya Ralph PT, DPT, CLT [facility] [place], [place]
--- NOTE | 2021-04-02 14:08 | W.UROLOGYCON ---
Date of service: 04/02/21 Time of Service: 14:08 Assessment and Plan Assessment and plan (1) Obstructive uropathy: Status: Acute Assessment and plan: His lower urinary tract is drained with a Olvera catheter and his right kidney is drained with a stent. I would expect his serum creatinine to trend down toward baseline over the next few days. I suspect the right ureteral stent was placed for ureteral obstruction. His CT scan demonstrates multiple stones. I do not believe he will require any type of ureteroscopy or stone treatment while he is here at our facility, so his follow-up will likely be down at the [facility]. Once his serum creatinine returns to baseline, I would expect that we will need to leave his Olvera catheter in place until he is seen at the [facility]. He certainly would be unable to perform intermittent catheterization given his current mental status. From his history, it looks like he has some baseline dementia. History of Present Illness History of Present Illness Chief Complaint: Obstructive uropathy Narrative: This is a 71-year-old gentleman who receives his medical care through the [facility]. He has dementia and is not able to provide an accurate history at this time. The patient recently had a cystoscopy and a right ureteral stent placed. I expect that because of the stent placement was a ureteral stone, but the patient is not able to confirm that for me. He was brought to the emergency room yesterday after he was found to have increasing serum creatinine levels. Apparently, at the time of the presentation, the patient had no real complaints. I am not exactly sure what prompted the blood work. His serum creatinine was over 8. A CT of the abdomen and pelvis showed a distended bladder, bilateral hydronephrosis in the right ureteral stent and appropriate position. A Olvera catheter was placed and over a liter of urine was obtained. The patient was admitted as there were no hospital beds available at the [facility]. Since his admission, his serum creatinine has decreased from 8.9 to 7.3 mg/dL Review of Systems Unobtainable due to mental status PFSH All Active Problems (Updated 04/02/21 @ 10:10 by Candelaria Kat MD) Discharge planning issues (Acute) DVT prophylaxis (Acute) Hypotension (Acute) Hypokalemia (Acute) ALICJA (acute kidney injury) (Acute) Hypovolemia (Acute) Bladder outlet obstruction (Acute) Obstructive uropathy (Acute) Hypothyroidism (Chronic) UTI (urinary tract infection) (Acute) Nonsustained ventricular tachycardia (Acute) Mild dementia (Acute) Hypertensive emergency (Acute) Parathyroid adenoma (Acute) Discharge planning issues (Acute) Hypertension (Chronic) CVA (cerebral vascular accident) (Chronic) DVT prophylaxis (Acute) ALICJA (acute kidney injury) (Acute) Altered mental status (Acute) 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) Renal insufficiency (Acute) Hypercalcemia (Acute) Medical History (Updated 04/02/21 @ 10:10 by Candelaria Kat MD) Cataracts, bilateral Left sided lacunar infarction Memory impairment Social History Smoking/Tobacco Use Status: Never Smoking risk assessment performed?: Yes Alcohol Intake: never Drug use: Never Substance use type: does not use Do you feel safe at home: Yes Do you feel safe in your relationship?: Yes Exam Const General: comfortable GI Inspection: normal to inspection Palpation: soft, no guarding and no masses Other: Olvera catheter in place draining clear urine Results Last Vital Signs Temp 36.8 C 04/02/21 11:53 Pulse 77 04/02/21 12:00 Resp 14 04/02/21 12:01 BP 127/75 04/02/21 12:00 Pulse Ox 96 04/02/21 12:01 Labs Result diagrams: 04/01/21 19:12 04/02/21 06:25 Labs: Laboratory Results - last 24 hr 04/01/21 04/01/21 04/01/21 19:00 19:12 19:12 WBC 10.42 RBC 3.82 L Hgb 10.7 L Hct 32.4 L MCV 84.8 MCH 28.0 MCHC 33.0 RDW 14.5 H Plt Count 267 MPV 9.5 Immature Gran % 2.2 Neutrophils % 66.7 Lymphocytes % 14.4 Monocytes % 10.3 Eosinophils % 5.9 Basophils % 0.5 Nucleated RBC % 0 Absolute Neutrophils 6.96 H Absolute Lymphocytes 1.50 Absolute Monocytes 1.07 H Absolute Eosinophils 0.61 Absolute Basophils 0.05 VBG Lactate Sodium 131 L Potassium 4.0 Chloride 95 L Carbon Dioxide 23.5 Anion Gap 12.5 H BUN 87 H* Creatinine 8.9 H* Estimated GFR/1.73 m2 5.91 Glucose 130 H Calcium 8.6 Magnesium Total Bilirubin 0.5 AST 36 ALT 20 Alkaline Phosphatase 86 Troponin I < 50 Total Protein 6.6 Albumin 2.1 L TSH Urine Color Yellow Urine Clarity Clear Urine pH 6.0 Ur Specific [place] 1.015 Urine Protein 100 H Urine Ketones Negative Urine Blood Moderate H Urine Nitrite Negative Urine Bilirubin Negative Urine Urobilinogen 0.2 Ur Leukocyte Esterase Small H Urine RBC 10-20 H Urine WBC 20-50 H Ur Epithelial Cells Few Urine Crystals Negative Urine Bacteria Few Urine Casts Negative Urine Mucus Negative Ur Culture Indicated? No Urine Glucose Negative COVID-19 Source SARS-CoV-2 (PCR) Add-On Test Request 04/01/21 04/01/21 04/01/21 19:12 19:12 19:20 WBC RBC Hgb Hct MCV MCH MCHC RDW Plt Count MPV Immature Gran % Neutrophils % Lymphocytes % Monocytes % Eosinophils % Basophils % Nucleated RBC % Absolute Neutrophils Absolute Lymphocytes Absolute Monocytes Absolute Eosinophils Absolute Basophils VBG Lactate 0.7 Sodium Potassium Chloride Carbon Dioxide Anion Gap BUN Creatinine Estimated GFR/1.73 m2 Glucose Calcium Magnesium Total Bilirubin AST ALT Alkaline Phosphatase Troponin I Total Protein Albumin TSH 1.73 Urine Color Urine Clarity Urine pH Ur Specific [place] Urine Protein Urine Ketones Urine Blood Urine Nitrite Urine Bilirubin Urine Urobilinogen Ur Leukocyte Esterase Urine RBC Urine WBC Ur Epithelial Cells Urine Crystals Urine Bacteria Urine Casts Urine Mucus Ur Culture Indicated? Urine Glucose COVID-19 Source Nasal/Nares SARS-CoV-2 (PCR) Negative Add-On Test Request 04/02/21 04/02/21 04/02/21 06:25 06:25 06:25 WBC RBC Hgb Hct MCV MCH MCHC RDW Plt Count MPV Immature Gran % Neutrophils % Lymphocytes % Monocytes % Eosinophils % Basophils % Nucleated RBC % Absolute Neutrophils Absolute Lymphocytes Absolute Monocytes Absolute Eosinophils Absolute Basophils VBG Lactate Sodium 138 Potassium 3.4 L Chloride 103 Carbon Dioxide 25.3 Anion Gap 9.7 BUN 81 H* Creatinine 7.3 H* Estimated GFR/1.73 m2 7.43 Glucose 104 Calcium 8.3 L Magnesium 2.5 H Total Bilirubin AST ALT Alkaline Phosphatase Troponin I Total Protein Albumin TSH Urine Color Urine Clarity Urine pH Ur Specific [place] Urine Protein Urine Ketones Urine Blood Urine Nitrite Urine Bilirubin Urine Urobilinogen Ur Leukocyte Esterase Urine RBC Urine WBC Ur Epithelial Cells Urine Crystals Urine Bacteria Urine Casts Urine Mucus Ur Culture Indicated? Urine Glucose COVID-19 Source SARS-CoV-2 (PCR) Add-On Test Request DONE
--- NOTE | 2021-04-02 21:12 | NUR.NOTE ---
pt assisted to call his sister Alma Rosa. no answer. pt would like to call Alma Rosa again in the morning and let her know he is here. pt reports medical appointment soon that she knows about - she needs to tell his neighbor that he is here and will not need a ride to the appointment. Nursing Note:
[2021-04-03] VITALS (8 sets, daily range): BP systolic 116–134; BP diastolic 73–81; PULSE 72–85; RESP 17–19; TEMP 36.2–36.9; O2SAT 95–98
[2021-04-03] MEDS: Normal Saline Flush 10 ML SYR IVP (02:02)
[2021-04-03] MEDS: cefTRIAXone 1 GM/50 ML BAG IVPB (02:02)
[2021-04-03] MEDS: Levothyroxine 50 MCG TAB PO (05:48)
[2021-04-03 06:43] LABS: Abs Immature Grans 0.28 10^3/uL (0.0-0.06); Absolute Basophil Count 0.04 10^3/uL (0.0-0.2); Absolute Eosinophil Count 1.16 10^3/uL (0.0-0.7); Absolute Lymphocyte Count 1.72 10^3/uL (1.2-3.4); Absolute Monocyte Count 0.76 10^3/uL (0.1-0.8); Absolute Neutrophil Count 3.27 10^3/uL (1.2-6.7); Basophils % 0.6; HGB 10.3 g/dL (13.5-17.5); Immature Grans % 3.9; Lymphocytes % 23.8; MCH 27.5 pg (27.0-33.0); MCHC 32.2 % (32.0-36.0); MCV 85.6 fL (80-95); MPV 9.5 fL (8.0-11.0); Monocytes % 10.5; Neutrophils % 45.2; Nucleated RBC 0 %; Platelet Count 286 10^3/uL (130-400); RBC 3.74 10^6/uL (4.36-5.78); RDW 14.2 % (11.8-14.1); RDW-SD 44.1 fL; WBC 7.23 10^3/uL (4.4-10.8)
[2021-04-03 07:12] LABS: Anion Gap 12.2 mmol/L (3-11); BUN 67 mg/dL (7-18); CO2 26.8 mmol/L (21.0-32.0); Calcium 8.2 mg/dL (8.5-10.1); Chloride 102 mmol/L (98-107); Estimated GFR 13.68 (mL/min/1.73m2); Glucose 108 mg/dL (74-106); Potassium 3.3 mmol/L (3.5-5.1); Sodium 141 mmol/L (136-145)
[2021-04-03 07:15] LABS: CREATININE 4.3 mg/dL (0.70-1.30)
[2021-04-03] MEDS: Aspirin 81 MG CHEW PO (07:54)
[2021-04-03] MEDS: Potassium Chloride 20 MEQ TABCR PO (10:30)
[2021-04-03] MEDS: Heparin 5,000 UNITS/ML VIAL 5000 UNITS SC ×2 (10:31→21:40)
--- NOTE | 2021-04-03 10:55 | CMPROGNOTE_ITS ---
- If Service Date Differs Date of service: 04/03/21 Time of Service: 10:55 Care Management Progress Note S/O:Florian was sitting up in bed when CM met with him. He was pleasant but rather vague in his responses. Florian stated that he enjoys being at [facility] and is unsure how long he will remain there. He did share with CM that his mother, with whom he used to live, is there also and that she loves it. He verbalized that she never plans to leave. Clinically Florian is improving and subjectively states that he is feeling much better. A: Sandeep is a 71 lorna old man admitted on 04/02/21 with Obstructive Uropathy P:Anticipate Sandeep will return home when medically cleared with a resumption of RN. He will be driven home via private vehicle by family vs [facility]. He will follow up with his PCP and discharge plan of care. [facility]. CM will continue to follow.
[2021-04-03] MEDS: Potassium Chloride 20 MEQ TABCR 40 MEQ PO (11:13)
--- NOTE | 2021-04-03 15:14 | PT.INTREAT ---
Date of service: 04/03/21 Time of Service: 10:36 PT Notes Visit Reasons: Obstructive Uropathy,Hypotension Inpatient Physical Therapy Treatment Note [facility] Date: 04/03/2021 PRECAUTIONS: Activity as tolerated, Fall SUBJECTIVE: Omar states that he is tired, he is hesitant but eventually agreeable to participating in PT. He states that he does not want to sit in the chair, but eventually agrees to do so. Patient refuses afternoon PT session, stating I'll do it tomorrow. OBJECTIVE: PAIN: No c/o pain BED MOBILITY/TRANSFERS Supine-sit: S Sit-stand: CGA Stand-sit: SBA GAIT Assistive Device: FWW Weight bearing: Full Assist: CGA-SBA Distance: ~ 50' Deviation: Slow pacing THEREX: Patient was instructed in several LE strengthening exercises, completed in a seated position, as per flow sheet. ASSESSMENT: Patient tolerated session without complaint. He was able to tolerate a progression in gait distance with FWW support and CGA-SBA, although with slow pace. PLAN: Continue with global strengthening and general conditioning for improved activity tolerance and mobility, as tolerated. TREATMENT CODE/TIME: 24 minutes; [id number] x2 (10:36)
--- NOTE | 2021-04-03 15:26 | W.PM.PROGNOT ---
Date of Service Date of service: 04/03/21 Time of Service: 15:26 Assessment and Plan Assessment and plan (1) ALICJA (acute kidney injury): Status: Acute Assessment and plan: Combination of prerenal (dehydration) and postrenal (obstructive uropathy). Cr is already better post rucker catheter insertion and decompression of the bladder. Urology is consulted. Will try to match ins and outs in terms of IVF. Continue to monitor Cr. Replete lytes. (2) Obstructive uropathy: Status: Acute Assessment and plan: Due to bladder outlet obstruction with evidence of bladder distention and hydronephrosis. S/p rucker. Cr is already improving - as above. Urology consulted. Holding flomax in light of borderline low BPs. (3) Bladder outlet obstruction: Status: Acute Assessment and plan: As above (4) UTI (urinary tract infection): Status: Acute Assessment and plan: Complicated UTI, present on admission, in setting of obstructive uropathy. Decompressed with a rucker catheter. Urine C&S still pending and evidently was collected when the patient was already on antibiotics. His blood cultures are negative at 24 hrs. I have reviewed cultures from the OR - those were all mixed. All our prior records indicate gram positive hadley, mixed. Does have bilateral nephrolithiasis and a R ureteral stent. Continue empiric ceftriaxone. Per urology, keep the rucker catheter in until seen in the OR. (5) Hypovolemia: Status: Resolved Assessment and plan: BPs better, but not good enough to resume BP meds. No MIVF. (6) Hypotension: Status: Acute Assessment and plan: As above. BPs better. No evidence of septic shock. Hold BP meds at this time. (7) Hypokalemia: Status: Resolved Assessment and plan: recheck in am (8) DVT prophylaxis: Status: Acute Assessment and plan: start SC heparin (9) Discharge planning issues: Status: Acute Assessment and plan: Full code Continues to require hospitalization. Anticipate discharge back to SNF in 24-48 hrs on PO abx. Subjective Subjective Interval history since last seen: You woke me up to tell me sleeping is good for me! Bk says he is doing pretty good, denying dizziness, chest pain, shortness of breath, nausea. He requests that we don't wake him up all the time. Exam Narrative Exam Narrative: General: Frail appearing elderly male, napping, wakes up easily, [place], A&Ox2, more interactive today. HEENT: EOMI, MMM Heart: RRR, no m/r/g Lungs: Crackles at R base. Abdomen: soft, nonteder, nondistended : has a rucker with clear yellow urine Extremities: no edema BLE's. Objective Last Vital Signs Temp 36.2 C L 04/03/21 11:10 Pulse 73 04/03/21 15:00 Resp 17 04/03/21 11:10 BP 116/73 04/03/21 11:10 Pulse Ox 97 04/03/21 11:10 Laboratory Results - last 24 hr 04/03/21 04/03/21 06:14 06:14 WBC 7.23 RBC 3.74 L Hgb 10.3 L Hct 32.0 L MCV 85.6 MCH 27.5 MCHC 32.2 RDW 14.2 H Plt Count 286 MPV 9.5 Immature Gran % 3.9 Neutrophils % 45.2 Lymphocytes % 23.8 Monocytes % 10.5 Eosinophils % 16.0 Basophils % 0.6 Nucleated RBC % 0 Absolute Neutrophils 3.27 Absolute Lymphocytes 1.72 Absolute Monocytes 0.76 Absolute Eosinophils 1.16 H Absolute Basophils 0.04 Sodium 141 Potassium 3.3 L Chloride 102 Carbon Dioxide 26.8 Anion Gap 12.2 H BUN 67 H Creatinine 4.3 H* D Estimated GFR/1.73 m2 13.68 Glucose 108 H Calcium 8.2 L Magnesium 2.0
[2021-04-04] MEDS: cefTRIAXone 1 GM/50 ML BAG IVPB (01:15)
[2021-04-04] MEDS: Levothyroxine 50 MCG TAB PO (06:17)
[2021-04-04 07:25] LABS: Anion Gap 7.2 mmol/L (3-11); CO2 29.8 mmol/L (21.0-32.0); Calcium 8.6 mg/dL (8.5-10.1); Chloride 103 mmol/L (98-107); Estimated GFR 23.41 (mL/min/1.73m2); Glucose 107 mg/dL (74-106); Magnesium 1.6 mg/dL (1.8-2.4); Potassium 3.5 mmol/L (3.5-5.1); Sodium 140 mmol/L (136-145)
[2021-04-04 07:27] LABS: BUN 48 mg/dL (7-18); CREATININE 2.7 mg/dL (0.70-1.30)
[2021-04-04 07:40] VITALS: BP 136/93; PULSE 65; RESP 14; TEMP 36.6; O2SAT 96
[2021-04-04] MEDS: Aspirin 81 MG CHEW PO (08:46)
--- NOTE | 2021-04-04 09:08 | CMPROGNOTE_ITS ---
Care Management Progress Note S/O: Florian continues to make gains towards discharge, mag being repleted today per MD. Anticipate with continued stability, Florian will return to [facility] tomorrow. CM continues to follow. A: Sandeep is a 71 lorna old man admitted on 04/02/21 with Obstructive Uropathy P: Sandeep will return to [facility] via their w/c van when ready per MD. Per MD, anticipate discharge as soon as tomorrow, EVE notified Julianne; Clinical Trial Head at [facility]. EVE will continue to follow.
[2021-04-04] MEDS: Heparin 5,000 UNITS/ML VIAL 5000 UNITS SC ×2 (09:52→22:49)
[2021-04-04] MEDS: MAGNESIUM SULFATE 2 GM/50 ML BAG IVPB (09:52)
[2021-04-04] MEDS: Normal Saline Flush 10 ML SYR IVP (09:52)
--- NOTE | 2021-04-04 11:33 | W.PM.PROGNOT ---
Date of Service Date of service: 04/04/21 Time of Service: 13:24 Assessment and Plan Assessment and plan (1) Obstructive uropathy: Status: Acute Assessment and plan: His serum creatinine approaching baseline with bladder drainage. Ideally, the patient would be started on intermittent catheterization, but with his mental status, he certainly is not a candidate for CIC. I would suggest leaving an indwelling catheter in place until he is seen back by the urology service at the [facility] and follow-up surgical procedures (for his kidney stones) can be arranged. Subjective Subjective Interval history since last seen: The patient offers no new complaints Exam Narrative Exam Narrative: His vital signs are documented elsewhere in the chart His urine is clear in the catheter Objective Last Vital Signs Temp 36.6 C 04/04/21 07:40 Pulse 65 04/04/21 07:40 Resp 14 04/04/21 07:40 BP 136/93 H 04/04/21 07:40 Pulse Ox 96 04/04/21 07:40 Laboratory Results - last 24 hr 04/04/21 06:15 Sodium 140 Potassium 3.5 Chloride 103 Carbon Dioxide 29.8 Anion Gap 7.2 BUN 48 H D Creatinine 2.7 H D Estimated GFR/1.73 m2 23.41 Glucose 107 H Calcium 8.6 Magnesium 1.6 L
--- NOTE | 2021-04-04 14:44 | PT.INTREAT ---
Date of service: 04/04/21 Time of Service: 09:55 PT Notes Visit Reasons: Obstructive Uropathy,Hypotension Inpatient Physical Therapy Treatment Note [facility] Date: 04/04/2021 PRECAUTIONS: Activity as tolerated, Fall SUBJECTIVE: Omar is eventually agreeable to participating in PT, but states that he does not want to do much. OBJECTIVE: PAIN: No c/o pain BED MOBILITY/TRANSFERS Supine-sit: S Sit-supine: I Sit-stand: SBA Stand-sit: SBA with verbal cueing for safety GAIT Assistive Device: FWW Weight bearing: Full Assist: SBA - S Distance: 80' in a.m.; 15' in p.m. Deviation: Slow pacing, path deviation, slow reaction time THEREX: Patient was instructed in several LE strengthening exercises, completed in a seated position, as per flow sheet. ASSESSMENT: Patient tolerated session without complaint. He demonstrates slow pacing and path deviation, as well as slow reaction time. PLAN: Continue with gait and transfer training as well as global strengthening for improved mobility and activity tolerance. TREATMENT CODE/TIME: Session 1: 25 minutes; [id number] x2 (09:55) Session 2: 11 minutes; [id number] (12:31)
--- NOTE | 2021-04-04 14:53 | PGE_ITS ---
Date of Service Date of service: 04/04/21 Time of Service: 14:53 Assessment and Plan Assessment and plan (1) ALICJA (acute kidney injury): Status: Acute Assessment and plan: Combination of prerenal (dehydration) and postrenal (obstructive uropathy). Cr is much improved with decompression of the bladder. Continue to monitor Cr. Replete lytes. (2) Obstructive uropathy: Status: Acute Assessment and plan: Due to bladder outlet obstruction with evidence of bladder distention and hydronephrosis. S/p rucker. Resume flomax. (3) Bladder outlet obstruction: Status: Acute Assessment and plan: As above (4) UTI (urinary tract infection): Status: Acute Assessment and plan: Complicated UTI, present on admission, in setting of obstructive uropathy. Decompressed with a rucker catheter. Urine C&S (done while on abx) shows NGTD. His blood cultures are negative. I have reviewed cultures from the [place] - those were all mixed. All our prior records indicate gram positive hadley, mixed. Does have bilateral nephrolithiasis and a R ureteral stent. Continue empiric ceftriaxone. Per urology, keep the [facility]ucker [facility]. (5) Hypovolemia: Status: Resolved Assessment and plan: BPs better, but not good enough to resume BP meds. No MIVF. (6) Hypotension: Status: Resolved Assessment and plan: As above. BPs better. No evidence of septic shock. Resume flomax. (7) Hypokalemia: Status: Resolved Assessment and plan: recheck in am Replete mag. (8) DVT prophylaxis: Status: Acute Assessment and plan: SC heparin (9) Discharge planning issues: Status: Acute Assessment and plan: Full code Anticipate discharge back to SNF tomorrow on PO abx. Discussed with Dr Blanchard. Subjective Subjective Interval history since last seen: You woke me up from sleep - that should have answered all your questions right there! Denies dizziness, chest pain, shortness of breath, nausea. Exam Narrative Exam Narrative: General: Frail appearing elderly male, napping with TV on; wakes up easily, [place], A&Ox2 HEENT: EOMI, MMM Heart: RRR, no m/r/g Lungs: CTAB Abdomen: soft, nonteder, nondistended : has a rucker with clear yellow urine Extremities: no edema BLE's. Objective Last Vital Signs Temp 36.6 C 04/04/21 07:40 Pulse 65 04/04/21 07:40 Resp 14 04/04/21 07:40 BP 136/93 H 04/04/21 07:40 Pulse Ox 96 04/04/21 07:40 Laboratory Results - last 24 hr 04/04/21 06:15 Sodium 140 Potassium 3.5 Chloride 103 Carbon Dioxide 29.8 Anion Gap 7.2 BUN 48 H D Creatinine 2.7 H D Estimated GFR/1.73 m2 23.41 Glucose 107 H Calcium 8.6 Magnesium 1.6 L
[2021-04-04 15:14] VITALS: BP 133/85; PULSE 75; RESP 15; TEMP 37; O2SAT 93
[2021-04-04 18:00] LABS: Source Nasal/Nares
[2021-04-04 18:35] LABS: COVID-19 PCR Negative (Negative)
[2021-04-04 21:08] VITALS: BP 125/83; PULSE 71; RESP 18; TEMP 36.5; O2SAT 94
[2021-04-04 23:20] VITALS: BP 135/82; PULSE 74; RESP 16; TEMP 36.2; O2SAT 96
[2021-04-05] MEDS: cefTRIAXone 1 GM/50 ML BAG IVPB (02:00)
[2021-04-05] MEDS: Levothyroxine 50 MCG TAB PO (06:32)
[2021-04-05 07:15] LABS: Abs Immature Grans 0.22 10^3/uL (0.0-0.06); Absolute Basophil Count 0.05 10^3/uL (0.0-0.2); Absolute Eosinophil Count 0.63 10^3/uL (0.0-0.7); Absolute Lymphocyte Count 1.84 10^3/uL (1.2-3.4); Absolute Monocyte Count 0.84 10^3/uL (0.1-0.8); Absolute Neutrophil Count 3.49 10^3/uL (1.2-6.7); Basophils % 0.7; Eosinophils % 8.9; HCT 34.3 % (40.0-50.0); HGB 11.1 g/dL (13.5-17.5); Immature Grans % 3.1; MCH 27.6 pg (27.0-33.0); MCHC 32.4 % (32.0-36.0); MCV 85.3 fL (80-95); MPV 9.3 fL (8.0-11.0); Monocytes % 11.9; Neutrophils % 49.4; Nucleated RBC 0 %; Platelet Count 317 10^3/uL (130-400); RBC 4.02 10^6/uL (4.36-5.78); RDW 14.1 % (11.8-14.1); RDW-SD 43.5 fL; WBC 7.07 10^3/uL (4.4-10.8)
[2021-04-05 07:32] VITALS: BP 116/76; PULSE 75; RESP 16; TEMP 37.2; O2SAT 96
[2021-04-05 07:41] LABS: Anion Gap 8.4 mmol/L (3-11); BUN 36 mg/dL (7-18); CO2 28.6 mmol/L (21.0-32.0); CREATININE 2.1 mg/dL (0.70-1.30); Calcium 8.4 mg/dL (8.5-10.1); Chloride 102 mmol/L (98-107); Estimated GFR 31.29 (mL/min/1.73m2); Glucose 104 mg/dL (74-106); Magnesium 1.8 mg/dL (1.8-2.4); Potassium 3.3 mmol/L (3.5-5.1); Sodium 139 mmol/L (136-145)
--- NOTE | 2021-04-05 08:35 | PDOC.CMDIS ---
- If Service Date Differs Date of service: 04/05/21 Time of Service: 08:35 LACE Index Scoring Tool - Questions: Length of Stay (in days): 4 - 6 Acuity (Admit via E.D.?): Yes Comorbidities: Dementia E.D. Visits: 3 - Answers: Total Score: 13 Risk of Readmission: High Risk Care Management Discharge Reason for Hospitalization: Obstructive uropathy, hypotension Discharge Plan: Sandeep will return to [facility] via their w/c van when ready per MD. Patient/Family Education Needs: Review discharge instructions, discuss Ask Me Three. Services Needed at Discharge: Alf Facility (Return), Transportation (W/C Van )
[2021-04-05] MEDS: Tamsulosin 0.4 MG CAPCR PO (08:46)
[2021-04-05] MEDS: Aspirin 81 MG CHEW PO (08:46)
[2021-04-05] MEDS: Senna TAB 1 TAB PO (11:04)
[2021-04-05] MEDS: Docusate Sodium 100 MG CAP PO (11:04)
--- NOTE | 2021-04-05 11:17 | W.PM.DS.N ---
Date of service: 04/05/21 Time of Service: 11:17 DS: Diagnosis Discharge Diagnosis (1) ALICJA (acute kidney injury): Status: Acute (2) Obstructive uropathy: Status: Acute (3) Bladder outlet obstruction: Status: Acute (4) UTI (urinary tract infection): Status: Acute (5) Hypovolemia: Status: Resolved (6) Hypotension: Status: Resolved (7) Hypokalemia: Status: Resolved Discharge Plan Disposition Patient Disposition: SNF (LEVEL 1) [facility] Condition: Improving Discharge Details Reason For Visit: Obstructive Uropathy,Hypotension Admit Date/Time: 04/01/21 23:07 Admit Provider: Tavo Jerez Attending Provider: Candelaria Kat Primary Care Provider: Domingo Hooks Hospital Course Hospital Course: This is a 71 year old male, with extensive medical history including BPH with obstruction, kidney injury, CVA, hypothyroidism among others, who presented to the ED at [facility] from [facility] for acute kidney injury with a creatinine of 8.8. He had no complaints at the time of presentation. He was found to be hypotensive with SBP 90's, he is not appear septic but was empirically started on rocephin, with BP meds being placed on hold. CT abdomen shows right renal stent in place, and bilateral hydronephrosis with bilateral perinephric stranding and severe bladder dilatation. Rucker placed with immediate 1600 cc output. His blood pressure and kidney function improved with fluids and holding meds. Blood cultures remained negative, urine also with no growth. His creatinine returned to his baseline of 2.1. He was eating and drinking well. Case was discussed with DR Blanchard who does recommend rucker catheter until follow up with [place] urology. He is to complete a 10 day course of empiric antibiotics. His blood pressure medication can be resumed at discharge but close BP monitoring and low threshold to adjust down or discontinue if he experiences hypotension. discharge discussed with DR Kat. Home Meds and New Rx's Prescriptions: New cefpodoxime 200 mg tablet 200 mg PO BID Qty: 12 RF: 0 Continued magnesium oxide 420 mg Tablet 420 mg PO BID RF: 0 calcium 500 mg Tablet 500 mg PO DAILY PRNRF: 0 bisacodyl 10 mg Suppository 10 mg MO DAILY PRNRF: 0 docusate sodium 100 mg Capsule 100 mg PO BID PRNRF: 0 multivitamin with minerals Tablet 1 tab PO DAILY RF: 0 carboxymethylcellulose sodium Drops 1 drp OPHTHALMIC (EYE) QID PRNRF: 0 amlodipine 10 mg Tablet 10 mg PO DAILY Qty: 30 RF: 0 aspirin 81 mg Tablet,Chewable 81 mg PO DAILY Qty: 30 RF: 0 tamsulosin 0.4 mg Capsule 0.4 mg PO DAILY@1800 Qty: 30 RF: 0 folic acid 1 mg Tablet 1 mg PO DAILY Qty: 30 RF: 0 atorvastatin 20 mg tablet 20 mg PO QHS Qty: 30 RF: 0 carvedilol [Coreg] 12.5 mg tablet 12.5 mg PO BID Qty: 60 RF: 0 acetaminophen 500 mg Tablet 1,000 mg PO Q8H PRN PRNRF: 0 hydralazine 25 mg tablet 25 mg PO TID RF: 0 levothyroxine 50 mcg Tablet 50 mcg PO DAILY@0600 Qty: 30 RF: 0 Discontinued cephalexin 500 mg Tablet 500 mg PO Q12H RF: 0 Discharge Instructions Instructions: Urinary Retention in Men (ED) Additional Instructions: continue rucker catheter with routine care until instructed by urology at the [place]. drink 6-8 glasses of water daily to stay well hydrated. Referrals: [facility] [Outside] (urology ) Activity:: Activity as Tolerated Equipment/Supplies:: No Equipment Needed Diet:: As Tolerated Discharge Orders Discharge Orders: Discharge Order (Routine); Ordered 04/05/21 Ordered By: Delma Queen DS: Summary Time Spent with Patient providing and/or coordinating discharge services: Greater than 30 minutes Status at Discharge Functional status at discharge: uses cane/walker Overall status at discharge: patient is progressing back to baseline Mental Status: mental status grossly normal Speech and Movement: speech and movement normal Mood: congruent mood Affect: normal affect Exam Const General: cooperative and no acute distress HENMT Head: normocephalic and atraumatic Mouth: mucous membranes dry Eyes Conjunctivae: normal conjunctivae Sclera: normal sclerae Neck Neck: supple Resp Auscultation: clear to auscultation bilaterally, no rales, no rhonchi and no wheezes Cardio Rate: regular rate Rhythm: regular rhythm GI Palpation: soft, not firm, no guarding, no masses, not rigid and nontender Skin General skin exam: no rashes or lesions noted Neuro General: patient alert, patient awake and tone normal Extrem General: no edema Psych Mental Status: mental status grossly normal Speech and Movement: speech and movement normal Mood: congruent mood Affect: normal affect DS: Data Vitals/I&O Vitals and I&O: Vital Signs Temperature 37.2 C 04/05/21 07:32 Temperature Source Tympanic 04/05/21 07:32 Pulse 75 04/05/21 07:32 Pulse Rhythm Regular 04/05/21 09:32 Pulse 74 04/02/21 21:00 Respiratory Rate 16 04/05/21 07:32 Respiratory Effort 04/05/21 09:32 Respiratory Depth Normal 04/05/21 09:32 Respiratory Pattern Normal 04/05/21 09:32 Blood Pressure 116/76 04/05/21 07:32 Blood Pressure Mean 80 04/02/21 20:45 Blood Pressure Position Supine 04/02/21 08:00 Pulse Oximetry 96 04/05/21 07:32 Oxygen Delivery Method Room Air 04/04/21 23:20 Oxygen Flow Rate 0 04/04/21 23:20 Pain Level 0 04/05/21 07:32 Intake & Output 04/04/21 04/04/21 04/05/21 11:59 23:59 11:59 Intake Total 50 / 100 50 / 100 240 / 240 Output Total 1500 / 3050 1550 / 3050 1000 / 1000 Balance -1450 / -2950 -1500 / -2950 -760 / -760 Intake: IV 50 / 100 50 / 100 Oral 240 / 240 Output: Urine 1500 / 3050 1550 / 3050 1000 / 1000 Other: Urine Color Pale Yellow Yellow Yellow Urine Appearance Sediment Cloudy Clear Data Completed and Pending Labs on day of discharge: Labs from last 24 hours 04/05/21 04/05/21 04/04/21 06:26 06:26 18:00 WBC 7.07 RBC 4.02 L Hgb 11.1 L Hct 34.3 L MCV 85.3 MCH 27.6 MCHC 32.4 RDW 14.1 Plt Count 317 MPV 9.3 Immature Gran % 3.1 Neutrophils % 49.4 Lymphocytes % 26.0 Monocytes % 11.9 Eosinophils % 8.9 Basophils % 0.7 Nucleated RBC % 0 Absolute Neutrophils 3.49 Absolute Lymphocytes 1.84 Absolute Monocytes 0.84 H Absolute Eosinophils 0.63 Absolute Basophils 0.05 Sodium 139 Potassium 3.3 L Chloride 102 Carbon Dioxide 28.6 Anion Gap 8.4 BUN 36 H D Creatinine 2.1 H Estimated GFR/1.73 m2 31.29 Glucose 104 Calcium 8.4 L Magnesium 1.8 COVID-19 Source Nasal/Nares SARS-CoV-2 (PCR) Negative Preliminary micro results at discharge 04/01/21 19:20 Blood Culture - Preliminary Blood NO GROWTH 72 HOURS 04/01/21 19:12 Blood Culture - Preliminary Blood NO GROWTH 72 HOURS 04/03/21 11:37 Urine Culture - Preliminary Urine - Cath Rucker Indwelling PFSH All Active Problems (Updated 04/04/21 @ 14:56 by Candelaria Kat MD) Discharge planning issues (Acute) DVT prophylaxis (Acute) ALICJA (acute kidney injury) (Acute) Bladder outlet obstruction (Acute) Obstructive uropathy (Acute) Hypothyroidism (Chronic) UTI (urinary tract infection) (Acute) Nonsustained ventricular tachycardia (Acute) Mild dementia (Acute) Hypertensive emergency (Acute) Parathyroid adenoma (Acute) Discharge planning issues (Acute) Hypertension (Chronic) CVA (cerebral vascular accident) (Chronic) DVT prophylaxis (Acute) ALICJA (acute kidney injury) (Acute) Altered mental status (Acute) 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) Renal insufficiency (Acute) Hypercalcemia (Acute) Medical History (Updated 04/04/21 @ 14:56 by Candelaria Kat MD) Cataracts, bilateral Left sided lacunar infarction Memory impairment Social History Smoking/Tobacco Use Status: Never Smoking risk assessment performed?: Yes Alcohol Intake: never Drug use: Never Substance use type: does not use Do you feel safe at home: Yes Do you feel safe in your relationship?: Yes
--- NOTE | 2021-04-05 12:17 | PT.INTREAT ---
Date of service: 04/05/21 Time of Service: 11:32 PT Notes Visit Reasons: Obstructive Uropathy,Hypotension Inpatient Physical Therapy Treatment Note [facility] Date: 04/05/2021 PRECAUTIONS: Activity as tolerated, Fall SUBJECTIVE: Omar states that he does not want to participate in PT today, when asked if he is feeling unwell, he states well yeah. He does not specify what does not feel well. He is eventually agreeable to participating in PT, but states but I will not sit in the chair when I come back. OBJECTIVE: PAIN: No c/o pain BED MOBILITY/TRANSFERS Supine-sit: I Sit-supine: I Sit-stand: SBA Stand-sit: SBA GAIT Assistive Device: FWW Weight bearing: Full Assist: SBA - S Distance: 60' Deviation: Slow pacing, path deviation, slow reaction time ASSESSMENT: Patient tolerated session without complaint. He demonstrates slow pacing and path deviation, as well as slow reaction time. PLAN: Patient to return to SNF-level rehab later today, per provider. TREATMENT CODE/TIME: 14 minutes; 61141 (11:32)
--- NOTE | 2021-04-08 19:00 | PT.INDS ---
Date of service: 04/08/21 PT Notes Visit Reasons: Obstructive Uropathy,Hypotension Physical Therapy Inpatient Discharge Summary Date: 04/08/2021 Date of service: 04/02/2021 through 04/05/2021 This is a clinical summary of care provided for the duration of dates listed above. No charge was made in the completion of this documentation. Referring Doctor: Candelaria Kat MD PT Orders: PT CONSULT: Limited ability Precautions: Fall. Standard. Activity as tolerated. Patient Profile/Admitting Diagnosis: Sandeep is a 71-year old male admitted from SNF due to abnormal laboratory result and is status post ureteral stent placement at the [facility] recently. He is diagnosed with obstructive uropathy and acute kidney injury. PMHX: All Active Problems (Updated 04/01/21 @ 23:01 by Tavo Jerez MD) Obstructive uropathy (Acute) Hypothyroidism (Chronic) UTI (urinary tract infection) (Acute) Nonsustained ventricular tachycardia (Acute) Mild dementia (Acute) Hypertensive emergency (Acute) Parathyroid adenoma (Acute) Discharge planning issues (Acute) Hypertension (Chronic) CVA (cerebral vascular accident) (Chronic) DVT prophylaxis (Acute) ALICJA (acute kidney injury) (Acute) Altered mental status (Acute) 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) Renal insufficiency (Acute) Hypercalcemia (Acute) Medical History (Updated 04/01/21 @ 23:01 by Tavo Jerez MD) Cataracts, bilateral Left sided lacunar infarction Memory impairment Social History/Home Situation: Has been a resident of [facility] re[facility] for the past couple of months. Equipment Owned/DME: SPC Subjective: NT. See most recent MARKET INVESTIGATOR notes. Objective: General Observation: NT. See most recent MARKET INVESTIGATOR notes. Mental Status: NT. See most recent MARKET INVESTIGATOR notes. Pain: NT. See most recent MARKET INVESTIGATOR notes. ROM: Right Upper Extremity: Shoulder Flexion WFL. Shoulder abduction WFL. Elbow flexion WFL. Wrist flexion WFL. Functional opening and closing of hand WFL. Left Upper Extremity: Shoulder Flexion WFL. Shoulder abduction WFL. Elbow flexion WFL. Wrist flexion WFL. Functional opening and closing of hand WFL. Right Lower Extremity: Hip flexion WFL. Hip abduction WFL. Knee flexion WFL. Ankle dorsiflexion WFL. Ankle plantarflexion WFL. Left Lower Extremity: Hip flexion WFL. Hip abduction WFL. Knee flexion WFL. Ankle dorsiflexion WFL. Ankle plantarflexion WFL. Strength: Right Upper Extremity: Shoulder flexors 4-/5. Shoulder abductors 4-/5. Elbow flexors 4-/5. Elbow extensors 4-/5. Librarian Helper strong. Left Upper Extremity: Shoulder flexors 4-/5. Shoulder abductors 4-/5. Elbow flexors 4-/5. Elbow extensors 4-/5. Librarian Helper strong. Right Lower Extremity: Hip flexors 4-/5. Hip abductors 4-/5. Knee flexors 4-/5. Knee extensors 4-5. Ankle dorsiflexors 4-/5. Ankle plantarflexors 4-/5. Left Lower Extremity: Hip flexors 5/5. Hip abductors 5/5. Knee flexors 5/5. Knee extensors 5/5. Ankle dorsiflexors 5/5. Ankle plantarflexors 5/5. Bed Mobility/Transfers: Supine to sit independent Sit to stand standby assist Stand to sit stand by assist with front-wheeled walker Bed to reclining chair standby assist with front-wheeled walker Reclining chair to be standby assist with front-wheeled walker Gait: Instructed patient with level surface ambulation short distance in room ambulation of up to 60 feet requiring standby assist. Mild SOB. Nimo decreased. Step height decreased. Step length decreased. Balance: Static Sitting: Normal Dynamic Sitting: Normal Static Standing: Fair Dynamic Standing: Fair Assessment: Sandeep continues to demonstrate need for continued physical therapy services due to weakness, decreased activity tolerance, and impaired balance. Patient presents with clinical signs and symptoms consistent with current/admitting diagnoses that have resulted to mobility limitations, gait instability, generalized weakness, and overall ADL decline as demonstrated by the following impairment level findings: 1. Decreased strength to B Ue/LE major muscle groups 2. Impaired standing balance 3. Impaired activity tolerance 4. Mild Shortness of breath 5. Impaired cognitive issues Impairments are contributing to the following functional limitations: 1. Decline in bed mobility skills 2. Decline in transfer skills 3. Difficulty with ambulation without assistive device 4. Increased completion time for mobility ADL performance 5. Increased risk for falls Goals: Goals X1 week 1. Supine-Sit independent MET 2. Sit-Supine independent MET 3. Sit-Stand independent NOT MET 4. Stand-Sit independent with SPC NOT MET 5. Bed-Chair independent with SPC NOT MET 6. Chair-Bed independent with SPC NOT MET 7. Independent gait on level surface with use of SPC for at least 300 feet without report of pain nor dyspnea NOT MET 8. Good static and dynamic standing balance/tolerance NOT MET DISCHARGE RECOMMENDATIONS: Patient will benefit from home health PT services in order to progress mobility level using least restrictive assistive ambulatory device, assess home safety, identify additional equipment needs, and establish a functional maintenance program that will increase ability of patient to remain at home. TREATMENT CODE/TIME: MO Thank you for the opportunity to participate in the care of this patient. Vidya Ralph PT, DPT, CLT [facility] [place], [place]
== END 2021-04-05 13:21 | disposition skilled nursing facility (03) | DRG 690 ==
LOC: ER 04-02 03:03 → ICU 04-02 03:32 → MS 04-02 22:10 → ICU 04-03 11:18 → MS 04-03 11:19
PROVIDERS: Admitting Provider General Practice; Emergency Provider Student in an Organized Health Care Education/Training Program; PCP Internal Medicine; Visit Provider Internal Medicine
DX: N13.6 Pyonephrosis (principal); N17.9 Acute kidney failure, unspecified; N32.0 Bladder-neck obstruction; E86.1 Hypovolemia; E87.6 Hypokalemia; N20.0 Calculus of kidney; F03.90 Unspecified dementia, unspecified severity, without behavioral disturbance, psychotic disturbance, mood disturbance, and anxiety; E03.9 Hypothyroidism, unspecified; I10 Essential (primary) hypertension; Z86.73 Personal history of transient ischemic attack (TIA), and cerebral infarction without residual deficits; E83.52 Hypercalcemia; I95.9 Hypotension, unspecified; N40.1 Benign prostatic hyperplasia with lower urinary tract symptoms
CPT/HCPCS: 36415; 51701; 80048; 80053; 87040; 87635; 93005; 96361; 96365; 96366; 97162; 97530; 99285; 74176; 81003; 81015; 83605; 83735; 84443; 84484; 85025; 87086; 93010; 99222; 99232; 99233; 99239; J0696; J1644

== ENCOUNTER → 2021-04-02 08:01 | Outpatient (BNVA) | payer OTHER, SELFPAY | PROVIDERS: PCP Internal Medicine; Referring Provider Internal Medicine; Visit Provider Urology | DX: R69 Illness, unspecified (principal) ==

== ENCOUNTER 2021-04-08 14:24 | Outpatient (REF) | payer MEDICARE, SELFPAY ==
[2021-04-08 15:58] LABS: Abs Immature Grans 0.29 10^3/uL (0.0-0.06); Absolute Basophil Count 0.04 10^3/uL (0.0-0.2); Absolute Eosinophil Count 0.54 10^3/uL (0.0-0.7); Absolute Lymphocyte Count 2.35 10^3/uL (1.2-3.4); Absolute Monocyte Count 0.65 10^3/uL (0.1-0.8); Basophils % 0.5; Eosinophils % 6.3; HCT 34.4 % (40.0-50.0); Immature Grans % 3.4; Lymphocytes % 27.4; MCH 27.5 pg (27.0-33.0); MPV 9.5 fL (8.0-11.0); Monocytes % 7.6; Neutrophils % 54.8; Nucleated RBC 0 %; Platelet Count 344 10^3/uL (130-400); RDW 13.9 % (11.8-14.1); RDW-SD 43.4 fL; WBC 8.57 10^3/uL (4.4-10.8)
[2021-04-08 17:17] LABS: ALT 38 U/L (16-63); AST 16 U/L (15-37); Albumin 2.1 g/dL (3.4-5.0); Alkaline Phosphatase 74 U/L (46-116); Anion Gap 8.5 mmol/L (3-11); BUN 31 mg/dL (7-18); Bilirubin, Total 0.4 mg/dL (0.2-1.0); CO2 27.5 mmol/L (21.0-32.0); CREATININE 1.9 mg/dL (0.70-1.30); Calcium 7.8 mg/dL (8.5-10.1); Calculated LDL 40 mg/dL (<100); Chloride 102 mmol/L (98-107); Cholesterol 86 mg/dL (<200); Estimated GFR 35.12 (mL/min/1.73m2); Glucose 142 mg/dL (74-106); HDL Cholesterol 20 mg/dL (40-60); Potassium 3.8 mmol/L (3.5-5.1); Sodium 138 mmol/L (136-145); TSH (W/Ref FT4) 1.35 uIU/mL (0.36-3.74); Triglyceride 130 mg/dL (<150)
== END 2021-04-08 14:25 | disposition home or self-care (01) ==
LOC: LBN 14:24
PROVIDERS: PCP Internal Medicine; Visit Provider Nurse Practitioner Family
DX: R53.1 Weakness (principal); R53.83 Other fatigue; R26.81 Unsteadiness on feet; I10 Essential (primary) hypertension; E03.9 Hypothyroidism, unspecified
CPT/HCPCS: 80053; 80061; 84443; 85025

== ENCOUNTER 2021-05-01 05:58 | Outpatient (REF) | payer MEDICARE, SELFPAY ==
[2021-05-01 06:42] LABS: HCT 32.5 % (40.0-50.0); HGB 10.4 g/dL (13.5-17.5); MCH 28.1 pg (27.0-33.0); MCV 87.8 fL (80-95); MPV 9.9 fL (8.0-11.0); Platelet Count 332 10^3/uL (130-400); RDW 15.3 % (11.8-14.1); RDW-SD 49.6 fL
[2021-05-01 06:46] LABS: Bilirubin Negative (Negative); Blood Large (Negative); Clarity Sl Cloudy (Clear); Glucose Negative (Negative); Ketones Negative (Negative); Leukocyte Esterase Large (Negative); Nitrite Positive (Negative); Urobilinogen 0.2 EU/dL (Up TO 0.2); pH 6.5 (5-8)
[2021-05-01 06:56] LABS: Bacteria Few HPF (Negative); C & S Indicated? Yes; Casts Negative LPF (Negative); Crystals Negative HPF (Negative); Epithelial Cells Rare HPF (Negative); Mucus Negative (Negative); RBC 20-50 HPF (0-2); WBC 20-50 HPF (0-5)
[2021-05-01 06:59] LABS: Anion Gap 8.6 mmol/L (3-11); BUN 25 mg/dL (7-18); CO2 27.4 mmol/L (21.0-32.0); CREATININE 1.8 mg/dL (0.70-1.30); Calcium 8.7 mg/dL (8.5-10.1); Chloride 104 mmol/L (98-107); Estimated GFR 37.38 (mL/min/1.73m2); Glucose 92 mg/dL (74-106); Potassium 4.3 mmol/L (3.5-5.1); Sodium 140 mmol/L (136-145)
== END 2021-05-01 05:59 | disposition home or self-care (01) ==
LOC: LBN 05:58
PROVIDERS: PCP Internal Medicine; Visit Provider Family Medicine
DX: N17.9 Acute kidney failure, unspecified (principal); R53.83 Other fatigue
CPT/HCPCS: 80048; 85027; 81003; 81015; 85025; 87086

== ENCOUNTER 2021-06-18 01:38 | Outpatient (CLI) | payer MEDICARE, SELFPAY ==
--- NOTE | 2021-06-18 08:30 | DI.CT_ITS ---
Exam(s) CT RENAL COLIC WO EXAM: CT RENAL COLIC WO CLINICAL HISTORY: H/O NEPHROLITHIASIS, [id number]. TECHNIQUE: Imaging Protocol: Axial computed tomography images with coronal and sagittal reformatted images were created and reviewed. COMPARISON: CT CT ABDOMEN PELVIS WO from 04/01/2021 FINDINGS: The examination is limited due to patient motion artifact. Artifact from patient positioning. ABDOMEN: Lung Bases: Normal where visualized. Liver: Normal density. No measurable mass. Gallbladder and biliary tract: No radiodense calculus or biliary ductal dilation. Pancreas: Normal density, no abnormal calcifications or inflammatory process. Spleen: Normal. Kidneys: Normal size, contour and axis.Bilateral nephrolithiasis. No ureterolithiasis or hydronephro sis. Hypodensities are seen in the kidneys bilaterally. There is a cyst in the lower pole of the le ft kidney measuring 2.6 cm in diameter. Adrenal glands: No mass is seen. Lymph nodes: Within normal limits. Abdominal Aorta: Abdominal portion non-dilated. Atherosclerosis. PELVIS: Bladder:There is a Olvera catheter in the urinary bladder. The urinary bladder is underdistended. Th ere is thickening of the wall of the urinary bladder which may reflect underdistention. Calcificatio ns are seen within the urinary bladder likely reflecting stones. Bowel: No obstruction or bowel wall thickening. No evidence of appendicitis. Peritoneal cavity: No ascites, collection or mesenteric inflammatory response. No free air. Reproductive organs: Mildly enlarged prostate gland. Bones: Within normal limits. Soft Tissues: Within normal limits. IMPRESSION: 1. Bilateral nephrolithiasis. No ureterolithiasis or hydronephrosis. 2. Urinary bladder stones. 3. Olvera catheter within urinary bladder. There is thickening of the wall of the urinary bladder. T his may be due to underdistention. Other etiologies not excluded. RADIATION DOSE DELIVERED: 1,039.32mGy.cm Total DLP DATA REPOSITORY: All CT scans at this facility are submitted to the National Radiology Data Registry (NRDR) Dose Index Registry (DIR) with the [employer] (ACR). RADIATION OPTIMIZATION: All CT scans at this facility use at least one of these dose optimization te chniques: automated exposure control; mA and/or kV adjustment per patient size (includes targeted exa ms where dose is matched to clinical indication); or iterative reconstruction.
== END 2021-06-18 01:58 ==
LOC: DI 01:39
PROVIDERS: PCP Internal Medicine; Visit Provider Student in an Organized Health Care Education/Training Program
DX: N20.0 Calculus of kidney (principal); N21.0 Calculus in bladder; N32.89 Other specified disorders of bladder
CPT/HCPCS: 74176

== ENCOUNTER 2021-07-24 10:09 | Inpatient (IN) | payer MEDICARE, SELFPAY ==
[2021-07-24] VITALS (19 sets, daily range): BP systolic 93–130; BP diastolic 58–91; PULSE 64–90; RESP 17–30; TEMP 36.3–37.3; O2SAT 96–100
--- NOTE | 2021-07-24 10:15 | RT.EKG_ITS ---
APPROVED REPORT Exam: Resting ECG Reason for Exam: weakness Patient Location: E HR:85 bpm ECG Measurements Heart Rate 85 AXIS MD 192 P 66 QRSd 106 QRS 85 QT 393 T -3 QTc 468 Conclusion Sinus rhythm...normal P axis, V-rate 60- 99 Inferior infarct, age indeterminate...Q>35mS, T neg, II III aVF
[2021-07-24 10:44] LABS: Abs Immature Grans 0.07 10^3/uL (0.0-0.06); Absolute Basophil Count 0.02 10^3/uL (0.0-0.2); Absolute Lymphocyte Count 1.12 10^3/uL (1.2-3.4); Absolute Monocyte Count 1.02 10^3/uL (0.1-0.8); Basophils % 0.1; Eosinophils % 0.1; HCT 43.4 % (40.0-50.0); HGB 14.1 g/dL (13.5-17.5); Immature Grans % 0.4; Lymphocytes % 5.6; MCH 28.7 pg (27.0-33.0); MCHC 32.5 % (32.0-36.0); MCV 88 fL (80-95); MPV 9.7 fL (8.0-11.0); Monocytes % 5.1; Neutrophils % 88.7; Platelet Count 321 10^3/uL (130-400); RBC 4.91 10^6/uL (4.36-5.78); RDW 15.3 % (11.8-14.1); RDW-SD 49.4 fL; WBC 19.95 10^3/uL (4.4-10.8)
[2021-07-24 10:45] LABS: Absolute Eosinophil Count 0.02 10^3/uL (0.0-0.7)
--- NOTE | 2021-07-24 10:57 | W.ED.GENAD ---
Discharge Plan Disposition Patient Disposition: [facility] INPATIENT Condition: Poor Discharge Details Clinical Impression: Acute UTI (urinary tract infection), Renal insufficiency, Mild dementia, Adult failure to thrive Admit Date/Time: 07/24/21 14:14 Admit Provider: Elpidio Corey Attending Provider: Elpidio Corey Primary Care Provider: Domingo Hooks ED Provider: Gary Andersen Discharge Data Discharge Date/Time-TO BE ENTERED AT DEPARTURE: 07/24/21 15:28 Medical Decision Making Patient presenting to the emergency department via EMS for chief complaint of weakness and abnormal urination. Patient has mild dementia and denies any pain discomfort. Symptoms at this time. Patient is a poor historian so it is difficult to obtain review of systems. Exam shows purulent drainage around Olvera catheter with no urine noted in bag abdominal respiratory and cardiac exam is otherwise unremarkable. Patient is alert and oriented to name and place but not time. We will plan to check with home health. When we can contact her but otherwise we will perform work-up for suspected urinary tract infection given purulent drainage around catheter. We will obtain cultures and replace Olvera cath. Please see physician interpretation of EKG that EKG shows sinus rhythm, rate of 85, no signs of acute STEMI otherwise nondiagnostic EKG Review of urinalysis shows significant concerning findings for infection and culture was ordered. CBC shows a white count of 19.95 with elevated neutrophils and monocytes and rare lymphocytes. CMP shows elevated BUN and creatinine that appears similar to patient's known renal dysfunction with a GFR of 37. Glucose is 160, bilirubin slightly elevated 1.1, total protein is high at 8.3. staffing manager did make me aware that significant amount of urine was drained and patient had approximately 800 mL output when the catheter was placed. Given concern for urinary tract infection start IV antibiotics and patient ordered iv cefazolin. Was able to discuss patient's care and presentation earlier this morning with home health nurse Wendy. She stated that patient was sitting on the couch, covered in feces, and meal that was delivered to his home had not been eating. She stated significant weakness when attempting to ambulate through the home just to clean him up. She reported that patient typically has family that stays with him but currently with family has been admitted to nursing facility. She stated significant concern and reached out to family members but stated they were unable to help. She assumes that the family members are who called for patient to be transferred to the hospital. Given his history of failure to thrive or 2 perform appropriate daily care for himself along with urinary tract infection I do feel that patient should be admitted. [facility] and they stated no the bed availability and approved admission to local facility. [facility] hospitalist was consulted. Patient was admitted to inpatient services. Lab Data Lab results reviewed: Yes I reviewed the patient's lab results. Labs: 07/24/21 11:20 Urine - Reflex from Ua Urine Culture - Pending Laboratory Tests Range/Units 07/24/21 07/24/21 07/24/21 10:30 10:30 10:30 WBC (4.4-10.8) 10^3/uL 19.95 H RBC (4.36-5.78) 10^6/uL 4.91 Hgb (13.5-17.5) g/dL 14.1 Hct (40.0-50.0) % 43.4 MCV (80-95) fL 88 MCH (27.0-33.0) pg 28.7 MCHC (32.0-36.0) % 32.5 RDW (11.8-14.1) % 15.3 H Plt Count (130-400) 10^3/uL 321 MPV (8.0-11.0) fL 9.7 Immature Gran % 0.4 Neutrophils % 88.7 Lymphocytes % 5.6 Monocytes % 5.1 Eosinophils % 0.1 Basophils % 0.1 Nucleated RBC % (0.0-0.3) % 0.0 Absolute Neutrophils (1.2-6.7) 10^3/uL 17.70 H Absolute Lymphocytes (1.2-3.4) 10^3/uL 1.12 L Absolute Monocytes (0.1-0.8) 10^3/uL 1.02 H Absolute Eosinophils (0.0-0.7) 10^3/uL 0.02 Absolute Basophils (0.0-0.2) 10^3/uL 0.02 Sodium (136-145) mmol/L 137 Potassium (3.5-5.1) mmol/L 4.4 Chloride (98-107) mmol/L 100 Carbon Dioxide (21.0-32.0) mmol/L 27.0 Anion Gap (3-11) mmol/L 10.0 BUN (7-18) mg/dL 22 H Creatinine (0.70-1.30) mg/dL 1.8 H Estimated GFR/1.73 m2 (mL/min/1.73m2) 37.38 Glucose (74-106) mg/dL 160 H Calcium (8.5-10.1) mg/dL 9.1 Magnesium (1.8-2.4) mg/dL 2.2 Total Bilirubin (0.2-1.0) mg/dL 1.1 H AST (15-37) U/L 18 ALT (16-63) U/L 18 Alkaline Phosphatase (46-116) U/L 90 Total Protein (6.4-8.2) g/dL 8.3 H Albumin (3.4-5.0) g/dL 3.5 Urine Color (Yellow) Urine Clarity (Clear) Urine pH (5-8) Ur Specific [place] (1.005-1.025) Urine Protein (Negative) mg/dL Urine Ketones (Negative) mg/dL Urine Blood (Negative) Urine Nitrite (Negative) Urine Bilirubin (Negative) Urine Urobilinogen (Up TO 0.2) EU/dL Ur Leukocyte Esterase (Negative) Urine RBC (0-2) HPF Urine WBC (0-5) HPF Ur Epithelial Cells (Negative) HPF Urine Crystals (Negative) HPF Urine Bacteria (Negative) HPF Urine Casts (Negative) LPF Urine Mucus (Negative) Ur Culture Indicated? Urine Glucose (Negative) mg/dL COVID-19 Source Not Applicable SARS-CoV-2 (PCR) (Negative) Negative Influenza Type A (PCR) (Negative) Negative Influenza Type B (PCR) (Negative) Negative RSV (PCR) (Negative) Negative Range/Units 07/24/21 11:20 WBC (4.4-10.8) 10^3/uL RBC (4.36-5.78) 10^6/uL Hgb (13.5-17.5) g/dL Hct (40.0-50.0) % MCV (80-95) fL MCH (27.0-33.0) pg MCHC (32.0-36.0) % RDW (11.8-14.1) % Plt Count (130-400) 10^3/uL MPV (8.0-11.0) fL Immature Gran % Neutrophils % Lymphocytes % Monocytes % Eosinophils % Basophils % Nucleated RBC % (0.0-0.3) % Absolute Neutrophils (1.2-6.7) 10^3/uL Absolute Lymphocytes (1.2-3.4) 10^3/uL Absolute Monocytes (0.1-0.8) 10^3/uL Absolute Eosinophils (0.0-0.7) 10^3/uL Absolute Basophils (0.0-0.2) 10^3/uL Sodium (136-145) mmol/L Potassium (3.5-5.1) mmol/L Chloride (98-107) mmol/L Carbon Dioxide (21.0-32.0) mmol/L Anion Gap (3-11) mmol/L BUN (7-18) mg/dL Creatinine (0.70-1.30) mg/dL Estimated GFR/1.73 m2 (mL/min/1.73m2) Glucose (74-106) mg/dL Calcium (8.5-10.1) mg/dL Magnesium (1.8-2.4) mg/dL Total Bilirubin (0.2-1.0) mg/dL AST (15-37) U/L ALT (16-63) U/L Alkaline Phosphatase (46-116) U/L Total Protein (6.4-8.2) g/dL Albumin (3.4-5.0) g/dL Urine Color (Yellow) Yellow Urine Clarity (Clear) Cloudy Urine pH (5-8) 7.0 Ur Specific [place] (1.005-1.025) 1.025 Urine Protein (Negative) mg/dL 100 H Urine Ketones (Negative) mg/dL Negative Urine Blood (Negative) Moderate H Urine Nitrite (Negative) Positive H Urine Bilirubin (Negative) Negative Urine Urobilinogen (Up TO 0.2) EU/dL 0.2 Ur Leukocyte Esterase (Negative) Large H Urine RBC (0-2) HPF Urine WBC (0-5) HPF >50 H Ur Epithelial Cells (Negative) HPF Urine Crystals (Negative) HPF Urine Bacteria (Negative) HPF Many Urine Casts (Negative) LPF Urine Mucus (Negative) Ur Culture Indicated? Yes Urine Glucose (Negative) mg/dL Negative COVID-19 Source SARS-CoV-2 (PCR) (Negative) Influenza Type A (PCR) (Negative) Influenza Type B (PCR) (Negative) RSV (PCR) (Negative) HPI General Mode of arrival: EMS. Date/Time Provider Initiated Documentation: 07/24/21 10:18. Limitations to Documentation: altered mental status. Information obtained by: RN/MD, RN notes reviewed and old records reviewed. History of Present Illness 71 year old M presents to the emergency department with the chief complaint of Weakness, abnormal urine, Quality is described as other (denies pain or discomfort), Patient notes no other symptoms.. Related Data Home Medications Medication Instructions Recorded Confirmed amlodipine 10 mg tablet 10 mg PO DAILY #30 tabs 01/27/19 07/24/21 aspirin 81 mg chewable tablet 81 mg PO DAILY #30 tabs 01/27/19 07/24/21 atorvastatin 20 mg tablet 20 mg PO QHS #30 tabs 01/27/19 07/24/21 carvedilol 12.5 mg tablet (Coreg) 12.5 mg PO BID #60 tabs 01/27/19 07/24/21 folic acid 1 mg tablet 1 mg PO DAILY #30 tabs 01/27/19 07/24/21 tamsulosin 0.4 mg capsule 0.4 mg PO DAILY@1800 #30 caps 01/27/19 07/24/21 acetaminophen 500 mg tablet 650 mg PO Q6H PRN PRN 08/28/19 07/24/21 hydralazine 25 mg tablet 25 mg PO TID 08/28/19 07/24/21 levothyroxine 50 mcg tablet 50 mcg PO DAILY@0600 #30 tabs 10/31/20 07/24/21 bisacodyl 10 mg rectal suppository 10 mg UT DAILY PRN 02/27/21 07/24/21 calcium 500 mg tablet 500 mg PO DAILY PRN 02/27/21 07/24/21 carboxymethylcellulose sodium 1 drp ophthalmic (eye) QID PRN 02/27/21 07/24/21 docusate sodium 100 mg capsule 100 mg PO BID PRN 02/27/21 07/24/21 magnesium oxide 420 mg tablet 420 mg PO BID 02/27/21 07/24/21 multivitamin with minerals 1 tab PO BID 02/27/21 07/24/21 cefpodoxime 200 mg tablet 200 mg PO BID #12 tabs 04/05/21 Previous Rx's Medication Instructions Recorded amlodipine 10 mg tablet 10 mg PO DAILY #30 tabs 01/27/19 aspirin 81 mg chewable tablet 81 mg PO DAILY #30 tabs 01/27/19 atorvastatin 20 mg tablet 20 mg PO QHS #30 tabs 01/27/19 carvedilol 12.5 mg tablet (Coreg) 12.5 mg PO BID #60 tabs 01/27/19 folic acid 1 mg tablet 1 mg PO DAILY #30 tabs 01/27/19 tamsulosin 0.4 mg capsule 0.4 mg PO DAILY@1800 #30 caps 01/27/19 levothyroxine 50 mcg tablet 50 mcg PO DAILY@0600 #30 tabs 10/31/20 cefpodoxime 200 mg tablet 200 mg PO BID #12 tabs 04/05/21 Allergies Allergy/AdvReac Type Severity Reaction Status Date / Time No Known Allergies Allergy Unverified 04/01/21 18:33 General Stated Complaint: GenMedical SUNNI: 3 Review of Systems Unobtainable due to mental condition Genitourinary Genitourinary: Reports as per HPI, Reports oliguria and Reports difficulty urinating PFSH All Active Problems (Updated 07/24/21 @ 14:29 by Gary Andersen NP) Acute UTI (urinary tract infection) (Acute) Adult failure to thrive (Acute) Hypothyroidism (Chronic) Nonsustained ventricular tachycardia (Acute) Mild dementia (Acute) Hypertensive emergency (Acute) Parathyroid adenoma (Acute) Discharge planning issues (Acute) Hypertension (Chronic) CVA (cerebral vascular accident) (Chronic) DVT prophylaxis (Acute) ALICJA (acute kidney injury) (Acute) Altered mental status (Acute) 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) Renal insufficiency (Acute) Hypercalcemia (Acute) Medical History (Updated 07/24/21 @ 14:29 by Gary Andersen NP) ALICJA (acute kidney injury) Bladder outlet obstruction Cataracts, bilateral Left sided lacunar infarction Memory impairment Obstructive uropathy UTI (urinary tract infection) Social History Smoking/Tobacco Use Status: Never Smoking risk assessment performed?: Yes Alcohol Intake: never Drug use: Never Substance use type: does not use Do you feel safe at home: Yes Do you feel safe in your relationship?: Yes Exam Const General: cooperative and no acute distress Orientation: alert and awake Resp Effort & Inspection: normal respiratory effort and able to speak in complete sentences Auscultation: clear to auscultation bilaterally Cardio Rate: regular rate Rhythm: regular rhythm Heart Sounds: S1 normal and S2 normal GI Palpation: nontender Neuro General: patient alert and patient awake Extrem General: capillary refill normal Course Vital Signs Vital signs: Vital Signs Temperature 36.7 C 07/24/21 10:09 Pulse 85 07/24/21 10:09 Respiratory Rate 18 07/24/21 10:09 Blood Pressure 129/74 07/24/21 10:09 Pulse Oximetry 100 07/24/21 10:09 Temperature 36.7 C 07/24/21 10:09 Pulse 85 07/24/21 10:09 Respiratory Rate 17 07/24/21 10:24 Respiratory Effort Non-Labored 07/24/21 10:24 Respiratory Depth Normal 07/24/21 10:24 Respiratory Pattern Normal 07/24/21 10:24 Blood Pressure 129/74 07/24/21 10:09 Blood Pressure Position Supine 07/24/21 10:09 Pulse Oximetry 100 07/24/21 10:09 Oxygen Delivery Method Room Air 07/24/21 10:09 Oxygen Flow Rate 0 07/24/21 10:09 Pain Level 0 07/24/21 10:23 Lab/Test Results Lab/Test Results: Laboratory Tests Range/Units 07/24/21 10:30 WBC (4.4-10.8) 10^3/uL 19.95 H RBC (4.36-5.78) 10^6/uL 4.91 Hgb (13.5-17.5) g/dL 14.1 Hct (40.0-50.0) % 43.4 MCV (80-95) fL 88 MCH (27.0-33.0) pg 28.7 MCHC (32.0-36.0) % 32.5 RDW (11.8-14.1) % 15.3 H Plt Count (130-400) 10^3/uL 321 MPV (8.0-11.0) fL 9.7 Immature Gran % 0.4 Neutrophils % 88.7 Lymphocytes % 5.6 Monocytes % 5.1 Eosinophils % 0.1 Basophils % 0.1 Nucleated RBC % (0.0-0.3) % 0.0 Absolute Neutrophils (1.2-6.7) 10^3/uL 17.70 H Absolute Lymphocytes (1.2-3.4) 10^3/uL 1.12 L Absolute Monocytes (0.1-0.8) 10^3/uL 1.02 H Absolute Eosinophils (0.0-0.7) 10^3/uL 0.02 Absolute Basophils (0.0-0.2) 10^3/uL 0.02
[2021-07-24 10:58] LABS: ALT 18 U/L (16-63); AST 18 U/L (15-37); Albumin 3.5 g/dL (3.4-5.0); Alkaline Phosphatase 90 U/L (46-116); BUN 22 mg/dL (7-18); Bilirubin, Total 1.1 mg/dL (0.2-1.0); CREATININE 1.8 mg/dL (0.70-1.30); Calcium 9.1 mg/dL (8.5-10.1); Chloride 100 mmol/L (98-107); Estimated GFR 37.38 (mL/min/1.73m2); Glucose 160 mg/dL (74-106); Magnesium 2.2 mg/dL (1.8-2.4); Potassium 4.4 mmol/L (3.5-5.1); Sodium 137 mmol/L (136-145); Total Protein 8.3 g/dL (6.4-8.2)
[2021-07-24 11:19] LABS: COVID-19 PCR Negative (Negative); Influenza A PCR Negative (Negative); Influenza B PCR Negative (Negative); RSV PCR Negative (Negative)
[2021-07-24 11:30] LABS: Bilirubin Negative (Negative); Blood Moderate (Negative); Clarity Cloudy (Clear); Glucose Negative (Negative); Ketones Negative (Negative); Leukocyte Esterase Large (Negative); Nitrite Positive (Negative); Specific Gravity 1.025 (1.005-1.025); Urobilinogen 0.2 EU/dL (Up TO 0.2)
[2021-07-24 11:43] LABS: WBC >50 HPF (0-5)
[2021-07-24 11:44] LABS: Bacteria Many HPF (Negative); C & S Indicated? Yes
[2021-07-24] MEDS: ceFAZolin 1 GM/50 ML BAG IVPB (11:50)
--- NOTE | 2021-07-24 14:16 | W.PM.HP.N ---
Date of service: 07/24/21 Time of Service: 13:17 Assessment and Plan Assessment and plan (1) Acute UTI (urinary tract infection): Status: Acute Assessment and plan: cultures pending will use ceftriaxone day 1 blood cultures added, blood pressures soft rucker placed for urinary retention (2) Hypothyroidism: Status: Chronic Assessment and plan: TSH 1.35 continue levothyroxine (3) Hypertension: Status: Chronic Assessment and plan: blood pressures are soft will hold blood pressure meds and monitor, resume when able. holding amlodipine, hydralazine will continue coreg hold unless SBP less than 100 blood cultures pending (4) ALICJA (acute kidney injury): Status: Acute Assessment and plan: will evidence of retention, rucker placed in the ED with 800 cc drained creatinine is stable will monitor, avoid nephrotoxic drugs, renal dosing meds as needed give IV fluids overnight (5) BPH without obstruction/lower urinary tract symptoms: Status: Chronic Assessment and plan: was on tamsulosin. will place on hold with soft blood pressures. evidence of retention on admission, ? secondary to infection vs outlet obstruction vs multifactoral. consider increasing dose is blood pressure tolerates. (6) DVT prophylaxis: Status: Acute Assessment and plan: enoxaparin. teds (7) Discharge planning issues: Status: Acute Assessment and plan: PT consult pending case management following possible discharge to detention facility discussed with DR Corey History of Present Illness History of Present Illness Chief Complaint: confusion, weakness Narrative: presents by EMS after home health found him at home sitting in incontinence and not having had eaten any of his wheels on meals, and confused. she call 911. 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) Renal insufficiency (Acute) Hypercalcemia (Acute) Medical History (Updated 07/24/21 @ 14:29 by Gary Andersen NP) ALICJA (acute kidney injury) Bladder outlet obstruction Cataracts, bilateral Left sided lacunar infarction Memory impairment Obstructive uropathy UTI (urinary tract infection) Social History Smoking/Tobacco Use Status: Never Smoking risk assessment performed?: Yes Alcohol Intake: never Drug use: Never Substance use type: does not use Do you feel safe at home: Yes Do you feel safe in your relationship?: Yes Meds Allergies and Home Medications Allergies Allergy/AdvReac Type Severity Reaction Status Date / Time No Known Allergies Allergy Unverified 04/01/21 18:33 Home Medications Medication Instructions Recorded Confirmed Type amlodipine 10 mg tablet 10 mg PO DAILY #30 tabs 01/27/19 07/24/21 Rx aspirin 81 mg chewable tablet 81 mg PO DAILY #30 tabs 01/27/19 07/24/21 Rx atorvastatin 20 mg tablet 20 mg PO QHS #30 tabs 01/27/19 07/24/21 Rx carvedilol 12.5 mg tablet (Coreg) 12.5 mg PO BID #60 tabs 01/27/19 07/24/21 Rx folic acid 1 mg tablet 1 mg PO DAILY #30 tabs 01/27/19 07/24/21 Rx tamsulosin 0.4 mg capsule 0.4 mg PO DAILY@1800 #30 caps 01/27/19 07/24/21 Rx acetaminophen 500 mg tablet 650 mg PO Q6H PRN PRN 08/28/19 07/24/21 History hydralazine 25 mg tablet 25 mg PO TID 08/28/19 07/24/21 History levothyroxine 50 mcg tablet 50 mcg PO DAILY@0600 #30 tabs 10/31/20 07/24/21 Rx bisacodyl 10 mg rectal suppository 10 mg TX DAILY PRN 02/27/21 07/24/21 History calcium 500 mg tablet 500 mg PO DAILY PRN 02/27/21 07/24/21 History carboxymethylcellulose sodium 1 drp ophthalmic (eye) QID PRN 02/27/21 07/24/21 History docusate sodium 100 mg capsule 100 mg PO BID PRN 02/27/21 07/24/21 History magnesium oxide 420 mg tablet 420 mg PO BID 02/27/21 07/24/21 History multivitamin with minerals 1 tab PO BID 02/27/21 07/24/21 History cefpodoxime 200 mg tablet 200 mg PO BID #12 tabs 04/05/21 Rx Exam Const General: cooperative and no acute distress Orientation: alert and awake Resp Effort & Inspection: normal respiratory effort and able to speak in complete sentences Auscultation: clear to auscultation bilaterally Cardio Rate: regular rate Rhythm: regular rhythm Heart Sounds: S1 normal and S2 normal GI Palpation: nontender Neuro General: patient alert and patient awake Extrem General: capillary refill normal Results Labs Result diagrams: 07/24/21 10:30 07/24/21 10:30 Labs: Laboratory Results - last 24 hr 07/24/21 07/24/21 07/24/21 10:30 10:30 10:30 WBC 19.95 H RBC 4.91 Hgb 14.1 Hct 43.4 MCV 88 MCH 28.7 MCHC 32.5 RDW 15.3 H Plt Count 321 MPV 9.7 Immature Gran % 0.4 Neutrophils % 88.7 Lymphocytes % 5.6 Monocytes % 5.1 Eosinophils % 0.1 Basophils % 0.1 Nucleated RBC % 0.0 Absolute Neutrophils 17.70 H Absolute Lymphocytes 1.12 L Absolute Monocytes 1.02 H Absolute Eosinophils 0.02 Absolute Basophils 0.02 Sodium 137 Potassium 4.4 Chloride 100 Carbon Dioxide 27.0 Anion Gap 10.0 BUN 22 H Creatinine 1.8 H Estimated GFR/1.73 m2 37.38 Glucose 160 H Calcium 9.1 Magnesium 2.2 Total Bilirubin 1.1 H AST 18 ALT 18 Alkaline Phosphatase 90 Total Protein 8.3 H Albumin 3.5 Urine Color Urine Clarity Urine pH Ur Specific [place] Urine Protein Urine Ketones Urine Blood Urine Nitrite Urine Bilirubin Urine Urobilinogen Ur Leukocyte Esterase Urine RBC Urine WBC Ur Epithelial Cells Urine Crystals Urine Bacteria Urine Casts Urine Mucus Ur Culture Indicated? Urine Glucose COVID-19 Source Not Applicable SARS-CoV-2 (PCR) Negative Influenza Type A (PCR) Negative Influenza Type B (PCR) Negative RSV (PCR) Negative 07/24/21 11:20 WBC RBC Hgb Hct MCV MCH MCHC RDW Plt Count MPV Immature Gran % Neutrophils % Lymphocytes % Monocytes % Eosinophils % Basophils % Nucleated RBC % Absolute Neutrophils Absolute Lymphocytes Absolute Monocytes Absolute Eosinophils Absolute Basophils Sodium Potassium Chloride Carbon Dioxide Anion Gap BUN Creatinine Estimated GFR/1.73 m2 Glucose Calcium Magnesium Total Bilirubin AST ALT Alkaline Phosphatase Total Protein Albumin Urine Color Yellow Urine Clarity Cloudy Urine pH 7.0 Ur Specific [place] 1.025 Urine Protein 100 H Urine Ketones Negative Urine Blood Moderate H Urine Nitrite Positive H Urine Bilirubin Negative Urine Urobilinogen 0.2 Ur Leukocyte Esterase Large H Urine RBC Urine WBC >50 H Ur Epithelial Cells Urine Crystals Urine Bacteria Many Urine Casts Urine Mucus Ur Culture Indicated? Yes Urine Glucose Negative COVID-19 Source SARS-CoV-2 (PCR) Influenza Type A (PCR) Influenza Type B (PCR) RSV (PCR) Last Vital Signs Temp 36.7 C 07/24/21 10:09 Pulse 71 07/24/21 11:01 Resp 23 07/24/21 11:01 BP 112/68 07/24/21 11:01 Pulse Ox 97 07/24/21 11:01
[2021-07-24] MEDS: Normal Saline 1,000 ML 100 ML IV (17:32)
[2021-07-24] MEDS: cefTRIAXone 2 GM/50 ML BAG IVPB (17:32)
[2021-07-24] MEDS: Normal Saline Flush 10 ML SYR IVP (17:33)
[2021-07-24] MEDS: Magnesium Oxide 400 MG TAB PO (19:55)
[2021-07-24] MEDS: Carvedilol 12.5 MG TAB PO (19:55)
[2021-07-24] MEDS: Atorvastatin 20 MG TAB PO (19:55)
[2021-07-24] MEDS: Multivitamin w/Minerals TAB 1 TAB PO (19:55)
[2021-07-25] MEDS: Levothyroxine 50 MCG TAB PO (05:32)
[2021-07-25 07:33] VITALS: BP 108/66; PULSE 66; RESP 16; TEMP 36.7; O2SAT 98
[2021-07-25 07:48] LABS: Abs Immature Grans 0.02 10^3/uL (0.0-0.06); Absolute Basophil Count 0.04 10^3/uL (0.0-0.2); Absolute Eosinophil Count 0.33 10^3/uL (0.0-0.7); Absolute Lymphocyte Count 2.06 10^3/uL (1.2-3.4); Absolute Monocyte Count 0.69 10^3/uL (0.1-0.8); Absolute Neutrophil Count 7.07 10^3/uL (1.2-6.7); Basophils % 0.4; Eosinophils % 3.2; HCT 34.4 % (40.0-50.0); Immature Grans % 0.2; Lymphocytes % 20.2; MCH 28.7 pg (27.0-33.0); MCV 90 fL (80-95); MPV 9.6 fL (8.0-11.0); Monocytes % 6.8; Neutrophils % 69.2; Platelet Count 237 10^3/uL (130-400); RBC 3.83 10^6/uL (4.36-5.78); RDW 15.9 % (11.8-14.1); RDW-SD 52.9 fL; WBC 10.21 10^3/uL (4.4-10.8)
[2021-07-25 07:54] LABS: Anion Gap 5.5 mmol/L (3-11); BUN 24 mg/dL (7-18); CO2 27.5 mmol/L (21.0-32.0); CREATININE 1.9 mg/dL (0.70-1.30); Calcium 8.1 mg/dL (8.5-10.1); Chloride 104 mmol/L (98-107); Estimated GFR 35.12 (mL/min/1.73m2); Glucose 104 mg/dL (74-106); Potassium 3.8 mmol/L (3.5-5.1); Sodium 137 mmol/L (136-145)
[2021-07-25] MEDS: Multivitamin w/Minerals TAB 1 TAB PO ×2 (07:57→20:16)
[2021-07-25] MEDS: Aspirin 81 MG CHEW PO (07:57)
[2021-07-25] MEDS: Folic Acid 1 MG TAB PO (07:58)
[2021-07-25] MEDS: Carvedilol 12.5 MG TAB PO ×2 (07:58→20:17)
[2021-07-25] MEDS: Magnesium Oxide 400 MG TAB PO ×2 (07:58→20:16)
--- NOTE | 2021-07-25 08:00 | DI.US_ITS ---
Exam(s) US RENAL EXAM: US RENAL CLINICAL HISTORY: renal insufficiency with recent retention. TECHNIQUE: Galvin scale, color and spectral Doppler were used. COMPARISON: US US RENAL from 10/31/[address] RENAL COLIC WO from 06/18/2021 FINDINGS: Renal size in cm: Right: 10.4. Left: 10.2. Echogenicity: Normal. Hydronephrosis: No. Cyst or mass: No. Nephrolithiasis: Multiple bilateral renal stones. The largest on the right measures [address] on the left measures 9 mm. Other findings: There is again seen mild bilateral renal cortical thickening and slight increased ech ogenicity of the kidneys suggesting medical renal disease. Bladder:The urinary bladder is completely collapsed with a Olvera catheter in place. Ureteral jets: Right: Not visualized on this examination. Left: Not visualized on this examination. Prevoid vol:The bladder is completely empty with a Olvera catheter in place. Prostate: 32 cc Renal color flow: Symmetric and within normal limits. IMPRESSION: 1. Bilateral cortical thinning and increased echogenicity of the cortex suggesting medical renal dise ase. 2. Multiple bilateral renal stones. 3. Urinary bladder cannot be evaluated as it was empty with a Olvera catheter in place. DATA REPOSITORY:
--- NOTE | 2021-07-25 11:30 | PT.INIE ---
Date of service: 07/25/21 Time of Service: 11:30 PT Notes Visit Reasons: Urinary tract infection Physical Therapy Inpatient Initial Evaluation Date: 07/25/2021 Referring Doctor: Candelaria Kat MD PT Orders: PT CONSULT: Limited ability Precautions: Fall. Standard. Activity as tolerated. Patient Profile/Admitting Diagnosis: Sandeep is a 71-year old male admitted to the ED on 07/24/2021 generalized weakness, abnormal urination, and increased confusion. Patient is diagnosed with acute urinary tract infection infection, hypothyroidism, hypertension, acute kidney injury, and benign prostatic hyperplasia. PMHX: All Active Problems?(Updated 07/24/21 @ 14:29 by Gary Andersen NP) Acute UTI (urinary tract infection) (Acute) Adult failure to thrive (Acute) Hypothyroidism (Chronic) Nonsustained ventricular tachycardia (Acute) Mild dementia (Acute) Hypertensive emergency (Acute) Parathyroid adenoma (Acute) Discharge planning issues (Acute) Hypertension (Chronic) CVA (cerebral vascular accident) (Chronic) DVT prophylaxis (Acute) ALICJA (acute kidney injury) (Acute) Altered mental status (Acute) 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) Renal insufficiency (Acute) Hypercalcemia (Acute) Medical History?(Updated 07/24/21 @ 14:29 by Gary Andersen NP) ALICJA (acute kidney injury) Bladder outlet obstruction Cataracts, bilateral Left sided lacunar infarction Memory impairment Obstructive uropathy UTI (urinary tract infection) Social History/Home Situation: Lives alone in a mobile home with a ramp to enter. Home is handicap-accessible. Good friend and neighbor Elias helps out with meals and medication intake. Equipment Owned/DME: SPC, FWW Subjective:? Agreeable to PT consult. Understands the importance of regularly moving and exercising so that he maintains his mobility level. Denies headache, chest pain, and dizziness throughout session. Did indicate fatigue at the end of activity. Objective: General Observation: Supine in bed. Mental Status: Alert and oriented as to person and place. Able to follow single-step commands. Able pay attention, focus, and respond appropriately although with some delay. Pain: Denies ROM: Right Upper Extremity: ? Shoulder Flexion WFL. Shoulder abduction WFL. Elbow flexion WFL. Wrist flexion WFL. Functional opening and closing of hand WFL. Left Upper Extremity:? Shoulder Flexion WFL. Shoulder abduction WFL. Elbow flexion WFL. Wrist flexion WFL. Functional opening and closing of hand WFL. Right Lower Extremity: Hip flexion WFL. Hip abduction WFL. Knee flexion WFL. Ankle dorsiflexion WFL. Ankle plantarflexion WFL. Left Lower Extremity: Hip flexion WFL. Hip abduction WFL. Knee flexion WFL. Ankle dorsiflexion WFL. Ankle plantarflexion WFL. Strength: Right Upper Extremity: Shoulder flexors 4-/5. Shoulder abductors 4-/5. Elbow flexors 4-/5. Elbow extensors 4-/5. Pest Technician strong. Left Upper Extremity: Shoulder flexors 4-/5. Shoulder abductors 4-/5. Elbow flexors 4-/5. Elbow extensors 4-/5. Pest Technician strong. Right Lower Extremity: Hip flexors 4-/5. Hip abductors 4-/5. Knee flexors 4-/5. Knee extensors 4-5. Ankle dorsiflexors 4-/5. Ankle plantarflexors 4-/5. Left Lower Extremity: Hip flexors 5/5. Hip abductors 5/5. Knee flexors 5/5. Knee extensors 5/5. Ankle dorsiflexors 5/5. Ankle plantarflexors 5/5. Bed Mobility/Transfers: Supine to sit standby assist Sit to stand contact guard assist front-wheeled walker Stand to sit stand by assist with front-wheeled walker Bed to reclining chair contact-guard assist with front-wheeled walker Reclining chair to be contact-guard assist with front-wheeled walker Gait: Instructed patient with level surface ambulation of 200 feet requiring contact-guard assist. Mild SOB. Nimo decreased. Step height decreased. Step length decreased. Reported fatigue after activity and requested to lie down in bed to rest. Balance: Static Sitting:? Normal Dynamic Sitting: Normal Static Standing: Fair Dynamic Standing: Fair Special Tests: Mobility Limitations Standardized Measure [facility] 6 clicks Basic Mobility Inpatient Short Form: Raw Score: 18? CMS Score: 47% deficit ? ? Informed Consent/Education: Patient was instructed in purpose of PT consult and plan of care. Agreeable to proceed with established PT POC to achieve personal goals. Assessment: Needs to be modified independent with FWW or SPC prior to going home. Sandeep demonstrates functional mobility decline due to weakness, decreased activity tolerance, and impaired balance.? Patient presents with clinical signs and symptoms consistent with current/admitting diagnoses that have resulted to mobility limitations, gait instability, generalized weakness, and overall ADL decline as demonstrated by the following impairment level findings: 1.? Decreased strength to B Ue/LE major muscle groups 2.? Impaired standing balance 3.? Impaired activity tolerance, fatigue 4.? Mild Shortness of breath 5.? Impaired cognitive issues Impairments are contributing to the following functional limitations: 1.? Decline in bed mobility skills 2.? Decline in transfer skills 3.? Difficulty with ambulation without assistive device 4.? Increased completion time for mobility ADL performance 5.? Increased risk for falls Patient is assessed as a 01250 moderate complexity based on the following: History: 70-year-old? with past medical history as indicated above Examination: Demonstrable impairment in strength, balance, and mobility level with underlying impairments and functional limitations as exhibited above as well as deficit score of 29% utilizing the [facility] Mobility Inpatient Short Form Presentation: Evolving Decision Makin moderate complexity Goals: Goals X1 week 1. Supine-Sit independent 2. Sit-Supine independent 3. Sit-Stand independent 4. Stand-Sit independent with SPC 5. Bed-Chair independent with SPC 6. Chair-Bed independent with SPC 7. Independent gait on level surface with use of SPC for at least 300 feet without report of pain nor dyspnea 8. Good static and dynamic standing balance/tolerance Plan of Care/Treatment Plan: 1-2x/day, 7 days/week x 1 week. Plan of care has been reviewed with the PRODUCT PLANNER providing the service under Physical Therapy direction. Initiate Physical Therapy intervention for pain management as needed, strengthening, bed mobility, transfers, gait, stairs, balance training, and use of assistive device. DISCHARGE RECOMMENDATIONS: Patient will benefit from home health PT services in order to progress mobility level using least restrictive assistive ambulatory device, assess home safety, identify additional equipment needs, and establish a functional maintenance program that will increase ability of patient to remain at home. Will benefit from OT evaluation to assess self-care performance. TREATMENT CODE/TIME: 94646 x 19 minutes beginning at 11:30 PM. Thank you for the opportunity to participate in the care of this patient. Vidya Ralph PT, DPT, CLT [facility], [place]
--- NOTE | 2021-07-25 14:37 | PT.INTREAT ---
Date of service: 07/25/21 Time of Service: 14:14 PT Notes Visit Reasons: Urinary tract infection Inpatient Physical Therapy Treatment Note [facility] Date: 07/25/2021 PRECAUTIONS: Activity as tolerated SUBJECTIVE: Sandeep is pleasant and agreeable to participating in PT. He reports that he uses a FWW at baseline everywhere I go, it goes. 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 ASSESSMENT: Patient tolerated session without complaint. He continues to demonstrates slow leticia and path deviation with gait training. PLAN: Continue with gait and transfer training and add global strengthening, as tolerated, for improved mobility. TREATMENT CODE/TIME: 15 minutes; 62436 (14:14)
[2021-07-25 14:47] VITALS: BP 96/66; PULSE 73; RESP 16; TEMP 36.3; O2SAT 99
[2021-07-25] MEDS: Normal Saline Flush 10 ML SYR IVP (15:37)
[2021-07-25] MEDS: cefTRIAXone 2 GM/50 ML BAG IVPB (15:37)
--- NOTE | 2021-07-25 15:46 | PDOC.CMIN ---
- If Service Date Differs Date of service: 07/25/21 Time of Service: 15:47 Care Management Initial Assess REASON FOR HOSPITALIZATION:: UTI PAST MEDICAL HISTORY/PAST SURGICAL HISTORY:: Cataracts, bilateral. Left sided lacunar infarction. Memory impairment PREVIOUS FUNCTIONAL STATUS/SOCIAL/FAMILY SUPPORTS:: Sandeep resides alone in [place], [place]. He reports having a very supportive next door neighbor and home health services. CURRENT FUNCTIONAL STATUS:: Sandeep was lying in bed, watching TV when CM met with him. He reported he was not willing to consider SNF upon discharge. He verbalized understanding of treatment plan, and stated he will return home when ready per MD. ADVANCE DIRECTIVES:: None at this time. 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 CURRENT HOME/COMMUNITY SERVICES/EQUIPMENT:: Home Health RN through [facility]. PRIMARY CARE PHYSICIAN:: Linus Hooks: [facility] POTENTIAL DISCHARGE NEEDS:: Increased services. [facility] with [facility]. PATIENT/FAMILY EDUCATION NEEDS:: Review discharge instructions, discuss Ask Me Three. ANTICIPATED BARRIERS TO DISCHARGE:: None identified at this time. TRANSPORTATION:: Via private vehicle with friend, or RCT. PLAN:: Sandeep will return home when ready per MD. He is not agreeable to SNF upon discharge. He will resume home health RN, with addition of PT/OT/ANIMAL KEEPER. He will transport via private vehicle with a friend or via RCT.
--- NOTE | 2021-07-25 15:56 | CHAPLAIN ---
Sandeep was resting in bed when I visited. He said he's here because of a UTI. His mom, Smiley, is living at [employer] now, he said, so he's home alone but has Home Health staff coming in and a neighbor who checks on him. Sandeep hadn't shaved since the last time he was here, so his CLOTH CUTTER, Antolin, shaved his villagomez for him and he said that felt good because his villagomez was getting rough. Sandeep seems to be comfortable being here.
[2021-07-25 16:15] VITALS: BP 102/58
--- NOTE | 2021-07-25 17:55 | W.PM.PROGNOT ---
Date of Service Date of service: 07/25/21 Time of Service: 16:55 Assessment and Plan Assessment and plan (1) Acute UTI (urinary tract infection): Status: Acute Assessment and plan: proteus w/out bacteremia. no flank pain. renal ultrasound did not demonstrate hydronephrosis but he had multiple bilateral renal stones.He has evidence of bilateral renal cortical thinning consistent w chronic kidney disease. (2) ALICJA (acute kidney injury): Status: Acute Assessment and plan: I am not convinced that this is ALICJA rather than CKD. creatinine is unchanged at 1.9. BP's have been soft, and his oral intake has not been great. I will resume iv fluids of LR overnight and repeat his BMP in the a.m. and monitor his urine output and BP (3) Mild dementia: Status: Acute (4) BPH without obstruction/lower urinary tract symptoms: Status: Chronic Assessment and plan: I will resume his tamsulosin. I believe this was held on admission d/t low BP readings. (5) DVT prophylaxis: Status: Acute Assessment and plan: he is not currently anticoagulated and for unclear reasons. I will start him on enoxaparin at renal adjusted dose of 30 mg SC daily. (6) Discharge planning issues: Status: Acute Assessment and plan: patient declines referral to SNF. I will have P.T. evaluate and treat him for generalized weakness and refer him for home health services including home P.T. if indicated. (7) Hypertension: Status: Chronic Subjective Subjective Interval history since last seen: Patient offers no new complaints. He has poor appetite. CM met with him earlier today and he declined referral to SNF. He was found at home by friend who did a check on him and found him to be sitting in his own urine and feces. He was admitted for dehydration and UTI. He is afebrile. He is currently on Rocephin 1 gm daily. Preliminary urine cultures demonstrates Protesu species >100,000 but <10,000 mixed gram positives. Senitivities are pending. His WBC dropped overnight from 19,900 to 10,200. Blood cultures show no growth so far. Exam Narrative Exam Narrative: Patient was napping when I entered the room but aroused w/ gentle tactile stimulation. He is alert, oriented but he seems to be rather simple minded with little insight as to why he was sent to the hospital Lungs: clear Heart: RRR, no murmur flank: no CVA tenderness Abddomen: soft, nontender Extremities; no edema or tenderness Objective Last Vital Signs Temp 36.3 C L 07/25/21 14:47 Pulse 73 07/25/21 14:47 Resp 16 07/25/21 14:47 BP 102/58 L 07/25/21 16:15 Pulse Ox 99 07/25/21 14:47 Laboratory Results - last 24 hr 07/25/21 07/25/21 07:42 07:42 WBC 10.21 RBC 3.83 L Hgb 11.0 L D Hct 34.4 L MCV 90 MCH 28.7 MCHC 32.0 RDW 15.9 H Plt Count 237 MPV 9.6 Immature Gran % 0.2 Neutrophils % 69.2 Lymphocytes % 20.2 Monocytes % 6.8 Eosinophils % 3.2 Basophils % 0.4 Nucleated RBC % 0.0 Absolute Neutrophils 7.07 H Absolute Lymphocytes 2.06 Absolute Monocytes 0.69 Absolute Eosinophils 0.33 Absolute Basophils 0.04 Sodium 137 Potassium 3.8 Chloride 104 Carbon Dioxide 27.5 Anion Gap 5.5 BUN 24 H Creatinine 1.9 H Estimated GFR/1.73 m2 35.12 Glucose 104 Calcium 8.1 L
[2021-07-25 20:00] VITALS: BP 108/70; PULSE 67; RESP 16; TEMP 36.5; O2SAT 95
[2021-07-25] MEDS: Atorvastatin 20 MG TAB PO (20:17)
[2021-07-25] MEDS: Lactated Ringers 1,000 ML 100 ML IV (20:51)
[2021-07-25 23:10] VITALS: BP 108/68; PULSE 78; RESP 16; TEMP 36.5; O2SAT 98
[2021-07-26 05:17] VITALS: BP 116/71; PULSE 79; RESP 16; TEMP 36.5; O2SAT 97
[2021-07-26] MEDS: Levothyroxine 50 MCG TAB PO (05:24)
[2021-07-26 06:58] LABS: Anion Gap 9.3 mmol/L (3-11); BUN 17 mg/dL (7-18); CO2 24.7 mmol/L (21.0-32.0); CREATININE 1.5 mg/dL (0.70-1.30); Calcium 7.9 mg/dL (8.5-10.1); Chloride 105 mmol/L (98-107); Estimated GFR 46.13 (mL/min/1.73m2); Glucose 163 mg/dL (74-106); Sodium 139 mmol/L (136-145)
[2021-07-26 07:33] VITALS: BP 122/74; PULSE 67; RESP 16; TEMP 36.6; O2SAT 98
[2021-07-26] MEDS: Carvedilol 12.5 MG TAB PO (08:46)
[2021-07-26] MEDS: Enoxaparin 40 MG/0.4 ML SYR SC (08:46)
[2021-07-26] MEDS: Magnesium Oxide 400 MG TAB PO (08:46)
[2021-07-26] MEDS: Folic Acid 1 MG TAB PO (08:46)
[2021-07-26] MEDS: Aspirin 81 MG CHEW PO (08:46)
[2021-07-26] MEDS: Multivitamin w/Minerals TAB 1 TAB PO (08:46)
[2021-07-26] MEDS: Potassium Chloride 20 MEQ TABCR 40 MEQ PO (10:53)
[2021-07-26] MEDS: POTASSIUM CHLORIDE 20 MEQ/100 ML BAG 50 MEQ IVPB (10:54)
--- NOTE | 2021-07-26 11:00 | PDOC.CMPRO ---
- If Service Date Differs Date of service: 07/26/21 Time of Service: 11:00 Care Management Progress Note S/O: Sandeep remains pleasant in interaction, per MD awaiting cultures to determine antibiotic course; anticipate transition to orals prior to discharge, CM continues to follow. A: 71 year old male admitted to [facility] 07/24/21 for UTI P: Sandeep will return home when ready per MD. He is not agreeable to SNF upon discharge. He will resume home health RN, with addition of PT/OT/EXTENDED INSURANCE CLERK. He will transport via private vehicle with a friend or via RCT.
--- NOTE | 2021-07-26 12:46 | PT.INTREAT ---
Date of service: 07/26/21 Time of Service: 10:23 PT Notes Visit Reasons: Urinary tract infection Inpatient Physical Therapy Treatment Note [facility] Date: 07/26/2021 PRECAUTIONS: Activity as tolerated SUBJECTIVE: Sandeep is pleasant and agreeable to participating in PT. He reports that he is feeling good today. He would prefer that he discharge to home versus SNF for rehab. OBJECTIVE: PAIN: No c/o pain BED MOBILITY/TRANSFERS Supine-sit: I Sit-supine: I Sit-stand: S Stand-sit: S GAIT Assistive Device: FWW Weight bearing: Full Assist: SBA Distance: 350' Deviation: Cueing for increased leticia, path deviation to L STAIRS: Up/down 3x4 and 2x6 using B rails and a step-to pattern independently ASSESSMENT: Patient demonstrates independence with bed mobility and stair negotiation at this time. He continues to require cueing for leticia with gait training and demonstrates path deviation to the left. PLAN: Continue with gait training and global strengthening for improved activity tolerance. TREATMENT CODE/TIME: 41 minutes; 31796 x3 (10:23)
[2021-07-26 14:11] LABS: Potassium 3.9 mmol/L (3.5-5.1)
--- NOTE | 2021-07-26 15:19 | W.PM.DS.N ---
Date of service: 07/26/21 Time of Service: 14:20 DS: Diagnosis Discharge Diagnosis (1) Acute UTI (urinary tract infection): Status: Acute (2) ALICJA (acute kidney injury): Status: Acute (3) Mild dementia: Status: Acute (4) BPH without obstruction/lower urinary tract symptoms: Status: Chronic (5) Hypertension: Status: Chronic Discharge Plan Disposition Patient Disposition: HOME Condition: Improving Discharge Details Reason For Visit: UTI Admit Date/Time: 07/24/21 14:14 Admit Provider: Elpidio Corey Attending Provider: Elpidio Corey Primary Care Provider: Domingo Hooks [facility] Course Hospital Course: Sandeep was found by home health nurse confused, sitting in excrement and urine and had not been eating. Nurse called 911, he went to ED and was found to have acute UTI (urinary tract infection). He was admitted for IV abx, He received ceftriaxone IV pending the urine culture. Blood cultures are negative. Urinary catheter placed for urine retention. TSH was checked, 1.35 - no change in levothyroxine dose. He had hypotension on admission, BP meds, amlodipine and hydralazine, were held until BP regulated. Tamulosin was held also for soft blood pressure. Resumed when BP regulated. He refused admission to SNF or rehab and was discharged to home via RCT. He was advised to take cipro 500 mg wice a day for 7 days and follow up with urology and PCP. He was discharge to home with urinary catheter. Home health was resumed; PT & OT was added. Reviewed with Dr Corey ? Home Meds and New Rx's Prescriptions: New ciprofloxacin HCl [Cipro] 500 mg tablet 500 mg PO BID Qty: 14 0RF Continued magnesium oxide 420 mg Tablet 420 mg PO BID calcium 500 mg Tablet 500 mg PO DAILY PRN bisacodyl 10 mg Suppository 10 mg ND DAILY PRN docusate sodium 100 mg Capsule 100 mg PO BID PRN multivitamin with minerals Tablet 1 tab PO BID carboxymethylcellulose sodium Drops 1 drp OPHTHALMIC (EYE) QID PRN amlodipine 10 mg Tablet 10 mg PO DAILY Qty: 30 0RF aspirin 81 mg Tablet,Chewable 81 mg PO DAILY Qty: 30 0RF tamsulosin 0.4 mg Capsule 0.4 mg PO DAILY@1800 Qty: 30 0RF folic acid 1 mg Tablet 1 mg PO DAILY Qty: 30 0RF atorvastatin 20 mg tablet 20 mg PO QHS Qty: 30 0RF carvedilol [Coreg] 12.5 mg tablet 12.5 mg PO BID Qty: 60 0RF Rx Instructions: must administer with a meal/food acetaminophen 500 mg Tablet 650 mg PO Q6H PRN PRN hydralazine 25 mg tablet 25 mg PO TID levothyroxine 50 mcg Tablet 50 mcg PO DAILY@0600 Qty: 30 0RF Discontinued cefpodoxime 200 mg tablet 200 mg PO BID Qty: 12 0RF Rx Instructions: must administer with a meal/food Discharge Instructions Instructions: Urinary Tract Infection in Men (DC) Stand Alone Forms: Nursing Discharge Form Referrals: Michele Blanchard MD [[facility] STAFF PHYSICIAN] - (Urinary retention; BPH - discharged with urinary catheter) Domingo Hooks [Primary Care Provider] - (Follow up with PCP in 1-2 weeks We will call you thursday with your appointment time ) Activity:: Activity as Tolerated Equipment/Supplies:: No Equipment Needed Diet:: Low Sodium Discharge Orders Discharge Orders: Discharge Order (Routine); Ordered 07/26/21 Ordered By: Nina Lr Discharge Data Discharge Date/Time-TO BE ENTERED AT DEPARTURE: 07/26/21 18:03 DS: Summary Time Spent with Patient providing and/or coordinating discharge services: Less than 30 minutes Status at Discharge Functional status at discharge: independent ambulation Overall status at discharge: patient is progressing back to baseline Mental Status: mental status grossly normal (at his level) Speech and Movement: speech and movement normal, delayed speech and slowed movement Mood: congruent mood Affect: blunted Exam Narrative Exam Narrative: He is alert, oriented, asking when he can go home Lungs: clear Heart: RRR, no murmur flank: no CVA tenderness Abddomen: soft, nontender Extremities; no edema or tenderness Psych Mental Status: mental status grossly normal (at his level) Speech and Movement: speech and movement normal, delayed speech and slowed movement Mood: congruent mood Affect: blunted DS: Data Vitals/I&O Vitals and I&O: Vital Signs Temperature 36.6 C 07/26/21 07:33 Temperature Source Tympanic 07/26/21 07:33 Pulse 67 07/26/21 07:33 Pulse Rhythm Regular 07/26/21 08:53 Pulse 65 07/24/21 14:31 Respiratory Rate 16 07/26/21 07:33 Respiratory Effort 07/26/21 08:53 Respiratory Depth Normal 07/26/21 08:53 Respiratory Pattern Normal 07/26/21 08:53 Blood Pressure 122/74 07/26/21 07:33 Blood Pressure Mean 70 07/24/21 15:01 Blood Pressure Position Supine 07/24/21 10:09 Pulse Oximetry 98 07/26/21 07:33 Oxygen Delivery Method Room Air 07/26/21 07:33 Oxygen Flow Rate 0 07/26/21 07:33 Pain Level 0 07/26/21 07:33 Intake & Output 07/25/21 07/26/21 07/26/21 23:59 11:59 23:59 Intake Total 500 / 1980 1480 / 1960 480 / 1960 Output Total 1200 / 1950 2800 / 3350 550 / 3350 Balance -700 / 30 -1320 / -1390 -70 / -1390 Intake: IV 50 / 1050 1000 / 1000 Oral 450 / 930 480 / 960 480 / 960 Output: Urine 1200 / 1950 2800 / 3350 550 / 3350 Other: Urine Color Yellow Yellow Pale Yellow Urine Appearance Clear Cloudy Clear Sediment Sediment Data Completed and Pending Labs on day of discharge: Labs from last 24 hours 07/26/21 07/26/21 13:50 06:00 Sodium 139 Potassium 3.9 3.0 L Chloride 105 Carbon Dioxide 24.7 Anion Gap 9.3 BUN 17 Creatinine 1.5 H Estimated GFR/1.73 m2 46.13 Glucose 163 H Calcium 7.9 L Preliminary micro results at discharge 07/24/21 18:45 Blood Culture - Preliminary Blood NO GROWTH 24 HOURS 07/24/21 18:30 Blood Culture - Preliminary Blood NO GROWTH 24 HOURS PFSH All Active Problems Acute UTI (urinary tract infection) (Acute) Adult failure to thrive (Acute) Hypothyroidism (Chronic) Mild dementia (Acute) Hypertensive emergency (Acute) Parathyroid adenoma (Acute) Discharge planning issues (Acute) Hypertension (Chronic) CVA (cerebral vascular accident) (Chronic) DVT prophylaxis (Acute) ALICJA (acute kidney injury) (Acute) Altered mental status (Acute) 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) Renal insufficiency (Acute) Medical History ALICJA (acute kidney injury) Bladder outlet obstruction Cataracts, bilateral Left sided lacunar infarction Memory impairment Nonsustained ventricular tachycardia Obstructive uropathy Paroxysmal SVT (supraventricular tachycardia) UTI (urinary tract infection) Social History Smoking/Tobacco Use Status: Never Smoking risk assessment performed?: Yes Alcohol Intake: never Drug use: Never Substance use type: does not use Do you feel safe at home: Yes Do you feel safe in your relationship?: Yes
--- NOTE | 2021-07-26 16:15 | PDOC.HHF2F ---
Home Health Certification Home Health Certification: 1. Encounter Date and Reason I certify that Sandeep Ritter was seen by Nina Lr NP on 07/26/21 and that I had a [id number] encounter with this patient that meets the physician face to face encounter requirements. 2. Clinical Findings Supporting Skilled Need and Homebound Status I certify that home health services are medically necessary, include either intermittent senior living and/or physical/speech therapy, and that this patient is homebound in that absences from the home require considerable and taxing effort and are infrequent or of short duration, or are attributable to the need to receive medical care. [X] (a) Attached documentation from encounter provides clinical findings supporting skilled need and homebound status (including what assistance patient requires to leave the home). The encounter with the patient was in whole, or in part, for the following medical condition, which is the primary reason for home health care: UTI, indwelling urinary catheter Longterm: Resume care Physical Therapy: Assess endurance, ability to be independent in the home with ADL's Occupational Therapy: Assess need for aide to assist with ADL's Homebound: Recent hospitalization for UTI resulting in weakness and he continues to have failure to thrive; it is unsafe for him to venture out on his own, physically and mentally - requires assistance of another person to leave the residence - he lives alone. 3. Certification and Authentication I certify that I composed the above information based on my clinical judgement relating to this patient's medical condition and, if applicable, clinical findings communicated to me by the NPP or inpatient physician who performed the Home Health Referral. All further orders will be obtained through Domingo Hooks MD
[2021-07-26] MEDS: Ciprofloxacin 500 MG TAB PO (16:48)
--- NOTE | 2021-07-26 16:54 | CMDISCH_ITS ---
- If Service Date Differs Date of service: 07/26/21 Time of Service: 16:54 LACE Index Scoring Tool - Questions: Length of Stay (in days): 2 Acuity (Admit via E.D.?): Yes Comorbidities: Mild Liver/Renal Disease, Dementia E.D. Visits: 4 - Answers: Total Score: 14 Risk of Readmission: High Risk Care Management Discharge Reason for Hospitalization: UTI Discharge Plan: Sandeep will return home when ready per MD. He is not agreeable to SNF upon discharge. 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 He will transport via private vehicle with a friend or via RCT. Patient/Family Education Needs: Review discharge instructions, discuss Ask Me Three. Services Needed at Discharge: Home Health Care Services (Resume RN add PT/OT/PIPELINE SYSTEMS OPERATOR), Transportation ([facility]CT Private vehicle )
--- NOTE | 2021-07-26 20:00 | INDS_ITS ---
Date of service: 07/26/21 PT Notes Visit Reasons: Urinary tract infection Physical Therapy Discharge Summary Date: 07/26/2021 Dates of Service: 07/25/2021 through 07/26/2021 This is a clinical summary of care provided for the duration of dates listed above. No charge was made in the completion of this documentation. Referring Doctor: Candelaria Kat MD PT Orders: PT CONSULT: Limited ability Precautions: Fall. Standard. Activity as tolerated. Patient Profile/Admitting Diagnosis: Sandeep is a 71-year old male admitted to the ED on 07/24/2021 generalized weakness, abnormal urination, and increased confusion.? Patient is diagnosed with acute urinary tract infection infection, hypothyroidism, hypertension, acute kidney injury, and benign prostatic hyperplasia. PMHX: All Active Problems?(Updated 07/24/21 @ 14:29 by Gary Andersen NP) Acute UTI (urinary tract infection) (Acute) Adult failure to thrive (Acute) Hypothyroidism (Chronic) Nonsustained ventricular tachycardia (Acute) Mild dementia (Acute) Hypertensive emergency (Acute) Parathyroid adenoma (Acute) Discharge planning issues (Acute) Hypertension (Chronic) CVA (cerebral vascular accident) (Chronic) DVT prophylaxis (Acute) ALICJA (acute kidney injury) (Acute) Altered mental status (Acute) 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) Renal insufficiency (Acute) Hypercalcemia (Acute) Medical History?(Updated 07/24/21 @ 14:29 by Gary Andersen NP) ALICJA (acute kidney injury) Bladder outlet obstruction Cataracts, bilateral Left sided lacunar infarction Memory impairment Obstructive uropathy UTI (urinary tract infection) Social History/Home Situation: Lives alone in a mobile home with a ramp to enter. Home is handicap-accessible.? Good friend and neighbor Elias helps out with meals and medication intake.? Equipment Owned/DME: SPC, FWW Subjective:? NT. See most recent GEOGRAPHIC INFORMATION SYSTEM ANALYST notes. Objective: General Observation: NT. See most recent GEOGRAPHIC INFORMATION SYSTEM ANALYST notes. Mental Status: NT. See most recent GEOGRAPHIC INFORMATION SYSTEM ANALYST notes. Pain: NT. See most recent GEOGRAPHIC INFORMATION SYSTEM ANALYST notes. ROM: Right Upper Extremity: ? Shoulder Flexion WFL. Shoulder abduction WFL. Elbow flexion WFL. Wrist flexion WFL. Functional opening and closing of hand WFL. Left Upper Extremity:? Shoulder Flexion WFL. Shoulder abduction WFL. Elbow flexion WFL. Wrist flexion WFL. Functional opening and closing of hand WFL. Right Lower Extremity: Hip flexion WFL. Hip abduction WFL. Knee flexion WFL. Ankle dorsiflexion WFL. Ankle plantarflexion WFL. Left Lower Extremity: Hip flexion WFL. Hip abduction WFL. Knee flexion WFL. Ankle dorsiflexion WFL. Ankle plantarflexion WFL. Strength: Right Upper Extremity: Shoulder flexors 4-/5. Shoulder abductors 4-/5. Elbow flexors 4-/5. Elbow extensors 4-/5. Psychologist Counseling strong. Left Upper Extremity: Shoulder flexors 4-/5. Shoulder abductors 4-/5. Elbow flexors 4-/5. Elbow extensors 4-/5. Psychologist Counseling strong. Right Lower Extremity: Hip flexors 4-/5. Hip abductors 4-/5. Knee flexors 4-/5. Knee extensors 4-5. Ankle dorsiflexors 4-/5. Ankle plantarflexors 4-/5. Left Lower Extremity: Hip flexors 5/5. Hip abductors 5/5. Knee flexors 5/5. Knee extensors 5/5. Ankle dorsiflexors 5/5. Ankle plantarflexors 5/5. Bed Mobility/Transfers: Supine to sit independent Sit to stand independent Stand to sit independent Bed to reclining chair stand by assist Reclining chair to stand by assist Gait: Instructed patient with level surface ambulation of 350 feet requiring stand by assist. Mild SOB. Nimo decreased. Balance: Static Sitting:? Normal Dynamic Sitting: Normal Static Standing: Fair Dynamic Standing: Fair Assessment: Needs to be modified independent with FWW or SPC prior to going home.? Sandeep demonstrates functional mobility decline due to weakness, decreased activity tolerance, and impaired balance.? Patient presents with clinical signs and symptoms consistent with current/admitting diagnoses that have resulted to mobility limitations, gait instability, generalized weakness, and overall ADL decline as demonstrated by the following impairment level findings: 1.? Decreased strength to B Ue/LE major muscle groups 2.? Impaired standing balance 3.? Impaired activity tolerance, fatigue 4.? Mild Shortness of breath 5.? Impaired cognitive issues Impairments are contributing to the following functional limitations: 1.? Decline in bed mobility skills 2.? Decline in transfer skills 3.? Difficulty with ambulation without assistive device 4.? Increased completion time for mobility ADL performance 5.? Increased risk for falls Goals: Goals X1 week 1. Supine-Sit independent MET 2. Sit-Supine independent MET 3. Sit-Stand independent NOT MET 4. Stand-Sit independent with SPC NOT MET 5. Bed-Chair independent with SPC NOT MET 6. Chair-Bed independent with SPC NOT MET 7. Independent gait on level surface with use of SPC for at least 300 feet without report of pain nor dyspnea NOT MET 8. Good static and dynamic standing balance/tolerance NOT MET DISCHARGE RECOMMENDATIONS: Patient will benefit from home health PT services in order to progress mobility level using least restrictive assistive ambulatory device, assess home safety, identify additional equipment needs, and establish a functional maintenance program that will increase ability of patient to remain at home.? Will benefit from OT evaluation to assess self-care performance. TREATMENT CODE/TIME: MARILYN Thank you for the opportunity to participate in the care of this patient. Vidya Ralph PT, DPT, CLT [facility] [place], [place]
--- NOTE | 2021-07-27 16:11 | PDOC.ERCMACT ---
- If Service Date Differs Date of service: 07/27/21 Time of Service: 16:11 Care Management Activity Note CM receives a phone call from Vandana, Home Health nurse, advising that Sandeep has been without his antibiotic because [facility] did not have the prescription. Delma Queen, ELIZABETH, sends a prescription for Cipro to [facility]. The prescription had apparently been sent to [facility] upon Sandeep's discharge from the hospital. Unfortunately, [facility] is closed on the weekend and the prescription was not picked up from the pharmacy Thursday afternoon before [facility] closed.
== END 2021-07-26 18:03 | disposition home or self-care (01) | DRG 683 ==
LOC: ER 15:30 → MS 15:33
PROVIDERS: Nurse Practitioner Acute Care; Admitting Provider Internal Medicine; Emergency Provider Nurse Practitioner Family; PCP Internal Medicine; Visit Provider Internal Medicine
DX: N39.0 Urinary tract infection, site not specified (principal); E03.9 Hypothyroidism, unspecified; I12.9 Hypertensive chronic kidney disease with stage 1 through stage 4 chronic kidney disease, or unspecified chronic kidney disease; N17.9 Acute kidney failure, unspecified; F03.90 Unspecified dementia, unspecified severity, without behavioral disturbance, psychotic disturbance, mood disturbance, and anxiety; N18.9 Chronic kidney disease, unspecified; E83.52 Hypercalcemia; R62.7 Adult failure to thrive; Z68.23 Body mass index [BMI] 23.0-23.9, adult; Z86.73 Personal history of transient ischemic attack (TIA), and cerebral infarction without residual deficits; B96.4 Proteus (mirabilis) (morganii) as the cause of diseases classified elsewhere; I95.9 Hypotension, unspecified
CPT/HCPCS: 36415; 51702; 76770; 80048; 80053; 87040; 87077; 87637; 93005; 96365; 97162; 97530; 99285; J1650; 81003; 81015; 83735; 84132; 85025; 87086; 87186; 93010; 99223; 99232; 99238; J0690; J3480

== ENCOUNTER 2021-07-30 07:00 | Emergency (ER) | payer MEDICARE, SELFPAY ==
--- NOTE | 2021-07-30 07:09 | W.ED.GENAD ---
Discharge Plan Disposition Patient Disposition: HOME Condition: Good Discharge Details Clinical Impression: Olvera catheter in place Primary Care Provider: Domingo Hooks ED Provider: Piyush Todd Home Meds and New Rx's Prescriptions: Continued magnesium oxide 420 mg Tablet 420 mg PO BID calcium 500 mg Tablet 500 mg PO DAILY PRN bisacodyl 10 mg Suppository 10 mg CO DAILY PRN docusate sodium 100 mg Capsule 100 mg PO BID PRN multivitamin with minerals Tablet 1 tab PO BID carboxymethylcellulose sodium Drops 1 drp OPHTHALMIC (EYE) QID PRN amlodipine 10 mg Tablet 10 mg PO DAILY Qty: 30 0RF aspirin 81 mg Tablet,Chewable 81 mg PO DAILY Qty: 30 0RF tamsulosin 0.4 mg Capsule 0.4 mg PO DAILY@1800 Qty: 30 0RF folic acid 1 mg Tablet 1 mg PO DAILY Qty: 30 0RF atorvastatin 20 mg tablet 20 mg PO QHS Qty: 30 0RF carvedilol [Coreg] 12.5 mg tablet 12.5 mg PO BID Qty: 60 0RF Rx Instructions: must administer with a meal/food acetaminophen 500 mg Tablet 650 mg PO Q6H PRN PRN hydralazine 25 mg tablet 25 mg PO TID levothyroxine 50 mcg Tablet 50 mcg PO DAILY@0600 Qty: 30 0RF ciprofloxacin HCl [Cipro] 500 mg tablet 500 mg PO BID Qty: 14 0RF Discharge Instructions Additional Instructions: Thankfully the issue has been resolved, and the Olvera catheter is now draining well. If this issue recurs again, just gently moving the catheter about 1 inch in and out or twisting it just a little very gently can sometimes change the position and help with the drainage. If you notice any worsening of your symptoms, or any new symptoms such as vomiting, diarrhea, fever, chills, shortness of breath, chest pain, numbness, weakness, or fainting , please return immediately to the emergency department for reevaluation. Please follow up with your primary care provider as soon as possible for reassessment and reevaluation. As always, it was a pleasure participating in your medical care today. Referrals: Domingo Hooks [Primary Care Provider] - Medical Decision Making 71-year-old male presents for Olvera catheter problem. An indwelling Olvera catheter was placed after his last discharge few days ago. The patient and son noted today that the Olvera bag was emptied this morning aside for small amount of urine. They came to the ER for further assessment. Patient admits to mild achiness in the suprapubic region, but no other complaints. No fever or chills. No hematuria. No other significant pain. As patient was brought to the room, his pants were taken off as he had had a bowel movement in his pants. As soon as his pants were removed the Olvera catheter began flowing freely, and so the bag of urine. Patient had complete resolution of his suprapubic pressure. Patient feels well. No abnormalities noted in the Olvera catheter or the toes. No kinking. Genital exam unremarkable. Patient will be discharged. Discussed red flags which to return as well as proper Olvera catheter care. I have extensively reviewed the treatment plan and discharge instructions with the patient and their family. I have addressed all patient concerns at this time. The patient and family was made aware of what symptoms to monitor for that would warrant a return to the emergency department. Discussed the plan with the patient and family, they demonstrate verbal understanding and agreement with our assessment and plan at this time. The documentation in this chart was dictated using [place] dictation software. Please excuse any dictation errors. HPI General Date/Time Provider Initiated Documentation: 07/30/21 07:01. HPI Narrative: 71-year-old male presents for Olvera catheter problem. An indwelling Olvera catheter was placed after his last discharge few days ago. The patient and son noted today that the Olvera bag was emptied this morning aside for small amount of urine. They came to the ER for further assessment. Patient admits to mild achiness in the suprapubic region, but no other complaints. No fever or chills. No hematuria. No other significant pain. Related Data Home Medications Medication Instructions Recorded Confirmed amlodipine 10 mg tablet 10 mg PO DAILY #30 tabs 01/27/19 07/24/21 aspirin 81 mg chewable tablet 81 mg PO DAILY #30 tabs 01/27/19 07/24/21 atorvastatin 20 mg tablet 20 mg PO QHS #30 tabs 01/27/19 07/24/21 carvedilol 12.5 mg tablet (Coreg) 12.5 mg PO BID #60 tabs 01/27/19 07/24/21 folic acid 1 mg tablet 1 mg PO DAILY #30 tabs 01/27/19 07/24/21 tamsulosin 0.4 mg capsule 0.4 mg PO DAILY@1800 #30 caps 01/27/19 07/24/21 acetaminophen 500 mg tablet 650 mg PO Q6H PRN PRN 08/28/19 07/24/21 hydralazine 25 mg tablet 25 mg PO TID 08/28/19 07/24/21 levothyroxine 50 mcg tablet 50 mcg PO DAILY@0600 #30 tabs 10/31/20 07/24/21 bisacodyl 10 mg rectal suppository 10 mg CO DAILY PRN 02/27/21 07/24/21 calcium 500 mg tablet 500 mg PO DAILY PRN 02/27/21 07/24/21 carboxymethylcellulose sodium 1 drp ophthalmic (eye) QID PRN 02/27/21 07/24/21 docusate sodium 100 mg capsule 100 mg PO BID PRN 02/27/21 07/24/21 magnesium oxide 420 mg tablet 420 mg PO BID 02/27/21 07/24/21 multivitamin with minerals 1 tab PO BID 02/27/21 07/24/21 ciprofloxacin HCl 500 mg tablet 500 mg PO BID #14 tabs 07/27/21 (Cipro) Previous Rx's Medication Instructions Recorded amlodipine 10 mg tablet 10 mg PO DAILY #30 tabs 01/27/19 aspirin 81 mg chewable tablet 81 mg PO DAILY #30 tabs 01/27/19 atorvastatin 20 mg tablet 20 mg PO QHS #30 tabs 01/27/19 carvedilol 12.5 mg tablet (Coreg) 12.5 mg PO BID #60 tabs 01/27/19 folic acid 1 mg tablet 1 mg PO DAILY #30 tabs 01/27/19 tamsulosin 0.4 mg capsule 0.4 mg PO DAILY@1800 #30 caps 01/27/19 levothyroxine 50 mcg tablet 50 mcg PO DAILY@0600 #30 tabs 10/31/20 ciprofloxacin HCl 500 mg tablet 500 mg PO BID #14 tabs 07/27/21 (Cipro) Allergies Allergy/AdvReac Type Severity Reaction Status Date / Time No Known Allergies Allergy Unverified 04/01/21 18:33 General SUNNI: 3 Review of Systems All systems reviewed & are unremarkable except as noted in HPI and below PFSH All Active Problems Olvera catheter in place (Acute) Acute UTI (urinary tract infection) (Acute) Adult failure to thrive (Acute) Hypothyroidism (Chronic) Mild dementia (Acute) Hypertensive emergency (Acute) Parathyroid adenoma (Acute) Hypertension (Chronic) CVA (cerebral vascular accident) (Chronic) Altered mental status (Acute) 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) Renal insufficiency (Acute) Medical History ALICJA (acute kidney injury) Bladder outlet obstruction Cataracts, bilateral Left sided lacunar infarction Memory impairment Nonsustained ventricular tachycardia Obstructive uropathy Paroxysmal SVT (supraventricular tachycardia) UTI (urinary tract infection) Social History Smoking/Tobacco Use Status: Never Smoking risk assessment performed?: Yes Alcohol Intake: never Drug use: Never Substance use type: does not use Do you feel safe at home: Yes Do you feel safe in your relationship?: Yes Exam Narrative Exam Narrative: 1.Const: Well-nourished, Well-developed, appearing stated age 2.Eyes: PERRL, no conjunctival injection, and symmetrical lids. 3.ENT: Atraumatic external nose and ears. Moist MM. Neck: Symmetric, trachea midline, No thyromegaly. 4.CVS: +S1/S2, No murmurs or gallops. Peripheral pulses 2+ and equal in all extremities. Brisk capillary refill in all extremities. 5.RESP: Unlabored respiratory effort. Clear to auscultation bilaterally. No wheezes rales or rhonchi 6.GI: Soft, Nontender/Nondistended, No hepatosplenomegaly. No guarding or rebound. Genital exam is unremarkable. As soon as the patient's pants were taken off his Olvera catheter began to flow freely and all of the urine came out well. 7.MSK: Normocephalic/Atraumatic, Extremities w/o deformity or ttp No cyanosis or clubbing, Normal movement of all extremities 8.Skin: Warm, Dry. No rashes or lesions. 9.Neuro: track layer head II-XII grossly intact. Sensation grossly intact, no focal neurologic deficits. 10.Psych: (AAO) x3. Appropriate mood and affect
[2021-07-30 07:16] VITALS: BP 125/76; PULSE 82; RESP 16; TEMP 36.6; O2SAT 95
--- NOTE | 2021-07-30 19:17 | NUR.NOTE ---
1200cc urine out of rucker. leg bag put on pt. pt covered in feces-cleaned and paper scrub pants put on.Nursing Note:
== END 2021-07-30 07:39 | disposition home or self-care (01) ==
LOC: ER 07:23
PROVIDERS: Emergency Provider Student in an Organized Health Care Education/Training Program; PCP Internal Medicine
DX: T83.091A Other mechanical complication of indwelling urethral catheter, initial encounter (principal)
CPT/HCPCS: 99283; 99281

== ENCOUNTER 2021-09-15 09:39 | Emergency (ER) | payer MEDICARE, SELFPAY ==
[2021-09-15] VITALS (7 sets, daily range): BP systolic 109–135; BP diastolic 59–84; PULSE 79–85; RESP 14–32; TEMP 36.8–37.1; O2SAT 96–97
--- NOTE | 2021-09-15 09:46 | W.ED.GENAD ---
Discharge Plan Disposition Patient Disposition: HOME Condition: Stable Discharge Details Clinical Impression: Weakness, Vomiting Primary Care Provider: Domingo Hooks ED Provider: Sarah Saldana Home Meds and New Rx's Prescriptions: Continued magnesium oxide 420 mg Tablet 420 mg PO BID calcium 500 mg Tablet 500 mg PO DAILY PRN bisacodyl 10 mg Suppository 10 mg NJ DAILY PRN docusate sodium 100 mg Capsule 100 mg PO BID PRN multivitamin with minerals Tablet 1 tab PO BID carboxymethylcellulose sodium Drops 1 drp OPHTHALMIC (EYE) QID PRN amlodipine 10 mg Tablet 10 mg PO DAILY Qty: 30 0RF aspirin 81 mg Tablet,Chewable 81 mg PO DAILY Qty: 30 0RF tamsulosin 0.4 mg Capsule 0.4 mg PO DAILY@1800 Qty: 30 0RF folic acid 1 mg Tablet 1 mg PO DAILY Qty: 30 0RF atorvastatin 20 mg tablet 20 mg PO QHS Qty: 30 0RF carvedilol [Coreg] 12.5 mg tablet 12.5 mg PO BID Qty: 60 0RF Rx Instructions: must administer with a meal/food acetaminophen 500 mg Tablet 650 mg PO Q6H PRN PRN hydralazine 25 mg tablet 25 mg PO TID levothyroxine 50 mcg Tablet 50 mcg PO DAILY@0600 Qty: 30 0RF ciprofloxacin HCl [Cipro] 500 mg tablet 500 mg PO BID Qty: 14 0RF Discharge Instructions Instructions: Acute Nausea and Vomiting (ED), Weakness (ED) Additional Instructions: Your lab work today is reassuring and shows no evidence of acute concerning or significant findings. Your urine has been sent for culture and you will be notified if you have an acute urinary tract infection. Drink plenty of fluids and get plenty of rest. Take the Zofran as needed and directed for nausea and vomiting. Follow-up with your primary care doctor in 1 week. Return to the emergency department with any worsening or new concerning symptoms such as fever, persistent vomiting, diarrhea, abdominal pain or any other concerns. Discharge Data Discharge Date/Time-TO BE ENTERED AT DEPARTURE: 09/15/21 13:46 Discharge Physician: Sarah Saldana Medical Decision Making 1020 -- 71-year-old male with a history of hypertension, hyperlipidemia, dementia, hypothyroidism, BPH with obstructive uropathy and chronic rucker, CVA who was admitted here in July 2021 for UTI after found to be covered in urine and had refused transfer to SNF for rehab at that time presents from home after neighbor called EMS when he noted patient covered in vomit with feces on his clothing with reported increasing weakness today. Patient alert and oriented x2 which appears to be his baseline. He appears comfortable and nontoxic. His vitals are within normal limits. He is afebrile. He is moving all extremities. He currently is asymptomatic and states he would like to go home. Patient is asking for food. His abdomen is soft and nontender. He is moving all extremities. Patient presentation does not appear consistent with CVA, meningitis, ACS, dissection or PE. Urine culture from 07/24/21 grew Pseudomonas. 1220 --labs reviewed. Normal white blood cell count. Normal electrolytes. Urinalysis notes greater than 50 WBCs with large leukocyte esterase but negative nitrite. Urine culture sent. As he has no fever with normal white blood cell count, suspect colonization due to chronic Rucker catheter and will hold on antibiotics at this time. Patient states he would like to go home. He demonstrates capacity to make decisions at this time. Disposition decision made weighing the risks and benefits of hospitalization versus outpatient treatment, the risk for further decompensation, and the patient's wishes. Able to obtain a ride home. Advised to follow up with the primary care doctor for re-evaluation. Usual and customary return precautions given prior to discharge. Medical Records Medical records reviewed: Yes I reviewed the patient's medical records. Lab Data Lab results reviewed: Yes I reviewed the patient's lab results. Labs: 09/15/21 10:01 Urine - Reflex from Ua Urine Culture - Final Gram Positive Dianne,Mixed Gram Negative Dianne,Mixed Laboratory Tests Range/Units 09/15/21 09/15/21 09/15/21 09:55 09:55 10:01 WBC (4.4-10.8) 10^3/uL 8.71 RBC (4.36-5.78) 10^6/uL 4.44 Hgb (13.5-17.5) g/dL 12.9 L Hct (40.0-50.0) % 38.8 L MCV (80-95) fL 87 MCH (27.0-33.0) pg 29.1 MCHC (32.0-36.0) % 33.2 RDW (11.8-14.1) % 14.6 H Plt Count (130-400) 10^3/uL 297 MPV (8.0-11.0) fL 9.4 Immature Gran % 0.3 Neutrophils % 68.2 Lymphocytes % 17.8 Monocytes % 11.0 Eosinophils % 2.2 Basophils % 0.5 Nucleated RBC % (0.0-0.3) % 0.0 Absolute Neutrophils (1.2-6.7) 10^3/uL 5.94 Absolute Lymphocytes (1.2-3.4) 10^3/uL 1.55 Absolute Monocytes (0.1-0.8) 10^3/uL 0.96 H Absolute Eosinophils (0.0-0.7) 10^3/uL 0.19 Absolute Basophils (0.0-0.2) 10^3/uL 0.04 Sodium (136-145) mmol/L 141 Potassium (3.5-5.1) mmol/L 3.8 Chloride (98-107) mmol/L 103 Carbon Dioxide (21.0-32.0) mmol/L 30.5 Anion Gap (3-11) mmol/L 7.5 BUN (7-18) mg/dL 23 H Creatinine (0.70-1.30) mg/dL 1.5 H Estimated GFR/1.73 m2 (mL/min/1.73m2) 46.13 Glucose (74-106) mg/dL 134 H Calcium (8.5-10.1) mg/dL 8.7 Total Bilirubin (0.2-1.0) mg/dL 0.9 AST (15-37) U/L 9 L ALT (16-63) U/L 11 L Alkaline Phosphatase (46-116) U/L 68 Total Protein (6.4-8.2) g/dL 7.3 Albumin (3.4-5.0) g/dL 2.8 L Lipase (73-393) U/L 117 Urine Color (Yellow) Yellow Urine Clarity (Clear) Sl Cloudy Urine pH (5-8) 6.0 Ur Specific Hodgen (1.005-1.025) 1.020 Urine Protein (Negative) mg/dL 100 H Urine Ketones (Negative) mg/dL Negative Urine Blood (Negative) Moderate H Urine Nitrite (Negative) Negative Urine Bilirubin (Negative) Negative Urine Urobilinogen (Up TO 0.2) EU/dL 0.2 Ur Leukocyte Esterase (Negative) Large H Urine RBC (0-2) HPF 20-50 H Urine WBC (0-5) HPF >50 H Ur Epithelial Cells (Negative) HPF Rare Urine Crystals (Negative) HPF Negative Urine Bacteria (Negative) HPF Moderate Urine Casts (Negative) LPF Negative Urine Mucus (Negative) Negative Ur Culture Indicated? Yes Urine Glucose (Negative) mg/dL Negative HPI General Mode of arrival: EMS. Date/Time Provider Initiated Documentation: 09/15/21 09:41. Limitations to Documentation: no limitations. Information obtained by: patient. HPI Narrative: Patient is a 71-year-old male with a history of hypertension, hyperlipidemia, hypothyroidism, dementia, BPH, CVA who was admitted here end of July 2021 for UTI after noted to be covered in urine and has refused transfer to SNF for rehab presents from home after home health found patient covered in vomit this morning. EMS reported that plan is for transfer to SNF in the next couple days. Related Data Home Medications Medication Instructions Recorded Confirmed amlodipine 10 mg tablet 10 mg PO DAILY #30 tabs 01/27/19 07/24/21 aspirin 81 mg chewable tablet 81 mg PO DAILY #30 tabs 01/27/19 07/24/21 atorvastatin 20 mg tablet 20 mg PO QHS #30 tabs 01/27/19 07/24/21 carvedilol 12.5 mg tablet (Coreg) 12.5 mg PO BID #60 tabs 01/27/19 07/24/21 folic acid 1 mg tablet 1 mg PO DAILY #30 tabs 01/27/19 07/24/21 tamsulosin 0.4 mg capsule 0.4 mg PO DAILY@1800 #30 caps 01/27/19 07/24/21 acetaminophen 500 mg tablet 650 mg PO Q6H PRN PRN 08/28/19 07/24/21 hydralazine 25 mg tablet 25 mg PO TID 08/28/19 07/24/21 levothyroxine 50 mcg tablet 50 mcg PO DAILY@0600 #30 tabs 10/31/20 07/24/21 bisacodyl 10 mg rectal suppository 10 mg NJ DAILY PRN 02/27/21 07/24/21 calcium 500 mg tablet 500 mg PO DAILY PRN 02/27/21 07/24/21 carboxymethylcellulose sodium 1 drp ophthalmic (eye) QID PRN 02/27/21 07/24/21 docusate sodium 100 mg capsule 100 mg PO BID PRN 02/27/21 07/24/21 magnesium oxide 420 mg tablet 420 mg PO BID 02/27/21 07/24/21 multivitamin with minerals 1 tab PO BID 02/27/21 07/24/21 ciprofloxacin HCl 500 mg tablet 500 mg PO BID #14 tabs 07/27/21 (Cipro) Previous Rx's Medication Instructions Recorded amlodipine 10 mg tablet 10 mg PO DAILY #30 tabs 01/27/19 aspirin 81 mg chewable tablet 81 mg PO DAILY #30 tabs 01/27/19 atorvastatin 20 mg tablet 20 mg PO QHS #30 tabs 01/27/19 carvedilol 12.5 mg tablet (Coreg) 12.5 mg PO BID #60 tabs 01/27/19 folic acid 1 mg tablet 1 mg PO DAILY #30 tabs 01/27/19 tamsulosin 0.4 mg capsule 0.4 mg PO DAILY@1800 #30 caps 01/27/19 levothyroxine 50 mcg tablet 50 mcg PO DAILY@0600 #30 tabs 10/31/20 ciprofloxacin HCl 500 mg tablet 500 mg PO BID #14 tabs 07/27/21 (Cipro) Allergies Allergy/AdvReac Type Severity Reaction Status Date / Time No Known Allergies Allergy Unverified 04/01/21 18:33 General Stated Complaint: Nausea/Vomit/Diar SUNNI: 4 Review of Systems All systems reviewed & are unremarkable except as noted in HPI and below Constitutional Constitutional: Denies chills, Denies excessive sweating, Denies fatigue, Denies fever(s), Denies weakness and Denies weight loss Eyes Eyes: Reports system reviewed and no additional complaints, except as documented and Denies blurry vision ENT Ears, Nose, Mouth, and Throat: Denies vertigo, Denies dizziness, Denies otalgia, Denies nasal congestion, Denies sore throat and Denies throat swelling Cardiovascular Cardiovascular: Denies chest pain, Denies syncope, Denies rapid heart rate and Denies dyspnea Respiratory Respiratory: Denies chest congestion, Denies cough, Denies pain on inspiration and Denies dyspnea Gastrointestinal Gastrointestinal: Denies abdominal pain, Denies diarrhea, Reports nausea and Reports vomiting Genitourinary Genitourinary: Denies hematuria, Denies dysuria and Denies flank pain Musculoskeletal Musculoskeletal: Denies back pain and Denies joint swelling Integumentary/Breasts Skin/Breast: Denies lesions and Denies rash Neurologic Neurologic: Denies behavioral changes, Denies confusion, Denies vertigo, Denies dizziness, Denies syncope, Denies localized weakness and Denies weakness Psychiatric Psychiatric: Denies behavioral changes, Denies confusion and Denies depression Endocrine Endocrine: Denies excessive sweating and Denies fatigue Hematologic/Lymphatic Hematologic/Lymphatic: Denies easy bruising and Denies lymphadenopathy Allergic/Immunologic Allergic/Immunologic: Denies throat swelling PFSH All Active Problems (Updated 09/15/21 @ 12:50 by Sarah Saldana DO) Weakness (Acute) Vomiting (Acute) Acute UTI (urinary tract infection) (Acute) Adult failure to thrive (Acute) Hypothyroidism (Chronic) Mild dementia (Acute) Hypertensive emergency (Acute) Parathyroid adenoma (Acute) Hypertension (Chronic) CVA (cerebral vascular accident) (Chronic) Altered mental status (Acute) 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) Renal insufficiency (Acute) Medical History ALICJA (acute kidney injury) Bladder outlet obstruction Cataracts, bilateral Left sided lacunar infarction Memory impairment Nonsustained ventricular tachycardia Obstructive uropathy Paroxysmal SVT (supraventricular tachycardia) UTI (urinary tract infection) Social History Smoking/Tobacco Use Status: Never Smoking risk assessment performed?: Yes Alcohol Intake: never Drug use: Never Substance use type: does not use Do you feel safe at home: Yes Do you feel safe in your relationship?: Yes Exam Const General: cooperative and healthy appearing Orientation: alert and awake [facility] Head: normal to inspection Ears: hearing grossly normal bilaterally, external ears normal and TM's normal bilaterally General nose exam: external nose normal Face and sinus: normal facial exam Mouth: oral mucosae normal Teeth and gingiva: dentition normal Throat: posterior oropharynx normal Eyes General: appearance normal, both eyes and all related structures Eyelids: eyelids normal Pupils: PERRL EOM: EOM intact bilaterally Neck Neck: normal visual inspection Lymphatic: no lymphadenopathy noted Chest Chest: normal inspection of the chest Resp Effort & Inspection: normal respiratory effort and able to speak in complete sentences Auscultation: clear to auscultation bilaterally Cardio Rate: regular rate Rhythm: regular rhythm GI Inspection: normal to inspection Palpation: soft, not firm, no guarding, no hepatosplenomegaly, no masses and nontender Auscultation: normal bowel sounds Back/Spine/Pelvis Back: no CVA tenderness Skin General skin exam: no rashes or lesions noted Neuro General: patient alert and patient awake Cognition: normal cognition Speech: speech normal Gait: normal gait Motor: muscle tone normal throughout Sensory Exam: no sensory deficits noted Extrem General: normal to inspection, full ROM and capillary refill normal Psych Appearance: grossly normal Mental Status: mental status grossly normal Speech and Movement: speech and movement normal Affect: normal affect Thought Process: normal
[2021-09-15 10:00] LABS: Abs Immature Grans 0.03 10^3/uL (0.0-0.06); Absolute Basophil Count 0.04 10^3/uL (0.0-0.2); Absolute Eosinophil Count 0.19 10^3/uL (0.0-0.7); Absolute Lymphocyte Count 1.55 10^3/uL (1.2-3.4); Absolute Monocyte Count 0.96 10^3/uL (0.1-0.8); Absolute Neutrophil Count 5.94 10^3/uL (1.2-6.7); Basophils % 0.5; Eosinophils % 2.2; HCT 38.8 % (40.0-50.0); HGB 12.9 g/dL (13.5-17.5); Immature Grans % 0.3; Lymphocytes % 17.8; MCH 29.1 pg (27.0-33.0); MCHC 33.2 % (32.0-36.0); MCV 87 fL (80-95); MPV 9.4 fL (8.0-11.0); Neutrophils % 68.2; Platelet Count 297 10^3/uL (130-400); RBC 4.44 10^6/uL (4.36-5.78); RDW 14.6 % (11.8-14.1); WBC 8.71 10^3/uL (4.4-10.8)
[2021-09-15 10:08] LABS: Bilirubin Negative (Negative); Blood Moderate (Negative); Clarity Sl Cloudy (Clear); Glucose Negative (Negative); Ketones Negative (Negative); Leukocyte Esterase Large (Negative); Nitrite Negative (Negative); Urobilinogen 0.2 EU/dL (Up TO 0.2)
[2021-09-15 10:15] LABS: ALT 11 U/L (16-63); AST 9 U/L (15-37); Albumin 2.8 g/dL (3.4-5.0); Alkaline Phosphatase 68 U/L (46-116); Anion Gap 7.5 mmol/L (3-11); BUN 23 mg/dL (7-18); Bilirubin, Total 0.9 mg/dL (0.2-1.0); CO2 30.5 mmol/L (21.0-32.0); CREATININE 1.5 mg/dL (0.70-1.30); Calcium 8.7 mg/dL (8.5-10.1); Chloride 103 mmol/L (98-107); Estimated GFR 46.13 (mL/min/1.73m2); Glucose 134 mg/dL (74-106); Lipase 117 U/L (73-393); Potassium 3.8 mmol/L (3.5-5.1); Sodium 141 mmol/L (136-145); Total Protein 7.3 g/dL (6.4-8.2)
[2021-09-15 10:25] LABS: Bacteria Moderate HPF (Negative); C & S Indicated? Yes; Casts Negative LPF (Negative); Crystals Negative HPF (Negative); Epithelial Cells Rare HPF (Negative); Mucus Negative (Negative); RBC 20-50 HPF (0-2); WBC >50 HPF (0-5)
[2021-09-15] MEDS: Normal Saline 250 ML 500 ML IV (10:52)
--- NOTE | 2021-09-15 12:20 | NUR.NOTE ---
Pt walked a few steps with 2 nsg staff and a walker, easily fatigue, knees buckled required 3 assist to transfer back into the stretcher bed.Nursing Note:
--- NOTE | 2021-09-16 20:10 | ED.FU.B_ITS ---
Date of service: 09/16/21 Time of Service: 20:11 Follow Up Plan: Patient's sister and DPOE Keira Molina called in follow-up to ED visit 09/15/2021, noting persistent weakness and concern for UTI. Patient remains febrile. Labs reviewed and initial urine culture growing greater than 100,000 gram- positive. Ms. Molina notes that the patient is not currently on ciprofloxacin as listed on medication list and feels this is likely from a prior UTI about a 1 to 2 months ago. Plan to initiate treatment for complicated UTI with cefuroxime 500 mg twice daily x10 days. Prescription called to [facility]. Patient has home health services and they recommended that Olvera be changed soon as possible and ideally tomorrow. [facility] She understands that culture sensitivities are pending and that these will need to be followed up and antibiotic may need to be adjusted. DPOE phone number is .
== END 2021-09-15 13:46 | disposition home or self-care (01) ==
PROVIDERS: Emergency Provider Physician Assistant; PCP Internal Medicine
DX: R11.2 Nausea with vomiting, unspecified (principal); R53.1 Weakness; I10 Essential (primary) hypertension; R82.71 Bacteriuria
CPT/HCPCS: 80053; 83690; 96360; 99284; 81003; 81015; 85025; 87086; 99283